=== PATIENT | male | born 1955 | race Caucasian/White ===

== ENCOUNTER 2019-05-15 23:08 | Inpatient (IN) | payer BC ==
[2019-05-15] MEDS ORDERED: SODIUM CHLORIDE 0.9% 1,000 ML IV STA (23:26)
--- NOTE | 2019-05-15 23:34 | ED ---
General Adult HPI - General Chief complaint: Weakness Stated complaint: Fall Time Seen by Provider: 05/15/19 23:13 Source: patient, EMS Mode of arrival: EMS - History of Present Illness Initial comments: Dictation was produced using [employer] dictation software. please excuse any grammatical, word or spelling errors. Chief Complaint: 63-year-old male brought in by EMS for weakness. History of Present Illness: 63-year-old male. He states that he has tingling to his feet and fingers. EMS was called by patient's . Patient does not know why he is here in emergency department today granted he feels fine granted the patient. EMS reports that was concerned about patient's well-being. Upon EMS arrival patient was found to the ground lying face down. Patient states she's been having tailing to his feet and fingers since yesterday. Patient feels as though his distal extremities are numb. Patient states he woke up and his usual state of health. Denies any nausea vomiting. He does complain of some mild abdominal pain. EMS reports that patient was 70% hypoxic. They put him on O2 supplementation. Patient was also found to be mildly hypotensive with a systolic in the 90s. Patient reports that he has no medical problems. Does not take any medications. States he does have some mid back pain is worse with deep inspiration however he attributes this to his chronic back pain. Denies any shortness of breath. The ROS documented in this emergency department record has been reviewed and confirmed by me. Those systems with pertinent positive or negative responses have been documented in the HPI. All other systems are other negative and/or noncontributory. PHYSICAL EXAM: General Impression: Alert and oriented x3, not in acute distress, ashen, cold to the touch HEENT: Normocephalic atraumatic, extra-ocular movements intact, pupils equal and reactive to light bilaterally, mucous membranes moist, pale conjunctival Cardiovascular: Heart regular rate and rhythm, S1&S2 audible, no murmurs, rubs or gallops Chest: Lungs clear to auscultation bilaterally, no rhonchi, no wheeze, no rales Abdomen: Diffuse abdominal tenderness, peritoneal Musculoskeletal: Weak pulses present and equal in all extremities, no peripheral edema, distal extremities are cool to the touch Motor: no focal deficits noted Neurological: CN II-XII grossly intact, no focal motor or sensory deficits noted Skin: Intact with no visualized rashes Psych: Normal affect and mood ED course: 63-year-old male brought into the emergency department by EMS from home for generalized weakness. Patient complains that he does have some mid thoracic back pain worse with inspiration. Vital signs upon arrival shows tachycardia. EKG shows ventricular rate of 104, sinus tachycardia, MS interval 130, QRS 110, QTc 494, there is incomplete right bundle branch block. EKG was compared to EKG from June showing new right bundle branch block features. C krueger review shows that patient has history of GI bleed and tested positive for H. pylori. Family arrived at bedside reports that patient fell recently. He's been very weak. He's been taking Valerian root for sleep aid. He also takes cannibis supplement.Portable chest x-ray was obtained. There was findings of intraperitoneal air. Patient likely septic from peritonitis. Patient moved to resuscitation bay. Troponin catheter was placed given the patient is critically ill. Laboratory slowly resulting. No white count. Hemoglobin 8.4. Thrombocytosis of 506. Venous pH is 7.2 with a pCO2 of 30 and bicarb of 12. Sodium of 129. Potassium 5.5, carbon dioxide of 11, anion gap of 19, creatinine of 6, BUN of 56, lactic acidosis 8.1 stool occult blood positive. Patient sent to CT given that there was concern for traumatic injuries. Computed tomography scan was reviewed showing no intracranial processes. Pending radiology read. Post triple lumen catheter placement x-ray was obtained showing adequate placement. Patient given 30 mL per KG ideal body weight bolus per sepsis protocol. Started on Zosyn. Discussed patient case in detail with Dr. cdaet was on-call for general surgery. Patient will be disposition to the operating room. Discussed patient case with Dr. Park of [facility] was willing to accept patients care. Discussed patient case with Dr. Roldan in is agreeable with plan. Patient will be resuscitated in emergency department and will be taken straight to the operating room prior to be disposition to the intensive care unit. His blood pressure improving with intravenous fluids. Given degree of acidosis patient given sodium bicarbonate and started on any bicarbonate infusion. Plan is for patient to go to the operating room for approximately 2:[address] cadet - Related Data Previous Rx's Medication Instructions Recorded Pantoprazole Sodium [Protonix] 40 mg PO Q12HR #60 tablet. 07/05/14 RX: LORazepam [Ativan] 1 mg PO TID PRN #20 tab 07/05/14 RX: Sucralfate [Carafate] 1 gm PO ACHS #120 tab 07/05/14 Allergies Allergy/AdvReac Type Severity Reaction Status Date / Time No Known Allergies Allergy Verified 07/02/14 11:10 Review of Systems ROS Statement: Those systems with pertinent positive or pertinent negative responses have been documented in the HPI. ROS Other: All systems not noted in ROS Statement are negative. Past Medical History Additional Past Medical History / Comment(s): POLPYS History of Any Multi-Drug Resistant Organisms: None Reported Past Surgical History: No Surgical Hx Reported Past Anesthesia/Blood Transfusion Reactions: No Reported Reaction Past Psychological History: No Psychological Hx Reported Smoking Status: Former smoker Past Alcohol Use History: Daily Past Drug Use History: Marijuana - Past Family History Mother Family Medical History: Cancer Additional Family Medical History / Comment(s): lung cancer. Course Vital Signs 05/15/19 05/15/19 05/15/19 23:15 23:38 23:50 Temperature 97.7 F Pulse Rate 105 H 103 H 108 H Respiratory 16 18 16 Rate Blood Pressure 99/58 89/58 108/51 O2 Sat by Pulse 99 100 96 Oximetry 05/15/19 05/16/19 05/16/19 23:57 00:12 00:45 Temperature Pulse Rate 103 H 106 H 106 H Respiratory 16 16 18 Rate Blood Pressure 116/49 96/74 117/72 O2 Sat by Pulse 95 97 96 Oximetry Procedures - Central Line Placement Left IJ Consent Obtained: verbal consent, written consent Patient Placed on Monitor/Pulse Ox: Yes MD Prep: mask, gown, gloves Central Line Prep: Povidone-Iodine 1% Local Anesthesia Used: Lidocaine 1%, with Epi Ultrasound Used for Placement: Yes Central Line Lumen Inserted: triple Bloods Obtained for Lab: Yes Central Line Position: good blood return, all ports aspirated, flushed, capped, sutured in place with 3-0 nylon Dressing Applied: Tegaderm Post Procedure X-Ray: tip of catheter in good position Patient Tolerated Procedure: well Medical Decision Making - Lab Data Result diagrams: 05/16/19 00:04 05/16/19 00:04 Lab Results 05/15/19 05/15/19 05/16/19 Range/Units 23:23 23:39 00:04 WBC (3.8-10.6) k/uL RBC (4.30-5.90) m/uL Hgb (13.0-17.5) gm/dL Hct (39.0-53.0) % MCV (80.0-100.0) fL MCH (25.0-35.0) pg MCHC (31.0-37.0) g/dL RDW (11.5-15.5) % Plt Count (150-450) k/uL Neutrophils % (Manual) % Band Neutrophils % % Lymphocytes % (Manual) % Monocytes % (Manual) % Neutrophils # (Manual) (1.3-7.7) k/uL Lymphocytes # (Manual) (1.0-4.8) k/uL Monocytes # (Manual) (0-1.0) k/uL Nucleated RBCs (0-0) /100 WBC Manual Slide Review Hypochromasia Poikilocytosis Crenated Cell PT (9.0-12.0) sec INR (<1.2) APTT (22.0-30.0) sec VBG pH (7.31-7.41) VBG pCO2 (37-51) mmHg VBG HCO3 (24-28) mmol/L Sodium 129 L (137-145) mmol/L Potassium 5.5 H (3.5-5.1) mmol/L Chloride 99 (98-107) mmol/L Carbon Dioxide 11 L (22-30) mmol/L Anion Gap 19 mmol/L BUN 56 H (9-20) mg/dL Creatinine 6.03 H (0.66-1.25) mg/dL Est GFR (CKD-EPI)AfAm 11 (>60 ml/min/1.73 sqM) Est GFR (CKD-EPI)NonAf 9 (>60 ml/min/1.73 sqM) Glucose 122 H (74-99) mg/dL POC Glucose (mg/dL) 109 H (75-99) mg/dL POC Glu Subassembly Assembler ID Deanna Pineda Plasma Lactic Acid Vernon (0.7-2.0) mmol/L Calcium 7.6 L (8.4-10.2) mg/dL Magnesium 2.0 (1.6-2.3) mg/dL Creatine Kinase 137 (55-170) U/L Troponin I (0.000-0.034) ng/mL Stool Occult Blood Positive (Negative) Serum Alcohol <10 mg/dL 05/16/19 05/16/19 05/16/19 Range/Units 00:04 00:04 00:04 WBC 5.3 (3.8-10.6) k/uL RBC 2.83 L (4.30-5.90) m/uL Hgb 8.4 L (13.0-17.5) gm/dL Hct 26.9 L (39.0-53.0) % MCV 95.1 (80.0-100.0) fL MCH 29.5 (25.0-35.0) pg MCHC 31.0 (31.0-37.0) g/dL RDW 14.4 (11.5-15.5) % Plt Count 506 H (150-450) k/uL Neutrophils % (Manual) 79 % Band Neutrophils % 11 % Lymphocytes % (Manual) 7 % Monocytes % (Manual) 3 % Neutrophils # (Manual) 4.70 (1.3-7.7) k/uL Lymphocytes # (Manual) 0.37 L (1.0-4.8) k/uL Monocytes # (Manual) 0.16 (0-1.0) k/uL Nucleated RBCs 0 (0-0) /100 WBC Manual Slide Review Performed Hypochromasia Marked Poikilocytosis Slight Crenated Cell Present PT 11.0 (9.0-12.0) sec INR 1.0 (<1.2) APTT 27.8 (22.0-30.0) sec VBG pH (7.31-7.41) VBG pCO2 (37-51) mmHg VBG HCO3 (24-28) mmol/L Sodium (137-145) mmol/L Potassium (3.5-5.1) mmol/L Chloride (98-107) mmol/L Carbon Dioxide (22-30) mmol/L Anion Gap mmol/L BUN (9-20) mg/dL Creatinine (0.66-1.25) mg/dL Est GFR (CKD-EPI)AfAm (>60 ml/min/1.73 sqM) Est GFR (CKD-EPI)NonAf (>60 ml/min/1.73 sqM) Glucose (74-99) mg/dL POC Glucose (mg/dL) (75-99) mg/dL POC Glu Subassembly Assembler ID Plasma Lactic Acid Vernon (0.7-2.0) mmol/L Calcium (8.4-10.2) mg/dL Magnesium (1.6-2.3) mg/dL Creatine Kinase (55-170) U/L Troponin I 0.030 (0.000-0.034) ng/mL Stool Occult Blood (Negative) Serum Alcohol mg/dL 05/16/19 05/16/19 Range/Units 00:04 00:04 WBC (3.8-10.6) k/uL RBC (4.30-5.90) m/uL Hgb (13.0-17.5) gm/dL Hct (39.0-53.0) % MCV (80.0-100.0) fL MCH (25.0-35.0) pg MCHC (31.0-37.0) g/dL RDW (11.5-15.5) % Plt Count (150-450) k/uL Neutrophils % (Manual) % Band Neutrophils % % Lymphocytes % (Manual) % Monocytes % (Manual) % Neutrophils # (Manual) (1.3-7.7) k/uL Lymphocytes # (Manual) (1.0-4.8) k/uL Monocytes # (Manual) (0-1.0) k/uL Nucleated RBCs (0-0) /100 WBC Manual Slide Review Hypochromasia Poikilocytosis Crenated Cell PT (9.0-12.0) sec INR (<1.2) APTT (22.0-30.0) sec VBG pH 7.23 L (7.31-7.41) VBG pCO2 30 L (37-51) mmHg VBG HCO3 12 L (24-28) mmol/L Sodium (137-145) mmol/L Potassium (3.5-5.1) mmol/L Chloride (98-107) mmol/L Carbon Dioxide (22-30) mmol/L Anion Gap mmol/L BUN (9-20) mg/dL Creatinine (0.66-1.25) mg/dL Est GFR (CKD-EPI)AfAm (>60 ml/min/1.73 sqM) Est GFR (CKD-EPI)NonAf (>60 ml/min/1.73 sqM) Glucose (74-99) mg/dL POC Glucose (mg/dL) (75-99) mg/dL POC Glu Subassembly Assembler ID Plasma Lactic Acid Vernon 8.1 H* (0.7-2.0) mmol/L Calcium (8.4-10.2) mg/dL Magnesium (1.6-2.3) mg/dL Creatine Kinase (55-170) U/L Troponin I (0.000-0.034) ng/mL Stool Occult Blood (Negative) Serum Alcohol mg/dL Critical Care Time Critical Care Time: Yes (75) Disposition Clinical Impression: Septic shock, Perforated bowel, Acute kidney failure, Hyponatremia, Lactic acidosis Disposition: [facility] Condition: Critical Referrals: None,Stated [Primary Care Provider] - 1-2 days Decision Time: 01:06
[2019-05-15 23:42] LABS: Glucose,Whole Blood 109 mg/dL (75-99)
[2019-05-16] MEDS ORDERED: PIPERACILLIN-TAZOBACTAM 3.375 GM in SODIUM CHLORIDE 0.9% 100 ML IVPB STA (00:09)
[2019-05-16] MEDS ORDERED: fentaNYL (PF) 50 MCG/ML 2 ML AMP IVP STA (00:12)
--- NOTE | 2019-05-16 00:13 | XR ---
EXAM: XR Chest, 1 View CLINICAL HISTORY: ITS.REASON XR Reason: hypoxia TECHNIQUE: Frontal view of the chest. COMPARISON: . FINDINGS: Lungs: Unremarkable. The lungs are clear. Pleural space: Unremarkable. No pneumothorax. Heart: Unremarkable. No cardiomegaly. Mediastinum: Unremarkable. Bones/joints: Unremarkable. Upper abdomen: Findings highly suspicious for pneumoperitoneum. IMPRESSION: Findings highly suspicious for pneumoperitoneum. Correlation with exam findings recommended and possible follow-up with CT abdomen and pelvis. <MYCVCSECTION> Critical Value Communications 05/16/19 00:18 Call Doctor Regarding Bowel Perforation with Free Air, called Dr. CARO on 05/16 00:18 (-05:00)
[2019-05-16 00:17] LABS: HCT 26.9 % (39.0-53.0); HGB 8.4 gm/dL (13.0-17.5); Hypochromasia Marked; MCH 29.5 pg (25.0-35.0); MCV 95.1 fL (80.0-100.0); Mean Platelet Volume 7.5; Platelet Count 506 k/uL (150-450); Poikilocytosis Slight; RBC 2.83 m/uL (4.30-5.90); RDW 14.4 % (11.5-15.5); WBC 5.3 k/uL (3.8-10.6)
[2019-05-16 00:28] LABS: African American GFR (CKD) 11 (>60 ml/min/1.73 sqM); Alcohol <10 mg/dL; Anion Gap 19 mmol/L; Blood Urea Nitrogen 56 mg/dL (9-20); Calcium 7.6 mg/dL (8.4-10.2); Carbon Dioxide 11 mmol/L (22-30); Chloride 99 mmol/L (98-107); Creatine Kinase 137 U/L (55-170); Glucose 122 mg/dL (74-99); Non-African American GFR(CKD) 9 (>60 ml/min/1.73 sqM); Potassium 5.5 mmol/L (3.5-5.1); Sodium 129 mmol/L (137-145)
[2019-05-16 00:29] LABS: VBG PH 7.23 (7.31-7.41)
[2019-05-16 00:36] LABS: Band Neutrophils % 11 %; Lymphocytes # (M) 0.37 k/uL (1.0-4.8); Monocytes # (M) 0.16 k/uL (0-1.0); Neutrophils % (M) 79 %; Nucleated Red Blood Cells 0 /100 WBC (0-0); Total Cells Counted 200
[2019-05-16 00:37] LABS: Crenated RBC Present
[2019-05-16] MEDS ORDERED: SODIUM CHLORIDE 0.9% 1,000 ML IV ONE ×2 (00:41→19:14)
[2019-05-16] MEDS ORDERED: SODIUM CHLORIDE 0.9% 500 ML 250 ML IV STA (00:47)
[2019-05-16 00:54] LABS: Partial Thromboplastin Time 27.8 sec (22.0-30.0)
[2019-05-16] MEDS ORDERED: SODIUM BICARB 8.4% 50 ML SYR (1 MEQ/ML) IV STA (00:56)
--- NOTE | 2019-05-16 00:56 | XR ---
EXAM: XR Abdomen, 2 Views CLINICAL HISTORY: ITS.REASON XR Reason: abdominal free air TECHNIQUE: Frontal view of the abdomen/pelvis with upright view of the abdomen. COMPARISON: 07/03/2014. FINDINGS: Intraperitoneal space: Reidentified extensive presumed free intraperitoneal air. Gastrointestinal tract: Unremarkable. No dilation. Bones/joints: Unremarkable. IMPRESSION: Reidentified extensive presumed free intraperitoneal air.
--- NOTE | 2019-05-16 00:56 | XR ---
EXAM: XR Chest, 1 View CLINICAL HISTORY: ITS.REASON XR Reason: cvc line placement TECHNIQUE: Frontal view of the chest. COMPARISON: Chest x-ray from earlier today. FINDINGS: Lungs: Mild patchy opacity in the right lung base may represent atelectasis and/or pneumonia. Pleural space: Unremarkable. No pneumothorax. Heart: Unremarkable. No cardiomegaly. Mediastinum: Unremarkable. Bones/joints: Unremarkable. Tubes, lines and devices: Interval placement of a left-sided central venous catheter with tip projecting over the right atrium. No evidence of pneumothorax. Upper abdomen: Reidentified extensive presumed pneumoperitoneum. IMPRESSION: 1. Interval placement of a left-sided central venous catheter with tip projecting over the right atrium. No evidence of pneumothorax. 2. Reidentified extensive presumed pneumoperitoneum. 3. Mild patchy opacity in the right lung base may represent atelectasis and/or pneumonia.
[2019-05-16] MEDS ORDERED: DEXTROSE 5% IN WATER 1,000 ML with SODIUM BICARB (1 MEQ/ML) 100 ML IV SCH (01:00)
[2019-05-16] MEDS ORDERED: NALOXONE 0.4 MG/ML 1 ML VIAL IV PRN ×2 (01:06→06:17)
[2019-05-16] MEDS ORDERED: PANTOPRAZOLE 40 MG/10 ML VIAL IVP ONE (01:08)
--- NOTE | 2019-05-16 01:15 | CT ---
EXAM: CT Angiography Chest With Intravenous Contrast CLINICAL HISTORY: ITS.REASON CT Reason: PE TECHNIQUE: Axial computed tomographic angiography images of the chest with intravenous contrast using pulmonary embolism protocol. CTDI is 45.2 mGy and DLP is 992.4 mGy-cm. This CT exam was performed using one or more of the following dose reduction techniques: automated exposure control, adjustment of the mA and/or kV according to patient size, and/or use of iterative reconstruction technique. MIP reconstructed images were created and reviewed. COMPARISON: No relevant prior studies available. FINDINGS: Pulmonary arteries: Unremarkable. No evidence of pulmonary embolism. Aorta: No acute findings. No thoracic aortic aneurysm. Lungs: Bibasilar mild consolidations presumably represent atelectasis. Pleural space: Small bilateral pleural effusions. No pneumothorax. Heart: Unremarkable. No cardiomegaly. No significant pericardial effusion. No evidence of RV dysfunction. Thyroid: Findings suspicious for 1 cm right thyroid lobe nodule. Bones/joints: No acute fracture. No dislocation. Soft tissues: Unremarkable. Lymph nodes: Unremarkable. No enlarged lymph nodes. IMPRESSION: 1. No evidence of pulmonary embolism to the proximal segmental level. More distal evaluation is limited. 2. Findings suspicious for 1 cm right thyroid lobe nodule. Further characterization with dedicated thyroid ultrasound suggested. 3. Small bilateral pleural effusions. 4. Bibasilar mild consolidations presumably represent atelectasis. Underlying pneumonia is possible.
--- NOTE | 2019-05-16 01:21 | CT ---
EXAM: CT Abdomen and Pelvis With Intravenous Contrast CLINICAL HISTORY: ITS.REASON CT Reason: abdominal pain TECHNIQUE: Axial computed tomography images of the abdomen and pelvis with intravenous contrast. CTDI is 11 mGy and DLP is 299.1 mGy-cm. This CT exam was performed using one or more of the following dose reduction techniques: automated exposure control, adjustment of the mA and/or kV according to patient size, and/or use of iterative reconstruction technique. COMPARISON: Prior abdominal radiographs. FINDINGS: Lung bases: Unremarkable. No mass. No consolidation. ABDOMEN: Liver: Unremarkable. No mass. Gallbladder and bile ducts: Unremarkable. No calcified stones. No ductal dilation. Pancreas: Unremarkable. No evidence of mass. No ductal dilation. Spleen: Unremarkable. No splenomegaly. Adrenals: Unremarkable. No mass. Kidneys and ureters: Findings highly suspicious for a 13 mm mass lesion in the superior pole of the left kidney. Questionable exophytic mass lesion arising from the superior pole the right kidney measuring up to 8 mm. lobulation of the left kidney. Atrophic right kidney. 14 mm right renal cyst. No hydronephrosis. Stomach and bowel: Moderate amount of stool within the proximal colon. PELVIS: Appendix: Appendix appears grossly unremarkable. Evaluation is limited by ascites. Bladder: Unremarkable. No evidence of mass. Reproductive: Unremarkable as visualized. ABDOMEN and PELVIS: Intraperitoneal space: Reidentified large amount of free intraperitoneal air. Large amount of ascites. Scattered areas of small bowel wall thickening may be secondary to ascites or represent a nonspecific enteritis. Bones/joints: No acute fracture. Soft tissues: Unremarkable. Vasculature: Unremarkable. No abdominal aortic aneurysm. Lymph nodes: Unremarkable. No enlarged lymph nodes. IMPRESSION: 1. Reidentified large amount of free intraperitoneal air. The origin is uncertain. 2. Large amount of ascites. 3. Scattered areas of small bowel wall thickening may be secondary to ascites or represent a nonspecific enteritis. 4. Findings highly suspicious for a 13 mm mass lesion in the superior pole of the left kidney. Further characterization with dedicated renal mass protocol imaging suggested. 5. Questionable exophytic mass lesion arising from the superior pole the right kidney measuring up to 8 mm.
--- NOTE | 2019-05-16 02:24 | CT ---
EXAM: CT Head Without Intravenous Contrast CLINICAL HISTORY: Fall. Headache. TECHNIQUE: Axial computed tomography images of the head/brain without intravenous contrast. CTDI is 45.2 mGy and DLP is 992.4 mGy-cm. This CT exam was performed using one or more of the following dose reduction techniques: automated exposure control, adjustment of the mA and/or kV according to patient size, and/or use of iterative reconstruction technique. COMPARISON: None. FINDINGS: Brain: No abnormal extra-axial collection. No hemorrhage. Midline shift: No midline shift or mass-effect. Midline anatomy is unremarkable. Ventricles: There is prominence of the ventricular system, cortical sulci, basilar cisterns, compatible with age related atrophy. Bones/joints: Calvarium is unremarkable. No acute fracture. Soft tissues: Unremarkable. Sinuses: Unremarkable as visualized. No acute sinusitis. Mastoid air cells: Mastoid air cells and sinuses are unremarkable. IMPRESSION: No acute intracranial pathology is detected. If there is concern for etiology since his early acute lacunar infarcts, magnetic resonance imaging of the brain with diffusion-weighted sequences should be performed for follow-up. EXAM: CT Cervical Spine Without Intravenous Contrast CLINICAL HISTORY: Fall. Headache. TECHNIQUE: Axial computed tomography images of the cervical spine without intravenous contrast. CTDI is 11 mGy and DLP is 299.1 mGy-cm. This CT exam was performed using one or more of the following dose reduction techniques: automated exposure control, adjustment of the mA and/or kV according to patient size, and/or use of iterative reconstruction technique. COMPARISON: None. FINDINGS: Vertebrae: Alignment of the cervical spine is within normal limits. Cervical vertebral bodies are maintained in height. Gentle levoscoliosis. Transaxial images of the cervical spine reveal mild posterior facet arthropathy diffusely. No acute fracture. Discs/spinal canal/neural foramina: Mild to moderate degenerative disc disease of the cervical spine is noted. Moderate degenerative disc disease of the cervical spine is noted. Minimal disc osteophyte complexes are noted most notably at the C5-6 and C6-7 levels. No spinal canal stenosis. Soft tissues: Paraspinal and regional soft tissues are unremarkable. Other findings: Spinous processes are unremarkable. IMPRESSION: Degenerative disc disease. No evidence of acute injury to the cervical spine.
[2019-05-16] MEDS ORDERED: PHENYLEPHRINE-0.9% NACL SYG 1 MG/10 ML SYRINGE ONE (02:51)
[2019-05-16] MEDS ORDERED: SUCCINYLCHOLINE CHLORIDE 100 MG/5 ML SYR IV ONE (02:51)
[2019-05-16] MEDS ORDERED: PROPOFOL 10 MG/ML 20 ML VIAL IV ONE (02:51)
[2019-05-16] MEDS ORDERED: MIDAZOLAM 2 MG/2 ML VIAL ONE (02:51)
[2019-05-16] MEDS ORDERED: fentaNYL (PF) 50 MCG/ML 2 ML AMP ONE (02:51)
[2019-05-16] MEDS ORDERED: ROCURONIUM BROMIDE 10 MG/ML 10 ML VIAL IV ONE (02:51)
[2019-05-16] MEDS ORDERED: SODIUM BICARB 8.4% 50 ML SYR (1 MEQ/ML) ONE (02:51)
[2019-05-16] MEDS ORDERED: IV FLUID CONTINUATION 900 ML IV ONE ×2 (02:58)
[2019-05-16] MEDS ORDERED: FLUCONAZOLE IN NACL,ISO-OSM 400 MG in SALINE 1 200ML.BAG IVPB STA (03:08)
--- NOTE | 2019-05-16 03:11 | P.GSCN ---
History of Present Illness Consult date: 05/16/19 History of present illness: This is a 63-year-old male with a past history of bleeding duodenal ulcer in 2013 he states that over the last 3 days been having worsening back pain and abdominal pain. He has had very little to eat as a result. He does not take his omeprazole that was prescribed to him. He states his abdominal pain began getting worse until he is felt dizzy and lightheaded at home. He is brought to the emergency department. He is found be hypotensive and tachycardic. He is found to have a large amount of free air and intraperitoneal fluid. Also consult regarding concern for perforated viscus. Past Medical History Additional Past Medical History / Comment(s): POLPYS History of Any Multi-Drug Resistant Organisms: None Reported Past Surgical History: No Surgical Hx Reported Past Anesthesia/Blood Transfusion Reactions: No Reported Reaction Past Psychological History: No Psychological Hx Reported Smoking Status: Former smoker Past Alcohol Use History: Daily Past Drug Use History: Marijuana - Past Family History Mother Family Medical History: Cancer Additional Family Medical History / Comment(s): lung cancer. Medications and Allergies Home Medications Medication Instructions Recorded Confirmed Type LORazepam [Ativan] 1 mg PO TID PRN #20 tab 07/05/14 Rx Pantoprazole Sodium [Protonix] 40 mg PO Q12HR #60 tablet. 07/05/14 Rx Sucralfate [Carafate] 1 gm PO ACHS #120 tab 07/05/14 Rx Allergies Allergy/AdvReac Type Severity Reaction Status Date / Time No Known Allergies Allergy Verified 07/02/14 11:10 Surgical - Exam Osteopathic Statement: *. No significant issues noted on an osteopathic structural exam other than those noted in the History and Physical/Consult. Vital Signs Pulse Resp BP Pulse Ox 105 H 16 99/58 99 05/15/19 23:15 05/15/19 23:15 05/15/19 23:15 05/15/19 23:15 - General moderate distress - Eyes PERRL - Neck trachea midline - Respiratory normal expansion, normal respiratory effort - Cardiovascular Heart Rate: 120 - Abdomen Distended, diffuse TTP with guarding - Neurologic normal coordination, normal sensation - Psychiatric oriented to time, oriented to person, oriented to place Results - Labs 05/16/19 00:04 05/16/19 00:04 Abnormal Lab Results - Last 24 Hours (Table) 05/15/19 05/16/19 05/16/19 Range/Units 23:39 00:04 00:04 RBC 2.83 L (4.30-5.90) m/uL Hgb 8.4 L (13.0-17.5) gm/dL Hct 26.9 L (39.0-53.0) % Plt Count 506 H (150-450) k/uL Lymphocytes # (Manual) 0.37 L (1.0-4.8) k/uL VBG pH (7.31-7.41) VBG pCO2 (37-51) mmHg VBG HCO3 (24-28) mmol/L Sodium 129 L (137-145) mmol/L Potassium 5.5 H (3.5-5.1) mmol/L Carbon Dioxide 11 L (22-30) mmol/L BUN 56 H (9-20) mg/dL Creatinine 6.03 H (0.66-1.25) mg/dL Glucose 122 H (74-99) mg/dL POC Glucose (mg/dL) 109 H (75-99) mg/dL Plasma Lactic Acid Vernon (0.7-2.0) mmol/L Calcium 7.6 L (8.4-10.2) mg/dL 05/16/19 05/16/19 Range/Units 00:04 00:04 RBC (4.30-5.90) m/uL Hgb (13.0-17.5) gm/dL Hct (39.0-53.0) % Plt Count (150-450) k/uL Lymphocytes # (Manual) (1.0-4.8) k/uL VBG pH 7.23 L (7.31-7.41) VBG pCO2 30 L (37-51) mmHg VBG HCO3 12 L (24-28) mmol/L Sodium (137-145) mmol/L Potassium (3.5-5.1) mmol/L Carbon Dioxide (22-30) mmol/L BUN (9-20) mg/dL Creatinine (0.66-1.25) mg/dL Glucose (74-99) mg/dL POC Glucose (mg/dL) (75-99) mg/dL Plasma Lactic Acid Vernon 8.1 H* (0.7-2.0) mmol/L Calcium (8.4-10.2) mg/dL Diabetes panel 05/16/19 Range/Units 00:04 Sodium 129 L (137-145) mmol/L Potassium 5.5 H (3.5-5.1) mmol/L Chloride 99 (98-107) mmol/L Carbon Dioxide 11 L (22-30) mmol/L BUN 56 H (9-20) mg/dL Creatinine 6.03 H (0.66-1.25) mg/dL Glucose 122 H (74-99) mg/dL Calcium 7.6 L (8.4-10.2) mg/dL Calcium panel 05/16/19 Range/Units 00:04 Calcium 7.6 L (8.4-10.2) mg/dL Pituitary panel 05/16/19 Range/Units 00:04 Sodium 129 L (137-145) mmol/L Potassium 5.5 H (3.5-5.1) mmol/L Chloride 99 (98-107) mmol/L Carbon Dioxide 11 L (22-30) mmol/L BUN 56 H (9-20) mg/dL Creatinine 6.03 H (0.66-1.25) mg/dL Glucose 122 H (74-99) mg/dL Calcium 7.6 L (8.4-10.2) mg/dL Adrenal panel 05/16/19 Range/Units 00:04 Sodium 129 L (137-145) mmol/L Potassium 5.5 H (3.5-5.1) mmol/L Chloride 99 (98-107) mmol/L Carbon Dioxide 11 L (22-30) mmol/L BUN 56 H (9-20) mg/dL Creatinine 6.03 H (0.66-1.25) mg/dL Glucose 122 H (74-99) mg/dL Calcium 7.6 L (8.4-10.2) mg/dL Assessment and Plan Assessment: Acute abdomen, free intraperitoneal air with concern for perforated viscus, sepsis Plan: I discussed the plan with anesthesia and the emergency room physician. Patient was to be resuscitated in the emergency room prior to exploratory laparotomy. Patient received 3 L of fluid in the emergency department and responded his blood pressure has been stable. Exploratory laparotomy possible bowel resection possible ostomy and all other indicated procedures were discussed the patient and the patient's . He stated he understood agreed and consented. Patient will be admitted to the ICU after surgery. He received Zosyn in the emergency department.
--- NOTE | 2019-05-16 03:46 | P.ANPRN ---
Procedure Note - Anesthesia - Invasive Line Left Arterial Line Time Out Performed: Yes Date of Procedure: 05/16/19 Time of Procedure: 03:00 Location of Patient Procedure: OR Preparation: Sterile Prep, Sterile Dressing Arterial Line Location: Radial Ultrasound Used: Yes Purpose - Visualization and Identification of Vasculature: Yes Needle Guage: 20 Image Stored and Saved: Yes Narrative: Left radial arterial line placement under u/s guidance.
[2019-05-16] MEDS ORDERED: HYDROmorphone 0.5 MG/0.5 ML SYRINGE IVP PRN (03:53)
[2019-05-16] MEDS ORDERED: ONDANSETRON 4 MG/2 ML VIAL IVP PRN (03:53)
[2019-05-16] MEDS ORDERED: LACTATED RINGERS 1,000 ML IV SCH ×2 (04:00→06:45)
[2019-05-16 04:31] LABS: Allen Test Performed? Yes
[2019-05-16 04:33] LABS: ABG Base Excess -8.2 mmol/L; ABG HCO3 16 mmol/L (21-25); ABG PCO2 30 mmHg (35-45); ABG PH 7.35 (7.35-7.45); ABG PO2 184 mmHg (83-108)
[2019-05-16 04:46] LABS: Hypochromasia Marked; MCH 28.7 pg (25.0-35.0); MCHC 31.5 g/dL (31.0-37.0); MCV 91.1 fL (80.0-100.0); Mean Platelet Volume 7.7; Platelet Count 386 k/uL (150-450); Poikilocytosis Slight; RBC 2.16 m/uL (4.30-5.90); RDW 15.1 % (11.5-15.5); WBC 3.8 k/uL (3.8-10.6)
[2019-05-16 04:54] LABS: HCT 19.7 % (39.0-53.0); HGB 6.2 gm/dL (13.0-17.5)
[2019-05-16] MEDS ORDERED: LACTATED RINGERS 1,000 ML IV ONE ×5 (05:03→06:17)
[2019-05-16 05:36] LABS: Band Neutrophils % 14 %; Lymphocytes # (M) 0.11 k/uL (1.0-4.8); Monocytes # (M) 0.23 k/uL (0-1.0); Myelocytes # (M) 0.04 k/uL (0); Myelocytes % 1 %; Neutrophils % (M) 77 %; Nucleated Red Blood Cells 0 /100 WBC (0-0); Total Cells Counted 200
--- NOTE | 2019-05-16 06:15 | P.OP ---
Date of Procedure: 05/16/19 Preoperative Diagnosis: Acute abdomen and perforated viscus Postoperative Diagnosis: Perforated duodenal ulcer Procedure(s) Performed: Exploratory laparotomy with antrectomy and Billroth II gastrojejunostomy Anesthesia: KAYLYNN Surgeon: Boogie Martines Estimated Blood Loss (ml): 100 IV fluids (ml): 3,500 Urine output (ml): 30 Pathology: other (Antrum and 1st portion of duodenum) Condition: critical Disposition: ICU Description of Procedure: Patient is brought operative suite remained in the supine position underwent general endotracheal anesthesia per Department of anesthesia prepped and draped in the usual sterile fashion timeout performed correct patient correct procedure correct site was verified. An upper midline incision was made carried down the fascia which was incised and opened in the usual fashion. There was a large amount of free air noted upon entry there was also approximately 3 L of purulent ascites. This was sent for Gram stain and culture. It was then suctioned. Abdomen was inspected there was a large 3 cm perforated ulcer in the first portion of the duodenum. This ulcer was large and friable it was not amenable to primary closure or Cali patch. Decision was made to perform antrectomy with the resection of the first first of the duodenum along with the Billroth II gastrojejunostomy. The lesser sac was entered and the omentum was taken down past the pylorus with a LigaSure device. The gastrohepatic ligament was taken down and the Antrum was stapled across with a 75 mm blue load CHERI stapler. The antrum and first portion of duodenum were freed up posteriorly until the first portion of duodenum with the ulcer was dissected free being sure not to injure the mg hepatis or the ampulla the first portion of the duodenum distal to the ulcer was stapled across with a 60 mm purple load Endo CHERI stapler. This was then oversewn with 3-0 Vicryl in a patch of omentum was placed over the staple line and sutured in place with 3-0 Vicryl. A loop of jejunum was brought up just 20 cm distal to the ligament of Treitz under no tension and a side to side gastrojejunostomy anastomosis was created with a 75 mm blue load CHERI stapler the common gastrotomy enterotomy was closed with 3-0 Vicryl interrupted sutures followed by 3-0 Vicryl imbricating Lembert style sutures. BOGDAN drain was placed in the right upper quadrant near the duodenal stump. His sutured in place the skin with a 3-0 nylon. All 4 quadrants were copiously irrigated with greater than 2 L of warm saline. This was done until clear. The small bowel and colon were run no other abnormalities were noted. The midline incision was then closed with looped 1 PDS sutures meeting in the middle. Skin keren were used to close the skin and sterile dressing was applied patient tolerated the procedure well he is in critical condition and sent to the ICU.
[2019-05-16 06:27] LABS: Glucose,Whole Blood 90 mg/dL (75-99)
[2019-05-16 06:30] LABS: ABG Base Excess -6.6 mmol/L; ABG HCO3 19 mmol/L (21-25); ABG PCO2 32 mmHg (35-45); ABG PH 7.37 (7.35-7.45); ABG PO2 >400 mmHg (83-108); ABG TCO2 20 mmol/L (19-24); Allen Test Performed? Yes
[2019-05-16] MEDS ORDERED: ACETAMINOPHEN IV (For NPO) 1,000 MG in EMPTY BAG 1 BAG IVPB ONE (06:30)
[2019-05-16] MEDS ORDERED: EMPTY BAG 1 BAG with PROPOFOL 1,000 MG IV SCH (06:32)
[2019-05-16] MEDS: NOREPINEPHRINE 4 MG in SODIUM CHLORIDE 0.9% 250 ML IV SCH ×2 (06:34→23:00)
--- NOTE | 2019-05-16 06:56 | P.HPIM ---
History of Present Illness H&P Date: 05/16/19 Chief Complaint: back and abd pain of 3 days 63-year-old male with history of bleeding duodenal ulcer in 2013 age and noncompliance with outpatient follow-up or medications Patient was seen immediately in the postoperative period in the ICU and unable to provide any meaningful history due to heavily sedated and vent support and endotracheal intubation. History was obtained by reviewing medical records from the ER and discussing case with his primary surgeon. Seems like patient is a heavy daily drinker came in today as he was found laying face down complaining of tingling in his fingers and feet so his called EMS he was found to be hypoxic with his oxygen sats down into 70% and low systolic blood pressure in the low 90s for which he was brought into the hospital for evaluation. He was found to be tachycardic and hypotensive he was resuscitated aggressively x-rays revealed free air under the diaphragm interperitoneal fluids patient has strong history of duodenal ulcer which bleeding back in 2013. He was resuscitated aggressively in the ER imaging obtained general surgery notified and he was rushed to the OR. Patient arrived from the OR at 0610 to the ICU. In the ER he was found to have lactic acidosis, hypovolemic shock, acute kidney injury, acute hypoxic respiratory failure.He was resuscitated aggressively. In the ER he was found to have perforated duodenal ulcer, patient had exploratory laparotomy , tolerated procedure well, bleeding was minimal during the OR time. Patient received 2 units of blood. Currently on IV pressors weaning as tolerated. Currently on vent support postoperatively. Minimal urine output despite aggressive resuscitation. Patient was found to have pus in his abdomen. He is currently kept on IV antibiotics and antifungal. Review of Systems ROS unobtainable: due to endotracheal tube Past Medical History Additional Past Medical History / Comment(s): POLPYS History of Any Multi-Drug Resistant Organisms: None Reported Past Surgical History: No Surgical Hx Reported Past Anesthesia/Blood Transfusion Reactions: No Reported Reaction Past Psychological History: No Psychological Hx Reported Smoking Status: Former smoker Past Alcohol Use History: Daily Past Drug Use History: Marijuana - Past Family History Mother Family Medical History: Cancer Additional Family Medical History / Comment(s): lung cancer. Medications and Allergies Home Medications Medication Instructions Recorded Confirmed Type LORazepam [Ativan] 1 mg PO TID PRN #20 tab 07/05/14 Rx Pantoprazole Sodium [Protonix] 40 mg PO Q12HR #60 tablet. 07/05/14 Rx Sucralfate [Carafate] 1 gm PO ACHS #120 tab 07/05/14 Rx Allergies Allergy/AdvReac Type Severity Reaction Status Date / Time No Known Allergies Allergy Verified 07/02/14 11:10 Physical Exam Vitals: Vital Signs Temp Pulse Resp BP Pulse Ox 05/16/19 02:30 118 H 16 109/77 97 05/16/19 02:10 110 H 19 108/71 98 05/16/19 01:40 117 H 20 138/51 96 05/16/19 01:13 106 H 18 111/97 96 05/16/19 00:45 106 H 18 117/72 96 05/16/19 00:12 106 H 16 96/74 97 05/15/19 23:57 103 H 16 116/49 95 05/15/19 23:50 108 H 16 108/51 96 05/15/19 23:38 97.7 F 103 H 18 89/58 100 05/15/19 23:15 105 H 16 99/58 99 Intake and Output 05/15/19 05/15/19 05/16/19 14:59 22:59 06:59 Intake Total 4320 Output Total 125 Balance 4195 Intake: IV 3700 Blood Product 620 As-1 Unit 310 [id number] Rc As-1 Unit 310 [id number] Output: Urine 25 Estimated Blood Loss 100 Other: Weight 70.307 kg patient was seen in the ICU immediately after he arrived from the OR Constitutional: patient is sedated, Intubated on vent support Eyes: Anicteric sclerae, moist conjunctiva, Pupils equal round reactive to light ENMT: NC/AT patient is intubated Neck: Supple, no masses, or JVD No carotid bruits No thyromegaly Lungs: Clear to auscultation Clear to percussion on vent support Cardiovascular: Heart regular in rate and rhythm, No murmurs, gallops, or rubs No peripheral edema Abdominal: Soft, abd binder in place, BOGDAN drain in place BS negative No palpable mass limited exam, due to abd binder Skin: Normal temperature, tone, texture, turgor No induration No subcutaneous nodules No rash, lesions No ulcers Extremities: No digital cyanosis No clubbing Pedal pulses intact and symmetrical Radial pulses intact and symmetrical No calf tenderness Psychiatric: intubated on vent support, and sedated Neuro deeply sedated, s/p paralytics. patient was seen post operatively Lymphatics: no palpable cervical or supraclavicular , or inguinal lymph nodes triple lumen central venous cath lea cath in place BOGDAN drain abd ET tube Results CBC & Chem 7: 05/16/19 04:18 05/16/19 00:04 Labs: Abnormal Lab Results - Last 24 Hours (Table) 05/15/19 05/16/19 05/16/19 Range/Units 23:39 00:04 00:04 RBC 2.83 L (4.30-5.90) m/uL Hgb 8.4 L (13.0-17.5) gm/dL Hct 26.9 L (39.0-53.0) % Plt Count 506 H (150-450) k/uL Lymphocytes # (Manual) 0.37 L (1.0-4.8) k/uL Myelocytes # (Manual) (0) k/uL ABG pCO2 (35-45) mmHg ABG pO2 (83-108) mmHg ABG HCO3 (21-25) mmol/L ABG O2 Saturation (94-97) % ABG Lactic Acid (0.5-1.6) mmol/L VBG pH (7.31-7.41) VBG pCO2 (37-51) mmHg VBG HCO3 (24-28) mmol/L Sodium 129 L (137-145) mmol/L Potassium 5.5 H (3.5-5.1) mmol/L Carbon Dioxide 11 L (22-30) mmol/L BUN 56 H (9-20) mg/dL Creatinine 6.03 H (0.66-1.25) mg/dL Glucose 122 H (74-99) mg/dL POC Glucose (mg/dL) 109 H (75-99) mg/dL Plasma Lactic Acid Vernon (0.7-2.0) mmol/L Calcium 7.6 L (8.4-10.2) mg/dL Crossmatch 05/16/19 05/16/19 05/16/19 Range/Units 00:04 00:04 00:04 RBC (4.30-5.90) m/uL Hgb (13.0-17.5) gm/dL Hct (39.0-53.0) % Plt Count (150-450) k/uL Lymphocytes # (Manual) (1.0-4.8) k/uL Myelocytes # (Manual) (0) k/uL ABG pCO2 (35-45) mmHg ABG pO2 (83-108) mmHg ABG HCO3 (21-25) mmol/L ABG O2 Saturation (94-97) % ABG Lactic Acid (0.5-1.6) mmol/L VBG pH 7.23 L (7.31-7.41) VBG pCO2 30 L (37-51) mmHg VBG HCO3 12 L (24-28) mmol/L Sodium (137-145) mmol/L Potassium (3.5-5.1) mmol/L Carbon Dioxide (22-30) mmol/L BUN (9-20) mg/dL Creatinine (0.66-1.25) mg/dL Glucose (74-99) mg/dL POC Glucose (mg/dL) (75-99) mg/dL Plasma Lactic Acid Vernon 8.1 H* (0.7-2.0) mmol/L Calcium (8.4-10.2) mg/dL Crossmatch See Detail 05/16/19 05/16/19 05/16/19 Range/Units 04:18 04:18 04:18 RBC 2.16 L (4.30-5.90) m/uL Hgb 6.2 L* D (13.0-17.5) gm/dL Hct 19.7 L* (39.0-53.0) % Plt Count (150-450) k/uL Lymphocytes # (Manual) 0.11 L (1.0-4.8) k/uL Myelocytes # (Manual) 0.04 H (0) k/uL ABG pCO2 30 L (35-45) mmHg ABG pO2 184 H (83-108) mmHg ABG HCO3 16 L (21-25) mmol/L ABG O2 Saturation 100.0 H (94-97) % ABG Lactic Acid 4.3 H* (0.5-1.6) mmol/L VBG pH (7.31-7.41) VBG pCO2 (37-51) mmHg VBG HCO3 (24-28) mmol/L Sodium (137-145) mmol/L Potassium (3.5-5.1) mmol/L Carbon Dioxide (22-30) mmol/L BUN (9-20) mg/dL Creatinine (0.66-1.25) mg/dL Glucose (74-99) mg/dL POC Glucose (mg/dL) (75-99) mg/dL Plasma Lactic Acid Vernno (0.7-2.0) mmol/L Calcium (8.4-10.2) mg/dL Crossmatch Assessment and Plan Assessment: 63 year old male with history of peptic ulcer disease, non compliant with PPI. presented due to hypoxia and not feeling well, was found to have perforated duodenal ulcer and shock. resuscitated and rushed to the OR for surgical repair. admitted as inpatient with anticipated length of stay > 2 midnights Plan: hypovolemic shock perforated Duodenal ulcer, s/p emergent surgical repair and exp. lap. POD # zero MUSHTAQ , 2/2 prerenal ATN, from circulatory shock lactic acidosis acute blood loss anemia 2/2 GIB 2/2 perf bowl, minimal blood loss intraoperatively , some component of dilutional anemia with aggressive resuscitation Hyponatremia post op vent support as part of post op care Alcohol abuse, daily drinker plan patient was resuscitated aggressively in the ED, then once stabilized rushed to the OR surgical care PPI IVF hydration blood transfusion 2 units goal Hgb >7 H and H q 8 hours IV ABx with zosyn , antifungal ,, ID consult follow up cultures follow renal function and urine output ventilator care monitor vital signs wean off IV pressors as tolerated Alcohol withdrawal precautions Thiamine critical care consult ID consult incidental findings of thyroid nodule and bilateral kidney mass, refer to CT report. consider OP follow up DVT PPX mechanical due to GI bleeding discharge planning, pending clinical course prognosis Guarded Anticipated length of stay > than 2 midnights A total of 60 minutes was spent on the care of this complex patient more than 50% of the time was spent in counseling and care coordination.
[2019-05-16] MEDS ORDERED: THIAMINE 100 MG/ML 2 ML VIAL IM STA (06:57)
[2019-05-16] MEDS: MORPHINE SULFATE 2 MG/ML SYRINGE IV PRN ×2 (07:39→11:49)
[2019-05-16] MEDS ORDERED: IPRATROPIUM-ALBUTEROL 3 ML NEB INHALATION PRN (07:41)
--- NOTE | 2019-05-16 08:07 | XR ---
EXAMINATION TYPE: XR chest 1V portable DATE OF EXAM: 05/16/2019 HISTORY: Tube placement. REFERENCE: Previous study dated 05/16/2019 the patient has been intubated. The tip of the ET tube is 1.7 cm above the ivana. An NG tube is been passed and its tip is within the stomach. There is a left internal jugular catheter in place. Its tip is within the right atrium. There continues to be minimal airspace disease in the lung bases bilaterally. Heart size upper limits of normal. There is minimal blunting of both CP angles. I could not exclude small effusions. Large a mount of pneumoperitoneum seen previously is not identified on this exam.. FINDINGS: 1. Satisfactory tube placement. 2. Borderline cardiomegaly. 3. Minimal, bilateral basilar infiltrates. 4. I could not exclude small effusions. IMPRESSION:
[2019-05-16 08:31] LABS: Hypochromasia Slight; MCH 28.4 pg (25.0-35.0); MCHC 32.5 g/dL (31.0-37.0); MCV 87.4 fL (80.0-100.0); Mean Platelet Volume 8.1; Platelet Count 301 k/uL (150-450); Poikilocytosis Slight; RBC 3.09 m/uL (4.30-5.90); WBC 2.8 k/uL (3.8-10.6)
[2019-05-16 08:42] LABS: Albumin 1.8 g/dL (3.5-5.0); Calcium 6.9 mg/dL (8.4-10.2); Potassium 5.5 mmol/L (3.5-5.1); Total Bilirubin 0.9 mg/dL (0.2-1.3); Total Protein 3.6 g/dL (6.3-8.2)
[2019-05-16 08:46] LABS: INR 1.1 (<1.2); Prothrombin Time 11.5 sec (9.0-12.0)
[2019-05-16] MEDS ORDERED: PANTOPRAZOLE 40 MG/10 ML VIAL IV SCH (09:00)
[2019-05-16 09:01] LABS: HGB 8.8 gm/dL (13.0-17.5)
[2019-05-16] MEDS: IPRATROPIUM-ALBUTEROL 3 ML NEB INHALATION SCH ×5 (09:20→23:17)
[2019-05-16 09:28] LABS: Amorphous Sediment,Urine Rare /hpf; Appearance,Urine Cloudy (Clear); Bacteria,Urine Rare /hpf; Bilirubin,Urine Negative (Negative); Blood,Urine Moderate (Negative); Color,Urine Yellow; Glucose,Urine (UA) Negative (Negative); Hyaline Casts,Urine 5 /lpf (0-2); Ketones,Urine Negative (Negative); Leukocyte Esterase,Urine Trace (Negative); Mucus,Urine Rare /hpf; Nitrite,Urine Negative (Negative); PH, Urine 5.5 (5.0-8.0); Protein,Urine 1+ (Negative); RBC,Urine 1 /hpf (0-5); Sperm,Urine Rare /hpf; Squamous Epithelial Cell,Urine <1 /hpf (0-4); Urobilinogen,Urine <2.0 mg/dL (<2.0); WBC,Urine 15 /hpf (0-5)
--- NOTE | 2019-05-16 09:54 | P.CNPUL ---
History of Present Illness Consult date: 05/16/19 Chief complaint: acute abdomen History of present illness: Is a 63-year-old male patient who came into the emergency department after he collapsed at home. The patient was having abdominal pain radiating to his back for several days. He was unable to eat and he was progressively getting more sick and weak and ultimately collapsed at home and he was brought into the emergency department where further investigation was done including a CAT scan of the abdomen and pelvis that showed a large amount of intraperitoneal air the origin was not certain. There was large amount of ascites and scattered area of small bowel wall thickening secondary to ascites/nonspecific enteritis. There was also incidental finding of a suspicious 13 mm mass lesion in the superior pole of the left kidney and another 8mm lesion exophytic in the superior pole of the right kidney. Based on this, the patient was taken immediately to the operating room. Intraoperatively the patient received a total of 3.5 L of IV fluids. He also received a total of 2 units of packed RBCs. He underwent expiratory laparotomy and he was found to have a perforated duodenal ulcer. The patient underwent antrectomy and Billroth II gastrojejunostomy. Postop, he was brought into the intensive care unit for further evaluation and management. Currently he is sedated with propofol is running at 30 g per KG per minute. He has received an additional 1-1/2 L of IV fluids here in the ICU which brings up his total boluses up to 5 L. Currently is on a maintenance of lactated Ringer at the rate of 1 50 mL and a carb infusion at the rate of 100 and hour. He is on assist control mode of ventilation at the rate of 20 with an FiO2 of 50% and a PEEP of 5 and a tidal volume of 500. The morning blood gases showed a pH of 7.37 with a pCO2 of 32 and pO2 of 400 and he was weaned off and FiO2 of 50%. He is producing urine output. His lactic acid level has dropped from a baseline of 8.1 down to 2.2. His creatinine is up from 6 down to 4.7. His serum bicarb is up to 19 and anion gap is at 10. He was given Zosyn and he was also given 400 mg of IV Diflucan and operating room. He has a triple-lumen catheter, left IJ and an outlying catheter, left radial. His abdominal wound is dry clean and intact. The patient has a BOGDAN drains in place. Cardiac rhythm is sinus for now. He briefly required pressors and currently is off levo fed. ET tube is in place. Output is minimal in the order of 150 mL the patient drinks more than 6 bottles of beer on a daily basis probably sometimes even more. He is an ex- smoker Review of Systems ROS unobtainable: due to endotracheal tube Past Medical History Past Medical History: GERD/Reflux, GI Bleed Additional Past Medical History / Comment(s): History of GI bleed back in 2013 and he was found to have polyps and hiatal hernia. History of Any Multi-Drug Resistant Organisms: None Reported Past Surgical History: No Surgical Hx Reported Past Anesthesia/Blood Transfusion Reactions: No Reported Reaction Past Psychological History: No Psychological Hx Reported Smoking Status: Former smoker Past Alcohol Use History: Daily Past Drug Use History: Marijuana - Past Family History Mother Family Medical History: Cancer Additional Family Medical History / Comment(s): lung cancer. Medications and Allergies Home Medications Medication Instructions Recorded Confirmed Type LORazepam [Ativan] 1 mg PO TID PRN #20 tab 07/05/14 Rx Pantoprazole Sodium [Protonix] 40 mg PO Q12HR #60 tablet. 07/05/14 Rx Sucralfate [Carafate] 1 gm PO ACHS #120 tab 07/05/14 Rx Allergies Allergy/AdvReac Type Severity Reaction Status Date / Time No Known Allergies Allergy Verified 07/02/14 11:10 Physical Exam Vitals: Vital Signs Temp Pulse Resp BP Pulse Ox 05/16/19 08:00 98.3 F 97 20 132/72 100 05/16/19 07:00 98 20 153/98 05/16/19 06:16 98.2 F 110 H 30 H 132/72 05/16/19 02:30 118 H 16 109/77 97 05/16/19 02:10 110 H 19 108/71 98 05/16/19 01:40 117 H 20 138/51 96 05/16/19 01:13 106 H 18 111/97 96 05/16/19 00:45 106 H 18 117/72 96 05/16/19 00:12 106 H 16 96/74 97 05/15/19 23:57 103 H 16 116/49 95 05/15/19 23:50 108 H 16 108/51 96 05/15/19 23:38 97.7 F 103 H 18 89/58 100 05/15/19 23:15 105 H 16 99/58 99 Intake and Output 05/15/19 05/16/19 05/16/19 22:59 06:59 14:59 Intake Total 4320 1350 Output Total 125 85 Balance 4195 1265 Intake: IV 3700 1250 Dextrose 5% in Water 1, 100 000 ml @ 100 mls/hr IV . Q11H DOLORES with Sodium Bicarb (1 Meq/ml) 100 ml Rx#:[id number] LR 1150 Intake, IV Titration 100 Amount ACETAMINOPHEN IV (For NPO 100 ) 1,000 mg In Empty Bag 1 bag @ 400 mls/hr IVPB ONCE ONE Rx#:[id number] Blood Product 620 Rc As-1 Unit 310 [id number] Rc As-1 Unit 310 [id number] Output: Urine 25 85 Estimated Blood Loss 100 Other: Weight 70.307 kg ABP, PAP, CO, CI - Last 8 Hours Arterial Blood Pressure 141/54 Arterial Blood Pressure 149/53 Gen. appearance, comfortable likely distress. The patient is currently intubated on a mechanical ventilator and is well sedated. Head exam was generally normal. There was no scleral icterus or corneal arcus. Mucous membranes were moist. Neck was supple and without jugular venous distension, thyromegaly, or carotid bruits. Carotids were easily palpable bilaterally. There was no adenopathy. Orogastric and orotracheal tube are both in place. NG tube was also in place. Lungs were clear to auscultation and percussion, and with normal diaphragmatic excursion. No wheezes or rales were noted. Cardiac exam revealed the PMI to be normally situated and sized. The rhythm was regular and no extrasystoles were noted during several minutes of auscultation. The first and second heart sounds were normal and physiologic splitting of the second heart sound was noted. There were no murmurs, rubs, clicks, or gallops. Abdomen is nondistended at this point in time. Surgical wound site is dry clean and intact. The patient is a BOGDAN drain output has been minimal since he arrived from the operating room probably Inderal that of 75 mL of serosanguineous mater ial. No bowel sounds. Surgical wound site is clean. Examination of the extremities revealed easily palpable radial, femoral and pedal pulses. There was no cyanosis, clubbing or edema. Examination of the skin revealed no evidence of significant rashes, suspicious appearing nevi or other concerning lesions. Neurologically dated, comfortable. Results - Laboratory Findings CBC and BMP: 05/16/19 08:15 05/16/19 08:15 ABG ABG pH 7.37 (7.35-7.45) 05/16/19 06:28 ABG pCO2 32 mmHg (35-45) L 05/16/19 06:28 ABG pO2 >400 mmHg (83-108) H 05/16/19 06:28 ABG O2 Saturation 100.0 % (94-97) H 05/16/19 06:28 PT/INR, D-dimer PT 11.5 sec (9.0-12.0) 05/16/19 08:15 INR 1.1 (<1.2) 05/16/19 08:15 Abnormal lab findings: Abnormal Labs 05/15/19 05/16/19 05/16/19 23:39 00:04 00:04 WBC RBC 2.83 L Hgb 8.4 L Hct 26.9 L RDW Plt Count 506 H Lymphocytes # (Manual) 0.37 L Myelocytes # (Manual) ABG pCO2 ABG pO2 ABG HCO3 ABG O2 Saturation ABG Lactic Acid VBG pH VBG pCO2 VBG HCO3 Sodium 129 L Potassium 5.5 H Carbon Dioxide 11 L BUN 56 H Creatinine 6.03 H Glucose 122 H POC Glucose (mg/dL) 109 H Plasma Lactic Acid Vrenon Calcium 7.6 L Alkaline Phosphatase Total Protein Albumin Urine Protein Urine Blood Ur Leukocyte Esterase Urine WBC Amorphous Sediment Urine Bacteria Hyaline Casts Urine Mucus Crossmatch 05/16/19 05/16/19 05/16/19 00:04 00:04 00:04 WBC RBC Hgb Hct RDW Plt Count Lymphocytes # (Manual) Myelocytes # (Manual) ABG pCO2 ABG pO2 ABG HCO3 ABG O2 Saturation ABG Lactic Acid VBG pH 7.23 L VBG pCO2 30 L VBG HCO3 12 L Sodium Potassium Carbon Dioxide BUN Creatinine Glucose POC Glucose (mg/dL) Plasma Lactic Acid Vernon 8.1 H* Calcium Alkaline Phosphatase Total Protein Albumin Urine Protein Urine Blood Ur Leukocyte Esterase Urine WBC Amorphous Sediment Urine Bacteria Hyaline Casts Urine Mucus Crossmatch See Detail 05/16/19 05/16/19 05/16/19 04:18 04:18 04:18 WBC RBC 2.16 L Hgb 6.2 L* D Hct 19.7 L* RDW Plt Count Lymphocytes # (Manual) 0.11 L Myelocytes # (Manual) 0.04 H ABG pCO2 30 L ABG pO2 184 H ABG HCO3 16 L ABG O2 Saturation 100.0 H ABG Lactic Acid 4.3 H* VBG pH VBG pCO2 VBG HCO3 Sodium Potassium Carbon Dioxide BUN Creatinine Glucose POC Glucose (mg/dL) Plasma Lactic Acid Vernon Calcium Alkaline Phosphatase Total Protein Albumin Urine Protein Urine Blood Ur Leukocyte Esterase Urine WBC Amorphous Sediment Urine Bacteria Hyaline Casts Urine Mucus Crossmatch 05/16/19 05/16/19 05/16/19 06:28 08:15 08:15 WBC 2.8 L RBC 3.09 L Hgb 8.8 L D Hct 27.0 L RDW 16.0 H Plt Count Lymphocytes # (Manual) Myelocytes # (Manual) ABG pCO2 32 L ABG pO2 >400 H ABG HCO3 19 L ABG O2 Saturation 100.0 H ABG Lactic Acid VBG pH VBG pCO2 VBG HCO3 Sodium 131 L Potassium 5.5 H Carbon Dioxide 19 L BUN 54 H Creatinine 4.71 H Glucose 115 H POC Glucose (mg/dL) Plasma Lactic Acid Vernon Calcium 6.9 L Alkaline Phosphatase 33 L Total Protein 3.6 L Albumin 1.8 L Urine Protein Urine Blood Ur Leukocyte Esterase Urine WBC Amorphous Sediment Urine Bacteria Hyaline Casts Urine Mucus Crossmatch 05/16/19 05/16/19 08:15 08:20 WBC RBC Hgb Hct RDW Plt Count Lymphocytes # (Manual) Myelocytes # (Manual) ABG pCO2 ABG pO2 ABG HCO3 ABG O2 Saturation ABG Lactic Acid 2.2 H* VBG pH VBG pCO2 VBG HCO3 Sodium Potassium Carbon Dioxide BUN Creatinine Glucose POC Glucose (mg/dL) Plasma Lactic Acid Vernon Calcium Alkaline Phosphatase Total Protein Albumin Urine Protein 1+ H Urine Blood Moderate H Ur Leukocyte Esterase Trace H Urine WBC 15 H Amorphous Sediment Rare H Urine Bacteria Rare H Hyaline Casts 5 H Urine Mucus Rare H Crossmatch - Diagnostic Findings Chest x-ray: image reviewed Assessment and Plan Plan: 1 acute abdomen secondary to Duodenal ulcer perforation. The patient underwent emergent extra to laparotomy, a total of 3 L of purulent material was aspirated from the abdomen. He underwent abdominal lavage. Subsequently underwent antrectomy and Billroth gastrojejunostomy and currently is postop day #0. The patient was aggressively resuscitated in the operating room and subsequently in the ICU. 2 acute respiratory failure, secondary to surgery and duodenal ulcer perforation. The patient is not hypoxic at this point and the chest x-ray showing no significant acute abnormalities 3 acute lactic acidosis, improving 4 acute anemia, blood loss anemia, received a total of 2 units of packed RBC 5 acute kidney injury, oliguric in the urine output is gradually improving and the creatinine is down to 4.71 6 hypotension secondary to acute abdomen, improved and the patient has been aggressively resuscitated IV fluids. This is probably a combination of septic/hypovolemic shock 7 chronic alcoholism 8 previous history of GI bleed 9 exophytic kidney lesions, 1.3 cm the left upper pole of the left kidney and 8mm on the right that needs to be worked up with a later stage. No evidence of any hydronephrosis. We will obtain an ultrasound the kidneys within next [address] hours. Lopez cath is in place. No hematuria. 10 Remote history of ?? juvenile rheumatoid arthritis Plan Continue resuscitated with IV fluids. Change IV fluids to normal saline at the rate of 200 mL an hour for the next 24 hours. Continue vent support. Drop the FiO2 down to 40%. Keep the rest of the vent settings unchanged. Chest x-ray was reviewed. Monitor the output from the NG tube. Monitor the output from the BOGDAN drain. Continue the IV Zosyn and add Diflucan 200 mg every 24 hours. Cultures were sent intraoperatively and this will be monitored. Monitor hemoglobin. Monitor white count. Monitor renal function. The patient has exophytic lesions in his kidneys 1.3 cm in the left upper pole and 8mm on the right and this needs to be worked up with a later stage I through fully recovered from this acute abdominal vacation. The patient's condition is critical. We'll continue to follow make further recommendations based on his progress. Discussed the case with general surgery. DVT and GI prophylaxis. Time with Patient: Greater than 30
[2019-05-16] MEDS: PROPOFOL 1,000 MG in EMPTY BAG 1 BAG IV SCH ×2 (10:10→20:45)
[2019-05-16] MEDS: SODIUM CHLORIDE 0.9% 1,000 ML IV SCH ×3 (10:36→20:15)
[2019-05-16] MEDS: PANTOPRAZOLE 40 MG/10 ML VIAL IV SCH ×2 (10:42→20:46)
[2019-05-16] MEDS: METOCLOPRAMIDE 5 MG/ML 2 ML VIAL IVP SCH ×3 (10:42→19:13)
[2019-05-16] MEDS: HEPARIN SODIUM,PORCINE 5,000 UNIT/ML 1 ML VIAL SQ SCH ×3 (10:42→23:23)
[2019-05-16] MEDS: CHLORHEXIDINE GLUCONATE 15 ML CUP MUCOUS MEM SCH ×2 (10:42→20:45)
[2019-05-16] MEDS: PIPERACILLIN-TAZOBACTAM 3.375 GM in SODIUM CHLORIDE 0.9% 100 ML IVPB SCH ×2 (10:43→20:46)
[2019-05-16] MEDS ORDERED: SODIUM CHLORIDE 0.9% 2,000 ML IV ONE (11:46)
[2019-05-16 12:24] LABS: Band Neutrophils % 8 %; Lymphocytes # (M) 0.08 k/uL (1.0-4.8); Neutrophils % (M) 83 %; Nucleated Red Blood Cells 0 /100 WBC (0-0); Total Cells Counted 208
[2019-05-16 12:25] LABS: Target Cells Present
[2019-05-16 12:37] LABS: Glucose,Whole Blood 84 mg/dL (75-99)
[2019-05-16] MEDS: HYDROmorphone 1 MG/ML 1 ML SYRINGE IVP PRN ×2 (15:22→19:46)
[2019-05-16 17:51] LABS: Glucose,Whole Blood 91 mg/dL (75-99)
[2019-05-16] MEDS: NOREPINEPHRINE 8 MG in SODIUM CHLORIDE 0.9% 250 ML IV SCH ×2 (18:11→23:16)
--- NOTE | 2019-05-16 22:34 | P.CONS ---
History of Present Illness - Reason for Consult Consult date: 05/16/19 Gastric perforation and antibiotic recommendation Requesting physician: Pj Lund - Chief Complaint low back pain and tingling is in his feet x few days - History of Present Illness Patient is a 63-year-old male brought to the ER by EMS last night for evaluation of generalized feeling well patient has been complaining of numbness and tingling in his feet and toes this patient also complaining of some low back pain on arrival of the medicine the patient was noticed to be lying on the ground with a facedown he was also noticed to be slightly hypertensive with systolic down to 90s patient has been brought into the ER and the patient did have extensive workup on presentation the patient has been afebrile and his white count was normal CT was negative for PE CT of abdominal pelvis did shows large intraperitoneal air surgery was consulted who took the patient to the OR patient is status post approximately noticed to have perforated duodenal ulcer status post repair of the same and Billroth II gastrojejunostomy patient subsequently has been admitted to the ICU currently intubated on the vent patient also noticed to be acute renal failure with a creatinine of 6 repeat today slightly down is currently on IV Zosyn and Diflucan for infection he was consented for further recommendation regarding antibiotic therapy most information has been obtained from review the chart and talking the who did mention patient with no abdominal pain or any history of nausea and vomiting if he has been mostly low back area as mentioned above quantification could not be obtained as the patient is currently sedated on the vent Review of Systems Positive points has been mentioned in HPI complete review could not be obtained because patient is intubated on vent Past Medical History Past Medical History: GERD/Reflux, GI Bleed Additional Past Medical History / Comment(s): History of GI bleed back in 2013 and he was found to have polyps and hiatal hernia. History of Any Multi-Drug Resistant Organisms: None Reported Past Surgical History: No Surgical Hx Reported Past Anesthesia/Blood Transfusion Reactions: No Reported Reaction Past Psychological History: No Psychological Hx Reported Smoking Status: Former smoker Past Alcohol Use History: Daily Past Drug Use History: Marijuana - Past Family History Mother Family Medical History: Cancer Additional Family Medical History / Comment(s): lung cancer. Medications and Allergies Home Medications Medication Instructions Recorded Confirmed Type No Known Home Medications 05/16/19 05/16/19 History Allergies Allergy/AdvReac Type Severity Reaction Status Date / Time No Known Allergies Allergy Verified 05/16/19 11:05 Physical Exam Vitals: Vital Signs Temp Pulse Resp BP Pulse Ox 05/16/19 12:10 102 H 05/16/19 12:00 101 H 20 105/68 98 05/16/19 11:00 99 20 112/69 99 05/16/19 10:00 99 20 113/67 99 05/16/19 09:00 98 20 117/76 99 05/16/19 08:00 98.3 F 97 20 132/72 99 05/16/19 07:00 98 20 153/98 05/16/19 06:16 98.2 F 110 H 30 H 132/72 05/16/19 02:30 118 H 16 109/77 97 05/16/19 02:10 110 H 19 108/71 98 05/16/19 01:40 117 H 20 138/51 96 05/16/19 01:13 106 H 18 111/97 96 05/16/19 00:45 106 H 18 117/72 96 05/16/19 00:12 106 H 16 96/74 97 05/15/19 23:57 103 H 16 116/49 95 05/15/19 23:50 108 H 16 108/51 96 05/15/19 23:38 97.7 F 103 H 18 89/58 100 05/15/19 23:15 105 H 16 99/58 99 Intake and Output 05/15/19 05/16/19 05/16/19 22:59 06:59 14:59 Intake Total 4320 3123.272 Output Total 125 485 Balance 4195 2638.272 Intake: IV 3700 3000 0.9 NACL 1150 Dextrose 5% in Water 1, 300 000 ml @ 100 mls/hr IV . Q11H DOLORES with Sodium Bicarb (1 Meq/ml) 100 ml Rx#:[id number] LR 1450 Zosyn 100 Intake, IV Titration 123.272 Amount ACETAMINOPHEN IV (For NPO 100 ) 1,000 mg In Empty Bag 1 bag @ 400 mls/hr IVPB ONCE ONE Rx#:[id number] Propofol 1,000 mg In 23.272 Empty Bag 1 bag @ Titrate IV .Q0M DOLORES Rx#: [id number] Blood Product 620 Rc As-1 Unit 310 [id number] Rc As-1 Unit 310 [id number] Output: Gastric Drainage 250 Drainage 70 Anterior Abdomen 70 Urine 25 165 Estimated Blood Loss 100 Other: Weight 70.307 kg ABP, PAP, CO, CI - Last 8 Hours Arterial Blood Pressure 98/50 Arterial Blood Pressure 131/56 Arterial Blood Pressure 131/58 Arterial Blood Pressure 134/53 Arterial Blood Pressure 141/54 Arterial Blood Pressure 149/53 GENERAL DESCRIPTION: Middle-aged male lying in bed intubated on the vent, No tachypnea or accessory muscle of respiration use. HEENT: Shows Pallor , no scleral icterus. Oral mucous membrane is dry. NECK: Trachea central, no thyromegaly. LUNGS: Unlabored breathing. Decreased breath sound at the base. No wheeze or crackle. HEART: S1, S2, regular rate and rhythm. No loud murmur ABDOMEN: Soft, mildly distended ,no tenderness , guarding or rigidity, no organomegaly EXTREMITIES: No edema of feet. SKIN: No rash, no masses palpable. NEUROLOGICAL: The patient is sedated on the vent. Results CBC & Chem 7: 05/16/19 08:15 05/16/19 08:15 Labs: Abnormal Lab Results - Last 24 Hours (Table) 05/15/19 05/16/19 05/16/19 Range/Units 23:39 00:04 00:04 WBC (3.8-10.6) k/uL RBC 2.83 L (4.30-5.90) m/uL Hgb 8.4 L (13.0-17.5) gm/dL Hct 26.9 L (39.0-53.0) % RDW (11.5-15.5) % Plt Count 506 H (150-450) k/uL Lymphocytes # (Manual) 0.37 L (1.0-4.8) k/uL Myelocytes # (Manual) (0) k/uL ABG pCO2 (35-45) mmHg ABG pO2 (83-108) mmHg ABG HCO3 (21-25) mmol/L ABG O2 Saturation (94-97) % ABG Lactic Acid (0.5-1.6) mmol/L VBG pH (7.31-7.41) VBG pCO2 (37-51) mmHg VBG HCO3 (24-28) mmol/L Sodium 129 L (137-145) mmol/L Potassium 5.5 H (3.5-5.1) mmol/L Carbon Dioxide 11 L (22-30) mmol/L BUN 56 H (9-20) mg/dL Creatinine 6.03 H (0.66-1.25) mg/dL Glucose 122 H (74-99) mg/dL POC Glucose (mg/dL) 109 H (75-99) mg/dL Plasma Lactic Acid Vernon (0.7-2.0) mmol/L Calcium 7.6 L (8.4-10.2) mg/dL Alkaline Phosphatase (38-126) U/L Total Protein (6.3-8.2) g/dL Albumin (3.5-5.0) g/dL Urine Protein (Negative) Urine Blood (Negative) Ur Leukocyte Esterase (Negative) Urine WBC (0-5) /hpf Amorphous Sediment (None) /hpf Urine Bacteria (None) /hpf Hyaline Casts (0-2) /lpf Urine Mucus (None) /hpf Crossmatch 05/16/19 05/16/19 05/16/19 Range/Units 00:04 00:04 00:04 WBC (3.8-10.6) k/uL RBC (4.30-5.90) m/uL Hgb (13.0-17.5) gm/dL Hct (39.0-53.0) % RDW (11.5-15.5) % Plt Count (150-450) k/uL Lymphocytes # (Manual) (1.0-4.8) k/uL Myelocytes # (Manual) (0) k/uL ABG pCO2 (35-45) mmHg ABG pO2 (83-108) mmHg ABG HCO3 (21-25) mmol/L ABG O2 Saturation (94-97) % ABG Lactic Acid (0.5-1.6) mmol/L VBG pH 7.23 L (7.31-7.41) VBG pCO2 30 L (37-51) mmHg VBG HCO3 12 L (24-28) mmol/L Sodium (137-145) mmol/L Potassium (3.5-5.1) mmol/L Carbon Dioxide (22-30) mmol/L BUN (9-20) mg/dL Creatinine (0.66-1.25) mg/dL Glucose (74-99) mg/dL POC Glucose (mg/dL) (75-99) mg/dL Plasma Lactic Acid Vernon 8.1 H* (0.7-2.0) mmol/L Calcium (8.4-10.2) mg/dL Alkaline Phosphatase (38-126) U/L Total Protein (6.3-8.2) g/dL Albumin (3.5-5.0) g/dL Urine Protein (Negative) Urine Blood (Negative) Ur Leukocyte Esterase (Negative) Urine WBC (0-5) /hpf Amorphous Sediment (None) /hpf Urine Bacteria (None) /hpf Hyaline Casts (0-2) /lpf Urine Mucus (None) /hpf Crossmatch See Detail 05/16/19 05/16/19 05/16/19 Range/Units 04:18 04:18 04:18 WBC (3.8-10.6) k/uL RBC 2.16 L (4.30-5.90) m/uL Hgb 6.2 L* D (13.0-17.5) gm/dL Hct 19.7 L* (39.0-53.0) % RDW (11.5-15.5) % Plt Count (150-450) k/uL Lymphocytes # (Manual) 0.11 L (1.0-4.8) k/uL Myelocytes # (Manual) 0.04 H (0) k/uL ABG pCO2 30 L (35-45) mmHg ABG pO2 184 H (83-108) mmHg ABG HCO3 16 L (21-25) mmol/L ABG O2 Saturation 100.0 H (94-97) % ABG Lactic Acid 4.3 H* (0.5-1.6) mmol/L VBG pH (7.31-7.41) VBG pCO2 (37-51) mmHg VBG HCO3 (24-28) mmol/L Sodium (137-145) mmol/L Potassium (3.5-5.1) mmol/L Carbon Dioxide (22-30) mmol/L BUN (9-20) mg/dL Creatinine (0.66-1.25) mg/dL Glucose (74-99) mg/dL POC Glucose (mg/dL) (75-99) mg/dL Plasma Lactic Acid Vernon (0.7-2.0) mmol/L Calcium (8.4-10.2) mg/dL Alkaline Phosphatase (38-126) U/L Total Protein (6.3-8.2) g/dL Albumin (3.5-5.0) g/dL Urine Protein (Negative) Urine Blood (Negative) Ur Leukocyte Esterase (Negative) Urine WBC (0-5) /hpf Amorphous Sediment (None) /hpf Urine Bacteria (None) /hpf Hyaline Casts (0-2) /lpf Urine Mucus (None) /hpf Crossmatch 05/16/19 05/16/19 05/16/19 Range/Units 06:28 08:15 08:15 WBC 2.8 L (3.8-10.6) k/uL RBC 3.09 L (4.30-5.90) m/uL Hgb 8.8 L D (13.0-17.5) gm/dL Hct 27.0 L (39.0-53.0) % RDW 16.0 H (11.5-15.5) % Plt Count (150-450) k/uL Lymphocytes # (Manual) 0.08 L (1.0-4.8) k/uL Myelocytes # (Manual) (0) k/uL ABG pCO2 32 L (35-45) mmHg ABG pO2 >400 H (83-108) mmHg ABG HCO3 19 L (21-25) mmol/L ABG O2 Saturation 100.0 H (94-97) % ABG Lactic Acid (0.5-1.6) mmol/L VBG pH (7.31-7.41) VBG pCO2 (37-51) mmHg VBG HCO3 (24-28) mmol/L Sodium 131 L (137-145) mmol/L Potassium 5.5 H (3.5-5.1) mmol/L Carbon Dioxide 19 L (22-30) mmol/L BUN 54 H (9-20) mg/dL Creatinine 4.71 H (0.66-1.25) mg/dL Glucose 115 H (74-99) mg/dL POC Glucose (mg/dL) (75-99) mg/dL Plasma Lactic Acid Vernon (0.7-2.0) mmol/L Calcium 6.9 L (8.4-10.2) mg/dL Alkaline Phosphatase 33 L (38-126) U/L Total Protein 3.6 L (6.3-8.2) g/dL Albumin 1.8 L (3.5-5.0) g/dL Urine Protein (Negative) Urine Blood (Negative) Ur Leukocyte Esterase (Negative) Urine WBC (0-5) /hpf Amorphous Sediment (None) /hpf Urine Bacteria (None) /hpf Hyaline Casts (0-2) /lpf Urine Mucus (None) /hpf Crossmatch 05/16/19 05/16/19 Range/Units 08:15 08:20 WBC (3.8-10.6) k/uL RBC (4.30-5.90) m/uL Hgb (13.0-17.5) gm/dL Hct (39.0-53.0) % RDW (11.5-15.5) % Plt Count (150-450) k/uL Lymphocytes # (Manual) (1.0-4.8) k/uL Myelocytes # (Manual) (0) k/uL ABG pCO2 (35-45) mmHg ABG pO2 (83-108) mmHg ABG HCO3 (21-25) mmol/L ABG O2 Saturation (94-97) % ABG Lactic Acid 2.2 H* (0.5-1.6) mmol/L VBG pH (7.31-7.41) VBG pCO2 (37-51) mmHg VBG HCO3 (24-28) mmol/L Sodium (137-145) mmol/L Potassium (3.5-5.1) mmol/L Carbon Dioxide (22-30) mmol/L BUN (9-20) mg/dL Creatinine (0.66-1.25) mg/dL Glucose (74-99) mg/dL POC Glucose (mg/dL) (75-99) mg/dL Plasma Lactic Acid Vernon (0.7-2.0) mmol/L Calcium (8.4-10.2) mg/dL Alkaline Phosphatase (38-126) U/L Total Protein (6.3-8.2) g/dL Albumin (3.5-5.0) g/dL Urine Protein 1+ H (Negative) Urine Blood Moderate H (Negative) Ur Leukocyte Esterase Trace H (Negative) Urine WBC 15 H (0-5) /hpf Amorphous Sediment Rare H (None) /hpf Urine Bacteria Rare H (None) /hpf Hyaline Casts 5 H (0-2) /lpf Urine Mucus Rare H (None) /hpf Crossmatch Microbiology - Last 24 Hours (Table) 05/16/19 03:35 Body Fluid Culture - Preliminary Peritoneal Fluid 05/16/19 03:35 Anaerobic Culture - Preliminary Peritoneal Fluid Assessment and Plan Assessment: 1-patient presented to hospital with nonspecific symptoms in this patient was noticed to have perforated ulcer status post operative repair the likely organism we need to cover only be the enteric gram-negative more likely a less likely anaerobes in addition to the yeast 2-patient with renal insufficiency and high risk of nephrotoxicity (1) Perforated bowel Current Visit: Yes Status: Acute Code(s): K63.1 - PERFORATION OF INTESTINE (NONTRAUMATIC) SNOMED Code(s): 38455074 Plan: 1-Zosyn 3.375 g every 12 hours dose adjusted to his kidney function along with Diflucan should provide adequate antibiotic and antifungal coverage for his perforated duodenal ulcer 2-gentle IV fluid We will follow on clinical condition and cultures to further adjust medication if needed Thank you for this consultation will follow this patient with you Time with Patient: Greater than 30
[2019-05-17] MEDS: HYDROmorphone 1 MG/ML 1 ML SYRINGE IVP PRN ×3 (00:11→22:04)
[2019-05-17 00:27] LABS: Glucose,Whole Blood 91 mg/dL (75-99)
[2019-05-17] MEDS: SODIUM CHLORIDE 0.9% 1,000 ML IV SCH ×5 (00:31→20:12)
[2019-05-17] MEDS: PROPOFOL 1,000 MG in EMPTY BAG 1 BAG IV SCH ×6 (01:20→23:08)
[2019-05-17] MEDS: METOCLOPRAMIDE 5 MG/ML 2 ML VIAL IVP SCH ×4 (02:45→18:40)
[2019-05-17] MEDS: NOREPINEPHRINE 8 MG in SODIUM CHLORIDE 0.9% 250 ML IV SCH ×3 (02:52→21:36)
[2019-05-17] MEDS: IPRATROPIUM-ALBUTEROL 3 ML NEB INHALATION SCH ×6 (03:10→23:17)
[2019-05-17 04:52] LABS: ABG Base Excess -10.9 mmol/L; ABG HCO3 16 mmol/L (21-25); ABG Oxygen Saturation 99.7 % (94-97); ABG PCO2 33 mmHg (35-45); ABG PH 7.29 (7.35-7.45); ABG PO2 159 mmHg (83-108); ABG TCO2 17 mmol/L (19-24)
[2019-05-17 05:16] LABS: Anisocytosis Slight; Basophils % (A) 0 %; Eosinophils % (A) 0 %; HCT 25.2 % (39.0-53.0); Hypochromasia Marked; Lymphocytes # (A) 0.3 k/uL (1.0-4.8); Lymphocytes % (A) 5 %; MCH 28.6 pg (25.0-35.0); MCHC 31.8 g/dL (31.0-37.0); MCV 90.2 fL (80.0-100.0); Mean Platelet Volume 6.9; Monocytes # (A) 0.3 k/uL (0-1.0); Monocytes % (A) 5 %; Neutrophils # (A) 5.9 k/uL (1.3-7.7); Neutrophils % (A) 88 %; Platelet Count 350 k/uL (150-450); Poikilocytosis Moderate; RDW 16.4 % (11.5-15.5); WBC 6.7 k/uL (3.8-10.6)
[2019-05-17 05:24] LABS: Albumin 1.9 g/dL (3.5-5.0); Potassium 5.2 mmol/L (3.5-5.1); Total Bilirubin 0.3 mg/dL (0.2-1.3); Total Protein 3.9 g/dL (6.3-8.2)
[2019-05-17 05:57] LABS: Calcium 6.2 mg/dL (8.4-10.2)
[2019-05-17] MEDS ORDERED: CALCIUM GLUCONATE 1 GM in SODIUM CHLORIDE 0.9% 100 ML IVPB ONE (06:25)
--- NOTE | 2019-05-17 07:19 | XR ---
EXAMINATION TYPE: XR chest 1V DATE OF EXAM: 05/17/2019 COMPARISON: 05/16/2019 HISTORY: Ventilatory dependent respiratory failure TECHNIQUE: Single frontal view of the chest is obtained. FINDINGS: Bibasilar airspace disease is similar. Endotracheal and enteric tubes are unchanged overal l. Left-sided internal jugular central venous catheter is stable. Trace pleural effusions blunt the c ostophrenic angles. Cardiomediastinal silhouette is mildly enlarged and stable. No sizable pneumothor ax. Mild diffuse osseous demineralization. IMPRESSION: Stable bibasilar airspace disease, atelectasis versus less likely pneumonia.
[2019-05-17] MEDS: PIPERACILLIN-TAZOBACTAM 3.375 GM in SODIUM CHLORIDE 0.9% 100 ML IVPB SCH ×2 (08:34→20:04)
[2019-05-17] MEDS: HEPARIN SODIUM,PORCINE 5,000 UNIT/ML 1 ML VIAL SQ SCH ×2 (08:42→15:57)
[2019-05-17] MEDS: PANTOPRAZOLE 40 MG/10 ML VIAL IV SCH ×2 (08:43→20:05)
[2019-05-17] MEDS: CHLORHEXIDINE GLUCONATE 15 ML CUP MUCOUS MEM SCH ×2 (08:43→20:12)
[2019-05-17] MEDS: FLUCONAZOLE IN NACL,ISO-OSM 200 MG in SALINE 1 100ML.BAG IVPB SCH (08:43)
[2019-05-17] MEDS ORDERED: DEXTROSE 10 % IN WATER 250 ML IV ONE (11:52)
[2019-05-17 12:01] LABS: Glucose,Whole Blood 55 mg/dL (75-99)
--- NOTE | 2019-05-17 12:09 | P.PN ---
Subjective Progress Note Date: 05/17/19 Principal diagnosis: Acute surgical abdomen secondary to marginal ulcer perforation. Is a 63-year-old male patient who came into the emergency department after he collapsed at home. The patient was having abdominal pain radiating to his back for several days. He was unable to eat and he was progressively getting more sick and weak and ultimately collapsed at home and he was brought into the emergency department where further investigation was done including a CAT scan of the abdomen and pelvis that showed a large amount of intraperitoneal air the origin was not certain. There was large amount of ascites and scattered area of small bowel wall thickening secondary to ascites/nonspecific enteritis. There was also incidental finding of a suspicious 13 mm mass lesion in the superior pole of the left kidney and another 8mm lesion exophytic in the superior pole of the right kidney. Based on this, the patient was taken immediately to the operating room. Intraoperatively the patient received a total of 3.5 L of IV fluids. He also received a total of 2 units of packed RBCs. He underwent expiratory laparotomy and he was found to have a perforated duodenal ulcer. The patient underwent antrectomy and Billroth II gastrojejunostomy. Postop, he was brought into the intensive care unit for further evaluation and management. Currently he is sedated with propofol is running at 30 g per KG per minute. He has received an additional 1-1/2 L of IV fluids here in the ICU which brings up his total boluses up to 5 L. Currently is on a maintenance of lactated Ringer at the rate of 1 50 mL and a carb infusion at the rate of 100 and hour. He is on assist control mode of ventilation at the rate of 20 with an FiO2 of 50% and a PEEP of 5 and a tidal volume of 500. The morning blood gases showed a pH of 7.37 with a pCO2 of 32 and pO2 of 400 and he was weaned off and FiO2 of 50%. He is producing urine output. His lactic acid level has dropped from a baseline of 8.1 down to 2.2. His creatinine is up from 6 down to 4.7. His serum bicarb is up to 19 and anion gap is at 10. He was given Zosyn and he was also given 400 mg of IV Diflucan and operating room. He has a triple-lumen catheter, left IJ and an outlying catheter, left radial. His abdominal wound is dry clean and intact. The patient has a BOGDAN drains in place. Cardiac rhythm is sinus for now. He briefly required pressors and currently is off levo fed. ET tube is in place. Output is minimal in the order of 150 mL the patient drinks more than 6 bottles of beer on a daily basis probably sometimes even more. He is an ex- smoker Patient was evaluated today on 05/17/2019, remains in the ICU, mechanically ventilated and intubated. His present ventilator settings are tidal volume of 500 assist control rate of 20 FiO2 40%. And PEEP is 5. Patient is still requiring pressors in the form of norepinephrine at 0.22 mcg/kg/m, he is on propofol at 75 mcg/kg/m, remains on IV fluids at 200 mL per hour. CVP is about 9. Patient has decent urine output. But blood pressure remains marginal req uiring pressors. He is presently on antibiotics including Zosyn and Diflucan as per infectious disease on the case. ABG this morning showed a pO2 of 159 pCO2 of 33 pH of 7.29. His CBC showed WBC count of 6.7 hemoglobin of 8.0 electrolytes showed slightly elevated potassium of 5.2. BUN however is 53 creatinine is 4.59, improving compared to his creatinine on presentation of 6.03. Patient is sedated, however he is arousable, and follows simple instructions. His propofol dose was increased, patient is known to have history of alcoholism. Objective - Vital Signs Vital signs: Vital Signs Temp 98.8 F 05/17/19 08:01 Pulse 60 05/17/19 11:23 Resp 20 05/17/19 11:00 BP 105/62 05/17/19 11:00 Pulse Ox 99 05/17/19 11:00 Intake & Output 05/16/19 05/17/19 05/17/19 18:59 06:59 18:59 Intake Total 5454.000 5001.579 1590.972 Output Total 1065 913 255 Balance 4389.000 4088.579 1335.972 Weight 88.7 kg Intake: IV 5000 4166 1330 0.9 NACL 3150 4000 1000 Calcium Gluconate 1 gm In 100 Sodium Chloride 0.9% 100 ml @ 100 mls/hr IVPB ONCE ONE Rx#:[id number] Dextrose 5% in Water 1, 300 000 ml @ 100 mls/hr IV . Q11H [facility] with Sodium Bicarb (1 Meq/ml) 100 ml Rx#:[id number] Fluconazole in NaCl,Iso- 100 Osm 200 mg In Saline 1 100ml.bag @ 100 mls/hr IVPB DAILY [facility] Rx#: [id number] LR 1450 Pressure Bags 66 30 Zosyn 100 100 100 Intake, IV Titration 454.000 835.579 260.972 Amount ACETAMINOPHEN IV (For NPO 100 ) 1,000 mg In Empty Bag 1 bag @ 400 mls/hr IVPB ONCE ONE Rx#:[id number] Norepinephrine 4 mg In 254.000 Sodium Chloride 0.9% 250 ml @ 0.05 MCG/KG/MIN 13. 394 mls/hr IV .[id number] [facility] Rx#:[id number] Norepinephrine 8 mg In 647.508 169.573 Sodium Chloride 0.9% 250 ml @ 0.05 MCG/KG/MIN 6. 802 mls/hr IV .Q24H [facility] Rx#:[id number] Propofol 1,000 mg In 100.000 188.071 91.399 Empty Bag 1 bag @ Titrate IV .Q0M [facility] Rx#: [id number] Output: Gastric Drainage 600 350 Drainage 120 30 Anterior Abdomen 120 30 Urine 345 533 255 Other: Voiding Method Indwelling Catheter Indwelling Catheter Indwelling Catheter ABP, PAP, CO, CI - Last Documented Arterial Blood Pressure 115/44 - Exam Physical Exam: Revealed a 63-year-old white male, on mechanical ventilation. In no distress. Head: Atraumatic, normocephalic. HEENT:[Neck is supple.] [No neck masses.] [No thyromegaly.] [No JVD.] PERRLA, EOMI, no icterus, moist mucous membranes, endotracheal tube and orogastric tube are intact. Chest: [Diminished breath sounds and crackles at the bases no rhonchi and no wheezes.] Cardiac Exam: [Normal S1 and S2, no S3 gallop, no murmur.] Abdomen: [Postsurgical, soft, slightly distended, no tenderness, no rebound, diminished bowel sounds. No rigidity..] Extremities: [No clubbing, no edema, no cyanosis.] Good pulses bilaterally. Neurological Exam: Sedated, however arousable, follows simple instructions. Psychiatric: Could not be assessed. Lymphatics: No lymphadenopathy. Skin: No rashes. - Labs CBC & Chem 7: 05/17/19 04:16 05/17/19 04:16 Labs: Abnormal Lab Results - Last 24 Hours (Table) 05/16/19 05/17/19 05/17/19 Range/Units 08:15 04:16 04:16 RBC 2.80 L (4.30-5.90) m/uL Hgb 8.0 L (13.0-17.5) gm/dL Hct 25.2 L (39.0-53.0) % RDW 16.4 H (11.5-15.5) % Lymphocytes # 0.3 L (1.0-4.8) k/uL Lymphocytes # (Manual) 0.08 L (1.0-4.8) k/uL ABG pH (7.35-7.45) ABG pCO2 (35-45) mmHg ABG pO2 (83-108) mmHg ABG HCO3 (21-25) mmol/L ABG Total CO2 (19-24) mmol/L ABG O2 Saturation (94-97) % Sodium 135 L (137-145) mmol/L Potassium 5.2 H (3.5-5.1) mmol/L Chloride 109 H (98-107) mmol/L Carbon Dioxide 16 L (22-30) mmol/L BUN 53 H (9-20) mg/dL Creatinine 4.59 H (0.66-1.25) mg/dL Calcium 6.2 L* (8.4-10.2) mg/dL AST 13 L (17-59) U/L Total Protein 3.9 L (6.3-8.2) g/dL Albumin 1.9 L (3.5-5.0) g/dL 05/17/19 Range/Units 04:48 RBC (4.30-5.90) m/uL Hgb (13.0-17.5) gm/dL Hct (39.0-53.0) % RDW (11.5-15.5) % Lymphocytes # (1.0-4.8) k/uL Lymphocytes # (Manual) (1.0-4.8) k/uL ABG pH 7.29 L (7.35-7.45) ABG pCO2 33 L (35-45) mmHg ABG pO2 159 H (83-108) mmHg ABG HCO3 16 L (21-25) mmol/L ABG Total CO2 17 L (19-24) mmol/L ABG O2 Saturation 99.7 H (94-97) % Sodium (137-145) mmol/L Potassium (3.5-5.1) mmol/L Chloride (98-107) mmol/L Carbon Dioxide (22-30) mmol/L BUN (9-20) mg/dL Creatinine (0.66-1.25) mg/dL Calcium (8.4-10.2) mg/dL AST (17-59) U/L Total Protein (6.3-8.2) g/dL Albumin (3.5-5.0) g/dL Microbiology - Last 24 Hours (Table) 05/16/19 03:35 Gram Stain - Preliminary Peritoneal Fluid Body Fluid Culture - Preliminary Gram Neg Bacilli Non Hemolytic Strep 05/16/19 00:04 Blood Culture - Preliminary Blood No Growth after 24 hours 05/16/19 08:15 Gram Stain - Preliminary Sputum Sputum Culture - Preliminary 05/16/19 08:20 Urine Culture - Preliminary Urine,Voided 05/16/19 03:35 Anaerobic Culture - Preliminary Peritoneal Fluid Assessment and Plan Assessment: Impression: 1 acute abdominal sepsis and septic shock secondary to duodenal ulcer perforation. 2 acute lactic acidosis secondary to above, improving. 3 acute hypoxic respiratory failure secondary to septic shock and abdominal sepsis. 4 acute kidney injury secondary to acute tubular necrosis and hypotension as well as sepsis and septic shock. 5 chronic alcoholism 6 history of GI bleeding 7 exophytic kidney lesion, needs to have workup on outpatient basis, this was incidentally seen on CT of the abdomen and pelvis, will eventually need outpatie nt follow-up with urology. 8 acute anemia secondary to blood loss, received a total of 2 units of packed RBCs since admission, hemoglobin now is 8. Recommendation: Continue ventilatory support Continue hemodynamic support Consider TPN since May be quite some time before we could start enteral feeding and this will be discussed with surgery Continue antibiotics in the form of Zosyn and Diflucan. Continue GI and DVT prophylaxis Continue alcohol withdrawal protocol Continue to monitor daily labs and renal profile Continue fluids and titrate down pressors if that could be done today. Discussed his condition with surgery on the case. We'll continue to follow. Critical care time is 35 minutes. Time with Patient: Greater than 30
[2019-05-17 12:29] LABS: Glucose,Whole Blood 219 mg/dL (75-99)
--- NOTE | 2019-05-17 13:39 | CDI ---
Documentation Clarification Form Date: 05/17/2019 1:22:00 PM From: Erika Wells RN CCDS Admit Date: 05/16/2019 1:08:00 AM Patient Name: Surinder Flores Visit Number: [id number] Discharge Date: ATTENTION: The Clinical Documentation Specialists (CDI) and [facility] Coding Staff appreciate your assistance in clarifying documentation. Please respond to the clarification below the line at the bottom and electronically sign. The CDI & [facility] Coding staff will review the response and follow-up if needed. Please note: Queries are made part of the Legal Health Record. If you have any questions, please contact the author of this message via ITS. Dr. Becerra, Acute abdominal sepsis and septic shock secondary to duodenal ulcer perforation Documented in Critical Care Progress Note 05/17/2019 History/Risk Factors: 63-year-old male presents to the ED via EMS after being found face down at home with tingling fingers and feet. Per EMS he was found to be mildly hypotensive with a systolic in the 90s. Medical History GERD, GI Bleed 2013; Alcohol Abuse daily Drinker Clinical Indicators: VSS 05/16 89/58 103 97.7 Rectal 18 100% ra Labs;05/16 Hgb 8.6; plt 506; Na 129; K 5.5; BUN 56 Cr 6.03; plasma lactic acid 8.1; FOB positive; CT Abd Pelvis 05/16 Reidentified large amount of free intraperitoneal air. Origin uncertain Treatment: 05/16 6L 0.9ns ivfl bolus; Sodium Bicarb 8.4% 5ml iv x1; Zosyn ivpb q 12 hrs; Norepinephrine IV; Definition of Present on Admission (POA): A diagnosis present at the time the order for admission to inpatient status was written. For each diagnosis, documentation must be clear to determine if the condition was present at the time of the patients inpatient admission or developed during the hospital stay. Please clarify if Sepis was POA: ____W = Clinically undetermined if the condition was present at the time of the order for inpatient admission. (Last Revision: Jun 2018) MTDD
--- NOTE | 2019-05-17 14:54 | P.PN ---
Subjective Progress Note Date: 05/17/19 Principal diagnosis: Duodenal perforation Patient was seen and examined. No acute events overnight. Fully sedated and ventilated. Ventilator settings set at tidal volume 500, rate 20, FiO2 40% with PEEP of 5. He is on norepinephrine drip at 4 mics per minute. He has been se dated with propofol. CBC shows hemoglobin of 8, which has dropped from 8.8. ABG shows pH 7.29, pCO2 33, bicarbonate 16. CMP shows sodium 135, potassium 5.2, chloride 109, bicarbonate 16, BUN 53, creatinine 4.59. Calcium is 6.2. Family is at bedside. Objective - Vital Signs Vital signs: Vital Signs Temp 98.8 F 05/17/19 08:01 Pulse 64 05/17/19 14:00 Resp 20 05/17/19 14:00 BP 106/67 05/17/19 14:00 Pulse Ox 96 05/17/19 14:00 Intake & Output 05/16/19 05/17/19 05/17/19 18:59 06:59 18:59 Intake Total 5454.000 5001.579 2559.261 Output Total 1065 913 595 Balance 4389.000 4088.579 1964.261 Weight 88.7 kg Intake: IV 5000 4166 2198 0.9 NACL 3150 4000 1600 Calcium Gluconate 1 gm In 100 Sodium Chloride 0.9% 100 ml @ 100 mls/hr IVPB ONCE ONE Rx#:[id number] Dextrose 10 % in Water 250 250 ml @ 999 mls/hr IV ONCE ONE Rx#:[id number] Dextrose 5% in Water 1, 300 000 ml @ 100 mls/hr IV . Q11H [facility] with Sodium Bicarb (1 Meq/ml) 100 ml Rx#:[id number] Fluconazole in NaCl,Iso- 100 Osm 200 mg In Saline 1 100ml.bag @ 100 mls/hr IVPB DAILY [facility] Rx#: [id number] LR 1450 Pressure Bags 66 48 Zosyn 100 100 100 Intake, IV Titration 454.000 835.579 361.261 Amount ACETAMINOPHEN IV (For NPO 100 ) 1,000 mg In Empty Bag 1 bag @ 400 mls/hr IVPB ONCE ONE Rx#:[id number] Norepinephrine 4 mg In 254.000 Sodium Chloride 0.9% 250 ml @ 0.05 MCG/KG/MIN 13. 394 mls/hr IV .[id number] [facility] Rx#:[id number] Norepinephrine 8 mg In 647.508 269.862 Sodium Chloride 0.9% 250 ml @ 0.05 MCG/KG/MIN 6. 802 mls/hr IV .Q24H [facility] Rx#:[id number] Propofol 1,000 mg In 100.000 188.071 91.399 Empty Bag 1 bag @ Titrate IV .Q0M [facility] Rx#: [id number] Output: Gastric Drainage 600 350 Drainage 120 30 160 Anterior Abdomen 120 30 160 Urine 345 533 435 Other: Voiding Method Indwelling Catheter Indwelling Catheter Indwelling Catheter ABP, PAP, CO, CI - Last Documented Arterial Blood Pressure 132/46 - Exam General: [non toxic], [fully sedated on mechanical ventilation], [appears at stated age] Derm: [warm], [dry] Head: [atraumatic], [normocephalic], [symmetric] Eyes: [EOMI], [no lid lag], [anicteric sclera] Mouth: [no lip lesion], [endotracheal tube intact] Cardiovascular: [S1S2 reg], [no murmur], [positive posterior tibial pulse bilateral], Lungs: [Coarse breath sounds bilateral], [no rhonchi, no rales] , [no accessory muscle use] Abdominal: [soft], [dressings clean dry and intact with BOGDAN drain output], [no guarding], [no appreciable organomegaly] Ext: [no gross muscle atrophy], [no edema], [no contractures] Neuro: [Unable to determine] Psych: [Unable to determine] - Labs CBC & Chem 7: 05/17/19 04:16 05/17/19 04:16 Labs: Abnormal Lab Results - Last 24 Hours (Table) 05/17/19 05/17/19 05/17/19 Range/Units 04:16 04:16 04:48 RBC 2.80 L (4.30-5.90) m/uL Hgb 8.0 L (13.0-17.5) gm/dL Hct 25.2 L (39.0-53.0) % RDW 16.4 H (11.5-15.5) % Lymphocytes # 0.3 L (1.0-4.8) k/uL ABG pH 7.29 L (7.35-7.45) ABG pCO2 33 L (35-45) mmHg ABG pO2 159 H (83-108) mmHg ABG HCO3 16 L (21-25) mmol/L ABG Total CO2 17 L (19-24) mmol/L ABG O2 Saturation 99.7 H (94-97) % Sodium 135 L (137-145) mmol/L Potassium 5.2 H (3.5-5.1) mmol/L Chloride 109 H (98-107) mmol/L Carbon Dioxide 16 L (22-30) mmol/L BUN 53 H (9-20) mg/dL Creatinine 4.59 H (0.66-1.25) mg/dL POC Glucose (mg/dL) (75-99) mg/dL Calcium 6.2 L* (8.4-10.2) mg/dL AST 13 L (17-59) U/L Total Protein 3.9 L (6.3-8.2) g/dL Albumin 1.9 L (3.5-5.0) g/dL 05/17/19 05/17/19 Range/Units 11:49 12:16 RBC (4.30-5.90) m/uL Hgb (13.0-17.5) gm/dL Hct (39.0-53.0) % RDW (11.5-15.5) % Lymphocytes # (1.0-4.8) k/uL ABG pH (7.35-7.45) ABG pCO2 (35-45) mmHg ABG pO2 (83-108) mmHg ABG HCO3 (21-25) mmol/L ABG Total CO2 (19-24) mmol/L ABG O2 Saturation (94-97) % Sodium (137-145) mmol/L Potassium (3.5-5.1) mmol/L Chloride (98-107) mmol/L Carbon Dioxide (22-30) mmol/L BUN (9-20) mg/dL Creatinine (0.66-1.25) mg/dL POC Glucose (mg/dL) 55 L 219 H (75-99) mg/dL Calcium (8.4-10.2) mg/dL AST (17-59) U/L Total Protein (6.3-8.2) g/dL Albumin (3.5-5.0) g/dL Microbiology - Last 24 Hours (Table) 05/16/19 08:20 Urine Culture - Final Urine,Voided 05/16/19 03:35 Gram Stain - Preliminary Peritoneal Fluid Body Fluid Culture - Preliminary Gram Neg Bacilli Non Hemolytic Strep 05/16/19 00:04 Blood Culture - Preliminary Blood No Growth after 24 hours 05/16/19 08:15 Gram Stain - Preliminary Sputum Sputum Culture - Preliminary 05/16/19 03:35 Anaerobic Culture - Preliminary Peritoneal Fluid Assessment and Plan Assessment: Assessment and plan Hypovolemic shock due to perforated duodenal ulcer status post exploratory laparotomy POD 1 Acute kidney injury secondary to ATN from hypovolemic shock Lactic acidosis Acute blood loss anemia secondary to GI bleed from perforated duodenal ulcer Hyperkalemia Hypocalcemia Alcohol abuse Kidney lesion POD 1 exploratory laparotomy with antrectomy and gastrojejunostomy. KUB and CT abdomen and pelvis confirmed perforation. Plans: Continue norepinephrine drip to maintain MAP greater than 65. Patient is currently on fluconazole and Zosyn for antibiotic coverage as per ID recommendation. Pulmonology consulted for ventilator management. Continue Protonix 40 mg IV twice a day and Reglan 10 mg IV every 6 hours. Continue normal saline at 200 mL per hour. Telemetry monitoring. Follow wound cultures. Creatinine improving from 6.03-4.59. Likely due to hypovolemic shock. Plans: Continue IVF as above. Avoid nephrotoxins. Repeat BMP in the morning. Lactic acid 8.1. Likely due to hypovolemic shock. Plans: IVF as above. Repeat lactic acid tomorrow morning. Hemoglobin 8.0. Given 2 units PRBC during surgery. Likely acute blood loss from duodenal ulcer perforation, minimally from surgery and dilution. Plans: Repeat CBC in the morning. Transfuse if hemoglobin less than 7. Potassium 5.2. Unknown etiology. Plans: Repeat BMP in the morning. Telemetry monitoring. 1 g calcium gluconate IV now. Calcium 6.2. Possibly from blood transfusion. Plans: 1 g calcium gluconate IV now. Repeat CMP in the morning. Family states drinks 4 beers daily. Plans: Patient is fully sedated currently. We will continue to monitor. Patient with exophytic kidney lesion, needs workup in the outpatient setting, incidental finding on CT. [POD 1 exploratory laparotomy for perforated duodenal ulcer. Patient currently intubated and fully sedated. Plans to wean sedation tomorrow. He is pending clinical improvement. Prognosis is extremely guarded. Discussed with family at bedside.]
--- NOTE | 2019-05-17 15:34 | P.PN ---
Subjective Progress Note Date: 05/17/19 Patient intubated sedated and on pressors. Objective - Vital Signs Vital signs: Vital Signs Temp 98.8 F 05/17/19 08:01 Pulse 79 05/17/19 15:15 Resp 20 05/17/19 14:00 BP 106/67 05/17/19 14:00 Pulse Ox 96 05/17/19 14:00 Intake & Output 05/16/19 05/17/19 05/17/19 18:59 06:59 18:59 Intake Total 5454.000 5001.579 2559.261 Output Total 1065 913 595 Balance 4389.000 4088.579 1964.261 Weight 88.7 kg Intake: IV 5000 4166 2198 0.9 NACL 3150 4000 1600 Calcium Gluconate 1 gm In 100 Sodium Chloride 0.9% 100 ml @ 100 mls/hr IVPB ONCE ONE Rx#:[id number] Dextrose 10 % in Water 250 250 ml @ 999 mls/hr IV ONCE ONE Rx#:[id number] Dextrose 5% in Water 1, 300 000 ml @ 100 mls/hr IV . Q11H [facility] with Sodium Bicarb (1 Meq/ml) 100 ml Rx#:[id number] Fluconazole in NaCl,Iso- 100 Osm 200 mg In Saline 1 100ml.bag @ 100 mls/hr IVPB DAILY [facility] Rx#: [id number] LR 1450 Pressure Bags 66 48 Zosyn 100 100 100 Intake, IV Titration 454.000 835.579 361.261 Amount ACETAMINOPHEN IV (For NPO 100 ) 1,000 mg In Empty Bag 1 bag @ 400 mls/hr IVPB ONCE ONE Rx#:[id number] Norepinephrine 4 mg In 254.000 Sodium Chloride 0.9% 250 ml @ 0.05 MCG/KG/MIN 13. 394 mls/hr IV .[id number] [facility] Rx#:[id number] Norepinephrine 8 mg In 647.508 269.862 Sodium Chloride 0.9% 250 ml @ 0.05 MCG/KG/MIN 6. 802 mls/hr IV .Q24H [facility] Rx#:[id number] Propofol 1,000 mg In 100.000 188.071 91.399 Empty Bag 1 bag @ Titrate IV .Q0M [facility] Rx#: [id number] Output: Gastric Drainage 600 350 Drainage 120 30 160 Anterior Abdomen 120 30 160 Urine 345 533 435 Other: Voiding Method Indwelling Catheter Indwelling Catheter Indwelling Catheter ABP, PAP, CO, CI - Last Documented Arterial Blood Pressure 132/46 - Respiratory Details: intubated - Cardiovascular Rhythm: regular - Gastrointestinal Gastrointestinal Comment(s): s/nd/nt incision CDI BOGDAN serosang - Psychiatric Psychiatric Comment(s): intubated and sedated - Labs CBC & Chem 7: 05/17/19 04:16 05/17/19 04:16 Labs: Abnormal Lab Results - Last 24 Hours (Table) 05/17/19 05/17/19 05/17/19 Range/Units 04:16 04:16 04:48 RBC 2.80 L (4.30-5.90) m/uL Hgb 8.0 L (13.0-17.5) gm/dL Hct 25.2 L (39.0-53.0) % RDW 16.4 H (11.5-15.5) % Lymphocytes # 0.3 L (1.0-4.8) k/uL ABG pH 7.29 L (7.35-7.45) ABG pCO2 33 L (35-45) mmHg ABG pO2 159 H (83-108) mmHg ABG HCO3 16 L (21-25) mmol/L ABG Total CO2 17 L (19-24) mmol/L ABG O2 Saturation 99.7 H (94-97) % Sodium 135 L (137-145) mmol/L Potassium 5.2 H (3.5-5.1) mmol/L Chloride 109 H (98-107) mmol/L Carbon Dioxide 16 L (22-30) mmol/L BUN 53 H (9-20) mg/dL Creatinine 4.59 H (0.66-1.25) mg/dL POC Glucose (mg/dL) (75-99) mg/dL Calcium 6.2 L* (8.4-10.2) mg/dL AST 13 L (17-59) U/L Total Protein 3.9 L (6.3-8.2) g/dL Albumin 1.9 L (3.5-5.0) g/dL 05/17/19 05/17/19 Range/Units 11:49 12:16 RBC (4.30-5.90) m/uL Hgb (13.0-17.5) gm/dL Hct (39.0-53.0) % RDW (11.5-15.5) % Lymphocytes # (1.0-4.8) k/uL ABG pH (7.35-7.45) ABG pCO2 (35-45) mmHg ABG pO2 (83-108) mmHg ABG HCO3 (21-25) mmol/L ABG Total CO2 (19-24) mmol/L ABG O2 Saturation (94-97) % Sodium (137-145) mmol/L Potassium (3.5-5.1) mmol/L Chloride (98-107) mmol/L Carbon Dioxide (22-30) mmol/L BUN (9-20) mg/dL Creatinine (0.66-1.25) mg/dL POC Glucose (mg/dL) 55 L 219 H (75-99) mg/dL Calcium (8.4-10.2) mg/dL AST (17-59) U/L Total Protein (6.3-8.2) g/dL Albumin (3.5-5.0) g/dL Microbiology - Last 24 Hours (Table) 05/16/19 08:20 Urine Culture - Final Urine,Voided 05/16/19 03:35 Gram Stain - Preliminary Peritoneal Fluid Body Fluid Culture - Preliminary Gram Neg Bacilli Non Hemolytic Strep 05/16/19 00:04 Blood Culture - Preliminary Blood No Growth after 24 hours 05/16/19 08:15 Gram Stain - Preliminary Sputum Sputum Culture - Preliminary 05/16/19 03:35 Anaerobic Culture - Preliminary Peritoneal Fluid Assessment and Plan Assessment: POD#1 ex lap antrectomy with billroth II gastrojejunostomy secondary to perforated duodenal ulcer Plan: Continue NPO, NGT. Continue with ICU care per critical care and medicine. IV ABX per ID. Wean pressors as tolerated. Prognosis is guarded secondary to multiple organ system failure and septic shock.
[2019-05-17 18:45] LABS: Glucose,Whole Blood 105 mg/dL (75-99)
[2019-05-18 00:05] LABS: Glucose,Whole Blood 101 mg/dL (75-99)
[2019-05-18] MEDS: SODIUM CHLORIDE 0.9% 1,000 ML IV SCH ×4 (00:30→20:58)
[2019-05-18] MEDS: HYDROmorphone 1 MG/ML 1 ML SYRINGE IVP PRN ×6 (00:39→19:59)
[2019-05-18] MEDS: HEPARIN SODIUM,PORCINE 5,000 UNIT/ML 1 ML VIAL SQ SCH ×4 (00:40→23:45)
[2019-05-18] MEDS: PROPOFOL 1,000 MG in EMPTY BAG 1 BAG IV SCH ×5 (02:55→23:44)
[2019-05-18] MEDS: IPRATROPIUM-ALBUTEROL 3 ML NEB INHALATION SCH ×6 (03:07→23:57)
[2019-05-18] MEDS: METOCLOPRAMIDE 5 MG/ML 2 ML VIAL IVP SCH ×4 (03:37→19:08)
[2019-05-18 04:55] LABS: Anisocytosis Slight; Basophils % (A) 0 %; Eosinophils # (A) 0.1 k/uL (0-0.7); Eosinophils % (A) 1 %; HCT 22.5 % (39.0-53.0); HGB 7.1 gm/dL (13.0-17.5); Hypochromasia Marked; Lymphocytes # (A) 0.3 k/uL (1.0-4.8); Lymphocytes % (A) 4 %; MCH 28.7 pg (25.0-35.0); MCHC 31.4 g/dL (31.0-37.0); MCV 91.2 fL (80.0-100.0); Mean Platelet Volume 7.2; Monocytes # (A) 0.6 k/uL (0-1.0); Monocytes % (A) 7 %; Neutrophils # (A) 6.5 k/uL (1.3-7.7); Neutrophils % (A) 84 %; Platelet Count 265 k/uL (150-450); Poikilocytosis Moderate; RBC 2.46 m/uL (4.30-5.90); RDW 16.4 % (11.5-15.5); WBC 7.8 k/uL (3.8-10.6)
[2019-05-18 05:10] LABS: Albumin 1.9 g/dL (3.5-5.0); Calcium 6.7 mg/dL (8.4-10.2); Potassium 4.3 mmol/L (3.5-5.1); Total Bilirubin 0.1 mg/dL (0.2-1.3); Total Protein 3.9 g/dL (6.3-8.2)
--- NOTE | 2019-05-18 07:47 | XR ---
EXAMINATION TYPE: XR chest 1V portable DATE OF EXAM: 05/18/2019 COMPARISON: 05/17/2019 HISTORY: Shortness of breath TECHNIQUE: Single frontal view of the chest is obtained. FINDINGS: Bilateral airspace disease and pleural effusion noted. ET and NG tubes stable. Central freeman e stable. No sizable pneumothorax. IMPRESSION: Stable x-ray demonstrating bilateral airspace disease and pleural effusion correlate for CHF versus pneumonia
[2019-05-18 08:20] LABS: ABG HCO3 15 mmol/L (21-25); ABG Oxygen Saturation 99.8 % (94-97); ABG PCO2 30 mmHg (35-45); ABG PH 7.29 (7.35-7.45); ABG PO2 148 mmHg (83-108); ABG TCO2 16 mmol/L (19-24); Allen Test Performed? Yes
[2019-05-18] MEDS: PIPERACILLIN-TAZOBACTAM 3.375 GM in SODIUM CHLORIDE 0.9% 100 ML IVPB SCH ×3 (09:08→23:50)
[2019-05-18] MEDS: PANTOPRAZOLE 40 MG/10 ML VIAL IV SCH ×2 (09:08→21:22)
[2019-05-18] MEDS: CHLORHEXIDINE GLUCONATE 15 ML CUP MUCOUS MEM SCH ×2 (09:08→21:22)
[2019-05-18] MEDS: FLUCONAZOLE IN NACL,ISO-OSM 200 MG in SALINE 1 100ML.BAG IVPB SCH (09:12)
--- NOTE | 2019-05-18 09:27 | P.PN ---
Subjective Progress Note Date: 05/18/19 Patient intubated sedated, weaning off pressors. Objective - Vital Signs Vital signs: Vital Signs Temp 97.6 F 05/18/19 04:00 Pulse 71 05/18/19 08:50 Resp 20 05/18/19 07:00 BP 113/56 05/18/19 06:00 Pulse Ox 98 05/18/19 07:00 Intake & Output 05/17/19 05/18/19 05/18/19 18:59 06:59 18:59 Intake Total 3495.477 3116.358 206 Output Total 1710 1375 205 Balance 2510.957 4056.358 1 Weight 89.3 kg Intake: IV 2998 2566 206 0.9 NACL 2400 2400 200 Calcium Gluconate 1 gm In 100 Sodium Chloride 0.9% 100 ml @ 100 mls/hr IVPB ONCE ONE Rx#:[id number] Dextrose 10 % in Water 250 250 ml @ 999 mls/hr IV ONCE ONE Rx#:[id number] Fluconazole in NaCl,Iso- 100 Osm 200 mg In Saline 1 100ml.bag @ 100 mls/hr IVPB DAILY [facility] Rx#: [id number] Pressure Bags 48 66 6 Zosyn 100 100 Intake, IV Titration 497.477 550.358 Amount Norepinephrine 8 mg In 328.225 250.358 Sodium Chloride 0.9% 250 ml @ 0.05 MCG/KG/MIN 6. 802 mls/hr IV .Q24H [facility] Rx#:[id number] Propofol 1,000 mg In 169.252 300 Empty Bag 1 bag @ Titrate IV .Q0M [facility] Rx#: [id number] Output: Gastric Drainage 500 350 50 Drainage 300 75 80 Anterior Abdomen 300 75 80 Urine 910 950 75 Other: Voiding Method Indwelling Catheter Indwelling Catheter ABP, PAP, CO, CI - Last Documented Arterial Blood Pressure 118/47 - Constitutional Constitutional Comment(s): sedated and intubated - Respiratory Details: on vent - Cardiovascular Rhythm: regular - Gastrointestinal Gastrointestinal Comment(s): S/ND BOGDAN serosang Dressing is CDI - Musculoskeletal Musculoskeletal Comment(s): responds to stimuli - Labs CBC & Chem 7: 05/18/19 04:17 05/18/19 04:17 Labs: Abnormal Lab Results - Last 24 Hours (Table) 05/17/19 05/17/19 05/17/19 Range/Units 11:49 12:16 18:34 RBC (4.30-5.90) m/uL Hgb (13.0-17.5) gm/dL Hct (39.0-53.0) % RDW (11.5-15.5) % Lymphocytes # (1.0-4.8) k/uL ABG pH (7.35-7.45) ABG pCO2 (35-45) mmHg ABG pO2 (83-108) mmHg ABG HCO3 (21-25) mmol/L ABG Total CO2 (19-24) mmol/L ABG O2 Saturation (94-97) % Chloride (98-107) mmol/L Carbon Dioxide (22-30) mmol/L BUN (9-20) mg/dL Creatinine (0.66-1.25) mg/dL POC Glucose (mg/dL) 55 L 219 H 105 H (75-99) mg/dL Plasma Lactic Acid Vernon (0.7-2.0) mmol/L Calcium (8.4-10.2) mg/dL Total Bilirubin (0.2-1.3) mg/dL AST (17-59) U/L Total Protein (6.3-8.2) g/dL Albumin (3.5-5.0) g/dL 05/17/19 05/18/19 05/18/19 Range/Units 23:53 04:17 04:17 RBC 2.46 L (4.30-5.90) m/uL Hgb 7.1 L (13.0-17.5) gm/dL Hct 22.5 L (39.0-53.0) % RDW 16.4 H (11.5-15.5) % Lymphocytes # 0.3 L (1.0-4.8) k/uL ABG pH (7.35-7.45) ABG pCO2 (35-45) mmHg ABG pO2 (83-108) mmHg ABG HCO3 (21-25) mmol/L ABG Total CO2 (19-24) mmol/L ABG O2 Saturation (94-97) % Chloride 115 H (98-107) mmol/L Carbon Dioxide 14 L (22-30) mmol/L BUN 45 H (9-20) mg/dL Creatinine 3.43 H (0.66-1.25) mg/dL POC Glucose (mg/dL) 101 H (75-99) mg/dL Plasma Lactic Acid Vernon (0.7-2.0) mmol/L Calcium 6.7 L (8.4-10.2) mg/dL Total Bilirubin 0.1 L (0.2-1.3) mg/dL AST 11 L (17-59) U/L Total Protein 3.9 L (6.3-8.2) g/dL Albumin 1.9 L (3.5-5.0) g/dL 05/18/19 05/18/19 Range/Units 04:17 08:16 RBC (4.30-5.90) m/uL Hgb (13.0-17.5) gm/dL Hct (39.0-53.0) % RDW (11.5-15.5) % Lymphocytes # (1.0-4.8) k/uL ABG pH 7.29 L (7.35-7.45) ABG pCO2 30 L (35-45) mmHg ABG pO2 148 H (83-108) mmHg ABG HCO3 15 L (21-25) mmol/L ABG Total CO2 16 L (19-24) mmol/L ABG O2 Saturation 99.8 H (94-97) % Chloride (98-107) mmol/L Carbon Dioxide (22-30) mmol/L BUN (9-20) mg/dL Creatinine (0.66-1.25) mg/dL POC Glucose (mg/dL) (75-99) mg/dL Plasma Lactic Acid Vernon <0.5 L (0.7-2.0) mmol/L Calcium (8.4-10.2) mg/dL Total Bilirubin (0.2-1.3) mg/dL AST (17-59) U/L Total Protein (6.3-8.2) g/dL Albumin (3.5-5.0) g/dL Microbiology - Last 24 Hours (Table) 05/16/19 08:15 Gram Stain - Final Sputum Sputum Culture - Final 05/16/19 00:04 Blood Culture - Preliminary Blood No Growth after 48 hours 05/16/19 08:20 Urine Culture - Final Urine,Voided 05/16/19 03:35 Gram Stain - Preliminary Peritoneal Fluid Body Fluid Culture - Preliminary Gram Neg Bacilli Non Hemolytic Strep Assessment and Plan Assessment: POD#2 ex lap antrectomy with billroth II gastrojejunostomy secondary to perforated duodenal ulcer Plan: Continue NPO, NGT. Continue with ICU care per critical care and medicine. IV ABX per ID. Wean pressors as tolerated. Consider TPN today secondary to protein malnutrition and NPO status. Prognosis is guarded secondary to multiple organ system failure and septic shock.
[2019-05-18] MEDS: NOREPINEPHRINE 8 MG in SODIUM CHLORIDE 0.9% 250 ML IV SCH (09:44)
--- NOTE | 2019-05-18 11:58 | P.PN ---
Subjective Progress Note Date: 05/18/19 Principal diagnosis: Duodenal perforation Patient was seen and examined. No acute events overnight. Fully sedated and ventilated. Ventilator settings set at tidal volume 500, rate 20, FiO2 35 % with PEEP of 5. He is on norepinephrine drip at 4 mics per minute. He has been sedated with propofol. CBC shows hemoglobin of 7.1, which has dropped from 8. ABG shows pH 7.29, pCO2 30, bicarbonate 16. Family is at bedside. Objective - Vital Signs Vital signs: Vital Signs Temp 98.4 F 05/18/19 08:00 Pulse 70 05/18/19 11:37 Resp 19 05/18/19 11:00 BP 111/56 05/18/19 10:15 Pulse Ox 97 05/18/19 11:00 Intake & Output 05/17/19 05/18/19 05/18/19 18:59 06:59 18:59 Intake Total 3495.477 3216.358 1304.806 Output Total 1710 1375 550 Balance 5355.117 6245.358 754.806 Weight 89.3 kg 89.3 kg Intake: IV 2998 2566 1230 0.9 NACL 2400 2400 1000 Calcium Gluconate 1 gm In 100 Sodium Chloride 0.9% 100 ml @ 100 mls/hr IVPB ONCE ONE Rx#:[id number] Dextrose 10 % in Water 250 250 ml @ 999 mls/hr IV ONCE ONE Rx#:[id number] Fluconazole in NaCl,Iso- 100 100 Osm 200 mg In Saline 1 100ml.bag @ 100 mls/hr IVPB DAILY [facility] Rx#: [id number] Pressure Bags 48 66 30 Zosyn 100 100 100 Intake, IV Titration 497.477 650.358 74.806 Amount Norepinephrine 8 mg In 328.225 250.358 64.090 Sodium Chloride 0.9% 250 ml @ 0.05 MCG/KG/MIN 6. 802 mls/hr IV .Q24H [facility] Rx#:[id number] Propofol 1,000 mg In 169.252 400 10.716 Empty Bag 1 bag @ Titrate IV .Q0M [facility] Rx#: [id number] Output: Gastric Drainage 500 350 50 Drainage 300 75 80 Anterior Abdomen 300 75 80 Urine 910 950 420 Other: Voiding Method Indwelling Catheter Indwelling Catheter Indwelling Catheter ABP, PAP, CO, CI - Last Documented Arterial Blood Pressure 119/50 - Exam General: [non toxic], [fully sedated on mechanical ventilation], [appears at stated age] Derm: [warm], [dry] Head: [atraumatic], [normocephalic], [symmetric] Eyes: [EOMI], [no lid lag], [anicteric sclera] Mouth: [no lip lesion], [endotracheal tube intact] Cardiovascular: [S1S2 reg], [no murmur], [positive DP pulse bilateral], Lungs: [Coarse breath sounds bilateral], [no rhonchi, no rales] , [no accessory muscle use] Abdominal: [soft], [dressings clean dry and intact with BOGDAN drain output], [no guarding], [no appreciable organomegaly], [no bowel sounds] Ext: [no gross muscle atrophy], [no edema], [no contractures] Neuro: [Unable to determine] Psych: [Unable to determine] - Labs CBC & Chem 7: 05/18/19 04:17 05/18/19 04:17 Labs: Abnormal Lab Results - Last 24 Hours (Table) 05/17/19 05/17/19 05/17/19 Range/Units 11:49 12:16 18:34 RBC (4.30-5.90) m/uL Hgb (13.0-17.5) gm/dL Hct (39.0-53.0) % RDW (11.5-15.5) % Lymphocytes # (1.0-4.8) k/uL ABG pH (7.35-7.45) ABG pCO2 (35-45) mmHg ABG pO2 (83-108) mmHg ABG HCO3 (21-25) mmol/L ABG Total CO2 (19-24) mmol/L ABG O2 Saturation (94-97) % Chloride (98-107) mmol/L Carbon Dioxide (22-30) mmol/L BUN (9-20) mg/dL Creatinine (0.66-1.25) mg/dL POC Glucose (mg/dL) 55 L 219 H 105 H (75-99) mg/dL Plasma Lactic Acid Vernon (0.7-2.0) mmol/L Calcium (8.4-10.2) mg/dL Total Bilirubin (0.2-1.3) mg/dL AST (17-59) U/L Total Protein (6.3-8.2) g/dL Albumin (3.5-5.0) g/dL 05/17/19 05/18/19 05/18/19 Range/Units 23:53 04:17 04:17 RBC 2.46 L (4.30-5.90) m/uL Hgb 7.1 L (13.0-17.5) gm/dL Hct 22.5 L (39.0-53.0) % RDW 16.4 H (11.5-15.5) % Lymphocytes # 0.3 L (1.0-4.8) k/uL ABG pH (7.35-7.45) ABG pCO2 (35-45) mmHg ABG pO2 (83-108) mmHg ABG HCO3 (21-25) mmol/L ABG Total CO2 (19-24) mmol/L ABG O2 Saturation (94-97) % Chloride 115 H (98-107) mmol/L Carbon Dioxide 14 L (22-30) mmol/L BUN 45 H (9-20) mg/dL Creatinine 3.43 H (0.66-1.25) mg/dL POC Glucose (mg/dL) 101 H (75-99) mg/dL Plasma Lactic Acid Vernon (0.7-2.0) mmol/L Calcium 6.7 L (8.4-10.2) mg/dL Total Bilirubin 0.1 L (0.2-1.3) mg/dL AST 11 L (17-59) U/L Total Protein 3.9 L (6.3-8.2) g/dL Albumin 1.9 L (3.5-5.0) g/dL 05/18/19 05/18/19 Range/Units 04:17 08:16 RBC (4.30-5.90) m/uL Hgb (13.0-17.5) gm/dL Hct (39.0-53.0) % RDW (11.5-15.5) % Lymphocytes # (1.0-4.8) k/uL ABG pH 7.29 L (7.35-7.45) ABG pCO2 30 L (35-45) mmHg ABG pO2 148 H (83-108) mmHg ABG HCO3 15 L (21-25) mmol/L ABG Total CO2 16 L (19-24) mmol/L ABG O2 Saturation 99.8 H (94-97) % Chloride (98-107) mmol/L Carbon Dioxide (22-30) mmol/L BUN (9-20) mg/dL Creatinine (0.66-1.25) mg/dL POC Glucose (mg/dL) (75-99) mg/dL Plasma Lactic Acid Vernon <0.5 L (0.7-2.0) mmol/L Calcium (8.4-10.2) mg/dL Total Bilirubin (0.2-1.3) mg/dL AST (17-59) U/L Total Protein (6.3-8.2) g/dL Albumin (3.5-5.0) g/dL Microbiology - Last 24 Hours (Table) 05/16/19 03:35 Gram Stain - Preliminary Peritoneal Fluid Body Fluid Culture - Preliminary Klebsiella oxytoca Non Hemolytic Strep 05/16/19 08:15 Gram Stain - Final Sputum Sputum Culture - Final 05/16/19 00:04 Blood Culture - Preliminary Blood No Growth after 48 hours 05/16/19 08:20 Urine Culture - Final Urine,Voided Assessment and Plan Assessment: Assessment and plan Hypovolemic and septic shock due to perforated duodenal ulcer status post exploratory laparotomy POD 2 Acute hypoxic respiratory failure on mechanical ventilation secondary to hypovolemic and septic shock, postoperative management Acute kidney injury secondary to ATN from hypovolemic and septic shock Acute blood loss anemia secondary to GI bleed from perforated duodenal ulcer Hypocalcemia Alcohol abuse Kidney lesion Resolved: Lactic acidosis, hyperkalemia POD 2 exploratory laparotomy with antrectomy and gastrojejunostomy. KUB and CT abdomen and pelvis confirmed perforation. Wound cultures show Klebsiella oxytocin and non-hemolytic strep. Blood cultures negative at 48 hours. Urine culture negative. Plans: Continue norepinephrine drip to maintain MAP greater than 65. Patient is currently on fluconazole and Zosyn for antibiotic coverage as per ID recommendation. Pulmonology consulted for ventilator management. Continue Protonix 40 mg IV twice a day and Reglan 10 mg IV every 6 hours. Continue normal saline at 75 mL per hour. Telemetry monitoring. Follow wound cultures. Follow ID recommendations. Plans: Ventilator management as per pulmonology. Management as above. Creatinine improving from 6.03-4.59-3.43. Likely due to hypovolemic and septic shock. Plans: Continue IVF as above. Avoid nephrotoxins. Repeat BMP in the morning. Hemoglobin 8.0-7.1. Given 2 units PRBC during surgery. Likely acute blood loss from duodenal ulcer perforation, minimally from surgery and dilution. Plans: Repeat CBC this afternoon. Transfuse if hemoglobin less than 7. Calcium 6.2-6.7. Possibly from blood transfusion. Plans: Repeat CMP in the morning. Family states drinks 4 beers daily. Plans: Patient is fully sedated currently. We will continue to monitor. Patient with exophytic kidney lesion, needs workup in the outpatient setting, incidental finding on CT. [POD 2 exploratory laparotomy for perforated duodenal ulcer. Patient currently intubated and fully sedated. Plans to wean sedation. He is pending clinical improvement. Prognosis is extremely guarded. Discussed with family at bedside.]
[2019-05-18 12:47] LABS: Glucose,Whole Blood 83 mg/dL (75-99)
--- NOTE | 2019-05-18 12:50 | P.PN ---
Subjective Progress Note Date: 05/18/19 Principal diagnosis: Acute surgical abdomen secondary to duodenal ulcer perforation Is a 63-year-old male patient who came into the emergency department after he collapsed at home. The patient was having abdominal pain radiating to his back for several days. He was unable to eat and he was progressively getting more sick and weak and ultimately collapsed at home and he was brought into the emergency department where further investigation was done including a CAT scan of the abdomen and pelvis that showed a large amount of intraperitoneal air the origin was not certain. There was large amount of ascites and scattered area of small bowel wall thickening secondary to ascites/nonspecific enteritis. There was also incidental finding of a suspicious 13 mm mass lesion in the superior pole of the left kidney and another 8mm lesion exophytic in the superior pole of the right kidney. Based on this, the patient was taken immediately to the operating room. Intraoperatively the patient received a total of 3.5 L of IV fluids. He also received a total of 2 units of packed RBCs. He underwent expiratory laparotomy and he was found to have a perforated duodenal ulcer. The patient underwent antrectomy and Billroth II gastrojejunostomy. Postop, he was brought into the intensive care unit for further evaluation and management. Currently he is sedated with propofol is running at 30 g per KG per minute. He has received an additional 1-1/2 L of IV fluids here in the ICU which brings up his total boluses up to 5 L. Currently is on a maintenance of lactated Ringer at the rate of 1 50 mL and a carb infusion at the rate of 100 and hour. He is on assist control mode of ventilation at the rate of 20 with an FiO2 of 50% and a PEEP of 5 and a tidal volume of 500. The morning blood gases showed a pH of 7.37 with a pCO2 of 32 and pO2 of 400 and he was weaned off and FiO2 of 50%. He is producing urine output. His lactic acid level has dropped from a baseline of 8.1 down to 2.2. His creatinine is up from 6 down to 4.7. His serum bicarb is up to 19 and anion gap is at 10. He was given Zosyn and he was also given 400 mg of IV Diflucan and operating room. He has a triple-lumen catheter, left IJ and an outlying catheter, left radial. His abdominal wound is dry clean and intact. The patient has a BOGDAN drains in place. Cardiac rhythm is sinus for now. He briefly required pressors and currently is off levo fed. ET tube is in place. Output is minimal in the order of 150 mL the patient drinks more than 6 bottles of beer on a daily basis probably sometimes even more. He is an ex- smoker Patient was evaluated today on 05/17/2019, remains in the ICU, mechanically ventilated and intubated. His present ventilator settings are tidal volume of 500 assist control rate of 20 FiO2 40%. And PEEP is 5. Patient is still requiring pressors in the form of norepinephrine at 0.22 mcg/kg/m, he is on propofol at 75 mcg/kg/m, remains on IV fluids at 200 mL per hour. CVP is about 9. Patient has decent urine output. But blood pressure remains marginal requi ring pressors. He is presently on antibiotics including Zosyn and Diflucan as per infectious disease on the case. ABG this morning showed a pO2 of 159 pCO2 of 33 pH of 7.29. His CBC showed WBC count of 6.7 hemoglobin of 8.0 electrolytes showed slightly elevated potassium of 5.2. BUN however is 53 creatinine is 4.59, improving compared to his creatinine on presentation of 6.03. Patient is sedated, however he is arousable, and follows simple instructions. His propofol dose was increased, patient is known to have history of alcoholism. Reevaluated today on 05/18/2019, remains in ICU, intubated, mechanically ventilated. Sedated, on propofol, patient is on assist control rate of 20 tidal volume of 500 FiO2 40% and I cut it down to 35% he is also on PEEP of 5. ABG showed a pO2 of 148 pCO2 of 30 pH of 7.29 hence I recommended starting the patient on the sodium bicarb drip. His pH remained low since yesterday, hence he will likely improve with 24 hours of sodium bicarb drip. His hemoglobin is 7.1 today, and considering that the patient is still requiring pressors in the form of levo fed him I recommended one unit of packed RBCs to be given. This will likely improve his blood pressure. And hopefully could discontinue norepinephrine which is presently at 0.06 mcg/kg/m. WBC count is 7.8. Electrolytes are basically normal bicarb is low at 14 his BUN is 45 creatinine 3.43 steadily improving since admission. Patient is arousable in spite of being on propofol at 50 mcg/kg/m, and he is able to follow instructions. Chest x-ray showed stable bilateral airspace disease and small pleural effusions. Right greater than left. Objective - Vital Signs Vital signs: Vital Signs Temp 98.4 F 05/18/19 08:00 Pulse 70 05/18/19 11:37 Resp 19 05/18/19 11:00 BP 111/56 05/18/19 10:15 Pulse Ox 97 05/18/19 11:00 Intake & Output 05/17/19 05/18/19 05/18/19 18:59 06:59 18:59 Intake Total 3495.477 3216.358 1304.806 Output Total 1710 1375 550 Balance 4046.648 4702.358 754.806 Weight 89.3 kg 89.3 kg Intake: IV 2998 2566 1230 0.9 NACL 2400 2400 1000 Calcium Gluconate 1 gm In 100 Sodium Chloride 0.9% 100 ml @ 100 mls/hr IVPB ONCE ONE Rx#:[id number] Dextrose 10 % in Water 250 250 ml @ 999 mls/hr IV ONCE ONE Rx#:[id number] Fluconazole in NaCl,Iso- 100 100 Osm 200 mg In Saline 1 100ml.bag @ 100 mls/hr IVPB DAILY [facility] Rx#: [id number] Pressure Bags 48 66 30 Zosyn 100 100 100 Intake, IV Titration 497.477 650.358 74.806 Amount Norepinephrine 8 mg In 328.225 250.358 64.090 Sodium Chloride 0.9% 250 ml @ 0.05 MCG/KG/MIN 6. 802 mls/hr IV .Q24H [facility] Rx#:[id number] Propofol 1,000 mg In 169.252 400 10.716 Empty Bag 1 bag @ Titrate IV .Q0M [facility] Rx#: [id number] Output: Gastric Drainage 500 350 50 Drainage 300 75 80 Anterior Abdomen 300 75 80 Urine 910 950 420 Other: Voiding Method Indwelling Catheter Indwelling Catheter Indwelling Catheter ABP, PAP, CO, CI - Last Documented Arterial Blood Pressure 119/50 - Exam Physical Exam: Revealed a 63-year-old white male, on mechanical ventilation. In no distress. Head: Atraumatic, normocephalic. HEENT:[Neck is supple.] [No neck masses.] [No thyromegaly.] [No JVD.] PERRLA, EOMI, no icterus, moist mucous membranes, endotracheal tube and orogastric tube are intact. Chest: [Diminished breath sounds and crackles at the bases no rhonchi and no wheezes.] Cardiac Exam: [Normal S1 and S2, no S3 gallop, no murmur.] Abdomen: [Postsurgical, soft, slightly distended, no tenderness, no rebound, diminished bowel sounds. No rigidity..] Extremities: [No clubbing, no edema, no cyanosis.] Good pulses bilaterally. Neurological Exam: arousable, follows simple instructions. No gross focal neurologic deficits. Psychiatric: Could not be assessed. Lymphatics: No lymphadenopathy. Skin: No rashes. - Labs CBC & Chem 7: 05/18/19 04:17 05/18/19 04:17 Labs: Abnormal Lab Results - Last 24 Hours (Table) 05/16/19 05/17/19 05/17/19 Range/Units 00:04 18:34 23:53 RBC (4.30-5.90) m/uL Hgb (13.0-17.5) gm/dL Hct (39.0-53.0) % RDW (11.5-15.5) % Lymphocytes # (1.0-4.8) k/uL ABG pH (7.35-7.45) ABG pCO2 (35-45) mmHg ABG pO2 (83-108) mmHg ABG HCO3 (21-25) mmol/L ABG Total CO2 (19-24) mmol/L ABG O2 Saturation (94-97) % Chloride (98-107) mmol/L Carbon Dioxide (22-30) mmol/L BUN (9-20) mg/dL Creatinine (0.66-1.25) mg/dL POC Glucose (mg/dL) 105 H 101 H (75-99) mg/dL Plasma Lactic Acid Vernon (0.7-2.0) mmol/L Calcium (8.4-10.2) mg/dL Total Bilirubin (0.2-1.3) mg/dL AST (17-59) U/L Total Protein (6.3-8.2) g/dL Albumin (3.5-5.0) g/dL Crossmatch See Detail 05/18/19 05/18/19 05/18/19 Range/Units 04:17 04:17 04:17 RBC 2.46 L (4.30-5.90) m/uL Hgb 7.1 L (13.0-17.5) gm/dL Hct 22.5 L (39.0-53.0) % RDW 16.4 H (11.5-15.5) % Lymphocytes # 0.3 L (1.0-4.8) k/uL ABG pH (7.35-7.45) ABG pCO2 (35-45) mmHg ABG pO2 (83-108) mmHg ABG HCO3 (21-25) mmol/L ABG Total CO2 (19-24) mmol/L ABG O2 Saturation (94-97) % Chloride 115 H (98-107) mmol/L Carbon Dioxide 14 L (22-30) mmol/L BUN 45 H (9-20) mg/dL Creatinine 3.43 H (0.66-1.25) mg/dL POC Glucose (mg/dL) (75-99) mg/dL Plasma Lactic Acid Vernon <0.5 L (0.7-2.0) mmol/L Calcium 6.7 L (8.4-10.2) mg/dL Total Bilirubin 0.1 L (0.2-1.3) mg/dL AST 11 L (17-59) U/L Total Protein 3.9 L (6.3-8.2) g/dL Albumin 1.9 L (3.5-5.0) g/dL Crossmatch 05/18/19 Range/Units 08:16 RBC (4.30-5.90) m/uL Hgb (13.0-17.5) gm/dL Hct (39.0-53.0) % RDW (11.5-15.5) % Lymphocytes # (1.0-4.8) k/uL ABG pH 7.29 L (7.35-7.45) ABG pCO2 30 L (35-45) mmHg ABG pO2 148 H (83-108) mmHg ABG HCO3 15 L (21-25) mmol/L ABG Total CO2 16 L (19-24) mmol/L ABG O2 Saturation 99.8 H (94-97) % Chloride (98-107) mmol/L Carbon Dioxide (22-30) mmol/L BUN (9-20) mg/dL Creatinine (0.66-1.25) mg/dL POC Glucose (mg/dL) (75-99) mg/dL Plasma Lactic Acid Vernon (0.7-2.0) mmol/L Calcium (8.4-10.2) mg/dL Total Bilirubin (0.2-1.3) mg/dL AST (17-59) U/L Total Protein (6.3-8.2) g/dL Albumin (3.5-5.0) g/dL Crossmatch Microbiology - Last 24 Hours (Table) 05/16/19 03:35 Gram Stain - Preliminary Peritoneal Fluid Body Fluid Culture - Preliminary Klebsiella oxytoca Non Hemolytic Strep 05/16/19 08:15 Gram Stain - Final Sputum Sputum Culture - Final 05/16/19 00:04 Blood Culture - Preliminary Blood No Growth after 48 hours 05/16/19 08:20 Urine Culture - Final Urine,Voided Assessment and Plan Assessment: Impression: 1 acute abdominal sepsis and septic shock secondary to duodenal ulcer perforati on. 2 acute lactic acidosis secondary to above, resolved 3 acute hypoxic respiratory failure secondary to septic shock and abdominal sepsis. 4 acute kidney injury secondary to acute tubular necrosis and hypotension as well as sepsis and septic shock. Improving steadily but not resolved 5 chronic alcoholism 6 history of GI bleeding 7 exophytic kidney lesion, needs to have workup on outpatient basis, this was incidentally seen on CT of the abdomen and pelvis, will eventually need outpatient follow-up with urology. 8 acute anemia secondary to blood loss, received a total of 2 units of packed RBCs since admission, hemoglobin now is 7.1, however considering his hypotension, I will recommend another unit of packed RBCs to be given today. Recommendation: Continue ventilatory support Continue hemodynamic support, titrate and possibly discontinue norepinephrine after 1 unit of blood transfusion. Start TPN today. Continue antibiotics in the form of Zosyn and Diflucan. Continue GI and DVT prophylaxis Continue alcohol withdrawal protocol Continue to monitor daily labs and renal profile Start patient on sodium bicarb drip, and cut down IV fluids, start TPN today. Discussed his condition with family at bedside, updated on his condition, Critical care time is 35 minutes. We will continue to follow. Time with Patient: Greater than 30
[2019-05-18 12:59] LABS: Ionized Calcium 4.7 mg/dL (4.5-5.3)
[2019-05-18 13:15] LABS: Magnesium 1.8 mg/dL (1.6-2.3); Phosphorus 5.4 mg/dL (2.5-4.5)
[2019-05-18 13:17] LABS: Anisocytosis Slight; HCT 21.3 % (39.0-53.0); Hypochromasia Marked; MCH 27.9 pg (25.0-35.0); MCHC 30.9 g/dL (31.0-37.0); MCV 90.4 fL (80.0-100.0); Mean Platelet Volume 7.7; Platelet Count 228 k/uL (150-450); Poikilocytosis Moderate; RBC 2.36 m/uL (4.30-5.90); RDW 16.9 % (11.5-15.5); WBC 6.9 k/uL (3.8-10.6)
[2019-05-18] MEDS: DEXTROSE 5% IN WATER 1,000 ML with SODIUM BICARB (1 MEQ/ML) 150 ML IV SCH (13:20)
[2019-05-18 13:22] LABS: HGB 6.6 gm/dL (13.0-17.5)
[2019-05-18] MEDS: MVI, ADULT NO.4 WITH VIT K 10 ML, TRACE (CONC-1ML/DOSE) 1 ML, PARENTERAL ELECTROLYTES 2... IV SCH ×4 (18:15)
[2019-05-18 18:26] LABS: Glucose,Whole Blood 103 mg/dL (75-99)
[2019-05-18 20:19] LABS: Anisocytosis Slight; HCT 24.5 % (39.0-53.0); HGB 7.7 gm/dL (13.0-17.5); Hypochromasia Marked; MCH 28.2 pg (25.0-35.0); MCHC 31.5 g/dL (31.0-37.0); MCV 89.5 fL (80.0-100.0); Mean Platelet Volume 7.6; Platelet Count 212 k/uL (150-450); Poikilocytosis Moderate; RBC 2.74 m/uL (4.30-5.90); RDW 16.6 % (11.5-15.5); WBC 8.3 k/uL (3.8-10.6)
--- NOTE | 2019-05-18 23:17 | PN ---
PROGRESS NOTE DATE OF SERVICE: 05/18/2019 REASON FOR FOLLOWUP: Perforated peptic ulcer disease and secondary peritonitis. INTERVAL HISTORY: The patient is currently afebrile. The patient is hemodynamically stable, not requiring any pressor support. The patient remains intubated on the vent; no other change reported by the nursing staff. PHYSICAL EXAMINATION: Blood pressure is 121/61 with a pulse of 87, temperature of 98. He is 96% on 35% FiO2. General description is a middle-aged male intubated on the vent. RESPIRATORY SYSTEM: Unlabored breathing with decreased breath sounds at the base. No wheeze. HEART: S1, S2. Regular rate and rhythm. ABDOMEN: Soft. Mildly distended. No guarding or rigidity. EXTREMITIES: No edema of the feet. LABS: Hemoglobin is 7.7, white count 8.3. Abdominal culture has been finalized with klebsiella and strep sensitive pathogen. DIAGNOSTIC IMPRESSION AND PLAN: Patient with secondary peritonitis from perforated peptic ulcer disease, status post operative repair of the same. Patient's abdominal culture positive for klebsiella and strep which are sensitive pathogens. The patient is currently covered with Zosyn; to continue along with Diflucan. Family at the bedside. Their questions and concerns were answered. MMODL / IJN: [id number] /
[2019-05-19] MEDS: HYDROmorphone 1 MG/ML 1 ML SYRINGE IVP PRN ×7 (00:09→21:29)
[2019-05-19 00:17] LABS: Glucose,Whole Blood 144 mg/dL (75-99)
[2019-05-19] MEDS: METOCLOPRAMIDE 5 MG/ML 2 ML VIAL IVP SCH ×4 (01:07→18:30)
[2019-05-19] MEDS: IPRATROPIUM-ALBUTEROL 3 ML NEB INHALATION SCH ×6 (03:35→23:14)
[2019-05-19] MEDS: PROPOFOL 1,000 MG in EMPTY BAG 1 BAG IV SCH ×6 (03:39→23:54)
[2019-05-19] MEDS: DEXTROSE 5% IN WATER 1,000 ML with SODIUM BICARB (1 MEQ/ML) 150 ML IV SCH ×2 (03:40→18:54)
[2019-05-19 04:44] LABS: Anisocytosis Slight; Basophils % (A) 0 %; Eosinophils # (A) 0.3 k/uL (0-0.7); Eosinophils % (A) 3 %; HCT 24.1 % (39.0-53.0); HGB 7.6 gm/dL (13.0-17.5); Hypochromasia Marked; Lymphocytes # (A) 0.4 k/uL (1.0-4.8); Lymphocytes % (A) 4 %; MCH 28.3 pg (25.0-35.0); MCHC 31.7 g/dL (31.0-37.0); MCV 89.3 fL (80.0-100.0); Mean Platelet Volume 7.6; Monocytes # (A) 0.4 k/uL (0-1.0); Monocytes % (A) 5 %; Neutrophils % (A) 85 %; Platelet Count 194 k/uL (150-450); Poikilocytosis Moderate; RDW 16.1 % (11.5-15.5); WBC 8.2 k/uL (3.8-10.6)
[2019-05-19 04:45] LABS: Albumin 1.9 g/dL (3.5-5.0); Calcium 7.3 mg/dL (8.4-10.2); Magnesium 1.8 mg/dL (1.6-2.3); Phosphorus 4.3 mg/dL (2.5-4.5); Total Bilirubin 0.2 mg/dL (0.2-1.3)
[2019-05-19 06:02] LABS: Glucose,Whole Blood 138 mg/dL (75-99)
[2019-05-19] MEDS: SODIUM CHLORIDE 0.9% 1,000 ML IV SCH ×2 (06:02→18:55)
--- NOTE | 2019-05-19 07:20 | XR ---
EXAMINATION TYPE: XR chest 1V portable DATE OF EXAM: 05/19/2019 COMPARISON: 05/18/2019 HISTORY: Endotracheal tube placement TECHNIQUE: Single frontal view of the chest is obtained. FINDINGS: Enteric tube, endotracheal tube, and left central venous catheter remain in overall stable position. There are similar layering pleural effusions with associated bibasilar airspace disease, r ight greater than left. Mild cephalization remains. Cardia mediastinal silhouette is mildly enlarged but stable. Moderate degenerative changes of the spine. No sizable new pneumothorax. IMPRESSION: Similar layering pleural effusions, right greater than left (moderate on the right and s mall on the left) with associated bibasilar airspace disease. Stable lines and tubes.
[2019-05-19 07:53] LABS: ABG Base Excess -7.2 mmol/L; ABG HCO3 18 mmol/L (21-25); ABG Oxygen Saturation 99.6 % (94-97); ABG PCO2 32 mmHg (35-45); ABG PH 7.36 (7.35-7.45); ABG PO2 131 mmHg (83-108); ABG TCO2 19 mmol/L (19-24)
[2019-05-19 07:54] LABS: Allen Test Performed? no
[2019-05-19] MEDS: HEPARIN SODIUM,PORCINE 5,000 UNIT/ML 1 ML VIAL SQ SCH ×3 (08:38→23:52)
[2019-05-19] MEDS: PANTOPRAZOLE 40 MG/10 ML VIAL IV SCH ×2 (08:38→21:33)
[2019-05-19] MEDS: CHLORHEXIDINE GLUCONATE 15 ML CUP MUCOUS MEM SCH ×2 (08:38→21:33)
[2019-05-19] MEDS: FLUCONAZOLE IN NACL,ISO-OSM 200 MG in SALINE 1 100ML.BAG IVPB SCH (08:38)
[2019-05-19] MEDS: PIPERACILLIN-TAZOBACTAM 3.375 GM in SODIUM CHLORIDE 0.9% 100 ML IVPB SCH ×3 (09:11→23:50)
--- NOTE | 2019-05-19 09:12 | P.PN ---
Subjective Progress Note Date: 05/19/19 Patient intubated sedated, off pressors Objective - Vital Signs Vital signs: Vital Signs Temp 98.6 F 05/19/19 08:00 Pulse 78 05/19/19 08:26 Resp 20 05/19/19 08:00 BP 112/59 05/19/19 08:00 Pulse Ox 94 L 05/19/19 08:00 Intake & Output 05/18/19 05/19/19 05/19/19 18:59 06:59 18:59 Intake Total 3440.260 2792.854 668 Output Total 1795 1745 210 Balance 2035.919 4399.854 458 Weight 89.3 kg 92 kg Intake: IV 2802 2483.52 668 0.9 NACL 2025 950 235 Dextrose 5% in Water 1, 375 900 225 000 ml @ 75 mls/hr IV . [id number] [facility] with Sodium Bicarb (1 Meq/ml) 150 ml Rx#:[id number] Fluconazole in NaCl,Iso- 100 100 Osm 200 mg In Saline 1 100ml.bag @ 100 mls/hr IVPB DAILY [facility] Rx#: [id number] Mvi, Adult No.4 with Vit 30 361.52 90 K 10 ml Trace (Conc-1Ml/ Dose) 1 ml Parenteral Electrolytes 20 ml In Amino Acid 5%-D15w 1,000 ml @ 30 mls/hr IV .Q24H [facility] Rx#:[id number] Pressure Bags 72 72 18 Zosyn 200 200 Intake, IV Titration 328.260 309.334 Amount Norepinephrine 8 mg In 128.260 22.266 Sodium Chloride 0.9% 250 ml @ 0.05 MCG/KG/MIN 6. 802 mls/hr IV .Q24H [facility] Rx#:[id number] Propofol 1,000 mg In 200.000 287.068 Empty Bag 1 bag @ Titrate IV .Q0M [facility] Rx#: [id number] Blood Product 310 Rc As-1 Unit 310 [id number] Output: Gastric Drainage 400 510 Drainage 450 180 Anterior Abdomen 450 180 Urine 945 1055 210 Other: Voiding Method Indwelling Catheter Indwelling Catheter ABP, PAP, CO, CI - Last Documented Arterial Blood Pressure 133/55 - Constitutional Constitutional Comment(s): intubated and sedated - Respiratory Details: nonlabored - Cardiovascular Rhythm: regular - Gastrointestinal Gastrointestinal Comment(s): S/ND BOGDAN serous Dressing CDI - Genitourinary Male genitourinary: scrotal edema - Psychiatric Psychiatric Comment(s): opens eyes - Labs CBC & Chem 7: 05/19/19 04:25 05/19/19 04:25 Labs: Abnormal Lab Results - Last 24 Hours (Table) 05/16/19 05/18/19 05/18/19 Range/Units 00:04 12:30 12:30 RBC 2.36 L (4.30-5.90) m/uL Hgb 6.6 L* (13.0-17.5) gm/dL Hct 21.3 L (39.0-53.0) % MCHC 30.9 L (31.0-37.0) g/dL RDW 16.9 H (11.5-15.5) % Lymphocytes # (1.0-4.8) k/uL ABG pCO2 (35-45) mmHg ABG pO2 (83-108) mmHg ABG HCO3 (21-25) mmol/L ABG O2 Saturation (94-97) % Chloride (98-107) mmol/L Carbon Dioxide (22-30) mmol/L BUN (9-20) mg/dL Creatinine (0.66-1.25) mg/dL Glucose (74-99) mg/dL POC Glucose (mg/dL) (75-99) mg/dL Calcium (8.4-10.2) mg/dL Phosphorus 5.4 H (2.5-4.5) mg/dL Total Protein (6.3-8.2) g/dL Albumin (3.5-5.0) g/dL Triglycerides 183 H (<150) mg/dL Crossmatch See Detail 05/18/19 05/18/19 05/19/19 Range/Units 18:15 19:43 00:05 RBC 2.74 L (4.30-5.90) m/uL Hgb 7.7 L (13.0-17.5) gm/dL Hct 24.5 L (39.0-53.0) % MCHC (31.0-37.0) g/dL RDW 16.6 H (11.5-15.5) % Lymphocytes # (1.0-4.8) k/uL ABG pCO2 (35-45) mmHg ABG pO2 (83-108) mmHg ABG HCO3 (21-25) mmol/L ABG O2 Saturation (94-97) % Chloride (98-107) mmol/L Carbon Dioxide (22-30) mmol/L BUN (9-20) mg/dL Creatinine (0.66-1.25) mg/dL Glucose (74-99) mg/dL POC Glucose (mg/dL) 103 H 144 H (75-99) mg/dL Calcium (8.4-10.2) mg/dL Phosphorus (2.5-4.5) mg/dL Total Protein (6.3-8.2) g/dL Albumin (3.5-5.0) g/dL Triglycerides (<150) mg/dL Crossmatch 05/19/19 05/19/19 05/19/19 Range/Units 04:25 04:25 05:50 RBC 2.70 L (4.30-5.90) m/uL Hgb 7.6 L (13.0-17.5) gm/dL Hct 24.1 L (39.0-53.0) % MCHC (31.0-37.0) g/dL RDW 16.1 H (11.5-15.5) % Lymphocytes # 0.4 L (1.0-4.8) k/uL ABG pCO2 (35-45) mmHg ABG pO2 (83-108) mmHg ABG HCO3 (21-25) mmol/L ABG O2 Saturation (94-97) % Chloride 116 H (98-107) mmol/L Carbon Dioxide 18 L (22-30) mmol/L BUN 38 H (9-20) mg/dL Creatinine 2.38 H (0.66-1.25) mg/dL Glucose 150 H (74-99) mg/dL POC Glucose (mg/dL) 138 H (75-99) mg/dL Calcium 7.3 L (8.4-10.2) mg/dL Phosphorus (2.5-4.5) mg/dL Total Protein 4.0 L (6.3-8.2) g/dL Albumin 1.9 L (3.5-5.0) g/dL Triglycerides (<150) mg/dL Crossmatch 05/19/19 Range/Units 07:51 RBC (4.30-5.90) m/uL Hgb (13.0-17.5) gm/dL Hct (39.0-53.0) % MCHC (31.0-37.0) g/dL RDW (11.5-15.5) % Lymphocytes # (1.0-4.8) k/uL ABG pCO2 32 L (35-45) mmHg ABG pO2 131 H (83-108) mmHg ABG HCO3 18 L (21-25) mmol/L ABG O2 Saturation 99.6 H (94-97) % Chloride (98-107) mmol/L Carbon Dioxide (22-30) mmol/L BUN (9-20) mg/dL Creatinine (0.66-1.25) mg/dL Glucose (74-99) mg/dL POC Glucose (mg/dL) (75-99) mg/dL Calcium (8.4-10.2) mg/dL Phosphorus (2.5-4.5) mg/dL Total Protein (6.3-8.2) g/dL Albumin (3.5-5.0) g/dL Triglycerides (<150) mg/dL Crossmatch Microbiology - Last 24 Hours (Table) 05/16/19 00:04 Blood Culture - Preliminary Blood No Growth after 72 hours 05/16/19 03:35 Gram Stain - Preliminary Peritoneal Fluid Body Fluid Culture - Preliminary Klebsiella oxytoca Non Hemolytic Strep 05/16/19 08:15 Gram Stain - Final Sputum Sputum Culture - Final Assessment and Plan Assessment: POD#3 ex lap antrectomy with billroth II gastrojejunostomy secondary to perforated duodenal ulcer Plan: Continue NPO, NGT. Continue with ICU care per critical care and medicine. IV ABX per ID. Cont. TPN. Prognosis is guarded secondary to multiple organ system failure and septic shock.
--- NOTE | 2019-05-19 11:52 | P.PN ---
Subjective Progress Note Date: 05/19/19 Principal diagnosis: Duodenal perforation Patient was seen and examined. No acute events overnight. Continues to be on ventilator but sedation weaned down, following commands like squeezing fingers. Ventilator settings set at tidal volume 500, rate 20, FiO2 35 % with PEEP of 5. Norepinephrine drip has been discontinued. CBC shows hemoglobin of 7.1 yesterday, which has dropped from 8, 1 unit PRBC ordered, repeat hemoglobin 7.7- 7.6 this morning. ABG shows pH 7. 36, pCO2 32, bicarbonate 18. Family is at bedside. Objective - Vital Signs Vital signs: Vital Signs Temp 98.6 F 05/19/19 08:00 Pulse 91 05/19/19 11:22 Resp 18 05/19/19 11:00 BP 103/58 05/19/19 11:00 Pulse Ox 93 L 05/19/19 11:00 Intake & Output 05/18/19 05/19/19 05/19/19 18:59 06:59 18:59 Intake Total 3440.260 2792.854 1260 Output Total 1795 1745 375 Balance 1988.087 9414.854 885 Weight 89.3 kg 92 kg Intake: IV 2802 2483.52 1160 0.9 NACL 2025 950 405 Dextrose 5% in Water 1, 375 900 375 000 ml @ 75 mls/hr IV . [id number] [facility] with Sodium Bicarb (1 Meq/ml) 150 ml Rx#:[id number] Fluconazole in NaCl,Iso- 100 100 Osm 200 mg In Saline 1 100ml.bag @ 100 mls/hr IVPB DAILY [facility] Rx#: [id number] Mvi, Adult No.4 with Vit 30 361.52 150 K 10 ml Trace (Conc-1Ml/ Dose) 1 ml Parenteral Electrolytes 20 ml In Amino Acid 5%-D15w 1,000 ml @ 30 mls/hr IV .Q24H [facility] Rx#:[id number] Pressure Bags 72 72 30 Zosyn 200 200 100 Intake, IV Titration 328.260 309.334 100 Amount Norepinephrine 8 mg In 128.260 22.266 0 Sodium Chloride 0.9% 250 ml @ 0.05 MCG/KG/MIN 6. 802 mls/hr IV .Q24H [facility] Rx#:[id number] Propofol 1,000 mg In 200.000 287.068 100 Empty Bag 1 bag @ Titrate IV .Q0M [facility] Rx#: [id number] Blood Product 310 Rc As-1 Unit 310 [id number] Output: Gastric Drainage 400 510 Drainage 450 180 Anterior Abdomen 450 180 Urine 945 1055 375 Other: Voiding Method Indwelling Catheter Indwelling Catheter Indwelling Catheter ABP, PAP, CO, CI - Last Documented Arterial Blood Pressure 145/57 - Exam General: [non toxic], [mechanical ventilation], [appears at stated age] Derm: [warm], [dry] Head: [atraumatic], [normocephalic], [symmetric] Eyes: [no lid lag], [anicteric sclera] Mouth: [no lip lesion], [endotracheal tube intact] Cardiovascular: [S1S2 reg], [no murmur], [positive DP pulse bilateral], Lungs: [Coarse breath sounds bilateral], [no rhonchi, no rales] , [no accessory muscle use] Abdominal: [soft], [dressings clean dry and intact with minimal BOGDAN drain output], [no guarding], [no appreciable organomegaly], [no bowel sounds] Ext: [no gross muscle atrophy], [no edema], [no contractures] Neuro: [Able to follow simple commands such as squeezing fingers] Psych: [Unable to determine] - Labs CBC & Chem 7: 05/19/19 04:25 05/19/19 04:25 Labs: Abnormal Lab Results - Last 24 Hours (Table) 05/16/19 05/18/19 05/18/19 Range/Units 00:04 12:30 12:30 RBC 2.36 L (4.30-5.90) m/uL Hgb 6.6 L* (13.0-17.5) gm/dL Hct 21.3 L (39.0-53.0) % MCHC 30.9 L (31.0-37.0) g/dL RDW 16.9 H (11.5-15.5) % Lymphocytes # (1.0-4.8) k/uL ABG pCO2 (35-45) mmHg ABG pO2 (83-108) mmHg ABG HCO3 (21-25) mmol/L ABG O2 Saturation (94-97) % Chloride (98-107) mmol/L Carbon Dioxide (22-30) mmol/L BUN (9-20) mg/dL Creatinine (0.66-1.25) mg/dL Glucose (74-99) mg/dL POC Glucose (mg/dL) (75-99) mg/dL Calcium (8.4-10.2) mg/dL Phosphorus 5.4 H (2.5-4.5) mg/dL Total Protein (6.3-8.2) g/dL Albumin (3.5-5.0) g/dL Triglycerides 183 H (<150) mg/dL Crossmatch See Detail 05/18/19 05/18/19 05/19/19 Range/Units 18:15 19:43 00:05 RBC 2.74 L (4.30-5.90) m/uL Hgb 7.7 L (13.0-17.5) gm/dL Hct 24.5 L (39.0-53.0) % MCHC (31.0-37.0) g/dL RDW 16.6 H (11.5-15.5) % Lymphocytes # (1.0-4.8) k/uL ABG pCO2 (35-45) mmHg ABG pO2 (83-108) mmHg ABG HCO3 (21-25) mmol/L ABG O2 Saturation (94-97) % Chloride (98-107) mmol/L Carbon Dioxide (22-30) mmol/L BUN (9-20) mg/dL Creatinine (0.66-1.25) mg/dL Glucose (74-99) mg/dL POC Glucose (mg/dL) 103 H 144 H (75-99) mg/dL Calcium (8.4-10.2) mg/dL Phosphorus (2.5-4.5) mg/dL Total Protein (6.3-8.2) g/dL Albumin (3.5-5.0) g/dL Triglycerides (<150) mg/dL Crossmatch 05/19/19 05/19/19 05/19/19 Range/Units 04:25 04:25 05:50 RBC 2.70 L (4.30-5.90) m/uL Hgb 7.6 L (13.0-17.5) gm/dL Hct 24.1 L (39.0-53.0) % MCHC (31.0-37.0) g/dL RDW 16.1 H (11.5-15.5) % Lymphocytes # 0.4 L (1.0-4.8) k/uL ABG pCO2 (35-45) mmHg ABG pO2 (83-108) mmHg ABG HCO3 (21-25) mmol/L ABG O2 Saturation (94-97) % Chloride 116 H (98-107) mmol/L Carbon Dioxide 18 L (22-30) mmol/L BUN 38 H (9-20) mg/dL Creatinine 2.38 H (0.66-1.25) mg/dL Glucose 150 H (74-99) mg/dL POC Glucose (mg/dL) 138 H (75-99) mg/dL Calcium 7.3 L (8.4-10.2) mg/dL Phosphorus (2.5-4.5) mg/dL Total Protein 4.0 L (6.3-8.2) g/dL Albumin 1.9 L (3.5-5.0) g/dL Triglycerides (<150) mg/dL Crossmatch 05/19/19 Range/Units 07:51 RBC (4.30-5.90) m/uL Hgb (13.0-17.5) gm/dL Hct (39.0-53.0) % MCHC (31.0-37.0) g/dL RDW (11.5-15.5) % Lymphocytes # (1.0-4.8) k/uL ABG pCO2 32 L (35-45) mmHg ABG pO2 131 H (83-108) mmHg ABG HCO3 18 L (21-25) mmol/L ABG O2 Saturation 99.6 H (94-97) % Chloride (98-107) mmol/L Carbon Dioxide (22-30) mmol/L BUN (9-20) mg/dL Creatinine (0.66-1.25) mg/dL Glucose (74-99) mg/dL POC Glucose (mg/dL) (75-99) mg/dL Calcium (8.4-10.2) mg/dL Phosphorus (2.5-4.5) mg/dL Total Protein (6.3-8.2) g/dL Albumin (3.5-5.0) g/dL Triglycerides (<150) mg/dL Crossmatch Microbiology - Last 24 Hours (Table) 05/16/19 03:35 Anaerobic Culture - Preliminary Peritoneal Fluid 05/16/19 00:04 Blood Culture - Preliminary Blood No Growth after 72 hours 05/16/19 03:35 Gram Stain - Preliminary Peritoneal Fluid Body Fluid Culture - Preliminary Klebsiella oxytoca Non Hemolytic Strep 05/16/19 08:15 Gram Stain - Final Sputum Sputum Culture - Final Assessment and Plan Assessment: Assessment and plan Hypovolemic and septic shock due to perforated duodenal ulcer status post exploratory laparotomy POD 2 Acute hypoxic respiratory failure on mechanical ventilation secondary to hypovolemic and septic shock, postoperative management Acute kidney injury secondary to ATN from hypovolemic and septic shock Acute blood loss anemia secondary to GI bleed from perforated duodenal ulcer Hypocalcemia Alcohol abuse Kidney lesion Resolved: Lactic acidosis, hyperkalemia POD 3 exploratory laparotomy with antrectomy and gastrojejunostomy. KUB and CT abdomen and pelvis confirmed perforation. Wound cultures show Klebsiella oxytocin and non-hemolytic strep. Blood cultures negative at 72 hours. Urine culture negative. Plans: Norepinephrine drip discontinued. Patient is cu rrently on fluconazole and Zosyn for antibiotic coverage as per ID recommendation. Pulmonology consulted for ventilator management. Continue Protonix 40 mg IV twice a day and Reglan 10 mg IV every 6 hours. Continue normal saline at 75 mL per hour. Telemetry monitoring. Follow wound cultures. Follow ID recommendations. Plans: Ventilator management as per pulmonology. Management as above. Creatinine improving from 6.03-4.59-3.43-2.38. Likely due to hypovolemic and septic shock. Plans: Continue IVF as above. Avoid nephrotoxins. Repeat BMP in the morning. Hemoglobin 7.1 to 7.7 post 1 unit PRBC yesterday, this morning Hg 7.6. Given 2 units PRBC during surgery. Likely acute blood loss from duodenal ulcer perforation, minimally from surgery and dilution. Plans: Repeat CBC tomorrow morning. Transfuse if hemoglobin less than 7. Calcium 6.2-6.7-7.3. Possibly from blood transfusion. Plans: Repeat CMP in the morning. Family states drinks 4 beers daily. Plans: We will continue to monitor. Patient with exophytic kidney lesion, needs workup in the outpatient setting, incidental finding on CT. [POD 3 exploratory laparotomy for perforated duodenal ulcer. Patient currently intubated with sedation weaning off. Plans to extubate tomorrow. He is pending clinical improvement. Prognosis is extremely guarded. Discussed with family at bedside.]
[2019-05-19 12:06] LABS: Glucose,Whole Blood 146 mg/dL (75-99)
--- NOTE | 2019-05-19 12:28 | P.PN ---
Subjective Progress Note Date: 05/19/19 Principal diagnosis: Acute surgical abdomen secondary to duodenal ulcer perforation Is a 63-year-old male patient who came into the emergency department after he collapsed at home. The patient was having abdominal pain radiating to his back for several days. He was unable to eat and he was progressively getting more sick and weak and ultimately collapsed at home and he was brought into the emergency department where further investigation was done including a CAT scan of the abdomen and pelvis that showed a large amount of intraperitoneal air the origin was not certain. There was large amount of ascites and scattered area of small bowel wall thickening secondary to ascites/nonspecific enteritis. There was also incidental finding of a suspicious 13 mm mass lesion in the superior pole of the left kidney and another 8mm lesion exophytic in the superior pole of the right kidney. Based on this, the patient was taken immediately to the operating room. Intraoperatively the patient received a total of 3.5 L of IV fluids. He also received a total of 2 units of packed RBCs. He underwent expiratory laparotomy and he was found to have a perforated duodenal ulcer. The patient underwent antrectomy and Billroth II gastrojejunostomy. Postop, he was brought into the intensive care unit for further evaluation and management. Currently he is sedated with propofol is running at 30 g per KG per minute. He has received an additional 1-1/2 L of IV fluids here in the ICU which brings up his total boluses up to 5 L. Currently is on a maintenance of lactated Ringer at the rate of 1 50 mL and a carb infusion at the rate of 100 and hour. He is on assist control mode of ventilation at the rate of 20 with an FiO2 of 50% and a PEEP of 5 and a tidal volume of 500. The morning blood gases showed a pH of 7.37 with a pCO2 of 32 and pO2 of 400 and he was weaned off and FiO2 of 50%. He is producing urine output. His lactic acid level has dropped from a baseline of 8.1 down to 2.2. His creatinine is up from 6 down to 4.7. His serum bicarb is up to 19 and anion gap is at 10. He was given Zosyn and he was also given 400 mg of IV Diflucan and operating room. He has a triple-lumen catheter, left IJ and an outlying catheter, left radial. His abdominal wound is dry clean and intact. The patient has a BOGDAN drains in place. Cardiac rhythm is sinus for now. He briefly required pressors and currently is off levo fed. ET tube is in place. Output is minimal in the order of 150 mL the patient drinks more than 6 bottles of beer on a daily basis probably sometimes even more. He is an ex- smoker Patient was evaluated today on 05/17/2019, remains in the ICU, mechanically ventilated and intubated. His present ventilator settings are tidal volume of 500 assist control rate of 20 FiO2 40%. And PEEP is 5. Patient is still requiring pressors in the form of norepinephrine at 0.22 mcg/kg/m, he is on propofol at 75 mcg/kg/m, remains on IV fluids at 200 mL per hour. CVP is about 9. Patient has decent urine output. But blood pressure remains marginal requi ring pressors. He is presently on antibiotics including Zosyn and Diflucan as per infectious disease on the case. ABG this morning showed a pO2 of 159 pCO2 of 33 pH of 7.29. His CBC showed WBC count of 6.7 hemoglobin of 8.0 electrolytes showed slightly elevated potassium of 5.2. BUN however is 53 creatinine is 4.59, improving compared to his creatinine on presentation of 6.03. Patient is sedated, however he is arousable, and follows simple instructions. His propofol dose was increased, patient is known to have history of alcoholism. Reevaluated today on 05/18/2019, remains in ICU, intubated, mechanically ventilated. Sedated, on propofol, patient is on assist control rate of 20 tidal volume of 500 FiO2 40% and I cut it down to 35% he is also on PEEP of 5. ABG showed a pO2 of 148 pCO2 of 30 pH of 7.29 hence I recommended starting the patient on the sodium bicarb drip. His pH remained low since yesterday, hence he will likely improve with 24 hours of sodium bicarb drip. His hemoglobin is 7.1 today, and considering that the patient is still requiring pressors in the form of levo fed him I recommended one unit of packed RBCs to be given. This will likely improve his blood pressure. And hopefully could discontinue norepinephrine which is presently at 0.06 mcg/kg/m. WBC count is 7.8. Electrolytes are basically normal bicarb is low at 14 his BUN is 45 creatinine 3.43 steadily improving since admission. Patient is arousable in spite of being on propofol at 50 mcg/kg/m, and he is able to follow instructions. Chest x-ray showed stable bilateral airspace disease and small pleural effusions. Right greater than left. Reevaluated today on 05/19/2019, remains intubated, mechanically ventilated, in the ICU, on propofol at 50 mcg/kg/m, his ventilator settings are assist control rate of 20 tidal volume is 500 FiO2 is 30%, and PEEP is 5. Patient is off pressors, he is mostly on propofol and IV fluid at 75 mL per hour, sodium bicarb drip at 75 mL per hour, and he is also on TPN. ABG showed a pO2 of 131 pCO2 of 32 pH of 7.36, bicarb remains a bit low at 18, hence I will continue the sodium bicarb drip for another day. Electrolytes are normal BUN is 38 creatinine is 2.38, and that is significantly improved compared to a creatinine of 6.03 on admission and 3.43 yesterday. Clearly his renal functioning is gradually improving. And his acute kidney injury is responding to treatment. Chest x-ray continues to show bilateral pleural effusions, right greater than left. And bibasilar atelectasis and possibly pneumonia is not entirely ruled out. But felt to be less likely at this point. In spite of being on propofol, patient is arousable and he is able to follow simple instructions. Objective - Vital Signs Vital signs: Vital Signs Temp 99.4 F 05/19/19 12:00 Pulse 89 05/19/19 12:00 Resp 21 05/19/19 12:00 BP 103/58 05/19/19 11:00 Pulse Ox 91 L 05/19/19 12:00 Intake & Output 05/18/19 05/19/19 05/19/19 18:59 06:59 18:59 Intake Total 3440.260 2792.854 1456 Output Total 1795 1745 805 Balance 6651.656 3683.854 651 Weight 89.3 kg 92 kg Intake: IV 2802 2483.52 1356 0.9 NACL 2025 950 490 Dextrose 5% in Water 1, 375 900 450 000 ml @ 75 mls/hr IV . [id number] [facility] with Sodium Bicarb (1 Meq/ml) 150 ml Rx#:[id number] Fluconazole in NaCl,Iso- 100 100 Osm 200 mg In Saline 1 100ml.bag @ 100 mls/hr IVPB DAILY [facility] Rx#: [id number] Mvi, Adult No.4 with Vit 30 361.52 180 K 10 ml Trace (Conc-1Ml/ Dose) 1 ml Parenteral Electrolytes 20 ml In Amino Acid 5%-D15w 1,000 ml @ 30 mls/hr IV .Q24H [facility] Rx#:[id number] Pressure Bags 72 72 36 Zosyn 200 200 100 Intake, IV Titration 328.260 309.334 100 Amount Norepinephrine 8 mg In 128.260 22.266 0 Sodium Chloride 0.9% 250 ml @ 0.05 MCG/KG/MIN 6. 802 mls/hr IV .Q24H [facility] Rx#:[id number] Propofol 1,000 mg In 200.000 287.068 100 Empty Bag 1 bag @ Titrate IV .Q0M [facility] Rx#: [id number] Blood Product 310 Rc As-1 Unit 310 [id number] Output: Gastric Drainage 400 510 350 Drainage 450 180 5 Anterior Abdomen 450 180 5 Urine 945 1055 450 Other: Voiding Method Indwelling Catheter Indwelling Catheter Indwelling Catheter ABP, PAP, CO, CI - Last Documented Arterial Blood Pressure 148/57 - Exam Physical Exam: Revealed a 63-year-old white male, on mechanical ventilation. Sedated, arousable. Follows simple instructions. Head: Atraumatic, normocephalic. HEENT:[Neck is supple.] [No neck masses.] [No thyromegaly.] [No JVD.] PERRLA, EOMI, no icterus, moist mucous membranes, endotracheal tube and orogastric tube are intact. Chest: [Diminished breath sounds and crackles at the bases no rhonchi and no wheezes.] Cardiac Exam: [Normal S1 and S2, no S3 gallop, no murmur.] Abdomen: [Postsurgical, soft, slightly distended, no tenderness, no rebound, diminished bowel sounds. No rigidity..] Extremities: [No clubbing, no edema, no cyanosis.] Good pulses bilaterally. Neurological Exam: arousable, follows simple instructions. No gross focal neurologic deficits. Psychiatric: Could not be assessed. Lymphatics: No lymphadenopathy. Skin: No rashes. - Labs CBC & Chem 7: 05/19/19 04:25 11/13/19 04:25 Labs: Abnormal Lab Results - Last 24 Hours (Table) 05/16/19 05/18/19 05/18/19 Range/Units 00:04 12:30 12:30 RBC 2.36 L (4.30-5.90) m/uL Hgb 6.6 L* (13.0-17.5) gm/dL Hct 21.3 L (39.0-53.0) % MCHC 30.9 L (31.0-37.0) g/dL RDW 16.9 H (11.5-15.5) % Lymphocytes # (1.0-4.8) k/uL ABG pCO2 (35-45) mmHg ABG pO2 (83-108) mmHg ABG HCO3 (21-25) mmol/L ABG O2 Saturation (94-97) % Chloride (98-107) mmol/L Carbon Dioxide (22-30) mmol/L BUN (9-20) mg/dL Creatinine (0.66-1.25) mg/dL Glucose (74-99) mg/dL POC Glucose (mg/dL) (75-99) mg/dL Calcium (8.4-10.2) mg/dL Phosphorus 5.4 H (2.5-4.5) mg/dL Total Protein (6.3-8.2) g/dL Albumin (3.5-5.0) g/dL Triglycerides 183 H (<150) mg/dL Crossmatch See Detail 05/18/19 05/18/19 05/19/19 Range/Units 18:15 19:43 00:05 RBC 2.74 L (4.30-5.90) m/uL Hgb 7.7 L (13.0-17.5) gm/dL Hct 24.5 L (39.0-53.0) % MCHC (31.0-37.0) g/dL RDW 16.6 H (11.5-15.5) % Lymphocytes # (1.0-4.8) k/uL ABG pCO2 (35-45) mmHg ABG pO2 (83-108) mmHg ABG HCO3 (21-25) mmol/L ABG O2 Saturation (94-97) % Chloride (98-107) mmol/L Carbon Dioxide (22-30) mmol/L BUN (9-20) mg/dL Creatinine (0.66-1.25) mg/dL Glucose (74-99) mg/dL POC Glucose (mg/dL) 103 H 144 H (75-99) mg/dL Calcium (8.4-10.2) mg/dL Phosphorus (2.5-4.5) mg/dL Total Protein (6.3-8.2) g/dL Albumin (3.5-5.0) g/dL Triglycerides (<150) mg/dL Crossmatch 05/19/19 05/19/19 05/19/19 Range/Units 04:25 04:25 05:50 RBC 2.70 L (4.30-5.90) m/uL Hgb 7.6 L (13.0-17.5) gm/dL Hct 24.1 L (39.0-53.0) % MCHC (31.0-37.0) g/dL RDW 16.1 H (11.5-15.5) % Lymphocytes # 0.4 L (1.0-4.8) k/uL ABG pCO2 (35-45) mmHg ABG pO2 (83-108) mmHg ABG HCO3 (21-25) mmol/L ABG O2 Saturation (94-97) % Chloride 116 H (98-107) mmol/L Carbon Dioxide 18 L (22-30) mmol/L BUN 38 H (9-20) mg/dL Creatinine 2.38 H (0.66-1.25) mg/dL Glucose 150 H (74-99) mg/dL POC Glucose (mg/dL) 138 H (75-99) mg/dL Calcium 7.3 L (8.4-10.2) mg/dL Phosphorus (2.5-4.5) mg/dL Total Protein 4.0 L (6.3-8.2) g/dL Albumin 1.9 L (3.5-5.0) g/dL Triglycerides (<150) mg/dL Crossmatch 05/19/19 05/19/19 Range/Units 07:51 11:55 RBC (4.30-5.90) m/uL Hgb (13.0-17.5) gm/dL Hct (39.0-53.0) % MCHC (31.0-37.0) g/dL RDW (11.5-15.5) % Lymphocytes # (1.0-4.8) k/uL ABG pCO2 32 L (35-45) mmHg ABG pO2 131 H (83-108) mmHg ABG HCO3 18 L (21-25) mmol/L ABG O2 Saturation 99.6 H (94-97) % Chloride (98-107) mmol/L Carbon Dioxide (22-30) mmol/L BUN (9-20) mg/dL Creatinine (0.66-1.25) mg/dL Glucose (74-99) mg/dL POC Glucose (mg/dL) 146 H (75-99) mg/dL Calcium (8.4-10.2) mg/dL Phosphorus (2.5-4.5) mg/dL Total Protein (6.3-8.2) g/dL Albumin (3.5-5.0) g/dL Triglycerides (<150) mg/dL Crossmatch Microbiology - Last 24 Hours (Table) 05/16/19 03:35 Anaerobic Culture - Preliminary Peritoneal Fluid 05/16/19 00:04 Blood Culture - Preliminary Blood No Growth after 72 hours 05/16/19 03:35 Gram Stain - Preliminary Peritoneal Fluid Body Fluid Culture - Preliminary Klebsiella oxytoca Non Hemolytic Strep 05/16/19 08:15 Gram Stain - Final Sputum Sputum Culture - Final Assessment and Plan Assessment: Impression: 1 acute abdominal sepsis and septic shock secondary to duodenal ulcer perforation. 2 acute lactic acidosis secondary to above, resolved 3 acute hypoxic respiratory failure secondary to septic shock and abdominal sepsis. 4 acute kidney injury secondary to acute tubular necrosis and hypotension steadily improving. 5 chronic alcoholism 6 history of GI bleeding 7 exophytic kidney lesion, needs to have workup on outpatient basis, this was incidentally seen on CT of the abdomen and pelvis, will eventually need outpati ent follow-up with urology. 8 acute anemia secondary to blood loss, received a total of 3 units of packed RBCs since admission. Hemoglobin today is 7.6. Recommendation: Continue ventilatory support Continue hemodynamic monitoring, presently off norepinephrine. Improved blood pressure post blood transfusion. Continue TPN Continue antibiotics in the form of Zosyn and Diflucan. Continue GI and DVT prophylaxis Continue alcohol withdrawal protocol Continue to monitor daily labs and renal profile Continue sodium bicarb drip for one more day. Plan to start weaning trials and possibly extubation in the next 24 hours. Critical care time is 33 minutes. We will update family on his condition later this afternoon, no one at bedside this morning. Time with Patient: Greater than 30
--- NOTE | 2019-05-19 13:20 | PN ---
PROGRESS NOTE DATE OF SERVICE: 05/19/2019 REASON FOR FOLLOWUP: Secondary peritonitis from perforated peptic ulcer disease. INTERVAL HISTORY: The patient is currently afebrile. The patient is hemodynamically stable not requiring any pressor support. The patient remains to be intubated on the vent with FiO2 currently stable at 35. No diarrhea reported by the nursing staff. Patient is sedated, unable to provide any history. No family at the bedside. PHYSICAL EXAMINATION: Blood pressure is 148/57 with a pulse of 89, temperature 99.4. He is 91% on 35% FiO2. General description is a middle-aged male lying in bed in no distress. RESPIRATORY SYSTEM: Unlabored breathing, clear to auscultation anteriorly. HEART: S1, S2. Regular rate and rhythm. ABDOMEN: Soft, no tenderness. EXTREMITIES: No edema of the feet. LABS: Hemoglobin is 7.6, white count of 8.2, BUN of 38, creatinine is 2.38. DIAGNOSTIC IMPRESSION AND PLAN: Patient with secondary peritonitis from perforated peptic ulcer, status post repair. Abdominal culture positive for klebsiella and nonhemolytic strep being a sensitive pathogen. The patient is currently covered with Zosyn and Diflucan that will be continued. Monitor clinical course closely. Continue with supportive care. MMODL / IJN: [id number] /
[2019-05-19] MEDS ORDERED: MVI, ADULT NO.4 WITH VIT K 10 ML, TRACE (CONC-1ML/DOSE) 1 ML, PARENTERAL ELECTROLYTES 2... IV SCH ×4 (18:00)
[2019-05-19 18:06] LABS: Glucose,Whole Blood 130 mg/dL (75-99)
[2019-05-19] MEDS: MVI, ADULT NO.4 WITH VIT K 10 ML, TRACE (CONC-1ML/DOSE) 1 ML, PARENTERAL ELECTROLYTES 2... IV SCH ×4 (18:23)
[2019-05-20] MEDS: METOCLOPRAMIDE 5 MG/ML 2 ML VIAL IVP SCH ×4 (00:04→17:43)
[2019-05-20 00:08] LABS: Glucose,Whole Blood 158 mg/dL (75-99)
[2019-05-20] MEDS: HYDROmorphone 1 MG/ML 1 ML SYRINGE IVP PRN ×3 (03:35→08:58)
[2019-05-20] MEDS: IPRATROPIUM-ALBUTEROL 3 ML NEB INHALATION SCH ×6 (03:38→23:52)
[2019-05-20] MEDS: PROPOFOL 1,000 MG in EMPTY BAG 1 BAG IV SCH ×2 (03:39→09:03)
[2019-05-20] MEDS: SODIUM CHLORIDE 0.9% 1,000 ML IV SCH (03:55)
[2019-05-20 04:43] LABS: Anisocytosis Slight; Basophils % (A) 0 %; Eosinophils # (A) 0.5 k/uL (0-0.7); Eosinophils % (A) 5 %; HCT 24.1 % (39.0-53.0); HGB 7.3 gm/dL (13.0-17.5); Hypochromasia Moderate; Lymphocytes # (A) 0.3 k/uL (1.0-4.8); Lymphocytes % (A) 4 %; MCHC 30.4 g/dL (31.0-37.0); MCV 88.8 fL (80.0-100.0); Monocytes # (A) 0.5 k/uL (0-1.0); Monocytes % (A) 5 %; Neutrophils # (A) 7.2 k/uL (1.3-7.7); Neutrophils % (A) 84 %; Platelet Count 189 k/uL (150-450); Poikilocytosis Moderate; RBC 2.71 m/uL (4.30-5.90); RDW 16.6 % (11.5-15.5); WBC 8.6 k/uL (3.8-10.6)
[2019-05-20 04:54] LABS: Albumin 1.8 g/dL (3.5-5.0); Calcium 7.2 mg/dL (8.4-10.2); Magnesium 1.8 mg/dL (1.6-2.3); Phosphorus 3.4 mg/dL (2.5-4.5); Potassium 3.5 mmol/L (3.5-5.1); Total Bilirubin 0.2 mg/dL (0.2-1.3); Total Protein 3.8 g/dL (6.3-8.2)
[2019-05-20 06:37] LABS: Glucose,Whole Blood 159 mg/dL (75-99)
[2019-05-20] MEDS ORDERED: Potassium Replacement Protocol 1 EACH MISC MISCELLANE PRN (07:35)
--- NOTE | 2019-05-20 07:35 | XR ---
EXAMINATION TYPE: XR chest 1V portable DATE OF EXAM: 05/20/2019 COMPARISON: 05/19/2019 HISTORY: SOB, Follow Up FINDINGS: Indwelling tubes and catheters are unchanged. No change in bibasilar opacities. Stable appearance of the cardio-mediastinal structures at this time. Pleural effusion unchanged. IMPRESSION: 1. Stable portable chest. Clinical correlation and follow up until resolution is recommended.
[2019-05-20] MEDS: PANTOPRAZOLE 40 MG/10 ML VIAL IV SCH ×2 (07:40→21:18)
[2019-05-20] MEDS: FLUCONAZOLE IN NACL,ISO-OSM 200 MG in SALINE 1 100ML.BAG IVPB SCH (07:40)
[2019-05-20] MEDS: CHLORHEXIDINE GLUCONATE 15 ML CUP MUCOUS MEM SCH (08:01)
[2019-05-20 08:02] LABS: ABG Base Excess -3.1 mmol/L; ABG HCO3 21 mmol/L (21-25); ABG Oxygen Saturation 99.6 % (94-97); ABG PCO2 32 mmHg (35-45); ABG PH 7.43 (7.35-7.45); ABG PO2 120 mmHg (83-108); ABG TCO2 22 mmol/L (19-24); Allen Test Performed? Yes
[2019-05-20] MEDS: HEPARIN SODIUM,PORCINE 5,000 UNIT/ML 1 ML VIAL SQ SCH ×2 (08:05→15:34)
[2019-05-20] MEDS: PIPERACILLIN-TAZOBACTAM 3.375 GM in SODIUM CHLORIDE 0.9% 100 ML IVPB SCH ×2 (08:46→15:34)
[2019-05-20] MEDS: POTASSIUM CHLORIDE 20 MEQ in WATER FOR INJECTION 1 100ML.BAG IVPB SCH ×3 (08:53→14:56)
[2019-05-20] MEDS ORDERED: FUROSEMIDE 10 MG/ML 4 ML VIAL IV STA (09:07)
[2019-05-20] MEDS: CLEVIDIPINE BUTYRATE 25 MG in EMPTY BAG 1 BAG IV SCH ×8 (09:24→22:32)
[2019-05-20] MEDS: DEXTROSE 5% IN WATER 1,000 ML with SODIUM BICARB (1 MEQ/ML) 150 ML IV SCH (10:31)
--- NOTE | 2019-05-20 10:46 | US ---
EXAMINATION TYPE: US chest DATE OF EXAM: 05/20/2019 COMPARISON: NONE CLINICAL HISTORY: Markings for thoracentesis by pulmonary staff. pleural effusion TECHNIQUE: Targeted ultrasound of the posterior lower right EXAM MEASUREMENTS: Right Pleural Effusion pocket size: 8.5 cm Right skin surface to fluid distance: 3.0 cm Right side marked for possible thoracentesis outside the dept. Pulmonologists are able to review the images in the patient?s EMR. *Dr Katz in room during ultrasound IMPRESSIONS: Right-sided pleural effusion as discussed.
[2019-05-20] MEDS: MAGNESIUM SULFATE-D5W PMX 1 GM in DEXTROSE/WATER 1 100ML.BAG IVPB SCH ×2 (10:51→11:38)
[2019-05-20] MEDS: MVI, ADULT NO.4 WITH VIT K 10 ML, TRACE (CONC-1ML/DOSE) 1 ML, PARENTERAL ELECTROLYTES 2... IV SCH ×6 (11:18)
[2019-05-20] MEDS: FUROSEMIDE 10 MG/ML 4 ML VIAL IV SCH ×2 (11:51→21:18)
--- NOTE | 2019-05-20 12:13 | P.PN ---
Subjective Progress Note Date: 05/20/19 Principal diagnosis: The patient is a 63-year-old male that was admitted for septic shock secondary to perforated duodenal ulcer with subsequent peritonitis in the settin g of acute kidney injury secondary to ATN prerenal secondary to septic shock after presenting with abdominal pain and hypotension. Initial CT showed large amount of intraperitoneal air with a large amount of ascites and scattered small bowel wall thickening secondary to cystitis and nonspecific enteritis. The patient was aggressively fluid resuscitated and received 2 units of packed RBCs secondary to being found anemic. The patient had Urgent expiratory laparotomy requiring antrectomy and Billroth II gastrojejunostomy. Despite aggressive fluid hydration the patient continued to be hypertensive and was started on pressors with levophed and was maintained on mechanical ventilator with prop ofol for sedation and pulmonary managing his vent settings. The patient was continued on empiric IV antibiotics with Zosyn and Diflucan as suggested by ID. There with treatment the patient's creatinine gradually trended down from 6 is continued on IV fluids. Patient continues to be mechanically ventilated and sedated on propofol but it arousable. Patient has been off IV pressors for over 24 hours. Blood pressure is actually elevated Creatinine continues to trend down from 6-1.88 today. He is continued on bicarb drip and IV antibiotics with Zosyn and Diflucan, patient is afebrile without leukocytosis. Chest x-ray from this morning indicating unchanged pleural effusion right greater than left and bibasilar atelectasis. Hemoglobin stable at 7.3g post initial 3 units packed RBC transfusion. Abdominal culture positive for nonhemolytic strep and Klebsiella. Mg 1.8 today. Objective - Vital Signs Vital signs: Vital Signs Temp 99 F 05/20/19 04:00 Pulse 72 05/20/19 07:33 Resp 20 05/20/19 07:00 BP 161/80 05/20/19 07:00 Pulse Ox 100 05/20/19 07:00 Intake & Output 05/19/19 05/20/19 05/20/19 18:59 06:59 18:59 Intake Total 3118.639 2676.000 215 Output Total 1806 1825 135 Balance 1312.639 851.000 80 Weight 94 kg Intake: IV 2828 2476 215 0.9 NACL 1085 825 75 Dextrose 5% in Water 1, 975 825 74 000 ml @ 75 mls/hr IV . [id number] [facility] with Sodium Bicarb (1 Meq/ml) 150 ml Rx#:[id number] Fluconazole in NaCl,Iso- 100 Osm 200 mg In Saline 1 100ml.bag @ 100 mls/hr IVPB DAILY [facility] Rx#: [id number] Mvi, Adult No.4 with Vit 390 K 10 ml Trace (Conc-1Ml/ Dose) 1 ml Parenteral Electrolytes 20 ml In Amino Acid 5%-D15w 1,000 ml @ 30 mls/hr IV .Q24H [facility] Rx#:[id number] Mvi, Adult No.4 with Vit 660 60 K 10 ml Trace (Conc-1Ml/ Dose) 1 ml Parenteral Electrolytes 20 ml In Amino Acid 5%-D15w 1,000 ml @ 60 mls/hr IV . [id number] [facility] Rx#:[id number] Pressure Bags 78 66 6 Zosyn 200 100 Intake, IV Titration 290.639 200.000 Amount Norepinephrine 8 mg In 0 Sodium Chloride 0.9% 250 ml @ 0.05 MCG/KG/MIN 6. 802 mls/hr IV .Q24H [facility] Rx#:[id number] Propofol 1,000 mg In 290.639 200.000 Empty Bag 1 bag @ Titrate IV .Q0M [facility] Rx#: [id number] Output: Gastric Drainage 650 550 Drainage 145 400 45 Anterior Abdomen 145 400 45 Urine 1011 875 90 Other: Voiding Method Indwelling Catheter Indwelling Catheter ABP, PAP, CO, CI - Last Documented Arterial Blood Pressure 150/61 - Exam Constitutional: Sedated but arousable and ventilated Eyes: Anicteric sclerae, moist conjunctiva, no lid-lag, PERRLA ENMT: NC/AT,Oropharynx clear, no erythema, exudates Neck:Supple, FROM, no masses, or JVD, No carotid bruits; No thyromegaly Lungs: Clear to auscultation, Clear to percussion, Normal respiratory effort, no accessory muscle use Cardiovascular: Heart regular in rate and rhythm, No murmurs, gallops, or rubs Abdominal: Soft set distended nontender Skin: Normal temperature, tone, texture, turgor, No induration No subcutaneous nodules, No rash, lesions, No ulcers Extremities:No digital cyanosis No clubbing, Pedal pulses intact and symmetrical Radial pulses intact and symmetrical Normal gait and station, No calf tenderness, +2 pitting edema, noted scrotal edema Psychiatric: Alert and oriented to person, place and time, Appropriate affect Intact judgement Neuro: Follow simple commands no gross focal deficits - Labs CBC & Chem 7: 05/20/19 04:20 05/20/19 04:20 Labs: Abnormal Lab Results - Last 24 Hours (Table) 05/19/19 05/19/19 05/19/19 Range/Units 07:51 11:55 17:54 RBC (4.30-5.90) m/uL Hgb (13.0-17.5) gm/dL Hct (39.0-53.0) % MCHC (31.0-37.0) g/dL RDW (11.5-15.5) % Lymphocytes # (1.0-4.8) k/uL ABG pCO2 32 L (35-45) mmHg ABG pO2 131 H (83-108) mmHg ABG HCO3 18 L (21-25) mmol/L ABG O2 Saturation 99.6 H (94-97) % Chloride (98-107) mmol/L Carbon Dioxide (22-30) mmol/L BUN (9-20) mg/dL Creatinine (0.66-1.25) mg/dL Glucose (74-99) mg/dL POC Glucose (mg/dL) 146 H 130 H (75-99) mg/dL Calcium (8.4-10.2) mg/dL Total Protein (6.3-8.2) g/dL Albumin (3.5-5.0) g/dL 05/19/19 05/20/19 05/20/19 Range/Units 23:56 04:20 04:20 RBC 2.71 L (4.30-5.90) m/uL Hgb 7.3 L (13.0-17.5) gm/dL Hct 24.1 L (39.0-53.0) % MCHC 30.4 L (31.0-37.0) g/dL RDW 16.6 H (11.5-15.5) % Lymphocytes # 0.3 L (1.0-4.8) k/uL ABG pCO2 (35-45) mmHg ABG pO2 (83-108) mmHg ABG HCO3 (21-25) mmol/L ABG O2 Saturation (94-97) % Chloride 114 H (98-107) mmol/L Carbon Dioxide 21 L (22-30) mmol/L BUN 29 H (9-20) mg/dL Creatinine 1.88 H (0.66-1.25) mg/dL Glucose 152 H (74-99) mg/dL POC Glucose (mg/dL) 158 H (75-99) mg/dL Calcium 7.2 L (8.4-10.2) mg/dL Total Protein 3.8 L (6.3-8.2) g/dL Albumin 1.8 L (3.5-5.0) g/dL 05/20/19 Range/Units 06:26 RBC (4.30-5.90) m/uL Hgb (13.0-17.5) gm/dL Hct (39.0-53.0) % MCHC (31.0-37.0) g/dL RDW (11.5-15.5) % Lymphocytes # (1.0-4.8) k/uL ABG pCO2 (35-45) mmHg ABG pO2 (83-108) mmHg ABG HCO3 (21-25) mmol/L ABG O2 Saturation (94-97) % Chloride (98-107) mmol/L Carbon Dioxide (22-30) mmol/L BUN (9-20) mg/dL Creatinine (0.66-1.25) mg/dL Glucose (74-99) mg/dL POC Glucose (mg/dL) 159 H (75-99) mg/dL Calcium (8.4-10.2) mg/dL Total Protein (6.3-8.2) g/dL Albumin (3.5-5.0) g/dL Microbiology - Last 24 Hours (Table) 05/16/19 00:04 Blood Culture - Preliminary Blood No Growth after 96 hours 05/16/19 03:35 Gram Stain - Final Peritoneal Fluid Body Fluid Culture - Final Klebsiella oxytoca Non Hemolytic Strep 05/16/19 03:35 Anaerobic Culture - Preliminary Peritoneal Fluid Assessment and Plan Assessment: Septic shock * Secondary to perforated viscus with subsequent peritonitis * Resolved patient no longer requiring pressors blood pressure is actually elevated today, has good urine output * Afebrile without leukocytosis * Continue with antibiotic regimen Zosyn and Diflucan Acute respiratory failure with hypoxia * Secondary to septic shock due to perforated discus with subsequent abdominal peritonitis * Continued on mechanical ventilation ABG7.43/32/120 * Chest x-ray showing right greater than left pleural effusion subsequent chest ultrasound showing a pocket size of 8.3 cm on the right patient may need thoracocentesis will defer to pulmonary * Patient to be given a dose of Lasix today Perforated viscus * POD #4 status post exploratory laparoscopy antrectomy and Billroth II gastrojejunostomy * NPO on TPN at 60 cc/hr * continue w/ prokinetic Reglan Acute kidney injury secondary to ATN * ATN. Prerenal due to severe septic shock * Creatinine trending down nicely to 1.8 from 6 * Continue current IV fluids * Metabolic acidosis improving continue bicarb currently at 40 Hypertensive urgency * Patient to be started on Cleviprex Normocytic anemia * Secondary to upper GI bleed status post perforated duodenal ulcer * Status post 3 unit packed RBC transfusion hemoglobin stable at 7.3 * Hypomagnesemia * We'll give 2 mg of magnesium and recheck tomorrow peripheral edema * order 2 D Echo to rule out CHF, add on nt rp BNP to this am labs
[2019-05-20 12:15] LABS: Glucose,Whole Blood 135 mg/dL (75-99)
--- NOTE | 2019-05-20 12:45 | P.PN ---
Subjective Progress Note Date: 05/20/19 Principal diagnosis: Acute surgical abdomen secondary to duodenal ulcer perforation Is a 63-year-old male patient who came into the emergency department after he collapsed at home. The patient was having abdominal pain radiating to his back for several days. He was unable to eat and he was progressively getting more sick and weak and ultimately collapsed at home and he was brought into the emergency department where further investigation was done including a CAT scan of the abdomen and pelvis that showed a large amount of intraperitoneal air the origin was not certain. There was large amount of ascites and scattered area of small bowel wall thickening secondary to ascites/nonspecific enteritis. There was also incidental finding of a suspicious 13 mm mass lesion in the superior pole of the left kidney and another 8mm lesion exophytic in the superior pole of the right kidney. Based on this, the patient was taken immediately to the operating room. Intraoperatively the patient received a total of 3.5 L of IV fluids. He also received a total of 2 units of packed RBCs. He underwent expiratory laparotomy and he was found to have a perforated duodenal ulcer. The patient underwent antrectomy and Billroth II gastrojejunostomy. Postop, he was brought into the intensive care unit for further evaluation and management. Currently he is sedated with propofol is running at 30 g per KG per minute. He has received an additional 1-1/2 L of IV fluids here in the ICU which brings up his total boluses up to 5 L. Currently is on a maintenance of lactated Ringer at the rate of 1 50 mL and a carb infusion at the rate of 100 and hour. He is on assist control mode of ventilation at the rate of 20 with an FiO2 of 50% and a PEEP of 5 and a tidal volume of 500. The morning blood gases showed a pH of 7.37 with a pCO2 of 32 and pO2 of 400 and he was weaned off and FiO2 of 50%. He is producing urine output. His lactic acid level has dropped from a baseline of 8.1 down to 2.2. His creatinine is up from 6 down to 4.7. His serum bicarb is up to 19 and anion gap is at 10. He was given Zosyn and he was also given 400 mg of IV Diflucan and operating room. He has a triple-lumen catheter, left IJ and an outlying catheter, left radial. His abdominal wound is dry clean and intact. The patient has a BOGDAN drains in place. Cardiac rhythm is sinus for now. He briefly required pressors and currently is off levo fed. ET tube is in place. Output is minimal in the order of 150 mL the patient drinks more than 6 bottles of beer on a daily basis probably sometimes even more. He is an ex- smoker Patient was evaluated today on 05/17/2019, remains in the ICU, mechanically ventilated and intubated. His present ventilator settings are tidal volume of 500 assist control rate of 20 FiO2 40%. And PEEP is 5. Patient is still requiring pressors in the form of norepinephrine at 0.22 mcg/kg/m, he is on propofol at 75 mcg/kg/m, remains on IV fluids at 200 mL per hour. CVP is about 9. Patient has decent urine output. But blood pressure remains marginal requi ring pressors. He is presently on antibiotics including Zosyn and Diflucan as per infectious disease on the case. ABG this morning showed a pO2 of 159 pCO2 of 33 pH of 7.29. His CBC showed WBC count of 6.7 hemoglobin of 8.0 electrolytes showed slightly elevated potassium of 5.2. BUN however is 53 creatinine is 4.59, improving compared to his creatinine on presentation of 6.03. Patient is sedated, however he is arousable, and follows simple instructions. His propofol dose was increased, patient is known to have history of alcoholism. Reevaluated today on 05/18/2019, remains in ICU, intubated, mechanically ventilated. Sedated, on propofol, patient is on assist control rate of 20 tidal volume of 500 FiO2 40% and I cut it down to 35% he is also on PEEP of 5. ABG showed a pO2 of 148 pCO2 of 30 pH of 7.29 hence I recommended starting the patient on the sodium bicarb drip. His pH remained low since yesterday, hence he will likely improve with 24 hours of sodium bicarb drip. His hemoglobin is 7.1 today, and considering that the patient is still requiring pressors in the form of levo fed him I recommended one unit of packed RBCs to be given. This will likely improve his blood pressure. And hopefully could discontinue norepinephrine which is presently at 0.06 mcg/kg/m. WBC count is 7.8. Electrolytes are basically normal bicarb is low at 14 his BUN is 45 creatinine 3.43 steadily improving since admission. Patient is arousable in spite of being on propofol at 50 mcg/kg/m, and he is able to follow instructions. Chest x-ray showed stable bilateral airspace disease and small pleural effusions. Right greater than left. Reevaluated today on 05/19/2019, remains intubated, mechanically ventilated, in the ICU, on propofol at 50 mcg/kg/m, his ventilator settings are assist control rate of 20 tidal volume is 500 FiO2 is 30%, and PEEP is 5. Patient is off pressors, he is mostly on propofol and IV fluid at 75 mL per hour, sodium bicarb drip at 75 mL per hour, and he is also on TPN. ABG showed a pO2 of 131 pCO2 of 32 pH of 7.36, bicarb remains a bit low at 18, hence I will continue the sodium bicarb drip for another day. Electrolytes are normal BUN is 38 creatinine is 2.38, and that is significantly improved compared to a creatinine of 6.03 on admission and 3.43 yesterday. Clearly his renal functioning is gradually improving. And his acute kidney injury is responding to treatment. Chest x-ray continues to show bilateral pleural effusions, right greater than left. And bibasilar atelectasis and possibly pneumonia is not entirely ruled out. But felt to be less likely at this point. In spite of being on propofol, patient is arousable and he is able to follow simple instructions. Reevaluated today on 05/20/2019, patient remains intubated, mechanically ventilated, on propofol at 50 mcg/kg/m, however the patient seems to be wide awake even on propofol. He was given a trial of pressure support and CPAP, and he tolerated that trial extremely well. Blood pressure was noted to be a bit elevated earlier today, and I recommended clevidipine drip. Patient is doing great, his chest x-ray continues to show bilateral pleural effusions, ultrasound showed good sized right-sided pleural effusion, and the patient responded well to Lasix. Hence I would hold on thoracentesis for now, hopefully the patient will improve with diuretics only. I believe the fluid that he developed in his pleural space is most likely fluid overload related because the patient received significant amount of fluids from the time of his surgery until now. I will cut down his IV fluids, was given Lasix 40 mg IV push every 12 hours, we will likely recommend thoracentesis if the fluid does not improve much in the right pleural space. In the meantime patient was given a trial while I was at bedside, and proceeded to extubating the patient. His O2 saturation was marginal on high flow nasal cannula, hence I recommended BiPAP at 12,/5, and FiO2 of 50%. His O2 saturation now is in the mid 90s. Patient seems to be very comfortable, in no form of distress. And again he received a dose of Lasix 40 mg IV push earlier. ABG earlier today showed a pO2 of 120 pCO2 of 32 pH of 7.43. His BUN is 29 creatinine is 1.88 steadily improving since admission. Peritoneal fluid cultures were noted, there is evidence of Klebsiella oxytoca and nonhemolytic strep. Sensitive to most antibiotics except ampicillin Objective - Vital Signs Vital signs: Vital Signs Temp 99.0 F 05/20/19 08:00 Pulse 102 H 05/20/19 11:14 Resp 16 05/20/19 10:00 BP 169/95 05/20/19 10:00 Pulse Ox 88 L 05/20/19 10:00 Intake & Output 05/19/19 05/20/19 05/20/19 18:59 06:59 18:59 Intake Total 3118.639 2676.000 1041.134 Output Total 1806 1825 295 Balance 1312.639 851.000 746.134 Weight 94 kg Intake: IV 2828 2476 782 0.9 NACL 1085 825 160 Dextrose 5% in Water 1, 975 825 224 000 ml @ 40 mls/hr IV . Q24H [facility] with Sodium Bicarb (1 Meq/ml) 150 ml Rx#:[id number] Fluconazole in NaCl,Iso- 100 100 Osm 200 mg In Saline 1 100ml.bag @ 100 mls/hr IVPB DAILY [facility] Rx#: [id number] Mvi, Adult No.4 with Vit 390 K 10 ml Trace (Conc-1Ml/ Dose) 1 ml Parenteral Electrolytes 20 ml In Amino Acid 5%-D15w 1,000 ml @ 30 mls/hr IV .Q24H [facility] Rx#:[id number] Mvi, Adult No.4 with Vit 660 180 K 10 ml Trace (Conc-1Ml/ Dose) 1 ml Parenteral Electrolytes 20 ml In Amino Acid 5%-D15w 1,000 ml @ 60 mls/hr IV . [id number] [facility] Rx#:[id number] Pressure Bags 78 66 18 Zosyn 200 100 100 Intake, IV Titration 290.639 200.000 259.134 Amount Clevidipine Butyrate 25 59.134 mg In Empty Bag 1 bag @ 4 MG/HR 8 mls/hr IV . Q6H15M [facility] Rx#:[id number] Norepinephrine 8 mg In 0 Sodium Chloride 0.9% 250 ml @ 0.05 MCG/KG/MIN 6. 802 mls/hr IV .Q24H [facility] Rx#:[id number] Potassium Chloride 20 meq 100 In Water For Injection 1 100ml.bag @ 50 mls/hr IVPB Q2H [facility] Rx#: [id number] Propofol 1,000 mg In 290.639 200.000 100 Empty Bag 1 bag @ Titrate IV .Q0M [facility] Rx#: [id number] Output: Gastric Drainage 650 550 Drainage 145 400 75 Anterior Abdomen 145 400 75 Urine 1011 875 220 Other: Voiding Method Indwelling Catheter Indwelling Catheter ABP, PAP, CO, CI - Last Documented Arterial Blood Pressure 166/65 - Exam Physical Exam: Revealed a 63-year-old white male, on mechanical ventilation. Awake, follows all instructions, in no distress. Head: Atraumatic, normocephalic. HEENT:[Neck is supple.] [No neck masses.] [No thyromegaly.] [No JVD.] PERRLA, EOMI, no icterus, moist mucous membranes, endotracheal tube and orogastric tube are intact. Chest: [Diminished breath sounds and crackles at the bases no rhonchi and no wheezes.] Cardiac Exam: [Normal S1 and S2, no S3 gallop, no murmur.] Abdomen: [Postsurgical, soft, slightly distended, no tenderness, no rebound, diminished bowel sounds. No rigidity..] Extremities: [No clubbing, no edema, no cyanosis.] Good pulses bilaterally. Neurological Exam: Awake, oriented 3, no gross focal neurologic deficits. Psychiatric: Normal mood, blunt affect, normal mental status examination Lymphatics: No lymphadenopathy. Skin: No rashes. - Labs CBC & Chem 7: 05/20/19 04:20 05/20/19 04:20 Labs: Abnormal Lab Results - Last 24 Hours (Table) 05/19/19 05/19/19 05/20/19 Range/Units 17:54 23:56 04:20 RBC (4.30-5.90) m/uL Hgb (13.0-17.5) gm/dL Hct (39.0-53.0) % MCHC (31.0-37.0) g/dL RDW (11.5-15.5) % Lymphocytes # (1.0-4.8) k/uL ABG pCO2 (35-45) mmHg ABG pO2 (83-108) mmHg ABG O2 Saturation (94-97) % Chloride 114 H (98-107) mmol/L Carbon Dioxide 21 L (22-30) mmol/L BUN 29 H (9-20) mg/dL Creatinine 1.88 H (0.66-1.25) mg/dL Glucose 152 H (74-99) mg/dL POC Glucose (mg/dL) 130 H 158 H (75-99) mg/dL Calcium 7.2 L (8.4-10.2) mg/dL Total Protein 3.8 L (6.3-8.2) g/dL Albumin 1.8 L (3.5-5.0) g/dL 05/20/19 05/20/19 05/20/19 Range/Units 04:20 06:26 08:00 RBC 2.71 L (4.30-5.90) m/uL Hgb 7.3 L (13.0-17.5) gm/dL Hct 24.1 L (39.0-53.0) % MCHC 30.4 L (31.0-37.0) g/dL RDW 16.6 H (11.5-15.5) % Lymphocytes # 0.3 L (1.0-4.8) k/uL ABG pCO2 32 L (35-45) mmHg ABG pO2 120 H (83-108) mmHg ABG O2 Saturation 99.6 H (94-97) % Chloride (98-107) mmol/L Carbon Dioxide (22-30) mmol/L BUN (9-20) mg/dL Creatinine (0.66-1.25) mg/dL Glucose (74-99) mg/dL POC Glucose (mg/dL) 159 H (75-99) mg/dL Calcium (8.4-10.2) mg/dL Total Protein (6.3-8.2) g/dL Albumin (3.5-5.0) g/dL 05/20/19 Range/Units 12:03 RBC (4.30-5.90) m/uL Hgb (13.0-17.5) gm/dL Hct (39.0-53.0) % MCHC (31.0-37.0) g/dL RDW (11.5-15.5) % Lymphocytes # (1.0-4.8) k/uL ABG pCO2 (35-45) mmHg ABG pO2 (83-108) mmHg ABG O2 Saturation (94-97) % Chloride (98-107) mmol/L Carbon Dioxide (22-30) mmol/L BUN (9-20) mg/dL Creatinine (0.66-1.25) mg/dL Glucose (74-99) mg/dL POC Glucose (mg/dL) 135 H (75-99) mg/dL Calcium (8.4-10.2) mg/dL Total Protein (6.3-8.2) g/dL Albumin (3.5-5.0) g/dL Microbiology - Last 24 Hours (Table) 05/16/19 00:04 Blood Culture - Preliminary Blood No Growth after 96 hours 05/16/19 03:35 Gram Stain - Final Peritoneal Fluid Body Fluid Culture - Final Klebsiella oxytoca Non Hemolytic Strep 05/16/19 03:35 Anaerobic Culture - Preliminary Peritoneal Fluid Assessment and Plan Assessment: Impression: 1 acute abdominal sepsis and septic shock secondary to duodenal ulcer perforation. 2 acute lactic acidosis secondary to above, resolved 3 acute hypoxic respiratory failure secondary to septic shock and abdominal sepsis. 4 acute kidney injury secondary to acute tubular necrosis and hypotension st eadily improving. 5 chronic alcoholism 6 history of GI bleeding 7 exophytic kidney lesion, needs to have workup on outpatient basis, this was incidentally seen on CT of the abdomen and pelvis, will eventually need outpatient follow-up with urology. 8 acute anemia secondary to blood loss, received a total of 3 units of packed RBCs since admission. Hemoglobin today is 7.6. Recommendation: Patient was given a trial of weaning with pressure support and CPAP, his weaning parameters were noted to be excellent. Hence he was extubated. Monitor blood pressure, and controlled now with clevidipine drip.. Continue TPN Continue antibiotics in the form of Zosyn and Diflucan. Continue GI and DVT prophylaxis Continue alcohol withdrawal protocol Continue sodium bicarb drip, however cut down to 25 mL per hour. Weaning trial given, weaning parameters noted, patient was extubated while I was at bedside, and he was placed on BiPAP. Reviewed the ultrasound of the chest which was done earlier today, however I will try to diurese the patient before proceeding to thoracentesis. Updated his family on his condition, patient was extubated and I will keep him in the ICU. Critical care time is 40 minutes. Time with Patient: Greater than 30
--- NOTE | 2019-05-20 13:46 | P.PN ---
Subjective Progress Note Date: 05/20/19 Extubated, on BPAP Objective - Vital Signs Vital signs: Vital Signs Temp 98.6 F 05/20/19 12:00 Pulse 103 H 05/20/19 13:00 Resp 20 05/20/19 13:00 BP 168/77 05/20/19 13:00 Pulse Ox 94 L 05/20/19 13:00 Intake & Output 05/19/19 05/20/19 05/20/19 18:59 06:59 18:59 Intake Total 3118.639 2676.000 1864.134 Output Total 1806 1825 1394 Balance 1312.639 851.000 470.134 Weight 94 kg Intake: IV 2828 2476 1205 0.9 NACL 1085 825 310 Dextrose 5% in Water 1, 975 825 299 000 ml @ 40 mls/hr IV . Q24H [facility] with Sodium Bicarb (1 Meq/ml) 150 ml Rx#:[id number] Fluconazole in NaCl,Iso- 100 100 Osm 200 mg In Saline 1 100ml.bag @ 100 mls/hr IVPB DAILY [facility] Rx#: [id number] Mvi, Adult No.4 with Vit 390 K 10 ml Trace (Conc-1Ml/ Dose) 1 ml Parenteral Electrolytes 20 ml In Amino Acid 5%-D15w 1,000 ml @ 30 mls/hr IV .Q24H [facility] Rx#:[id number] Mvi, Adult No.4 with Vit 660 360 K 10 ml Trace (Conc-1Ml/ Dose) 1 ml Parenteral Electrolytes 20 ml In Amino Acid 5%-D15w 1,000 ml @ 60 mls/hr IV . [id number] [facility]OLOR[facility] Rx#:[id number] Pressure Bags 78 66 36 Zosyn 200 100 100 Intake, IV Titration 290.639 200.000 659.134 Amount Clevidipine Butyrate 25 59.134 mg In Empty Bag 1 bag @ 4 MG/HR 8 mls/hr IV . Q6H15M [facility] Rx#:[id number] Magnesium Sulfate-D5w Pmx 200 1 gm In Dextrose/Water 1 100ml.bag @ 100 mls/hr IVPB Q1H [facility] Rx#: [id number] Norepinephrine 8 mg In 0 Sodium Chloride 0.9% 250 ml @ 0.05 MCG/KG/MIN 6. 802 mls/hr IV .Q24H [facility] Rx#:[id number] Potassium Chloride 20 meq 300 In Water For Injection 1 100ml.bag @ 50 mls/hr IVPB Q2H [facility] Rx#: [id number] Propofol 1,000 mg In 290.639 200.000 100 Empty Bag 1 bag @ Titrate IV .Q0M [facility]OLOR[facility] Rx#: [id number] Output: Gastric Drainage 650 550 Drainage 145 400 75 Anterior Abdomen 145 400 75 Urine 9375 096 2314 Other: Voiding Method Indwelling Catheter Indwelling Catheter ABP, PAP, CO, CI - Last Documented Arterial Blood Pressure 140/58 - Constitutional General appearance: Present: cooperative - Respiratory Details: nonlabored on BiPap - Cardiovascular Rhythm: regular - Gastrointestinal Gastrointestinal Comment(s): S/ND incision CDI BOGDAN serosang - Psychiatric Psychiatric: Present: A&O x's 3 - Labs CBC & Chem 7: 05/20/19 04:20 05/20/19 04:20 Labs: Abnormal Lab Results - Last 24 Hours (Table) 05/19/19 05/19/19 05/20/19 Range/Units 17:54 23:56 04:20 RBC (4.30-5.90) m/uL Hgb (13.0-17.5) gm/dL Hct (39.0-53.0) % MCHC (31.0-37.0) g/dL RDW (11.5-15.5) % Lymphocytes # (1.0-4.8) k/uL ABG pCO2 (35-45) mmHg ABG pO2 (83-108) mmHg ABG O2 Saturation (94-97) % Chloride 114 H (98-107) mmol/L Carbon Dioxide 21 L (22-30) mmol/L BUN 29 H (9-20) mg/dL Creatinine 1.88 H (0.66-1.25) mg/dL Glucose 152 H (74-99) mg/dL POC Glucose (mg/dL) 130 H 158 H (75-99) mg/dL Calcium 7.2 L (8.4-10.2) mg/dL Total Protein 3.8 L (6.3-8.2) g/dL Albumin 1.8 L (3.5-5.0) g/dL 05/20/19 05/20/19 05/20/19 Range/Units 04:20 06:26 08:00 RBC 2.71 L (4.30-5.90) m/uL Hgb 7.3 L (13.0-17.5) gm/dL Hct 24.1 L (39.0-53.0) % MCHC 30.4 L (31.0-37.0) g/dL RDW 16.6 H (11.5-15.5) % Lymphocytes # 0.3 L (1.0-4.8) k/uL ABG pCO2 32 L (35-45) mmHg ABG pO2 120 H (83-108) mmHg ABG O2 Saturation 99.6 H (94-97) % Chloride (98-107) mmol/L Carbon Dioxide (22-30) mmol/L BUN (9-20) mg/dL Creatinine (0.66-1.25) mg/dL Glucose (74-99) mg/dL POC Glucose (mg/dL) 159 H (75-99) mg/dL Calcium (8.4-10.2) mg/dL Total Protein (6.3-8.2) g/dL Albumin (3.5-5.0) g/dL 05/20/19 Range/Units 12:03 RBC (4.30-5.90) m/uL Hgb (13.0-17.5) gm/dL Hct (39.0-53.0) % MCHC (31.0-37.0) g/dL RDW (11.5-15.5) % Lymphocytes # (1.0-4.8) k/uL ABG pCO2 (35-45) mmHg ABG pO2 (83-108) mmHg ABG O2 Saturation (94-97) % Chloride (98-107) mmol/L Carbon Dioxide (22-30) mmol/L BUN (9-20) mg/dL Creatinine (0.66-1.25) mg/dL Glucose (74-99) mg/dL POC Glucose (mg/dL) 135 H (75-99) mg/dL Calcium (8.4-10.2) mg/dL Total Protein (6.3-8.2) g/dL Albumin (3.5-5.0) g/dL Microbiology - Last 24 Hours (Table) 05/16/19 00:04 Blood Culture - Preliminary Blood No Growth after 96 hours 11/10/19 03:35 Gram Stain - Final Peritoneal Fluid Body Fluid Culture - Final Klebsiella oxytoca Non Hemolytic Strep 05/16/19 03:35 Anaerobic Culture - Preliminary Peritoneal Fluid Assessment and Plan Assessment: POD#4 ex lap antrectomy with billroth II gastrojejunostomy secondary to perforated duodenal ulcer Plan: Continue NPO, NGT. Continue with ICU care per critical care and medicine. IV ABX per ID. Cont. TPN. Prognosis is guarded secondary to multiple organ system failure and septic shock.
[2019-05-20 17:53] LABS: Glucose,Whole Blood 132 mg/dL (75-99)
[2019-05-20] MEDS ORDERED: POTASSIUM CHLORIDE 20 MEQ in WATER FOR INJECTION 1 100ML.BAG IVPB STA (18:53)
--- NOTE | 2019-05-20 18:56 | ECHOF ---
Referral Reason:Peripheral edema MEASUREMENTS -------- HEIGHT: 180.3 cm WEIGHT: 93.9 kg BP: IVSd: 1.8 cm (0.6 - 1.1) LVIDd: 3.7 cm (3.9 - 5.3) LVPWd: 1.2 cm (0.6 - 1.1) IVSs: 2.1 cm LVIDs: 1.6 cm LVPWs: 1.9 cm RVIDd: 2.2 cm (< 3.3) Ao Diam: 3.3 cm (2.0 - 3.7) LA Diam: 2.6 cm (2.7 - 3.8) AV Cusp: 2.7 cm (1.5 - 2.6) EPSS: 0.2 cm MV E Zeke: 0.79 m/s MV DecT: 182 ms MV A Zeke: 0.78 m/s MV E/A Ratio: 1.01 AV maxP.39 mmHg AV meanP.24 mmHg RAP: 5.00 mmHg RVSP: 39.38 mmHg MV EF SLOPE: 69.66 mm/s (70 - 150) MV EXCURSION: 18.74 mm (> 18.000) FINDINGS -------- Resting tachycardia (HR>100bpm). TDS due to Bandages. Limited views. The left ventricular size is normal. There is moderate concentric left ventricular hypertrophy. O verall left ventricular systolic function is normal with, an EF between 60 - 65 %. The right ventricle is normal in size. The left atrial size is normal. The right atrial size is normal. The aortic valve is trileaflet and appears structurally normal. The mitral valve is normal. Mild mitral regurgitation is present. The tricuspid valve appears structurally normal. Mild tricuspid regurgitation present. There is m ild pulmonary hypertension. The right ventricular systolic pressure, as measured by Doppler, is 39. 38mmHg. There is no pulmonic regurgitation present. The aortic root size is normal. IVC Not well visulized. There is no pericardial effusion. CONCLUSIONS -------- 1. Resting tachycardia (HR>100bpm). 2. TDS due Bandages. Limited views. 3. The left ventricular size is normal. 4. There is moderate concentric left ventricular hypertrophy. 5. Overall left ventricular systolic function is normal with, an EF between 60 - 65 %. 6. The right ventricle is normal in size. 7. The left atrial size is normal. 8. The right atrial size is normal. 9. The aortic valve is trileaflet and appears structurally normal. 10. The mitral valve is normal. 11. Mild mitral regurgitation is present. 12. The tricuspid valve appears structurally normal. 13. Mild tricuspid regurgitation present. 14. There is mild pulmonary hypertension. 15. The right ventricular systolic pressure, as measured by Doppler, is 39.38mmHg. 16. There is no pulmonic regurgitation present. 17. The aortic root size is normal. 18. IVC Not well visulized. 19. There is no pericardial effusion. ROUGHER MACHINE OPERATOR: Jacqui Torres RDCS
--- NOTE | 2019-05-20 23:25 | PN ---
PROGRESS NOTE DATE OF SERVICE: 05/20/2019 REASON FOR FOLLOWUP: Secondary peritonitis from perforated peptic ulcer disease. INTERVAL HISTORY: The patient is afebrile. The patient has been extubated, currently on a BiPAP when he was seen on rounds this morning. No chest pain. Occasional cough. No nausea, vomiting or any diarrhea reported. PHYSICAL EXAMINATION: Blood pressure 110/77 with a pulse of 107, temperature of 98. He was 96% on BiPAP. General description is a middle-aged male lying in bed in no distress. RESPIRATORY SYSTEM: Unlabored breathing with decreased breath sounds at the base. No wheeze. HEART: S1, S2. Regular rate and rhythm. ABDOMEN: Soft. No tenderness. LABS: Hemoglobin 7.3, white count 8.6, BUN of 29, creatinine 1.88. DIAGNOSTIC IMPRESSION AND PLAN: Patient with secondary peritonitis from perforated peptic ulcer disease, status post repair. Abdominal culture with Klebsiella oxytoca. Patient is covered with Zosyn and Diflucan; to continue while monitoring clinical course closely. Continue with supportive care. MMODL / IJN: [id number] /
[2019-05-21 00:17] LABS: Glucose,Whole Blood 157 mg/dL (75-99)
[2019-05-21] MEDS: HEPARIN SODIUM,PORCINE 5,000 UNIT/ML 1 ML VIAL SQ SCH ×3 (01:10→17:17)
[2019-05-21] MEDS: PIPERACILLIN-TAZOBACTAM 3.375 GM in SODIUM CHLORIDE 0.9% 100 ML IVPB SCH ×3 (01:10→17:17)
[2019-05-21] MEDS: METOCLOPRAMIDE 5 MG/ML 2 ML VIAL IVP SCH ×4 (01:11→21:19)
[2019-05-21] MEDS: SODIUM CHLORIDE 0.9% 1,000 ML IV SCH (01:11)
[2019-05-21] MEDS: CLEVIDIPINE BUTYRATE 25 MG in EMPTY BAG 1 BAG IV SCH ×9 (01:16→22:16)
[2019-05-21] MEDS: IPRATROPIUM-ALBUTEROL 3 ML NEB INHALATION SCH ×6 (03:16→23:14)
[2019-05-21] MEDS: MVI, ADULT NO.4 WITH VIT K 10 ML, TRACE (CONC-1ML/DOSE) 1 ML, PARENTERAL ELECTROLYTES 2... IV SCH ×18 (05:20→23:59)
[2019-05-21 05:27] LABS: Glucose,Whole Blood 157 mg/dL (75-99)
[2019-05-21 05:39] LABS: Albumin 2.2 g/dL (3.5-5.0); Calcium 7.7 mg/dL (8.4-10.2); Magnesium 2.2 mg/dL (1.6-2.3); Phosphorus 3.8 mg/dL (2.5-4.5); Potassium 3.8 mmol/L (3.5-5.1); Total Bilirubin 0.4 mg/dL (0.2-1.3); Total Protein 4.6 g/dL (6.3-8.2)
[2019-05-21 06:07] LABS: Anisocytosis Slight; HCT 27.7 % (39.0-53.0); Hypochromasia Moderate; MCH 28.3 pg (25.0-35.0); MCHC 32.4 g/dL (31.0-37.0); MCV 87.3 fL (80.0-100.0); Platelet Count 282 k/uL (150-450); Poikilocytosis Moderate; RBC 3.18 m/uL (4.30-5.90); RDW 16.3 % (11.5-15.5); WBC 14.5 k/uL (3.8-10.6)
--- NOTE | 2019-05-21 07:09 | XR ---
EXAMINATION TYPE: XR chest 1V portable DATE OF EXAM: 05/21/2019 COMPARISON: 05/20/2019 HISTORY: Follow-up for lines and tubes. Extubation. TECHNIQUE: Single frontal view of the chest is obtained. FINDINGS: Enteric tube remains in a similar position. Endotracheal tube has been removed. Left-sided internal jugular central venous catheter is also similar in position. There is slight improved aerat ion of the lung apices. Improved degree of fluid overload with decreased amount of right minor fissur al fluid. Cardia mediastinal silhouette is stable. No acute osseous pathology. Small layering pleural effusions and associated bibasilar airspace disease remain. IMPRESSION: 1. Interval extubation. 2. Slight improved aeration of the lungs overall with small layering pleural effusions and bibasilar airspace disease remaining.
[2019-05-21] MEDS: PANTOPRAZOLE 40 MG/10 ML VIAL IV SCH ×2 (08:32→21:19)
[2019-05-21] MEDS: FUROSEMIDE 10 MG/ML 4 ML VIAL IV SCH (08:34)
[2019-05-21] MEDS: FLUCONAZOLE IN NACL,ISO-OSM 200 MG in SALINE 1 100ML.BAG IVPB SCH (08:34)
--- NOTE | 2019-05-21 11:26 | P.PN ---
Subjective Progress Note Date: 05/21/19 Patient was up to bedside today. States he is feeling well with no complaints. Objective - Vital Signs Vital signs: Vital Signs Temp 98.9 F 05/21/19 08:00 Pulse 109 H 05/21/19 11:00 Resp 21 05/21/19 11:00 BP 159/74 05/21/19 11:00 Pulse Ox 95 05/21/19 11:00 Intake & Output 05/20/19 05/21/19 05/21/19 18:59 06:59 18:59 Intake Total 3152.734 2961.633 867.667 Output Total 4004 3840 2120 Balance -851.266 -878.367 -1252.333 Weight 94 kg 94 kg Intake: IV 2192 1651 820 0.9 NACL 660 550 250 Dextrose 5% in Water 1, 474 275 100 000 ml @ 25 mls/hr IV . Q24H [facility] with Sodium Bicarb (1 Meq/ml) 150 ml Rx#:[id number] Fluconazole in NaCl,Iso- 100 100 Osm 200 mg In Saline 1 100ml.bag @ 100 mls/hr IVPB DAILY [facility] Rx#: [id number] [facility], Adult No.4 with Vit 780 660 240 K 10 ml Trace (Conc-1Ml/ Dose) 1 ml Parenteral Electrolytes 20 ml In Amino Acid 5%-D15w 1,000 ml @ 60 mls/hr IV . [id number] [facility] Rx#:[id number] Pressure Bags 78 66 30 Zosyn 100 100 100 Intake, IV Titration 159.839 6214.633 47.667 Amount Clevidipine Butyrate 25 160.734 265.633 47.667 mg In Empty Bag 1 bag @ 4 MG/HR 8 mls/hr IV . Q6H15M [facility] Rx#:[id number] Magnesium Sulfate-D5w Pmx 200 1 gm In Dextrose/Water 1 100ml.bag @ 100 mls/hr IVPB Q1H [facility] Rx#: [id number] [facility], Adult No.4 with Vit 1045 K 10 ml Trace (Conc-1Ml/ Dose) 1 ml Parenteral Electrolytes 20 ml Potassium Chloride 20 meq Magnesium Sulfate gm 2 gm In Amino Acid 5%-D15w 1,000 ml @ 60 mls/hr IV . [id number] [facility] Rx#:[id number] Potassium Chloride 20 meq 500 In Water For Injection 1 100ml.bag @ 50 mls/hr IVPB Q2H [facility] Rx#: [id number] Propofol 1,000 mg In 100 Empty Bag 1 bag @ Titrate IV .Q0M [facility] Rx#: [id number] Output: Gastric Drainage 500 300 Drainage 95 0 120 Anterior Abdomen 95 0 120 Urine 3909 [id number] 1700 Other: Voiding Method Indwelling Catheter Indwelling Catheter Indwelling Catheter ABP, PAP, CO, CI - Last Documented Arterial Blood Pressure 167/162 - Constitutional General appearance: Present: cooperative - Respiratory Details: nonlabored - Cardiovascular Heart rate: 105 Rhythm: regular - Gastrointestinal Gastrointestinal Comment(s): S/NT/ND Incisions CDI BOGDAN serous - Psychiatric Psychiatric: Present: A&O x's 3 - Labs CBC & Chem 7: 05/21/19 05:15 05/21/19 05:15 Labs: Abnormal Lab Results - Last 24 Hours (Table) 05/20/19 05/20/19 05/21/19 Range/Units 12:03 17:42 00:05 WBC (3.8-10.6) k/uL RBC (4.30-5.90) m/uL Hgb (13.0-17.5) gm/dL Hct (39.0-53.0) % RDW (11.5-15.5) % Chloride (98-107) mmol/L BUN (9-20) mg/dL Creatinine (0.66-1.25) mg/dL Glucose (74-99) mg/dL POC Glucose (mg/dL) 135 H 132 H 157 H (75-99) mg/dL Calcium (8.4-10.2) mg/dL AST (17-59) U/L Total Protein (6.3-8.2) g/dL Albumin (3.5-5.0) g/dL 05/21/19 05/21/19 05/21/19 Range/Units 05:15 05:15 05:16 WBC 14.5 H (3.8-10.6) k/uL RBC 3.18 L (4.30-5.90) m/uL Hgb 9.0 L D (13.0-17.5) gm/dL Hct 27.7 L (39.0-53.0) % RDW 16.3 H (11.5-15.5) % Chloride 111 H (98-107) mmol/L BUN 31 H (9-20) mg/dL Creatinine 2.06 H (0.66-1.25) mg/dL Glucose 146 H (74-99) mg/dL POC Glucose (mg/dL) 157 H (75-99) mg/dL Calcium 7.7 L (8.4-10.2) mg/dL AST 85 H (17-59) U/L Total Protein 4.6 L (6.3-8.2) g/dL Albumin 2.2 L (3.5-5.0) g/dL Microbiology - Last 24 Hours (Table) 05/16/19 03:35 Anaerobic Culture - Final Peritoneal Fluid Anaerobic Gram Positive Cocci 05/16/19 00:04 Blood Culture - Preliminary Blood No Growth after 120 hours Assessment and Plan Assessment: POD#5 ex lap antrectomy with billroth II gastrojejunostomy secondary to per forated duodenal ulcer Plan: Continue NPO, NGT. Continue with ICU care per critical care and medicine. IV ABX per ID. Cont. TPN. OOBTC, encouraged ambulation and IS.
[2019-05-21 11:56] LABS: Glucose,Whole Blood 152 mg/dL (75-99)
--- NOTE | 2019-05-21 12:09 | P.PN ---
Subjective Progress Note Date: 05/21/19 Principal diagnosis: The patient is a 63-year-old male that was admitted for septic shock secondary to perforated duodenal ulcer with subsequent peritonitis in the settin g of acute kidney injury secondary to ATN prerenal secondary to septic shock after presenting with abdominal pain and hypotension. Initial CT showed large amount of intraperitoneal air with a large amount of ascites and scattered small bowel wall thickening secondary to cystitis and nonspecific enteritis. The patient was aggressively fluid resuscitated and received 2 units of packed RBCs secondary to being found anemic. The patient had Urgent expiratory laparotomy requiring antrectomy and Billroth II gastrojejunostomy. Despite aggressive fluid hydration the patient continued to be hypertensive and was started on pressors with levophed and was maintained on mechanical ventilator with prop ofol for sedation and pulmonary managing his vent settings. The patient was continued on empiric IV antibiotics with Zosyn and Diflucan as suggested by ID. There with treatment the patient's creatinine gradually trended down from 6 is continued on IV fluids. Patient extubated yesterday and was transitioned to BiPAP now currently on high flow at 5 L, patient with intermittent episodes of fever overnight tmax approx 101, continues to be tachycardic. Blood pressure controlled with Cleviprex c urrently at 10. White count up to 14.5, hemoglobin up to 9.0, creatinine 2.06, serum potassium 3.8. Diuresing well with Lasix Chest x-ray showing slightly improved aeration of the lungs with overall the area of the pleural effusions with bibasilar airspace disease remaining. Echocardiogram results show preserved LVEF, without any significant valvular abnormalities. Patient continues on TPN, Patient denying any pain, going to get up and sit bedside with assistance Objective - Vital Signs Vital signs: Vital Signs Temp 98.9 F 05/21/19 08:00 Pulse 114 H 05/21/19 10:00 Resp 22 05/21/19 10:00 BP 159/74 05/21/19 10:00 Pulse Ox 94 L 05/21/19 10:00 Intake & Output 05/20/19 05/21/19 05/21/19 18:59 06:59 18:59 Intake Total 3152.734 2961.633 811.667 Output Total 4004 3840 1620 Balance -851.266 -878.367 -808.333 Weight 94 kg 94 kg Intake: IV 2192 1651 764 0.9 NACL 660 550 200 Dextrose 5% in Water 1, 474 275 100 000 ml @ 25 mls/hr IV . Q24H [facility] with Sodium Bicarb (1 Meq/ml) 150 ml Rx#:[id number] Fluconazole in NaCl,Iso- 100 100 Osm 200 mg In Saline 1 100ml.bag @ 100 mls/hr IVPB DAILY [facility] Rx#: [id number] [facility], Adult No.4 with Vit 780 660 240 K 10 ml Trace (Conc-1Ml/ Dose) 1 ml Parenteral Electrolytes 20 ml In Amino Acid 5%-D15w 1,000 ml @ 60 mls/hr IV . [id number] [facility] Rx#:[id number] Pressure Bags 78 66 24 Zosyn 100 100 100 Intake, IV Titration 322.290 8355.633 47.667 Amount Clevidipine Butyrate 25 160.734 265.633 47.667 mg In Empty Bag 1 bag @ 4 MG/HR 8 mls/hr IV . Q6H15M [facility] Rx#:[id number] Magnesium Sulfate-D5w Pmx 200 1 gm In Dextrose/Water 1 100ml.bag @ 100 mls/hr IVPB Q1H [facility] Rx#: [id number] Mvi, Adult No.4 with Vit 1045 K 10 ml Trace (Conc-1Ml/ Dose) 1 ml Parenteral Electrolytes 20 ml Potassium Chloride 20 meq Magnesium Sulfate gm 2 gm In Amino Acid 5%-D15w 1,000 ml @ 60 mls/hr IV . [id number] [facility] Rx#:[id number] Potassium Chloride 20 meq 500 In Water For Injection 1 100ml.bag @ 50 mls/hr IVPB Q2H [facility] Rx#: [id number] Propofol 1,000 mg In 100 Empty Bag 1 bag @ Titrate IV .Q0M [facility] Rx#: [id number] Output: Gastric Drainage 500 300 Drainage 95 0 120 Anterior Abdomen 95 0 120 Urine 3909 3340 1200 Other: Voiding Method Indwelling Catheter Indwelling Catheter Indwelling Catheter ABP, PAP, CO, CI - Last Documented Arterial Blood Pressure 120/57 - Exam Constitutional: Awake alert Eyes: Anicteric sclerae, moist conjunctiva, no lid-lag, PERRLA ENMT: NC/AT,Oropharynx clear, no erythema, exudates Neck:Supple, FROM, no masses, or JVD, No carotid bruits; No thyromegaly Lungs: Diminished in the bases, appears unlabored currently on high flow at 5 L via nasal cannula Cardiovascular: Heart regular in rate and rhythm, No murmurs, gallops, or rubs Abdominal: Soft distended nontender Skin: Normal temperature, tone, texture, turgor, No induration No subcutaneous nodules, No rash, lesions, No ulcers Extremities:No digital cyanosis No clubbing, Pedal pulses intact and symmetrical Radial pulses intact and symmetrical Normal gait and station, No calf tenderness, +2 pitting edema, noted scrotal edema Psychiatric: Alert and oriented to person, place and time, Appropriate affect Intact judgement Neuro: Follow simple commands no gross focal deficits - Labs CBC & Chem 7: 05/21/19 05:15 05/21/19 05:15 Labs: Abnormal Lab Results - Last 24 Hours (Table) 05/20/19 05/20/19 05/21/19 Range/Units 12:03 17:42 00:05 WBC (3.8-10.6) k/uL RBC (4.30-5.90) m/uL Hgb (13.0-17.5) gm/dL Hct (39.0-53.0) % RDW (11.5-15.5) % Chloride (98-107) mmol/L BUN (9-20) mg/dL Creatinine (0.66-1.25) mg/dL Glucose (74-99) mg/dL POC Glucose (mg/dL) 135 H 132 H 157 H (75-99) mg/dL Calcium (8.4-10.2) mg/dL AST (17-59) U/L Total Protein (6.3-8.2) g/dL Albumin (3.5-5.0) g/dL 05/21/19 05/21/19 05/21/19 Range/Units 05:15 05:15 05:16 WBC 14.5 H (3.8-10.6) k/uL RBC 3.18 L (4.30-5.90) m/uL Hgb 9.0 L D (13.0-17.5) gm/dL Hct 27.7 L (39.0-53.0) % RDW 16.3 H (11.5-15.5) % Chloride 111 H (98-107) mmol/L BUN 31 H (9-20) mg/dL Creatinine 2.06 H (0.66-1.25) mg/dL Glucose 146 H (74-99) mg/dL POC Glucose (mg/dL) 157 H (75-99) mg/dL Calcium 7.7 L (8.4-10.2) mg/dL AST 85 H (17-59) U/L Total Protein 4.6 L (6.3-8.2) g/dL Albumin 2.2 L (3.5-5.0) g/dL Microbiology - Last 24 Hours (Table) 05/16/19 03:35 Anaerobic Culture - Final Peritoneal Fluid Anaerobic Gram Positive Cocci 05/16/19 00:04 Blood Culture - Preliminary Blood No Growth after 120 hours Assessment and Plan Assessment: Septic shock * Secondary to perforated viscus with subsequent peritonitis and possible pneumonia * Resolved patient no longer requiring pressors blood pressure is actually elevated today, has good urine output * Noted fevers with leukocytosis * Currently on antibiotic regimen Zosyn and Diflucan per ID, considering expand ing antibiotic coverage to cefepime or invanz in light of new onset fevers and worsening leukocytosis Acute respiratory failure with hypoxia * Secondary to septic shock due to perforated discus with subsequent abdominal peritonitis and possible pneumonia * Extubated yesterday currently on high flow nasal cannula 5 L * Chest x-ray showing right greater than left pleural effusion subsequent with bilateral basilar airspace disease chest ultrasound showing a pocket size of 8.3 cm on the right patient may need thoracocentesis will defer to pulmonary * Continue with daily Lasix Perforated viscus * POD #5 status post exploratory laparoscopy antrectomy and Billroth II gastrojejunostomy * NPO on TPN at 60 cc/hr * continue w/ prokinetic Reglan Acute kidney injury secondary to ATN * ATN. Prerenal due to severe septic shock him * Creatinine trending down nicely to 2 from 6 * Continue current IV fluids * Metabolic acidosis now resolved Hypertensive urgency * Resolved * Blood pressure controlled on Cleviprex Normocytic anemia * Secondary to upper GI bleed status post perforated duodenal ulcer * Status post 3 unit packed RBC transfusion hemoglobin stable at 9 g Hypomagnesemia * resolved * continue to monitor peripheral edema * Secondary to volume overload, echocardiogram showing normal preserved ejection fraction * Significant positive fluid balance continue with diuresis Disposition * Patient still critical continue to monitor closely
--- NOTE | 2019-05-21 14:22 | P.PN ---
Subjective Progress Note Date: 05/21/19 Principal diagnosis: Acute surgical abdomen secondary to duodenal ulcer perforation Is a 63-year-old male patient who came into the emergency department after he collapsed at home. The patient was having abdominal pain radiating to his back for several days. He was unable to eat and he was progressively getting more sick and weak and ultimately collapsed at home and he was brought into the emergency department where further investigation was done including a CAT scan of the abdomen and pelvis that showed a large amount of intraperitoneal air the origin was not certain. There was large amount of ascites and scattered area of small bowel wall thickening secondary to ascites/nonspecific enteritis. There was also incidental finding of a suspicious 13 mm mass lesion in the superior pole of the left kidney and another 8mm lesion exophytic in the superior pole of the right kidney. Based on this, the patient was taken immediately to the operating room. Intraoperatively the patient received a total of 3.5 L of IV fluids. He also received a total of 2 units of packed RBCs. He underwent expiratory laparotomy and he was found to have a perforated duodenal ulcer. The patient underwent antrectomy and Billroth II gastrojejunostomy. Postop, he was brought into the intensive care unit for further evaluation and management. Currently he is sedated with propofol is running at 30 g per KG per minute. He has received an additional 1-1/2 L of IV fluids here in the ICU which brings up his total boluses up to 5 L. Currently is on a maintenance of lactated Ringer at the rate of 1 50 mL and a carb infusion at the rate of 100 and hour. He is on assist control mode of ventilation at the rate of 20 with an FiO2 of 50% and a PEEP of 5 and a tidal volume of 500. The morning blood gases showed a pH of 7.37 with a pCO2 of 32 and pO2 of 400 and he was weaned off and FiO2 of 50%. He is producing urine output. His lactic acid level has dropped from a baseline of 8.1 down to 2.2. His creatinine is up from 6 down to 4.7. His serum bicarb is up to 19 and anion gap is at 10. He was given Zosyn and he was also given 400 mg of IV Diflucan and operating room. He has a triple-lumen catheter, left IJ and an outlying catheter, left radial. His abdominal wound is dry clean and intact. The patient has a BOGDAN drains in place. Cardiac rhythm is sinus for now. He briefly required pressors and currently is off levo fed. ET tube is in place. Output is minimal in the order of 150 mL the patient drinks more than 6 bottles of beer on a daily basis probably sometimes even more. He is an ex- smoker Patient was evaluated today on 05/17/2019, remains in the ICU, mechanically ventilated and intubated. His present ventilator settings are tidal volume of 500 assist control rate of 20 FiO2 40%. And PEEP is 5. Patient is still requiring pressors in the form of norepinephrine at 0.22 mcg/kg/m, he is on propofol at 75 mcg/kg/m, remains on IV fluids at 200 mL per hour. CVP is about 9. Patient has decent urine output. But blood pressure remains marginal requi ring pressors. He is presently on antibiotics including Zosyn and Diflucan as per infectious disease on the case. ABG this morning showed a pO2 of 159 pCO2 of 33 pH of 7.29. His CBC showed WBC count of 6.7 hemoglobin of 8.0 electrolytes showed slightly elevated potassium of 5.2. BUN however is 53 creatinine is 4.59, improving compared to his creatinine on presentation of 6.03. Patient is sedated, however he is arousable, and follows simple instructions. His propofol dose was increased, patient is known to have history of alcoholism. Reevaluated today on 05/18/2019, remains in ICU, intubated, mechanically ventilated. Sedated, on propofol, patient is on assist control rate of 20 tidal volume of 500 FiO2 40% and I cut it down to 35% he is also on PEEP of 5. ABG showed a pO2 of 148 pCO2 of 30 pH of 7.29 hence I recommended starting the patient on the sodium bicarb drip. His pH remained low since yesterday, hence he will likely improve with 24 hours of sodium bicarb drip. His hemoglobin is 7.1 today, and considering that the patient is still requiring pressors in the form of levo fed him I recommended one unit of packed RBCs to be given. This will likely improve his blood pressure. And hopefully could discontinue norepinephrine which is presently at 0.06 mcg/kg/m. WBC count is 7.8. Electrolytes are basically normal bicarb is low at 14 his BUN is 45 creatinine 3.43 steadily improving since admission. Patient is arousable in spite of being on propofol at 50 mcg/kg/m, and he is able to follow instructions. Chest x-ray showed stable bilateral airspace disease and small pleural effusions. Right greater than left. Reevaluated today on 05/19/2019, remains intubated, mechanically ventilated, in the ICU, on propofol at 50 mcg/kg/m, his ventilator settings are assist control rate of 20 tidal volume is 500 FiO2 is 30%, and PEEP is 5. Patient is off pressors, he is mostly on propofol and IV fluid at 75 mL per hour, sodium bicarb drip at 75 mL per hour, and he is also on TPN. ABG showed a pO2 of 131 pCO2 of 32 pH of 7.36, bicarb remains a bit low at 18, hence I will continue the sodium bicarb drip for another day. Electrolytes are normal BUN is 38 creatinine is 2.38, and that is significantly improved compared to a creatinine of 6.03 on admission and 3.43 yesterday. Clearly his renal functioning is gradually improving. And his acute kidney injury is responding to treatment. Chest x-ray continues to show bilateral pleural effusions, right greater than left. And bibasilar atelectasis and possibly pneumonia is not entirely ruled out. But felt to be less likely at this point. In spite of being on propofol, patient is arousable and he is able to follow simple instructions. Reevaluated today on 05/20/2019, patient remains intubated, mechanically ventilated, on propofol at 50 mcg/kg/m, however the patient seems to be wide awake even on propofol. He was given a trial of pressure support and CPAP, and he tolerated that trial extremely well. Blood pressure was noted to be a bit elevated earlier today, and I recommended clevidipine drip. Patient is doing great, his chest x-ray continues to show bilateral pleural effusions, ultrasound showed good sized right-sided pleural effusion, and the patient responded well to Lasix. Hence I would hold on thoracentesis for now, hopefully the patient will improve with diuretics only. I believe the fluid that he developed in his pleural space is most likely fluid overload related because the patient received significant amount of fluids from the time of his surgery until now. I will cut down his IV fluids, was given Lasix 40 mg IV push every 12 hours, we will likely recommend thoracentesis if the fluid does not improve much in the right pleural space. In the meantime patient was given a trial while I was at bedside, and proceeded to extubating the patient. His O2 saturation was marginal on high flow nasal cannula, hence I recommended BiPAP at 12,/5, and FiO2 of 50%. His O2 saturation now is in the mid 90s. Patient seems to be very comfortable, in no form of distress. And again he received a dose of Lasix 40 mg IV push earlier. ABG earlier today showed a pO2 of 120 pCO2 of 32 pH of 7.43. His BUN is 29 creatinine is 1.88 steadily improving since admission. Peritoneal fluid cultures were noted, there is evidence of Klebsiella oxytoca and nonhemolytic strep. Sensitive to most antibiotics except ampicillin Reevaluated today on 05/21/2019, patient was extubated yesterday, initially placed on BiPAP, however today he was transitioned to a 5 L nasal cannula. Patient had a significant response to diuretics, and the right-sided pleural effusion which I was concerned about seems to have basically resolved. Patient will not need thoracentesis. He is still on clevidipine drip, and that is being titrated down. Patient continues to have a nasogastric tube in place, and he has no gas so far and no flatus. Again his cultures from the peritoneal fluid have been reviewed, and these are being addressed and the had told by infectious disease on the case. Labs were reviewed today WBC count is 14.5 hemoglobin is 9 lites are normal and the sodium bicarb has been discontinued. BUN is 31 creatinine 2.06. Slightly worse compared to yesterday, and I believe it will improve with holding the second dose of diuretics today. Patient has been in a negative balance over the last 24 hours. Continues to have significant nasogastric tube drainage Objective - Vital Signs Vital signs: Vital Signs Temp 98.5 F 05/21/19 12:00 Pulse 121 H 05/21/19 13:00 Resp 18 05/21/19 13:00 BP 153/76 05/21/19 13:00 Pulse Ox 94 L 05/21/19 13:00 Intake & Output 05/20/19 05/21/19 05/21/19 18:59 06:59 18:59 Intake Total 3152.734 2961.633 1112.334 Output Total 4004 3840 3170 Balance -851.266 -878.367 -2057.666 Weight 94 kg 94 kg Intake: IV 2192 1651 988 0.9 NACL 660 550 400 Dextrose 5% in Water 1, 474 275 100 000 ml @ 25 mls/hr IV . Q24H [facility] with Sodium Bicarb (1 Meq/ml) 150 ml Rx#:[id number] Fluconazole in NaCl,Iso- 100 100 Osm 200 mg In Saline 1 100ml.bag @ 100 mls/hr IVPB DAILY [facility] Rx#: [id number] Mvi, Adult No.4 with Vit 780 660 240 K 10 ml Trace (Conc-1Ml/ Dose) 1 ml Parenteral Electrolytes 20 ml In Amino Acid 5%-D15w 1,000 ml @ 60 mls/hr IV . [id number] [facility] Rx#:[id number] Pressure Bags 78 66 48 Zosyn 100 100 100 Intake, IV Titration 562.333 8911.633 124.334 Amount Clevidipine Butyrate 25 160.734 265.633 124.334 mg In Empty Bag 1 bag @ 4 MG/HR 8 mls/hr IV . Q6H15M [facility] Rx#:[id number] Magnesium Sulfate-D5w Pmx 200 1 gm In Dextrose/Water 1 100ml.bag @ 100 mls/hr IVPB Q1H [facility] Rx#: [id number] Mvi, Adult No.4 with Vit 1045 K 10 ml Trace (Conc-1Ml/ Dose) 1 ml Parenteral Electrolytes 20 ml Potassium Chloride 20 meq Magnesium Sulfate gm 2 gm In Amino Acid 5%-D15w 1,000 ml @ 60 mls/hr IV . [id number] [facility] Rx#:[id number] Potassium Chloride 20 meq 500 In Water For Injection 1 100ml.bag @ 50 mls/hr IVPB Q2H [facility] Rx#: [id number] Propofol 1,000 mg In 100 Empty Bag 1 bag @ Titrate IV .Q0M [facility] Rx#: [id number] Output: Gastric Drainage 500 300 Drainage 95 0 220 Anterior Abdomen 95 0 220 Urine 3909 3340 2650 Other: Voiding Method Indwelling Catheter Indwelling Catheter Indwelling Catheter ABP, PAP, CO, CI - Last Documented Arterial Blood Pressure 128/94 - Exam Physical Exam: Revealed a 63-year-old white male, on nasal cannula, in no distress. Head: Atraumatic, normocephalic. HEENT:[Neck is supple.] [No neck masses.] [No thyromegaly.] [No JVD.] PERRLA, EOMI, no icterus, moist mucous membranes, Chest: [Symmetrical chest expansion, good breath sound bilaterally no crackles or rhonchi or wheezes. Cardiac Exam: [Normal S1 and S2, no S3 gallop, no murmur.] Abdomen: [Postsurgical, soft, slightly distended, no tenderness, no rebound, diminished bowel sounds. No rigidity..] Extremities: [No clubbing, no edema, no cyanosis.] Good pulses bilaterally. Neurological Exam: Awake, oriented 3, no gross focal neurologic deficits. Psychiatric: Normal mood, blunt affect, normal mental status examination Lymphatics: No lymphadenopathy. Skin: No rashes. - Labs CBC & Chem 7: 05/21/19 05:15 05/21/19 05:15 Labs: Abnormal Lab Results - Last 24 Hours (Table) 05/20/19 05/21/19 05/21/19 Range/Units 17:42 00:05 05:15 WBC (3.8-10.6) k/uL RBC (4.30-5.90) m/uL Hgb (13.0-17.5) gm/dL Hct (39.0-53.0) % RDW (11.5-15.5) % Chloride 111 H (98-107) mmol/L BUN 31 H (9-20) mg/dL Creatinine 2.06 H (0.66-1.25) mg/dL Glucose 146 H (74-99) mg/dL POC Glucose (mg/dL) 132 H 157 H (75-99) mg/dL Calcium 7.7 L (8.4-10.2) mg/dL AST 85 H (17-59) U/L Total Protein 4.6 L (6.3-8.2) g/dL Albumin 2.2 L (3.5-5.0) g/dL 05/21/19 05/21/19 05/21/19 Range/Units 05:15 05:16 11:43 WBC 14.5 H (3.8-10.6) k/uL RBC 3.18 L (4.30-5.90) m/uL Hgb 9.0 L D (13.0-17.5) gm/dL Hct 27.7 L (39.0-53.0) % RDW 16.3 H (11.5-15.5) % Chloride (98-107) mmol/L BUN (9-20) mg/dL Creatinine (0.66-1.25) mg/dL Glucose (74-99) mg/dL POC Glucose (mg/dL) 157 H 152 H (75-99) mg/dL Calcium (8.4-10.2) mg/dL AST (17-59) U/L Total Protein (6.3-8.2) g/dL Albumin (3.5-5.0) g/dL Microbiology - Last 24 Hours (Table) 05/16/19 03:35 Anaerobic Culture - Final Peritoneal Fluid Anaerobic Gram Positive Cocci 05/16/19 00:04 Blood Culture - Preliminary Blood No Growth after 120 hours Assessment and Plan Assessment: Impression: 1 acute abdominal sepsis and septic shock secondary to duodenal ulcer perforation. Patient is status post expiratory laparotomy with Billroth II gastrojejunostomy postoperative day #5. 2 acute lactic acidosis secondary to above, resolved 3 acute hypoxic respiratory failure secondary to septic shock and abdominal sep sis. 4 acute kidney injury secondary to acute tubular necrosis and hypotension steadily improving. 5 chronic alcoholism 6 history of GI bleeding 7 exophytic kidney lesion, needs to have workup on outpatient basis, this was incidentally seen on CT of the abdomen and pelvis, will eventually need outpatient follow-up with urology. 8 acute anemia secondary to blood loss, received a total of 3 units of packed RBCs since admission. Hemoglobin today is 9.0. 9 status post successful extubation on 05/20/2019. Recommendation: Continue to monitor the patient in the ICU. Monitor blood pressure, and controlled now with clevidipine drip.. Continue TPN Continue antibiotics in the form of Zosyn and Diflucan. Continue GI and DVT prophylaxis Continue alcohol withdrawal protocol This continue sodium bicarb drip Decrease Lasix to 40 mg IV push daily instead of twice a day. Reviewed chest x-ray today, no plans for any thoracentesis at this point. Continue incentive spirometry and early ambulation. Continue physical therapy. Likely transfer out of the ICU in the next 24 hours. We'll continue to follow. Time with Patient: Less than 30
--- NOTE | 2019-05-21 15:20 | PN ---
PROGRESS NOTE DATE OF SERVICE: 05/21/2019 REASON FOR FOLLOWUP: Secondary peritonitis from perforated peptic ulcer disease. INTERVAL HISTORY: The patient is currently afebrile. Patient is breathing more comfortably. Patient denies having any chest pain. Occasional cough which is dry in nature. The patient did have the NG with good output. Patient did not have any bowel movement or not passing any gas. Currently on TPN for nutrition. PHYSICAL EXAMINATION: Blood pressure is 153/76 with a pulse of 121, temperature 98.5. He is 94% on 5 L high- flow oxygen. General description is a middle-aged male, lying in bed in no distress. RESPIRATORY SYSTEM: Unlabored breathing with decreased breath sounds at the bases, no wheeze. HEART: S1, S2. Regular rate and rhythm. ABDOMEN: Soft, no tenderness. LABS: Hemoglobin 9, BUN of 30 with a creatinine 2.06. DIAGNOSTIC IMPRESSION AND PLAN: Patient with perforated peptic ulcer disease status post repair. Culture has been predominantly strep and Klebsiella. Patient is covered with Zosyn and Diflucan and did have slight jump in white count. Will monitor very closely. Continue current antibiotics. Continue supportive care. MMODL / IJN: [id number] / MAYRA
[2019-05-21] MEDS: NOREPINEPHRINE 8 MG in SODIUM CHLORIDE 0.9% 250 ML IV SCH (17:18)
[2019-05-21] MEDS: POTASSIUM CHLORIDE 20 MEQ in WATER FOR INJECTION 1 100ML.BAG IVPB SCH ×2 (17:18→19:21)
[2019-05-21] MEDS: MORPHINE SULFATE 2 MG/ML SYRINGE IV PRN (21:19)
[2019-05-22] MEDS: CLEVIDIPINE BUTYRATE 25 MG in EMPTY BAG 1 BAG IV SCH ×12 (00:01→20:54)
[2019-05-22] MEDS: METOCLOPRAMIDE 5 MG/ML 2 ML VIAL IVP SCH ×4 (01:19→18:21)
[2019-05-22] MEDS: HEPARIN SODIUM,PORCINE 5,000 UNIT/ML 1 ML VIAL SQ SCH ×3 (01:19→16:05)
[2019-05-22] MEDS: PIPERACILLIN-TAZOBACTAM 3.375 GM in SODIUM CHLORIDE 0.9% 100 ML IVPB SCH ×2 (01:20→08:52)
[2019-05-22] MEDS: IPRATROPIUM-ALBUTEROL 3 ML NEB INHALATION SCH ×6 (03:35→23:39)
[2019-05-22 04:57] LABS: Anisocytosis Slight; Basophils # (A) 0.1 k/uL (0-0.2); Basophils % (A) 0 %; Eosinophils # (A) 0.4 k/uL (0-0.7); Eosinophils % (A) 2 %; HCT 29.9 % (39.0-53.0); HGB 9.4 gm/dL (13.0-17.5); Hypochromasia Marked; Lymphocytes # (A) 0.7 k/uL (1.0-4.8); Lymphocytes % (A) 4 %; MCH 27.7 pg (25.0-35.0); MCHC 31.4 g/dL (31.0-37.0); MCV 88.3 fL (80.0-100.0); Mean Platelet Volume 7.3; Monocytes # (A) 0.7 k/uL (0-1.0); Monocytes % (A) 4 %; Neutrophils # (A) 14.8 k/uL (1.3-7.7); Neutrophils % (A) 87 %; Platelet Count 352 k/uL (150-450); Poikilocytosis Slight; RBC 3.39 m/uL (4.30-5.90); RDW 16.4 % (11.5-15.5); WBC 16.9 k/uL (3.8-10.6)
[2019-05-22 05:24] LABS: Ionized Calcium 4.8 mg/dL (4.5-5.3)
[2019-05-22 05:34] LABS: Albumin 2.3 g/dL (3.5-5.0); Calcium 7.9 mg/dL (8.4-10.2); Magnesium 2.4 mg/dL (1.6-2.3); Phosphorus 3.8 mg/dL (2.5-4.5); Potassium 4.3 mmol/L (3.5-5.1); Total Bilirubin 0.4 mg/dL (0.2-1.3); Total Protein 4.9 g/dL (6.3-8.2)
--- NOTE | 2019-05-22 06:35 | XR ---
EXAMINATION TYPE: XR chest 1V portable DATE OF EXAM: 05/22/2019 HISTORY: Tube placement. REFERENCE: Previous study dated 05/21/2019. FINDINGS: An NG tube remains in place. Its tip is in the stomach. There are small, bilateral effusions. Bibasilar airspace disease. The heart is mildly enlarged. IMPRESSION: NO SIGNIFICANT INTERVAL CHANGE IN THE APPEARANCE OF THE CHEST.
[2019-05-22 06:36] LABS: Glucose,Whole Blood 148 mg/dL (75-99)
[2019-05-22] MEDS: SODIUM CHLORIDE 0.9% 1,000 ML IV SCH ×2 (08:00→17:31)
[2019-05-22] MEDS: FLUCONAZOLE IN NACL,ISO-OSM 200 MG in SALINE 1 100ML.BAG IVPB SCH (08:47)
[2019-05-22] MEDS: FUROSEMIDE 10 MG/ML 4 ML VIAL IV SCH (08:52)
[2019-05-22] MEDS: PANTOPRAZOLE 40 MG/10 ML VIAL IV SCH ×2 (08:53→21:07)
--- NOTE | 2019-05-22 11:30 | P.PN ---
Subjective Progress Note Date: 05/22/19 Principal diagnosis: Acute surgical abdomen secondary to duodenal ulcer perforation Is a 63-year-old male patient who came into the emergency department after he collapsed at home. The patient was having abdominal pain radiating to his back for several days. He was unable to eat and he was progressively getting more sick and weak and ultimately collapsed at home and he was brought into the emergency department where further investigation was done including a CAT scan of the abdomen and pelvis that showed a large amount of intraperitoneal air the origin was not certain. There was large amount of ascites and scattered area of small bowel wall thickening secondary to ascites/nonspecific enteritis. There was also incidental finding of a suspicious 13 mm mass lesion in the superior pole of the left kidney and another 8mm lesion exophytic in the superior pole of the right kidney. Based on this, the patient was taken immediately to the operating room. Intraoperatively the patient received a total of 3.5 L of IV fluids. He also received a total of 2 units of packed RBCs. He underwent expiratory laparotomy and he was found to have a perforated duodenal ulcer. The patient underwent antrectomy and Billroth II gastrojejunostomy. Postop, he was brought into the intensive care unit for further evaluation and management. Currently he is sedated with propofol is running at 30 g per KG per minute. He has received an additional 1-1/2 L of IV fluids here in the ICU which brings up his total boluses up to 5 L. Currently is on a maintenance of lactated Ringer at the rate of 1 50 mL and a carb infusion at the rate of 100 and hour. He is on assist control mode of ventilation at the rate of 20 with an FiO2 of 50% and a PEEP of 5 and a tidal volume of 500. The morning blood gases showed a pH of 7.37 with a pCO2 of 32 and pO2 of 400 and he was weaned off and FiO2 of 50%. He is producing urine output. His lactic acid level has dropped from a baseline of 8.1 down to 2.2. His creatinine is up from 6 down to 4.7. His serum bicarb is up to 19 and anion gap is at 10. He was given Zosyn and he was also given 400 mg of IV Diflucan and operating room. He has a triple-lumen catheter, left IJ and an outlying catheter, left radial. His abdominal wound is dry clean and intact. The patient has a BOGDAN drains in place. Cardiac rhythm is sinus for now. He briefly required pressors and currently is off levo fed. ET tube is in place. Output is minimal in the order of 150 mL the patient drinks more than 6 bottles of beer on a daily basis probably sometimes even more. He is an ex- smoker Patient was evaluated today on 05/17/2019, remains in the ICU, mechanically ventilated and intubated. His present ventilator settings are tidal volume of 500 assist control rate of 20 FiO2 40%. And PEEP is 5. Patient is still requiring pressors in the form of norepinephrine at 0.22 mcg/kg/m, he is on propofol at 75 mcg/kg/m, remains on IV fluids at 200 mL per hour. CVP is about 9. Patient has decent urine output. But blood pressure remains marginal requi ring pressors. He is presently on antibiotics including Zosyn and Diflucan as per infectious disease on the case. ABG this morning showed a pO2 of 159 pCO2 of 33 pH of 7.29. His CBC showed WBC count of 6.7 hemoglobin of 8.0 electrolytes showed slightly elevated potassium of 5.2. BUN however is 53 creatinine is 4.59, improving compared to his creatinine on presentation of 6.03. Patient is sedated, however he is arousable, and follows simple instructions. His propofol dose was increased, patient is known to have history of alcoholism. Reevaluated today on 05/18/2019, remains in ICU, intubated, mechanically ventilated. Sedated, on propofol, patient is on assist control rate of 20 tidal volume of 500 FiO2 40% and I cut it down to 35% he is also on PEEP of 5. ABG showed a pO2 of 148 pCO2 of 30 pH of 7.29 hence I recommended starting the patient on the sodium bicarb drip. His pH remained low since yesterday, hence he will likely improve with 24 hours of sodium bicarb drip. His hemoglobin is 7.1 today, and considering that the patient is still requiring pressors in the form of levo fed him I recommended one unit of packed RBCs to be given. This will likely improve his blood pressure. And hopefully could discontinue norepinephrine which is presently at 0.06 mcg/kg/m. WBC count is 7.8. Electrolytes are basically normal bicarb is low at 14 his BUN is 45 creatinine 3.43 steadily improving since admission. Patient is arousable in spite of being on propofol at 50 mcg/kg/m, and he is able to follow instructions. Chest x-ray showed stable bilateral airspace disease and small pleural effusions. Right greater than left. Reevaluated today on 05/19/2019, remains intubated, mechanically ventilated, in the ICU, on propofol at 50 mcg/kg/m, his ventilator settings are assist control rate of 20 tidal volume is 500 FiO2 is 30%, and PEEP is 5. Patient is off pressors, he is mostly on propofol and IV fluid at 75 mL per hour, sodium bicarb drip at 75 mL per hour, and he is also on TPN. ABG showed a pO2 of 131 pCO2 of 32 pH of 7.36, bicarb remains a bit low at 18, hence I will continue the sodium bicarb drip for another day. Electrolytes are normal BUN is 38 creatinine is 2.38, and that is significantly improved compared to a creatinine of 6.03 on admission and 3.43 yesterday. Clearly his renal functioning is gradually improving. And his acute kidney injury is responding to treatment. Chest x-ray continues to show bilateral pleural effusions, right greater than left. And bibasilar atelectasis and possibly pneumonia is not entirely ruled out. But felt to be less likely at this point. In spite of being on propofol, patient is arousable and he is able to follow simple instructions. Reevaluated today on 05/20/2019, patient remains intubated, mechanically ventilated, on propofol at 50 mcg/kg/m, however the patient seems to be wide awake even on propofol. He was given a trial of pressure support and CPAP, and he tolerated that trial extremely well. Blood pressure was noted to be a bit elevated earlier today, and I recommended clevidipine drip. Patient is doing great, his chest x-ray continues to show bilateral pleural effusions, ultrasound showed good sized right-sided pleural effusion, and the patient responded well to Lasix. Hence I would hold on thoracentesis for now, hopefully the patient will improve with diuretics only. I believe the fluid that he developed in his pleural space is most likely fluid overload related because the patient received significant amount of fluids from the time of his surgery until now. I will cut down his IV fluids, was given Lasix 40 mg IV push every 12 hours, we will likely recommend thoracentesis if the fluid does not improve much in the right pleural space. In the meantime patient was given a trial while I was at bedside, and proceeded to extubating the patient. His O2 saturation was marginal on high flow nasal cannula, hence I recommended BiPAP at 12,/5, and FiO2 of 50%. His O2 saturation now is in the mid 90s. Patient seems to be very comfortable, in no form of distress. And again he received a dose of Lasix 40 mg IV push earlier. ABG earlier today showed a pO2 of 120 pCO2 of 32 pH of 7.43. His BUN is 29 creatinine is 1.88 steadily improving since admission. Peritoneal fluid cultures were noted, there is evidence of Klebsiella oxytoca and nonhemolytic strep. Sensitive to most antibiotics except ampicillin Reevaluated today on 05/21/2019, patient was extubated yesterday, initially placed on BiPAP, however today he was transitioned to a 5 L nasal cannula. Patient had a significant response to diuretics, and the right-sided pleural effusion which I was concerned about seems to have basically resolved. Patient will not need thoracentesis. He is still on clevidipine drip, and that is being titrated down. Patient continues to have a nasogastric tube in place, and he has no gas so far and no flatus. Again his cultures from the peritoneal fluid have been reviewed, and these are being addressed and the had told by infectious disease on the case. Labs were reviewed today WBC count is 14.5 hemoglobin is 9 lites are normal and the sodium bicarb has been discontinued. BUN is 31 creatinine 2.06. Slightly worse compared to yesterday, and I believe it will improve with holding the second dose of diuretics today. Patient has been in a negative balance over the last 24 hours. Continues to have significant nasogastric tube drainage Reevaluated today on 05/22/2019, remains in the intensive care unit, remains on few liters nasal cannula/5 L. O2 saturation is 94-96%. Remains on clevidipine drip, continues to have nasogastric tube in place, remains on daily Lasix 40 mg IV push daily, continues to have small bilateral pleural effusions, however patient is in a negative balance, and may not require thoracentesis. Patient is passing some gas, however he continues to have nasogastric tube in place. Denies any specific complaints, he feels fairly well. Renal functioning remains the same with a BUN of 36 creatinine of 2.05. Elective right are normal WBC count is 16.9 hemoglobin is 9.4. Albumin is low at 2.3. Patient remains on TPN. Remains on antibiotics as per ID on the case Objective - Vital Signs Vital signs: Vital Signs Temp 98.3 F 05/22/19 08:00 Pulse 114 H 05/22/19 11:00 Resp 23 05/22/19 11:00 BP 157/73 05/22/19 11:00 Pulse Ox 94 L 05/22/19 11:00 Intake & Output 05/21/19 05/22/19 05/22/19 18:59 06:59 18:59 Intake Total 0997.484 7228.466 851.3 Output Total 4570 2835 1712 Balance -3183.666 -1793.534 -860.7 Weight 94 kg 91.4 kg Intake: IV 1212 788 471 0.9 NACL 600 450 250 Dextrose 5% in Water 1, 100 000 ml @ 25 mls/hr IV . Q24H [facility]OLOR[facility] with Sodium Bicarb (1 Meq/ml) 150 ml Rx#:[id number] Fluconazole in NaCl,Iso- 100 100 Osm 200 mg In Saline 1 100ml.bag @ 100 mls/hr IVPB DAILY [facility] Rx#: [id number] Mvi, Adult No.4 with Vit 240 K 10 ml Trace (Conc-1Ml/ Dose) 1 ml Parenteral Electrolytes 20 ml In Amino Acid 5%-D15w 1,000 ml @ 60 mls/hr IV . [id number] [facility] Rx#:[id number] Potassium Chloride 20 meq 100 In Water For Injection 1 100ml.bag @ 50 mls/hr IVPB Q2HR [facility] Rx#: [id number] Pressure Bags 72 63 21 Zosyn 100 175 100 Intake, IV Titration 174.334 253.466 380.3 Amount Clevidipine Butyrate 25 174.334 253.466 140.3 mg In Empty Bag 1 bag @ 4 MG/HR 8 mls/hr IV . Q6H15M [facility] Rx#:[id number] Mvi, Adult No.4 with Vit 240 K 10 ml Trace (Conc-1Ml/ Dose) 1 ml Parenteral Electrolytes 20 ml Potassium Chloride 30 meq Magnesium Sulfate gm 1 gm In Amino Acid 5%-D15w 1,000 ml @ 60 mls/hr IV . [id number] [facility] Rx#:[id number] Output: Gastric Drainage 500 650 500 Drainage 320 85 160 Anterior Abdomen 320 85 160 Urine 3750 2100 1052 Other: Voiding Method Indwelling Catheter Indwelling Catheter Indwelling Catheter ABP, PAP, CO, CI - Last Documented Arterial Blood Pressure 139/61 - Exam Physical Exam: Revealed a 63-year-old white male, on nasal cannula, in no distress. Head: Atraumatic, normocephalic. HEENT:[Neck is supple.] [No neck masses.] [No thyromegaly.] [No JVD.] PERRLA, EOMI, no icterus, dry mucous membranes Chest: [Symmetrical chest expansion, good breath sound bilaterally no crackles or rhonchi or wheezes. Cardiac Exam: [Normal S1 and S2, no S3 gallop, no murmur.] Abdomen: [Postsurgical, soft, slightly distended, no tenderness, no rebound, diminished bowel sounds. No rigidity..] Extremities: [No clubbing, no edema, no cyanosis.] Good pulses bilaterally. Neurological Exam: Awake, oriented 3, no gross focal neurologic deficits. Psychiatric: Normal mood, blunt affect, normal mental status examination Lymphatics: No lymphadenopathy. Skin: No rashes. - Labs CBC & Chem 7: 05/22/19 04:30 05/22/19 04:30 Labs: Abnormal Lab Results - Last 24 Hours (Table) 05/21/19 05/22/19 05/22/19 Range/Units 11:43 04:30 04:30 WBC 16.9 H (3.8-10.6) k/uL RBC 3.39 L (4.30-5.90) m/uL Hgb 9.4 L (13.0-17.5) gm/dL Hct 29.9 L (39.0-53.0) % RDW 16.4 H (11.5-15.5) % Neutrophils # 14.8 H (1.3-7.7) k/uL Lymphocytes # 0.7 L (1.0-4.8) k/uL Chloride 112 H (98-107) mmol/L BUN 36 H (9-20) mg/dL Creatinine 2.05 H (0.66-1.25) mg/dL Glucose 137 H (74-99) mg/dL POC Glucose (mg/dL) 152 H (75-99) mg/dL Calcium 7.9 L (8.4-10.2) mg/dL Magnesium 2.4 H (1.6-2.3) mg/dL AST 105 H (17-59) U/L ALT 87 H (21-72) U/L Total Protein 4.9 L (6.3-8.2) g/dL Albumin 2.3 L (3.5-5.0) g/dL 05/22/19 Range/Units 06:26 WBC (3.8-10.6) k/uL RBC (4.30-5.90) m/uL Hgb (13.0-17.5) gm/dL Hct (39.0-53.0) % RDW (11.5-15.5) % Neutrophils # (1.3-7.7) k/uL Lymphocytes # (1.0-4.8) k/uL Chloride (98-107) mmol/L BUN (9-20) mg/dL Creatinine (0.66-1.25) mg/dL Glucose (74-99) mg/dL POC Glucose (mg/dL) 148 H (75-99) mg/dL Calcium (8.4-10.2) mg/dL Magnesium (1.6-2.3) mg/dL AST (17-59) U/L ALT (21-72) U/L Total Protein (6.3-8.2) g/dL Albumin (3.5-5.0) g/dL Microbiology - Last 24 Hours (Table) 05/16/19 00:04 Blood Culture - Final Blood No Growth after 144 hours 05/16/19 03:35 Anaerobic Culture - Final Peritoneal Fluid Anaerobic Gram Positive Cocci Assessment and Plan Assessment: Impression: 1 acute abdominal sepsis and septic shock secondary to duodenal ulcer perforation. Patient is status post expiratory laparotomy with Billroth II gastrojejunostomy postoperative day #6 2 acute lactic acidosis secondary to above, resolved 3 acute hypoxic respiratory failure secondary to septic shock and abdominal sepsis. Resolved 4 acute kidney injury secondary to acute tubular necrosis and hypotension steadily improving. But not resolved yet. 5 chronic alcoholism, remains on the alcohol withdrawal protocol. 6 history of GI bleeding 7 exophytic kidney lesion, needs to have workup on outpatient basis, this was incidentally seen on CT of the abdomen and pelvis, will eventually need outpatient follow-up with urology. 8 acute anemia secondary to blood loss, received a total of 3 units of packed RBCs since admission. Hemoglobin today 9.4 9 status post successful extubation on 05/20/2019. Recommendation: Continue to monitor the patient in the ICU. Monitor blood pressure, and controlled now with clevidipine drip.. Continue TPN Continue antibiotics in the form of Zosyn and Diflucan. Continue GI and DVT prophylaxis Continue alcohol withdrawal protocol Continue Lasix 40 mg IV push daily, may stop it in the next 24 hours. Depending on his chest x-ray over the next 24 hours. Continue to monitor his bilateral pleural effusions. Continue incentive spirometry and early ambulation. Continue physical therapy. We'll continue to follow. Updated him and his on his condition. And will continue to monitor in the ICU for the next 24 hours. Time with Patient: Less than 30
--- NOTE | 2019-05-22 12:03 | P.PN ---
Subjective Progress Note Date: 05/22/19 Principal diagnosis: The patient is a 63-year-old male that was admitted for septic shock secondary to perforated duodenal ulcer with subsequent peritonitis in the settin g of acute kidney injury secondary to ATN prerenal secondary to septic shock after presenting with abdominal pain and hypotension. Initial CT showed large amount of intraperitoneal air with a large amount of ascites and scattered small bowel wall thickening secondary to cystitis and nonspecific enteritis. The patient was aggressively fluid resuscitated and received 2 units of packed RBCs secondary to being found anemic. The patient had Urgent expiratory laparotomy requiring antrectomy and Billroth II gastrojejunostomy. Despite aggressive fluid hydration the patient continued to be hypertensive and was started on pressors with levophed and was maintained on mechanical ventilator with prop ofol for sedation and pulmonary managing his vent settings. The patient was continued on empiric IV antibiotics with Zosyn and Diflucan as suggested by ID. There with treatment the patient's creatinine gradually trended down from 6 is continued on IV fluids. Patient extubated yesterday and was transitioned to BiPAP now currently on high flow at 7 L, patient with T-max 99.1 , continues to be tachycardic. Blood pressure controlled with Cleviprex currently weaning White count up to 16.5, hemoglobin up to 9.4, creatinine 2.05, serum potassium 4.3. Diuresing well with Lasix Chest x-ray showing small bilateral pleural effusions. Echocardiogram results show preserved LVEF, without any significant valvular abnormalities. Patient continues on TPN, Patient denying any pain, patient reports that he's been passing gas Objective - Vital Signs Vital signs: Vital Signs Temp 98.3 F 05/22/19 08:00 Pulse 114 H 05/22/19 11:00 Resp 23 05/22/19 11:00 BP 157/73 05/22/19 11:00 Pulse Ox 94 L 05/22/19 11:00 Intake & Output 05/21/19 05/22/19 05/22/19 18:59 06:59 18:59 Intake Total 5966.510 1854.466 851.3 Output Total 4570 2835 1712 Balance -3183.666 -1793.534 -860.7 Weight 94 kg 91.4 kg Intake: IV 1212 788 471 0.9 NACL 600 450 250 Dextrose 5% in Water 1, 100 000 ml @ 25 mls/hr IV . Q24H [facility] with Sodium Bicarb (1 Meq/ml) 150 ml Rx#:[id number] Fluconazole in NaCl,Iso- 100 100 Osm 200 mg In Saline 1 100ml.bag @ 100 mls/hr IVPB DAILY [facility] Rx#: [id number] Mvi, Adult No.4 with Vit 240 K 10 ml Trace (Conc-1Ml/ Dose) 1 ml Parenteral Electrolytes 20 ml In Amino Acid 5%-D15w 1,000 ml @ 60 mls/hr IV . [id number] [facility]CLUDES [facility] Rx#:[id number] Potassium Chloride 20 meq 100 In Water For Injection 1 100ml.bag @ 50 mls/hr IVPB Q2HR [facility]CLUDES [facility] Rx#: [id number] Pressure Bags 72 63 21 Zosyn 100 175 100 Intake, IV Titration 174.334 253.466 380.3 Amount Clevidipine Butyrate 25 174.334 253.466 140.3 mg In Empty Bag 1 bag @ 4 MG/HR 8 mls/hr IV . Q6H15M COUNT [facility]CLUDES [facility] Rx#:[id number] Mvi, Adult No.4 with Vit 240 K 10 ml Trace (Conc-1Ml/ Dose) 1 ml Parenteral Electrolytes 20 ml Potassium Chloride 30 meq Magnesium Sulfate gm 1 gm In Amino Acid 5%-D15w 1,000 ml @ 60 mls/hr IV . [id number] COUNT [facility]CLUDES [facility] Rx#:[id number] Output: Gastric Drainage 500 650 500 Drainage 320 85 160 Anterior Abdomen 320 85 160 Urine 3750 2100 1052 Other: Voiding Method Indwelling Catheter Indwelling Catheter Indwelling Catheter ABP, PAP, CO, CI - Last Documented Arterial Blood Pressure 139/61 - Exam Constitutional: Awake alert Eyes: Anicteric sclerae, moist conjunctiva, no lid-lag, PERRLA ENMT: NC/AT,Oropharynx clear, no erythema, exudates Neck:Supple, FROM, no masses, or JVD, No carotid bruits; No thyromegaly Lungs: Diminished in the bases, appears unlabored currently on high flow at 5 L via nasal cannula Cardiovascular: Heart regular in rate and rhythm, No murmurs, gallops, or rubs Abdominal: Soft distended nontender Skin: Normal temperature, tone, texture, turgor, No induration No subcutaneous nodules, No rash, lesions, No ulcers Extremities:No digital cyanosis No clubbing, Pedal pulses intact and symmetrical Radial pulses intact and symmetrical Normal gait and station, No calf tenderness, +2 pitting edema, noted scrotal edema Psychiatric: Alert and oriented to person, place and time, Appropriate affect Intact judgement Neuro: Follow simple commands no gross focal deficits - Labs CBC & Chem 7: 05/22/19 04:30 05/22/19 04:30 Labs: Abnormal Lab Results - Last 24 Hours (Table) 05/22/19 05/22/19 05/22/19 Range/Units 04:30 04:30 06:26 WBC 16.9 H (3.8-10.6) k/uL RBC 3.39 L (4.30-5.90) m/uL Hgb 9.4 L (13.0-17.5) gm/dL Hct 29.9 L (39.0-53.0) % RDW 16.4 H (11.5-15.5) % Neutrophils # 14.8 H (1.3-7.7) k/uL Lymphocytes # 0.7 L (1.0-4.8) k/uL Chloride 112 H (98-107) mmol/L BUN 36 H (9-20) mg/dL Creatinine 2.05 H (0.66-1.25) mg/dL Glucose 137 H (74-99) mg/dL POC Glucose (mg/dL) 148 H (75-99) mg/dL Calcium 7.9 L (8.4-10.2) mg/dL Magnesium 2.4 H (1.6-2.3) mg/dL AST 105 H (17-59) U/L ALT 87 H (21-72) U/L Total Protein 4.9 L (6.3-8.2) g/dL Albumin 2.3 L (3.5-5.0) g/dL Microbiology - Last 24 Hours (Table) 05/16/19 00:04 Blood Culture - Final Blood No Growth after 144 hours 05/16/19 03:35 Anaerobic Culture - Final Peritoneal Fluid Anaerobic Gram Positive Cocci Assessment and Plan Assessment: Septic shock * Secondary to perforated viscus with subsequent peritonitis and possible pneumonia * Resolved patient no longer requiring pressors blood pressure is actually elevated today, has good urine output * Leukocytosis worsening continue * Currently on antibiotic regimen Zosyn and Diflucan per ID, considering expanding antibiotic coverage to cefepime or invanz in light of new onset fevers and worsening leukocytosis Acute respiratory failure with hypoxia * Secondary to septic shock due to perforated discus with subsequent abdominal peritonitis and possible pneumonia * Extubated yesterday currently on high flow nasal cannula 7 L * Chest x-ray showing bilateral pleural effusions no need for thoracocentesis * Continue with daily Lasix Perforated viscus * POD #6 status post exploratory laparoscopy antrectomy and Billroth II gastrojejunostomy * NPO on TPN at 60 cc/hr * continue w/ prokinetic Reglan Acute kidney injury secondary to ATN * ATN. Prerenal due to severe septic shock him * Creatinine trending down nicely to 2 from 6 * Continue current IV fluids * Metabolic acidosis now resolved Hypertensive urgency * Resolved * Blood pressure controlled on Cleviprex Normocytic anemia * Secondary to upper GI bleed status post perforated duodenal ulcer * Status post 3 unit packed RBC transfusion hemoglobin stable at 9.4 g Hypomagnesemia * resolved * continue to monitor peripheral edema * Secondary to volume overload, echocardiogram showing normal preserved ejection fraction * Significant overall positive fluid balance negative over the last 2 days continue with diuresis Disposition * Patient still critical continue to monitor closely
[2019-05-22 12:12] LABS: Glucose,Whole Blood 123 mg/dL (75-99)
--- NOTE | 2019-05-22 12:35 | P.PN ---
Subjective Progress Note Date: 05/22/19 Principal diagnosis: perforated duodenal ulcer The patient is postoperative day 6 laparotomy due to perforated duodenal ulcer. He is currently on TPN. He has begun passing flatus. Pain is controlled. Nursing did get him up out of bed today but he developed some tachycardia and hypoxemia. Objective - Vital Signs Vital signs: Vital Signs Temp 98.3 F 05/22/19 12:00 Pulse 115 H 05/22/19 12:00 Resp 21 05/22/19 12:00 BP 157/84 05/22/19 12:00 Pulse Ox 93 L 05/22/19 12:00 Intake & Output 05/21/19 05/22/19 05/22/19 18:59 06:59 18:59 Intake Total 8754.628 3079.466 1002.867 Output Total 4570 2835 2057 Balance -3183.666 -1793.534 -1054.133 Weight 94 kg 91.4 kg Intake: IV 1212 788 524 0.9 NACL 600 450 300 Dextrose 5% in Water 1, 100 000 ml @ 25 mls/hr IV . Q24H [facility] with Sodium Bicarb (1 Meq/ml) 150 ml Rx#:[id number] Fluconazole in NaCl,Iso- 100 100 Osm 200 mg In Saline 1 100ml.bag @ 100 mls/hr IVPB DAILY [facility] Rx#: [id number] Mvi, Adult No.4 with Vit 240 K 10 ml Trace (Conc-1Ml/ Dose) 1 ml Parenteral Electrolytes 20 ml In Amino Acid 5%-D15w 1,000 ml @ 60 mls/hr IV . [id number] [facility] Rx#:[id number] Potassium Chloride 20 meq 100 In Water For Injection 1 100ml.bag @ 50 mls/hr IVPB Q2HR [facility] Rx#: [id number] Pressure Bags 72 63 24 Zosyn 100 175 100 Intake, IV Titration 174.334 253.466 478.867 Amount Clevidipine Butyrate 25 174.334 253.466 178.867 mg In Empty Bag 1 bag @ 4 MG/HR 8 mls/hr IV . Q6H15M [facility] Rx#:[id number] Mvi, Adult No.4 with Vit 300 K 10 ml Trace (Conc-1Ml/ Dose) 1 ml Parenteral Electrolytes 20 ml Potassium Chloride 30 meq Magnesium Sulfate gm 1 gm In Amino Acid 5%-D15w 1,000 ml @ 60 mls/hr IV . [id number] [facility] Rx#:[id number] Output: Gastric Drainage 500 650 500 Drainage 320 85 255 Anterior Abdomen 320 85 255 Urine 3750 2100 1302 Other: Voiding Method Indwelling Catheter Indwelling Catheter Indwelling Catheter ABP, PAP, CO, CI - Last Documented Arterial Blood Pressure 128/60 - Constitutional Constitutional Comment(s): Some diffuse peripheral edema General appearance: Present: cooperative, no acute distress - Respiratory Respiratory: bilateral: CTA, diminished (At the bases) - Cardiovascular Details: Tachycardic, regular rhythm - Gastrointestinal Gastrointestinal Comment(s): Dressing is intact clean and dry. Small amount of serous drainage on the gauze. BOGDAN is serous. There is some serous drainage on the dressing sponge. General gastrointestinal: Present: normal bowel sounds (Active bowel sounds), soft - Labs CBC & Chem 7: 05/22/19 04:30 05/22/19 04:30 Labs: Abnormal Lab Results - Last 24 Hours (Table) 05/22/19 05/22/19 05/22/19 Range/Units 04:30 04:30 06:26 WBC 16.9 H (3.8-10.6) k/uL RBC 3.39 L (4.30-5.90) m/uL Hgb 9.4 L (13.0-17.5) gm/dL Hct 29.9 L (39.0-53.0) % RDW 16.4 H (11.5-15.5) % Neutrophils # 14.8 H (1.3-7.7) k/uL Lymphocytes # 0.7 L (1.0-4.8) k/uL Chloride 112 H (98-107) mmol/L BUN 36 H (9-20) mg/dL Creatinine 2.05 H (0.66-1.25) mg/dL Glucose 137 H (74-99) mg/dL POC Glucose (mg/dL) 148 H (75-99) mg/dL Calcium 7.9 L (8.4-10.2) mg/dL Magnesium 2.4 H (1.6-2.3) mg/dL AST 105 H (17-59) U/L ALT 87 H (21-72) U/L Total Protein 4.9 L (6.3-8.2) g/dL Albumin 2.3 L (3.5-5.0) g/dL 05/22/19 Range/Units 12:00 WBC (3.8-10.6) k/uL RBC (4.30-5.90) m/uL Hgb (13.0-17.5) gm/dL Hct (39.0-53.0) % RDW (11.5-15.5) % Neutrophils # (1.3-7.7) k/uL Lymphocytes # (1.0-4.8) k/uL Chloride (98-107) mmol/L BUN (9-20) mg/dL Creatinine (0.66-1.25) mg/dL Glucose (74-99) mg/dL POC Glucose (mg/dL) 123 H (75-99) mg/dL Calcium (8.4-10.2) mg/dL Magnesium (1.6-2.3) mg/dL AST (17-59) U/L ALT (21-72) U/L Total Protein (6.3-8.2) g/dL Albumin (3.5-5.0) g/dL Microbiology - Last 24 Hours (Table) 05/16/19 00:04 Blood Culture - Final Blood No Growth after 144 hours 05/16/19 03:35 Anaerobic Culture - Final Peritoneal Fluid Anaerobic Gram Positive Cocci Assessment and Plan (1) Perforated duodenal ulcer Current Visit: Yes Status: Acute Code(s): K26.5 - CHRONIC OR UNSPECIFIED DUODENAL ULCER WITH PERFORATION SNOMED Code(s): 28020147 (2) Acute kidney failure Current Visit: Yes Status: Acute Code(s): N17.9 - ACUTE KIDNEY FAILURE, UNSPECIFIED SNOMED Code(s): 80808521 (3) Lactic acidosis Current Visit: Yes Status: Acute Code(s): E87.2 - ACIDOSIS SNOMED Code(s): 99564342 (4) Septic shock Current Visit: Yes Status: Acute Code(s): A41.9 - SEPSIS, UNSPECIFIED ORGANISM; R65.21 - SEVERE SEPSIS WITH SEPTIC SHOCK SNOMED Code(s): 73662984 Plan: The patient has been passing flatus with good bowel sounds. NG output is minimal. Put the NG tube to dependent drainage. If he is able to tolerate that it will be clamped later today and possibly removed tomorrow. Continue IV antibiotics and TPN. Increase activity as he tolerates it. Encouraged incentive spirometry. Progressing slowly.
[2019-05-22] MEDS: NOREPINEPHRINE 8 MG in SODIUM CHLORIDE 0.9% 250 ML IV SCH (13:11)
[2019-05-22] MEDS: DEXTROSE 5% IN WATER 1,000 ML with SODIUM BICARB (1 MEQ/ML) 150 ML IV SCH (13:12)
[2019-05-22] MEDS: metroNIDAZOLE-NS PMX 500 MG in SALINE 1 100ML.BAG IVPB SCH (16:05)
[2019-05-22] MEDS: MVI, ADULT NO.4 WITH VIT K 10 ML, TRACE (CONC-1ML/DOSE) 1 ML, PARENTERAL ELECTROLYTES 2... IV SCH ×11 (17:29→17:31)
[2019-05-22 18:38] LABS: Glucose,Whole Blood 121 mg/dL (75-99)
[2019-05-22] MEDS: CEFEPIME 2 GM in SODIUM CHLORIDE 0.9% 100 ML IVPB SCH (21:07)
[2019-05-23 00:07] LABS: Glucose,Whole Blood 126 mg/dL (75-99)
[2019-05-23] MEDS: HEPARIN SODIUM,PORCINE 5,000 UNIT/ML 1 ML VIAL SQ SCH ×4 (00:27→23:45)
[2019-05-23] MEDS: metroNIDAZOLE-NS PMX 500 MG in SALINE 1 100ML.BAG IVPB SCH ×4 (00:27→23:44)
[2019-05-23] MEDS: METOCLOPRAMIDE 5 MG/ML 2 ML VIAL IVP SCH ×5 (01:27→23:45)
[2019-05-23] MEDS: CLEVIDIPINE BUTYRATE 25 MG in EMPTY BAG 1 BAG IV SCH ×7 (02:32→23:07)
[2019-05-23] MEDS: IPRATROPIUM-ALBUTEROL 3 ML NEB INHALATION SCH ×5 (03:27→20:10)
[2019-05-23] MEDS: HYDROmorphone 1 MG/ML 1 ML SYRINGE IVP PRN ×2 (05:30→22:13)
[2019-05-23 05:49] LABS: Anisocytosis Slight; Basophils # (A) 0.1 k/uL (0-0.2); Basophils % (A) 1 %; Eosinophils # (A) 0.3 k/uL (0-0.7); Eosinophils % (A) 2 %; HCT 30.9 % (39.0-53.0); HGB 9.7 gm/dL (13.0-17.5); Hypochromasia Marked; Lymphocytes # (A) 0.9 k/uL (1.0-4.8); Lymphocytes % (A) 5 %; MCH 27.7 pg (25.0-35.0); MCHC 31.5 g/dL (31.0-37.0); MCV 87.9 fL (80.0-100.0); Mean Platelet Volume 7.8; Monocytes # (A) 0.7 k/uL (0-1.0); Monocytes % (A) 4 %; Neutrophils # (A) 15.1 k/uL (1.3-7.7); Neutrophils % (A) 87 %; Platelet Count 407 k/uL (150-450); Poikilocytosis Slight; RBC 3.51 m/uL (4.30-5.90); RDW 16.4 % (11.5-15.5); WBC 17.5 k/uL (3.8-10.6)
[2019-05-23 05:56] LABS: Albumin 2.3 g/dL (3.5-5.0); Calcium 8.1 mg/dL (8.4-10.2); Magnesium 2.2 mg/dL (1.6-2.3); Phosphorus 4.3 mg/dL (2.5-4.5); Potassium 4.5 mmol/L (3.5-5.1); Total Bilirubin 0.7 mg/dL (0.2-1.3)
[2019-05-23 06:11] LABS: Glucose,Whole Blood 129 mg/dL (75-99)
[2019-05-23] MEDS: FUROSEMIDE 10 MG/ML 4 ML VIAL IV SCH (09:57)
[2019-05-23] MEDS: PANTOPRAZOLE 40 MG/10 ML VIAL IV SCH ×2 (09:58→22:14)
[2019-05-23] MEDS: CEFEPIME 2 GM in SODIUM CHLORIDE 0.9% 100 ML IVPB SCH ×2 (09:58→22:14)
[2019-05-23] MEDS: FLUCONAZOLE IN NACL,ISO-OSM 200 MG in SALINE 1 100ML.BAG IVPB SCH (09:59)
--- NOTE | 2019-05-23 10:05 | P.PN ---
Subjective Progress Note Date: 05/23/19 Principal diagnosis: The patient is a 63-year-old male that was admitted for septic shock secondary to perforated duodenal ulcer with subsequent peritonitis in the settin g of acute kidney injury secondary to ATN prerenal secondary to septic shock after presenting with abdominal pain and hypotension. Initial CT showed large amount of intraperitoneal air with a large amount of ascites and scattered small bowel wall thickening secondary to cystitis and nonspecific enteritis. The patient was aggressively fluid resuscitated and received 2 units of packed RBCs secondary to being found anemic. The patient had Urgent expiratory laparotomy requiring antrectomy and Billroth II gastrojejunostomy. Despite aggressive fluid hydration the patient continued to be hypertensive and was started on pressors with levophed and was maintained on mechanical ventilator with prop ofol for sedation and pulmonary managing his vent settings. The patient was continued on empiric IV antibiotics with Zosyn and Diflucan as suggested by ID. There with treatment the patient's creatinine gradually trended down from 6 is continued on IV fluids. Patient extubated yesterday and was transitioned to BiPAP now currently on high flow at 4 L, patient afebrile, continues to be tachycardic. Blood pressure controlled with Cleviprex currently weaning, patient reporting history of hypert ension but was noncompliant with medical therapy. White count up to 17.5, hemoglobin up to 9.7, creatinine 2.05, serum potassium 4.5. Diuresing well with Lasix. Chest x-ray showing small bilateral pleural effusions. Echocardiogram results show preserved LVEF, without any significant valvular abnormalities. Patient continues on TPN, Patient denying any pain, patient reports that he's been passing gas but has not yet had a bowel movement. Continues on ice chips Patient continues to have significant output of his NG tube Objective - Vital Signs Vital signs: Vital Signs Temp 98.8 F 05/23/19 08:00 Pulse 115 H 05/23/19 09:00 Resp 18 05/23/19 09:00 BP 154/93 05/23/19 09:00 Pulse Ox 95 05/23/19 09:00 Intake & Output 05/22/19 05/23/19 05/23/19 18:59 06:59 18:59 Intake Total 1845.641 0872.000 252 Output Total 3180 1511 375 Balance -1259.733 272.000 -123 Weight 87.5 kg Intake: IV 842 713 192 0.9 NACL 600 710 180 Fluconazole in NaCl,Iso- 100 Osm 200 mg In Saline 1 100ml.bag @ 100 mls/hr IVPB DAILY [facility] Rx#: [id number] Pressure Bags 42 3 12 Zosyn 100 Intake, IV Titration 6238.325 1126.000 60 Amount Cefepime 2 gm In Sodium 100 Chloride 0.9% 100 ml @ 200 mls/hr IVPB Q12HR [facility] Rx#:[id number] Clevidipine Butyrate 25 315.267 150.000 mg In Empty Bag 1 bag @ 4 MG/HR 8 mls/hr IV . Q6H15M [facility] Rx#:[id number] Mvi, Adult No.4 with Vit 243 240 K 10 ml Trace (Conc-1Ml/ Dose) 1 ml Parenteral Electrolytes 20 ml Potassium Chloride 30 meq In Amino Acid 5%-D15w 1, 000 ml @ 60 mls/hr IV . [id number] [facility] Rx#:[id number] Mvi, Adult No.4 with Vit 420 480 60 K 10 ml Trace (Conc-1Ml/ Dose) 1 ml Parenteral Electrolytes 20 ml Potassium Chloride 30 meq Magnesium Sulfate gm 1 gm In Amino Acid 5%-D15w 1,000 ml @ 60 mls/hr IV . [id number] [facility] Rx#:[id number] Norepinephrine 8 mg In 0 Sodium Chloride 0.9% 250 ml @ 0.05 MCG/KG/MIN 6. 802 mls/hr IV .Q24H [facility] Rx#:[id number] metroNIDAZOLE-NS PMX 500 100 100 mg In Saline 1 100ml.bag @ 100 mls/hr IVPB Q8HR [facility] Rx#:[id number] Output: Gastric Drainage 500 Drainage 370 10 150 Anterior Abdomen 370 10 150 Urine 2310 1501 225 Other: Voiding Method Indwelling Catheter Indwelling Catheter ABP, PAP, CO, CI - Last Documented Arterial Blood Pressure 107/67 - Exam Constitutional: Awake alert Eyes: Anicteric sclerae, moist conjunctiva, no lid-lag, PERRLA ENMT: NC/AT,Oropharynx clear, no erythema, exudates Neck:Supple, FROM, no masses, or JVD, No carotid bruits; No thyromegaly Lungs: Diminished in the bases, appears unlabored currently on high flow at 4 L via nasal cannula Cardiovascular: Heart regular in rate and rhythm, No murmurs, gallops, or rubs Abdominal: Soft distended nontender, hypoactive bowel sounds Skin: Normal temperature, tone, texture, turgor, No induration No subcutaneous nodules, No rash, lesions, No ulcers Extremities:No digital cyanosis No clubbing, Pedal pulses intact and symmetrical Radial pulses intact and symmetrical Normal gait and station, No calf tenderness, +2 pitting edema, noted scrotal edema Psychiatric: Alert and oriented to person, place and time, Appropriate affect Intact judgement Neuro: Follow simple commands no gross focal deficits - Labs CBC & Chem 7: 05/23/19 05:05 05/23/19 05:05 Labs: Abnormal Lab Results - Last 24 Hours (Table) 05/22/19 05/22/19 05/22/19 Range/Units 12:00 18:26 23:56 WBC (3.8-10.6) k/uL RBC (4.30-5.90) m/uL Hgb (13.0-17.5) gm/dL Hct (39.0-53.0) % RDW (11.5-15.5) % Neutrophils # (1.3-7.7) k/uL Lymphocytes # (1.0-4.8) k/uL Chloride (98-107) mmol/L BUN (9-20) mg/dL Creatinine (0.66-1.25) mg/dL Glucose (74-99) mg/dL POC Glucose (mg/dL) 123 H 121 H 126 H (75-99) mg/dL Calcium (8.4-10.2) mg/dL AST (17-59) U/L ALT (21-72) U/L Alkaline Phosphatase (38-126) U/L Total Protein (6.3-8.2) g/dL Albumin (3.5-5.0) g/dL 05/23/19 05/23/19 05/23/19 Range/Units 05:05 05:05 06:00 WBC 17.5 H (3.8-10.6) k/uL RBC 3.51 L (4.30-5.90) m/uL Hgb 9.7 L (13.0-17.5) gm/dL Hct 30.9 L (39.0-53.0) % RDW 16.4 H (11.5-15.5) % Neutrophils # 15.1 H (1.3-7.7) k/uL Lymphocytes # 0.9 L (1.0-4.8) k/uL Chloride 111 H (98-107) mmol/L BUN 45 H (9-20) mg/dL Creatinine 2.04 H (0.66-1.25) mg/dL Glucose 135 H (74-99) mg/dL POC Glucose (mg/dL) 129 H (75-99) mg/dL Calcium 8.1 L (8.4-10.2) mg/dL AST 99 H (17-59) U/L ALT 103 H (21-72) U/L Alkaline Phosphatase 127 H (38-126) U/L Total Protein 5.0 L (6.3-8.2) g/dL Albumin 2.3 L (3.5-5.0) g/dL Assessment and Plan Assessment: Septic shock * Secondary to perforated viscus with subsequent peritonitis * Resolved patient no longer requiring pressors blood pressure is actually elevated today, has good urine output * Leukocytosis worsening continue * Peritoneal culture growing Klebsiella oxytoca and nonhemolytic strep * Currently on antibiotic regimen currently on cefepime and Flagyl and Diflucan Zosyn discontinued per ID Acute respiratory failure with hypoxia * Secondary to septic shock due to perforated discus with subsequent abdominal peritonitis * Extubated yesterday currently on high flow nasal cannula 4 L * Chest x-ray showing bilateral pleural effusions no need for thoracocentesis * Continue with daily Lasix Perforated viscus * POD #7 status post exploratory laparoscopy antrectomy and Billroth II gastrojejunostomy * NPO on TPN at 60 cc/hr * continue w/ prokinetic Reglan Acute kidney injury secondary to ATN * ATN. Prerenal due to severe septic shock * Creatinine trending down nicely to 2 from 6 * Continue current IV fluids * Metabolic acidosis now resolved Hypertensive urgency * Resolved * Blood pressure controlled on Cleviprex * We'll start the patient on IV metoprolol in hopes to wean Cleviprex Normocytic anemia * Secondary to upper GI bleed status post perforated duodenal ulcer * Status post 3 unit packed RBC transfusion hemoglobin stable at 9.7 g Hypomagnesemia * resolved * continue to monitor peripheral edema * Secondary to volume overload, echocardiogram showing normal preserved ejection fraction * Significant overall positive fluid balance negative over the last 2 days continue with diuresis Disposition * Patient still critical continue to monitor closely * Patient improving steadily
--- NOTE | 2019-05-23 10:12 | P.PN ---
Subjective Progress Note Date: 05/23/19 Principal diagnosis: perforated duodenal ulcer The patients pain is controlled. Hasn't been out of bed yet. Plans are to try to get him to stand and possibly to the chair today. The NG tube had been clamped overnight, this morning at 6 the NG tube was placed to suction and 1000 mL came out. As you was returned to low intermittent suction and these had about 3-400 since that time. He is passing some flatus. Objective - Vital Signs Vital signs: Vital Signs Temp 98.8 F 05/23/19 08:00 Pulse 115 H 05/23/19 09:00 Resp 18 05/23/19 09:00 BP 154/93 05/23/19 09:00 Pulse Ox 95 05/23/19 09:00 Intake & Output 05/22/19 05/23/19 05/23/19 18:59 06:59 18:59 Intake Total 2112.811 6779.000 302 Output Total 3180 1511 375 Balance -1259.733 272.000 -73 Weight 87.5 kg Intake: IV 842 713 192 0.9 NACL 600 710 180 Fluconazole in NaCl,Iso- 100 Osm 200 mg In Saline 1 100ml.bag @ 100 mls/hr IVPB DAILY [facility] Rx#: [id number] Pressure Bags 42 3 12 Zosyn 100 Intake, IV Titration 8761.760 0637.000 110 Amount Cefepime 2 gm In Sodium 100 Chloride 0.9% 100 ml @ 200 mls/hr IVPB Q12HR [facility] Rx#:[id number] Clevidipine Butyrate 25 315.267 150.000 50 mg In Empty Bag 1 bag @ 4 MG/HR 8 mls/hr IV . Q6H15M [facility] Rx#:[id number] [facility], Adult No.4 with Vit 243 240 K 10 ml Trace (Conc-1Ml/ Dose) 1 ml Parenteral Electrolytes 20 ml Potassium Chloride 30 meq In Amino Acid 5%-D15w 1, 000 ml @ 60 mls/hr IV . [id number] [facility] Rx#:[id number] Mvi, Adult No.4 with Vit 420 480 60 K 10 ml Trace (Conc-1Ml/ Dose) 1 ml Parenteral Electrolytes 20 ml Potassium Chloride 30 meq Magnesium Sulfate gm 1 gm In Amino Acid 5%-D15w 1,000 ml @ 60 mls/hr IV . [id number] [facility] Rx#:[id number] Norepinephrine 8 mg In 0 Sodium Chloride 0.9% 250 ml @ 0.05 MCG/KG/MIN 6. 802 mls/hr IV .Q24H [facility] Rx#:[id number] metroNIDAZOLE-NS PMX 500 100 100 mg In Saline 1 100ml.bag @ 100 mls/hr IVPB Q8HR [facility] Rx#:[id number] Output: Gastric Drainage 500 Drainage 370 10 150 Anterior Abdomen 370 10 150 Urine 2310 1501 225 Other: Voiding Method Indwelling Catheter Indwelling Catheter ABP, PAP, CO, CI - Last Documented Arterial Blood Pressure 107/67 - Constitutional General appearance: Present: cooperative, no acute distress - Respiratory Respiratory: bilateral: CTA, diminished - Cardiovascular Details: Tachycardic, regular rhythm - Gastrointestinal General gastrointestinal: Present: distended (Mildly ), soft Localized gastrointestinal: surgical scar: diffuse (Incision is intact clean and dry. BOGDAN shows some significant serous output. No bile staining or purulent drainage) - Labs CBC & Chem 7: 05/23/19 05:05 05/23/19 05:05 Labs: Abnormal Lab Results - Last 24 Hours (Table) 05/22/19 05/22/19 05/22/19 Range/Units 12:00 18:26 23:56 WBC (3.8-10.6) k/uL RBC (4.30-5.90) m/uL Hgb (13.0-17.5) gm/dL Hct (39.0-53.0) % RDW (11.5-15.5) % Neutrophils # (1.3-7.7) k/uL Lymphocytes # (1.0-4.8) k/uL Chloride (98-107) mmol/L BUN (9-20) mg/dL Creatinine (0.66-1.25) mg/dL Glucose (74-99) mg/dL POC Glucose (mg/dL) 123 H 121 H 126 H (75-99) mg/dL Calcium (8.4-10.2) mg/dL AST (17-59) U/L ALT (21-72) U/L Alkaline Phosphatase (38-126) U/L Total Protein (6.3-8.2) g/dL Albumin (3.5-5.0) g/dL 05/23/19 05/23/19 05/23/19 Range/Units 05:05 05:05 06:00 WBC 17.5 H (3.8-10.6) k/uL RBC 3.51 L (4.30-5.90) m/uL Hgb 9.7 L (13.0-17.5) gm/dL Hct 30.9 L (39.0-53.0) % RDW 16.4 H (11.5-15.5) % Neutrophils # 15.1 H (1.3-7.7) k/uL Lymphocytes # 0.9 L (1.0-4.8) k/uL Chloride 111 H (98-107) mmol/L BUN 45 H (9-20) mg/dL Creatinine 2.04 H (0.66-1.25) mg/dL Glucose 135 H (74-99) mg/dL POC Glucose (mg/dL) 129 H (75-99) mg/dL Calcium 8.1 L (8.4-10.2) mg/dL AST 99 H (17-59) U/L ALT 103 H (21-72) U/L Alkaline Phosphatase 127 H (38-126) U/L Total Protein 5.0 L (6.3-8.2) g/dL Albumin 2.3 L (3.5-5.0) g/dL Assessment and Plan (1) Perforated duodenal ulcer Current Visit: Yes Status: Acute Code(s): K26.5 - CHRONIC OR UNSPECIFIED DUODENAL ULCER WITH PERFORATION SNOMED Code(s): 41885129 (2) Acute kidney failure Current Visit: Yes Status: Acute Code(s): N17.9 - ACUTE KIDNEY FAILURE, UNSPECIFIED SNOMED Code(s): 81997686 (3) Lactic acidosis Current Visit: Yes Status: Acute Code(s): E87.2 - ACIDOSIS SNOMED Code(s): 46468312 (4) Septic shock Current Visit: Yes Status: Acute Code(s): A41.9 - SEPSIS, UNSPECIFIED ORGANISM; R65.21 - SEVERE SEPSIS WITH SEPTIC SHOCK SNOMED Code(s): 46155030 Plan: The NG will remain at low intermittent suction today. Increase activity as tolerated. Continue IV antibiotics and TPN. Continue supportive care. Progres sing slowly.
--- NOTE | 2019-05-23 10:16 | P.PN ---
Subjective Progress Note Date: 05/23/19 Principal diagnosis: Acute surgical abdomen secondary to duodenal ulcer perforation Is a 63-year-old male patient who came into the emergency department after he collapsed at home. The patient was having abdominal pain radiating to his back for several days. He was unable to eat and he was progressively getting more sick and weak and ultimately collapsed at home and he was brought into the emergency department where further investigation was done including a CAT scan of the abdomen and pelvis that showed a large amount of intraperitoneal air the origin was not certain. There was large amount of ascites and scattered area of small bowel wall thickening secondary to ascites/nonspecific enteritis. There was also incidental finding of a suspicious 13 mm mass lesion in the superior pole of the left kidney and another 8mm lesion exophytic in the superior pole of the right kidney. Based on this, the patient was taken immediately to the operating room. Intraoperatively the patient received a total of 3.5 L of IV fluids. He also received a total of 2 units of packed RBCs. He underwent expiratory laparotomy and he was found to have a perforated duodenal ulcer. The patient underwent antrectomy and Billroth II gastrojejunostomy. Postop, he was brought into the intensive care unit for further evaluation and management. Currently he is sedated with propofol is running at 30 g per KG per minute. He has received an additional 1-1/2 L of IV fluids here in the ICU which brings up his total boluses up to 5 L. Currently is on a maintenance of lactated Ringer at the rate of 1 50 mL and a carb infusion at the rate of 100 and hour. He is on assist control mode of ventilation at the rate of 20 with an FiO2 of 50% and a PEEP of 5 and a tidal volume of 500. The morning blood gases showed a pH of 7.37 with a pCO2 of 32 and pO2 of 400 and he was weaned off and FiO2 of 50%. He is producing urine output. His lactic acid level has dropped from a baseline of 8.1 down to 2.2. His creatinine is up from 6 down to 4.7. His serum bicarb is up to 19 and anion gap is at 10. He was given Zosyn and he was also given 400 mg of IV Diflucan and operating room. He has a triple-lumen catheter, left IJ and an outlying catheter, left radial. His abdominal wound is dry clean and intact. The patient has a BOGDAN drains in place. Cardiac rhythm is sinus for now. He briefly required pressors and currently is off levo fed. ET tube is in place. Output is minimal in the order of 150 mL the patient drinks more than 6 bottles of beer on a daily basis probably sometimes even more. He is an ex- smoker Patient was evaluated today on 05/17/2019, remains in the ICU, mechanically ventilated and intubated. His present ventilator settings are tidal volume of 500 assist control rate of 20 FiO2 40%. And PEEP is 5. Patient is still requiring pressors in the form of norepinephrine at 0.22 mcg/kg/m, he is on propofol at 75 mcg/kg/m, remains on IV fluids at 200 mL per hour. CVP is about 9. Patient has decent urine output. But blood pressure remains marginal requi ring pressors. He is presently on antibiotics including Zosyn and Diflucan as per infectious disease on the case. ABG this morning showed a pO2 of 159 pCO2 of 33 pH of 7.29. His CBC showed WBC count of 6.7 hemoglobin of 8.0 electrolytes showed slightly elevated potassium of 5.2. BUN however is 53 creatinine is 4.59, improving compared to his creatinine on presentation of 6.03. Patient is sedated, however he is arousable, and follows simple instructions. His propofol dose was increased, patient is known to have history of alcoholism. Reevaluated today on 05/18/2019, remains in ICU, intubated, mechanically ventilated. Sedated, on propofol, patient is on assist control rate of 20 tidal volume of 500 FiO2 40% and I cut it down to 35% he is also on PEEP of 5. ABG showed a pO2 of 148 pCO2 of 30 pH of 7.29 hence I recommended starting the patient on the sodium bicarb drip. His pH remained low since yesterday, hence he will likely improve with 24 hours of sodium bicarb drip. His hemoglobin is 7.1 today, and considering that the patient is still requiring pressors in the form of levo fed him I recommended one unit of packed RBCs to be given. This will likely improve his blood pressure. And hopefully could discontinue norepinephrine which is presently at 0.06 mcg/kg/m. WBC count is 7.8. Electrolytes are basically normal bicarb is low at 14 his BUN is 45 creatinine 3.43 steadily improving since admission. Patient is arousable in spite of being on propofol at 50 mcg/kg/m, and he is able to follow instructions. Chest x-ray showed stable bilateral airspace disease and small pleural effusions. Right greater than left. Reevaluated today on 05/19/2019, remains intubated, mechanically ventilated, in the ICU, on propofol at 50 mcg/kg/m, his ventilator settings are assist control rate of 20 tidal volume is 500 FiO2 is 30%, and PEEP is 5. Patient is off pressors, he is mostly on propofol and IV fluid at 75 mL per hour, sodium bicarb drip at 75 mL per hour, and he is also on TPN. ABG showed a pO2 of 131 pCO2 of 32 pH of 7.36, bicarb remains a bit low at 18, hence I will continue the sodium bicarb drip for another day. Electrolytes are normal BUN is 38 creatinine is 2.38, and that is significantly improved compared to a creatinine of 6.03 on admission and 3.43 yesterday. Clearly his renal functioning is gradually improving. And his acute kidney injury is responding to treatment. Chest x-ray continues to show bilateral pleural effusions, right greater than left. And bibasilar atelectasis and possibly pneumonia is not entirely ruled out. But felt to be less likely at this point. In spite of being on propofol, patient is arousable and he is able to follow simple instructions. Reevaluated today on 05/20/2019, patient remains intubated, mechanically ventilated, on propofol at 50 mcg/kg/m, however the patient seems to be wide awake even on propofol. He was given a trial of pressure support and CPAP, and he tolerated that trial extremely well. Blood pressure was noted to be a bit elevated earlier today, and I recommended clevidipine drip. Patient is doing great, his chest x-ray continues to show bilateral pleural effusions, ultrasound showed good sized right-sided pleural effusion, and the patient responded well to Lasix. Hence I would hold on thoracentesis for now, hopefully the patient will improve with diuretics only. I believe the fluid that he developed in his pleural space is most likely fluid overload related because the patient received significant amount of fluids from the time of his surgery until now. I will cut down his IV fluids, was given Lasix 40 mg IV push every 12 hours, we will likely recommend thoracentesis if the fluid does not improve much in the right pleural space. In the meantime patient was given a trial while I was at bedside, and proceeded to extubating the patient. His O2 saturation was marginal on high flow nasal cannula, hence I recommended BiPAP at 12,/5, and FiO2 of 50%. His O2 saturation now is in the mid 90s. Patient seems to be very comfortable, in no form of distress. And again he received a dose of Lasix 40 mg IV push earlier. ABG earlier today showed a pO2 of 120 pCO2 of 32 pH of 7.43. His BUN is 29 creatinine is 1.88 steadily improving since admission. Peritoneal fluid cultures were noted, there is evidence of Klebsiella oxytoca and nonhemolytic strep. Sensitive to most antibiotics except ampicillin Reevaluated today on 05/21/2019, patient was extubated yesterday, initially placed on BiPAP, however today he was transitioned to a 5 L nasal cannula. Patient had a significant response to diuretics, and the right-sided pleural effusion which I was concerned about seems to have basically resolved. Patient will not need thoracentesis. He is still on clevidipine drip, and that is being titrated down. Patient continues to have a nasogastric tube in place, and he has no gas so far and no flatus. Again his cultures from the peritoneal fluid have been reviewed, and these are being addressed and the had told by infectious disease on the case. Labs were reviewed today WBC count is 14.5 hemoglobin is 9 lites are normal and the sodium bicarb has been discontinued. BUN is 31 creatinine 2.06. Slightly worse compared to yesterday, and I believe it will improve with holding the second dose of diuretics today. Patient has been in a negative balance over the last 24 hours. Continues to have significant nasogastric tube drainage Reevaluated today on 05/22/2019, remains in the intensive care unit, remains on few liters nasal cannula/5 L. O2 saturation is 94-96%. Remains on clevidipine drip, continues to have nasogastric tube in place, remains on daily Lasix 40 mg IV push daily, continues to have small bilateral pleural effusions, however patient is in a negative balance, and may not require thoracentesis. Patient is passing some gas, however he continues to have nasogastric tube in place. Denies any specific complaints, he feels fairly well. Renal functioning remains the same with a BUN of 36 creatinine of 2.05. Elective right are normal WBC count is 16.9 hemoglobin is 9.4. Albumin is low at 2.3. Patient remains on TPN. Remains on antibiotics as per ID on the case Reevaluated today on 05/23/2019,patient is now on few liters nasal cannula/4 L. Remains hypertensive, and slightly tachycardic, remains on clevidipine drip at 12 mg per hour. Continues to have nasogastric tube in place, hence I cannot switch the patient to oral blood pressure medications. Patient denies any specific complaints, he is passing some gas, but no bowel movement so far. Continues to have significant drainage from the nasogastric tube. Developing a bit of leukocytosis, but no fever, no chills, may have to consider CT of the abdomen in the next 24 hours if the patient does not make a dramatic clinical improvement. All his labs were reviewed, demonstrating leukocytosis with WBC count of 17.5 hemoglobin is 9.7 and electrolytes are normal BUN is 45 creatinine is 2.04. His last chest x-ray showed small bilateral pleural effusions, I'm planning to repeat his chest x-ray tomorrow. In the meantime he remains on Lasix at 40 mg IV push daily. Patient continues to have excellent urine output.liver enzymes are borderline elevated.patient remains on antibiotics in the form of cefepime, he is also on fluconazole, and on metronidazole. These oleary ve been changed recently by infectious disease as seems to be concerned about his leukocytosis. If he continues to have leukocytosis, I would be more inclined to consider repeat CT of the abdomen, and possibly discontinue central line and switched to a midline or to a PICC line. Recommended the blood cultures to be drawn today. Objective - Vital Signs Vital signs: Vital Signs Temp 98.8 F 05/23/19 08:00 Pulse 115 H 05/23/19 09:00 Resp 18 05/23/19 09:00 BP 154/93 05/23/19 09:00 Pulse Ox 95 05/23/19 09:00 Intake & Output 05/22/19 05/23/19 05/23/19 18:59 06:59 18:59 Intake Total 0207.327 1418.000 302 Output Total 3180 1511 375 Balance -1259.733 272.000 -73 Weight 87.5 kg Intake: IV 842 713 192 0.9 NACL 600 710 180 Fluconazole in NaCl,Iso- 100 Osm 200 mg In Saline 1 100ml.bag @ 100 mls/hr IVPB DAILY [facility] Rx#: [id number] Pressure Bags 42 3 12 Zosyn 100 Intake, IV Titration 6533.865 5769.000 110 Amount Cefepime 2 gm In Sodium 100 Chloride 0.9% 100 ml @ 200 mls/hr IVPB Q12HR [facility] Rx#:[id number] Clevidipine Butyrate 25 315.267 150.000 50 mg In Empty Bag 1 bag @ 4 MG/HR 8 mls/hr IV . Q6H15M [facility] Rx#:[id number] Mvi, Adult No.4 with Vit 243 240 K 10 ml Trace (Conc-1Ml/ Dose) 1 ml Parenteral Electrolytes 20 ml Potassium Chloride 30 meq In Amino Acid 5%-D15w 1, 000 ml @ 60 mls/hr IV . [id number] [facility] Rx#:[id number] Mvi, Adult No.4 with Vit 420 480 60 K 10 ml Trace (Conc-1Ml/ Dose) 1 ml Parenteral Electrolytes 20 ml Potassium Chloride 30 meq Magnesium Sulfate gm 1 gm In Amino Acid 5%-D15w 1,000 ml @ 60 mls/hr IV . [id number] [facility] Rx#:[id number] Norepinephrine 8 mg In 0 Sodium Chloride 0.9% 250 ml @ 0.05 MCG/KG/MIN 6. 802 mls/hr IV .Q24H [facility] Rx#:[id number] metroNIDAZOLE-NS PMX 500 100 100 mg In Saline 1 100ml.bag @ 100 mls/hr IVPB Q8HR [facility] Rx#:[id number] Output: Gastric Drainage 500 Drainage 370 10 150 Anterior Abdomen 370 10 150 Urine 2310 1501 225 Other: Voiding Method Indwelling Catheter Indwelling Catheter ABP, PAP, CO, CI - Last Documented Arterial Blood Pressure 107/67 - Exam Physical Exam: Revealed a 63-year-old white male, on nasal cannula, in no distress. Head: Atraumatic, normocephalic. HEENT:[Neck is supple.] [No neck masses.] [No thyromegaly.] [No JVD.] PERRLA, EOMI, no icterus, dry mucous membranes Chest: [Symmetrical chest expansion, good breath sound bilaterally slightly diminished at the bases. Cardiac Exam: [slightly tachycardic.Normal S1 and S2, no S3 gallop, no murmur.] Abdomen: [Postsurgical, soft, slightly distended, no tenderness, no rebound, diminished bowel sounds. No rigidity..] Extremities: [No clubbing, no edema, no cyanosis.] Good pulses bilaterally. Neurological Exam: Awake, oriented 3, no gross focal neurologic deficits. Psychiatric: Normal mood, blunt affect, normal mental status examination Lymphatics: No lymphadenopathy. Skin: No rashes. - Labs CBC & Chem 7: 05/23/19 05:05 05/23/19 05:05 Labs: Abnormal Lab Results - Last 24 Hours (Table) 05/22/19 05/22/19 05/22/19 Range/Units 12:00 18:26 23:56 WBC (3.8-10.6) k/uL RBC (4.30-5.90) m/uL Hgb (13.0-17.5) gm/dL Hct (39.0-53.0) % RDW (11.5-15.5) % Neutrophils # (1.3-7.7) k/uL Lymphocytes # (1.0-4.8) k/uL Chloride (98-107) mmol/L BUN (9-20) mg/dL Creatinine (0.66-1.25) mg/dL Glucose (74-99) mg/dL POC Glucose (mg/dL) 123 H 121 H 126 H (75-99) mg/dL Calcium (8.4-10.2) mg/dL AST (17-59) U/L ALT (21-72) U/L Alkaline Phosphatase (38-126) U/L Total Protein (6.3-8.2) g/dL Albumin (3.5-5.0) g/dL 05/23/19 05/23/19 05/23/19 Range/Units 05:05 05:05 06:00 WBC 17.5 H (3.8-10.6) k/uL RBC 3.51 L (4.30-5.90) m/uL Hgb 9.7 L (13.0-17.5) gm/dL Hct 30.9 L (39.0-53.0) % RDW 16.4 H (11.5-15.5) % Neutrophils # 15.1 H (1.3-7.7) k/uL Lymphocytes # 0.9 L (1.0-4.8) k/uL Chloride 111 H (98-107) mmol/L BUN 45 H (9-20) mg/dL Creatinine 2.04 H (0.66-1.25) mg/dL Glucose 135 H (74-99) mg/dL POC Glucose (mg/dL) 129 H (75-99) mg/dL Calcium 8.1 L (8.4-10.2) mg/dL AST 99 H (17-59) U/L ALT 103 H (21-72) U/L Alkaline Phosphatase 127 H (38-126) U/L Total Protein 5.0 L (6.3-8.2) g/dL Albumin 2.3 L (3.5-5.0) g/dL Assessment and Plan Assessment: Impression: 1 acute abdominal sepsis and septic shock secondary to duodenal ulcer perforation. Patient is status post expiratory laparotomy with Billroth II gastrojejunostomy postoperative day #7 2 acute lactic acidosis secondary to above, resolved 3 acute hypoxic respiratory failure secondary to septic shock and abdominal sepsis. Resolved 4 acute kidney injury secondary to acute tubular necrosis and hypotension steadily improving. But not resolved yet. 5 chronic alcoholism, remains on the alcohol withdrawal protocol. 6 history of GI bleeding 7 exophytic kidney lesion, needs to have workup on outpatient basis, this was incidentally seen on CT of the abdomen and pelvis, will eventually need outpatient follow-up with urology. 8 acute anemia secondary to blood loss, received a total of 3 units of packed RBCs since admission. Hemoglobin today 9.4 9 status post successful extubation on 05/20/2019. Recommendation: Continue to monitor the patient in the ICU. Monitor blood pressure, continue clevidipine drip Continue TPN Continue antibiotics.patient is on Flagyl and cefepime he is also on Diflucan. Continue GI and DVT prophylaxis Continue alcohol withdrawal protocol Continue Lasix 40 mg IV push daily, repeat chest x-ray in a.m., and address the issue of diuretics. Continue to monitor his bilateral pleural effusions.follow-up chest x-ray ordered to be done in a.m. Continue incentive spirometry and early ambulation. Continue physical therapy. consider CT of the abdomen and pelvis to the patient continues to have worsening leukocytosis. In the meantime blood cultures were ordered. May have to consider also discontinuation of arterial line and central line. I went ahead today and recommended removing arterial line today since seems to be poorly functional. Patient will be kept in the ICU, and we'll continue to follow. Recommended physical therapy to continue the patient to be transferred out of bed to a bedside chair. He seems to be generally weak Time with Patient: Less than 30
[2019-05-23] MEDS: MVI, ADULT NO.4 WITH VIT K 10 ML, TRACE (CONC-1ML/DOSE) 1 ML, PARENTERAL ELECTROLYTES 2... IV SCH ×5 (11:07)
[2019-05-23 11:39] LABS: Glucose,Whole Blood 113 mg/dL (75-99)
[2019-05-23] MEDS: METOPROLOL TARTRATE 5 MG/5 ML VIAL IVP PRN (13:53)
[2019-05-23] MEDS: SODIUM CHLORIDE 0.9% 1,000 ML IV SCH (14:56)
[2019-05-23] MEDS: NOREPINEPHRINE 8 MG in SODIUM CHLORIDE 0.9% 250 ML IV SCH (16:41)
[2019-05-23 18:34] LABS: Glucose,Whole Blood 125 mg/dL (75-99)
[2019-05-24 00:10] LABS: Glucose,Whole Blood 122 mg/dL (75-99)
[2019-05-24] MEDS: MVI, ADULT NO.4 WITH VIT K 10 ML, TRACE (CONC-1ML/DOSE) 1 ML, PARENTERAL ELECTROLYTES 2... IV SCH ×10 (04:08→21:33)
[2019-05-24] MEDS: CLEVIDIPINE BUTYRATE 25 MG in EMPTY BAG 1 BAG IV SCH ×5 (04:08→20:56)
[2019-05-24 04:28] LABS: Anisocytosis Slight; HCT 28.6 % (39.0-53.0); HGB 9.1 gm/dL (13.0-17.5); Hypochromasia Marked; MCHC 31.7 g/dL (31.0-37.0); MCV 88.4 fL (80.0-100.0); Mean Platelet Volume 8.1; Platelet Count 436 k/uL (150-450); Poikilocytosis Slight; RBC 3.24 m/uL (4.30-5.90); RDW 16.3 % (11.5-15.5); WBC 16.8 k/uL (3.8-10.6)
[2019-05-24 04:41] LABS: Albumin 2.3 g/dL (3.5-5.0); Calcium 8.1 mg/dL (8.4-10.2); Magnesium 2.1 mg/dL (1.6-2.3); Phosphorus 4.7 mg/dL (2.5-4.5); Potassium 4.2 mmol/L (3.5-5.1); Total Bilirubin 0.8 mg/dL (0.2-1.3); Total Protein 4.9 g/dL (6.3-8.2)
--- NOTE | 2019-05-24 05:27 | PN ---
PROGRESS NOTE DATE OF SERVICE: 05/23/2019 REASON FOR FOLLOWUP: 1. Secondary peritonitis from a perforated peptic ulcer disease. 2. Persistently elevated white count. INTERVAL HISTORY: The patient is currently afebrile. The patient has been breathing comfortably. The patient is hemodynamically stable not requiring any pressor support. Denies having any chest pain. No shortness of breath. Occasional cough which is dry in nature. No nausea or vomiting. No worsening abdominal pain. The patient is still n.p.o. with TPN on and did not have any bowel movement. PHYSICAL EXAMINATION: Blood pressure is 143/77, pulse is 116, temperature of 99.6. He is 94% on room air. General description is a middle-aged male lying in bed in no distress. RESPIRATORY SYSTEM: Unlabored breathing with decreased breath sounds in the bases. No wheeze. HEART: S1, S2. Regular rate and rhythm. ABDOMEN: Soft. No rigidity or rigidity. EXTREMITIES: No edema of the feet. LABS: Hemoglobin 9.7, white count 17.5 with a creatinine 2.04. Liver enzymes mildly elevated. DIAGNOSTIC IMPRESSION AND PLAN: Patient with secondary peritonitis from perforated peptic ulcer disease, status post operative repair. Abdominal culture with Klebsiella with strep and anaerobic gram- positive cocci. The patient is currently covered with cefepime, Flagyl and Diflucan. He did have elevated white count which could be related to the central line or art line. Blood culture has been obtained from those today. Recommend to discontinue the art line if did have persistently elevated white count_from getting a midline and removal of the central line should be discussed further with the roving inspector and continue supportive care. MMODL / IJN: [id number] / MTDD
[2019-05-24] MEDS: METOPROLOL TARTRATE 5 MG/5 ML VIAL IVP PRN ×3 (05:52→18:02)
[2019-05-24] MEDS: METOCLOPRAMIDE 5 MG/ML 2 ML VIAL IVP SCH ×3 (05:53→18:02)
[2019-05-24 06:06] LABS: Glucose,Whole Blood 127 mg/dL (75-99)
[2019-05-24] MEDS: IPRATROPIUM-ALBUTEROL 3 ML NEB INHALATION SCH ×4 (06:58→18:50)
--- NOTE | 2019-05-24 07:22 | PN ---
PROGRESS NOTE PULMONARY CRITICAL CARE PROGRESS NOTE: DATE OF SERVICE: May 24, 2019 DATE OF SERVICE: This is a patient who was admitted on May 16. He was initially admitted with a diagnosis of septic shock, peritonitis and perforated bowel. The patient was intubated on the and extubated on 20 of May. He went to the operating room on the admission day which was the [address] Hurt. He apparently had a duodenojejunal anastomosis, antrectomy, exploratory laparotomy and abdominal washout procedure. Currently, the patient is resting relatively comfortably. He is mildly tachycardic at 120. He is not requiring supplemental oxygen. He did not use BiPAP last night. He has an NG tube in place. TPN is running at 60 mL an hour and Cleviprex is running at 8 mg an hour. His 0.9 IV is at 50 mL an hour. He has no major complaints. He is doing reasonably well on his incentive spirometer. His chest x-ray from today shows bilateral effusions, central line, no endotracheal tube and borderline cardiomegaly. PHYSICAL EXAMINATION: VITAL SIGNS: Current vital signs include temperature 98.9, heart rate 120, respiratory rate 18, blood pressure 144/93, mean 110 and room air saturation 95% to 96%. GENERAL: Appears in no acute distress. HEENT: Examination is grossly unremarkable. Mucous membranes are moist. NG tube noted. NECK: Supple. Full range of motion. No adenopathy. Neck veins are flat. CARDIOVASCULAR: Examination reveals tachycardia. He has got a very hyperdynamic precordium. Heart rate about 120. S1, S2 normal. LUNGS: Reveal a few scattered rhonchi. No wheezes or crackles. Breath sounds equal. ABDOMEN: Is firm and mildly tender. EXTREMITIES: Are intact. No significant edema. SKIN: Without rash. NEUROLOGIC: Examination is brief but nonfocal. Microbiologic data shows peritoneal fluid positive for anaerobic gram-positive cocci, which have not been identified. In addition, the peritoneal fluid was positive for non hemolytic strep and Klebsiella oxytoca. LAB DATA: Lab data is reviewed. White count 16.8, hemoglobin 9.1, hematocrit 28.6, platelet count 436,000. Sodium 142, potassium 4.2, chloride 114, CO2 of 22. Anion gap is 6. BUN and creatinine were 49 and 2.05. AST was 66, ALT 98. Albumin 2.3. MEDICATIONS: Medications are reviewed. From the antibiotic standpoint, the patient is on Maxipime, fluconazole and Flagyl. ASSESSMENT: 1. Acute abdominal sepsis and septic shock secondary to duodenal ulcer perforation, status post exploratory laparotomy with Billroth II gastrojejunostomy, antrectomy and abdominal washout, postop day #8. 2. Status post operative mechanical ventilation with intubation on the 16 of May and extubation on the . 3. Acute lactic acidosis, resolved. 4. Hypoxemic respiratory failure secondary to abdominal sepsis, resolved. 5. Acute kidney injury, secondary to acute tubular necrosis, improved. 6. Chronic alcoholism. 7. History of gastrointestinal bleed. 8. Exophytic kidney lesion. 9. Acute anemia secondary to blood loss. PLAN: Currently, the patient is doing well. We will continue to monitor his vital signs very closely. He remains on Cleviprex for blood pressure control. He remains on antibiotics in the form of cefepime, Flagyl, and fluconazole. He continues on GI and DVT prophylaxis. He also continues on close observation for alcohol withdrawal. Overall, the patient seems to be doing reasonably well. We encourage deep breathing, coughing, clearing of secretions and hourly use of the incentive spirometer. Chest x- ray does show bilateral pleural effusions. We will continue to follow closely. Prognosis is guarded. MMODL / IJN: [id number] /
--- NOTE | 2019-05-24 07:26 | XR ---
EXAMINATION TYPE: XR chest 1V portable DATE OF EXAM: 05/24/2019 Comparison: 05/22/2019 Clinical History: 63-year-old male pleural effusions Findings: NG tube courses below the diaphragm. Heart upper limits of normal in size. Continued bibasilar opacit ies, relatively similar to prior. Left CVC tip at the cavoatrial junction. Impression: Continued moderate bilateral pleural effusions with adjacent atelectasis and/or consolidation.
--- NOTE | 2019-05-24 07:41 | CDI ---
Documentation Clarification Form Date: 05/17/2019 1:22:00 PM From: Erika Wells RN CCDS Admit Date: 05/16/2019 1:08:00 AM Patient Name: Surinder Flores Visit Number: [id number] Discharge Date: ATTENTION: The Clinical Documentation Specialists (CDI) and [facility] Coding Staff appreciate your assistance in clarifying documentation. Please respond to the clarification below the line at the bottom and electronically sign. The CDI & [facility] Coding staff will review the response and follow-up if needed. Please note: Queries are made part of the Legal Health Record. If you have any questions, please contact the author of this message via ITS. Dr. Becerra Acute abdominal sepsis and septic shock secondary to duodenal ulcer perforation Documented in Critical Care Progress Note 05/17/2019 History/Risk Factors: 63-year-old male presents to the ED via EMS after being found face down at home with tingling fingers and feet. Per EMS he was found to be mildly hypotensive with a systolic in the 90s. Medical History GERD, GI Bleed 2013; Alcohol Abuse daily Drinker Clinical Indicators: VSS 05/16 89/58 103 97.7 Rectal 18 100% ra Labs;05/16 Hgb 8.6; plt 506; Na 129; K 5.5; BUN 56 Cr 6.03; plasma lactic acid 8.1; FOB positive; CT Abd Pelvis 05/16 Reidentified large amount of free intraperitoneal air. Origin uncertain Treatment: 05/16 6L 0.9ns ivfl bolus; Sodium Bicarb 8.4% 5ml iv x1; Zosyn ivpb q 12 hrs; Norepinephrine IV; Definition of Present on Admission (POA): A diagnosis present at the time the order for admission to inpatient status was written. For each diagnosis, documentation must be clear to determine if the condition was present at the time of the patients inpatient admission or developed during the hospital stay. Please clarify if Sepis was POA: ____Y = Yes, the condition was present at the time of the order for inpatient admission. ____N = No, the condition was not present at the time of the order for inpatient admission. ____W = Clinically undetermined if the condition was present at the time of the order for inpatient admission. ____Sepsis Ruled Out (Last Revision: Jun 2018) W Clinically undetermined MTDD
[2019-05-24] MEDS: metroNIDAZOLE-NS PMX 500 MG in SALINE 1 100ML.BAG IVPB SCH ×2 (08:45→18:01)
[2019-05-24] MEDS: SODIUM CHLORIDE 0.9% 1,000 ML IV SCH (08:46)
[2019-05-24] MEDS: HEPARIN SODIUM,PORCINE 5,000 UNIT/ML 1 ML VIAL SQ SCH ×2 (08:46→18:02)
[2019-05-24] MEDS: CEFEPIME 2 GM in SODIUM CHLORIDE 0.9% 100 ML IVPB SCH ×2 (08:48→20:55)
[2019-05-24] MEDS: PANTOPRAZOLE 40 MG/10 ML VIAL IV SCH ×2 (08:48→20:56)
[2019-05-24] MEDS: FLUCONAZOLE IN NACL,ISO-OSM 200 MG in SALINE 1 100ML.BAG IVPB SCH (08:48)
[2019-05-24] MEDS: FUROSEMIDE 10 MG/ML 4 ML VIAL IV SCH (08:48)
--- NOTE | 2019-05-24 10:01 | P.PN ---
Subjective Progress Note Date: 05/24/19 Principal diagnosis: The patient is a 63-year-old male that was admitted for septic shock secondary to perforated duodenal ulcer with subsequent peritonitis in the settin g of acute kidney injury secondary to ATN prerenal secondary to septic shock after presenting with abdominal pain and hypotension. Initial CT showed large amount of intraperitoneal air with a large amount of ascites and scattered small bowel wall thickening secondary to cystitis and nonspecific enteritis. The patient was aggressively fluid resuscitated and received 2 units of packed RBCs secondary to being found anemic. The patient had Urgent expiratory laparotomy requiring antrectomy and Billroth II gastrojejunostomy. Despite aggressive fluid hydration the patient continued to be hypertensive and was started on pressors with levophed and was maintained on mechanical ventilator with prop ofol for sedation and pulmonary managing his vent settings. The patient was continued on empiric IV antibiotics with Zosyn and Diflucan as suggested by ID. There with treatment the patient's creatinine gradually trended down from 6 is continued on IV fluids. Patient extubated 05/20/19 and was transitioned to BiPAP now currently on high flow at 4 L, patient febrile with Tmax 100.8, continues to be tachycardic. Blood pressure controlled with Cleviprex currently weaning, patient reporting history of hypertension but was noncompliant with medical therapy. White count down to 16.8 , hemoglobin down to 9.1 , creatinine 2.05, serum potassium 4.2. Diuresing well with Lasix. Chest x-ray showing continued moderate bilateral pleural effusions with adjacent atelectasis . Echocardiogram results show preserved LVEF, without any significant valvular abnormalities. Patient continues on TPN, Patient denying any pain, patient reports that he's been passing gas but has not yet had a bowel movement. Continues on ice chips Patient continues to have significant output of his NG tube Objective - Vital Signs Vital signs: Vital Signs Temp 100.8 F H 05/24/19 08:00 Pulse 123 H 05/24/19 09:00 Resp 22 05/24/19 09:00 BP 130/75 05/24/19 09:00 Pulse Ox 93 L 05/24/19 09:00 Intake & Output 05/23/19 05/24/19 05/24/19 18:59 06:59 18:59 Intake Total 2442 2590.067 620 Output Total 4385 2730 815 Balance -1943 -139.933 -195 Weight 85.7 kg Intake: IV 1136 960 570 0.9 NACL 670 700 150 Cefepime 2 gm In Sodium 100 Chloride 0.9% 100 ml @ 200 mls/hr IVPB Q12HR [facility] Rx#:[id number] FLagyl 200 100 Fluconazole in NaCl,Iso- 100 100 Osm 200 mg In Saline 1 100ml.bag @ 100 mls/hr IVPB DAILY [facility] Rx#: [id number] Mvi, Adult No.4 with Vit 120 K 10 ml Trace (Conc-1Ml/ Dose) 1 ml Parenteral Electrolytes 20 ml Potassium Chloride 30 meq In Amino Acid 5%-D15w 1, 000 ml @ 60 mls/hr IV . [id number] [facility] Rx#:[id number] Pressure Bags 66 60 cefipime 100 100 metroNIDAZOLE-NS PMX 500 100 mg In Saline 1 100ml.bag @ 100 mls/hr IVPB Q8HR [facility] Rx#:[id number] Intake, IV Titration 1306 1150.067 50 Amount Clevidipine Butyrate 25 200 129.067 50 mg In Empty Bag 1 bag @ 4 MG/HR 8 mls/hr IV . Q6H15M [facility] Rx#:[id number] Mvi, Adult No.4 with Vit 1046 1021 K 10 ml Trace (Conc-1Ml/ Dose) 1 ml Parenteral Electrolytes 20 ml Potassium Chloride 30 meq In Amino Acid 5%-D15w 1, 000 ml @ 60 mls/hr IV . [id number] [facility] Rx#:[id number] Mvi, Adult No.4 with Vit 60 K 10 ml Trace (Conc-1Ml/ Dose) 1 ml Parenteral Electrolytes 20 ml Potassium Chloride 30 meq Magnesium Sulfate gm 1 gm In Amino Acid 5%-D15w 1,000 ml @ 60 mls/hr IV . [id number] [facility] Rx#:[id number] Oral 480 Output: Gastric Drainage 1300 1100 450 Drainage 610 80 30 Anterior Abdomen 610 80 30 Urine 2475 1550 335 Other: Voiding Method Indwelling Catheter Indwelling Catheter Indwelling Catheter ABP, PAP, CO, CI - Last Documented Arterial Blood Pressure 137/59 - Exam Constitutional: Awake alert Eyes: Anicteric sclerae, moist conjunctiva, no lid-lag, PERRLA ENMT: NC/AT,Oropharynx clear, no erythema, exudates Neck:Supple, FROM, no masses, or JVD, No carotid bruits; No thyromegaly Lungs: Diminished in the bases, appears unlabored currently on high flow at 4 L via nasal cannula Cardiovascular: Heart regular in rate and rhythm, No murmurs, gallops, or rubs Abdominal: Soft distended nontender, hypoactive bowel sounds Skin: Normal temperature, tone, texture, turgor, No induration No subcutaneous nodules, No rash, lesions, No ulcers Extremities:No digital cyanosis No clubbing, Pedal pulses intact and symmetrical Radial pulses intact and symmetrical Normal gait and station, No calf tenderness, +2 pitting edema, noted scrotal edema Psychiatric: Alert and oriented to person, place and time, Appropriate affect Intact judgement Neuro: Follow simple commands no gross focal deficits - Labs CBC & Chem 7: 05/25/19 10:50 05/25/19 04:35 Labs: Abnormal Lab Results - Last 24 Hours (Table) 05/23/19 05/23/19 05/23/19 Range/Units 11:27 18:22 23:59 WBC (3.8-10.6) k/uL RBC (4.30-5.90) m/uL Hgb (13.0-17.5) gm/dL Hct (39.0-53.0) % RDW (11.5-15.5) % Chloride (98-107) mmol/L BUN (9-20) mg/dL Creatinine (0.66-1.25) mg/dL Glucose (74-99) mg/dL POC Glucose (mg/dL) 113 H 125 H 122 H (75-99) mg/dL Calcium (8.4-10.2) mg/dL Phosphorus (2.5-4.5) mg/dL AST (17-59) U/L ALT (21-72) U/L Total Protein (6.3-8.2) g/dL Albumin (3.5-5.0) g/dL 05/24/19 05/24/19 05/24/19 Range/Units 04:11 04:11 05:55 WBC 16.8 H (3.8-10.6) k/uL RBC 3.24 L (4.30-5.90) m/uL Hgb 9.1 L (13.0-17.5) gm/dL Hct 28.6 L (39.0-53.0) % RDW 16.3 H (11.5-15.5) % Chloride 114 H (98-107) mmol/L BUN 49 H (9-20) mg/dL Creatinine 2.05 H (0.66-1.25) mg/dL Glucose 127 H (74-99) mg/dL POC Glucose (mg/dL) 127 H (75-99) mg/dL Calcium 8.1 L (8.4-10.2) mg/dL Phosphorus 4.7 H (2.5-4.5) mg/dL AST 66 H (17-59) U/L ALT 98 H (21-72) U/L Total Protein 4.9 L (6.3-8.2) g/dL Albumin 2.3 L (3.5-5.0) g/dL Assessment and Plan Assessment: Septic shock * Secondary to perforated viscus with subsequent peritonitis * Resolved patient no longer requiring pressors blood pressure is actually elevated today, has good urine output * Leukocytosis improved slightly today down to 16.8 but febrile today Tmax 100.8 * Peritoneal culture growing Klebsiella oxytoca and nonhemolytic strep * Currently on antibiotic regimen currently on cefepime and Flagyl and Diflucan Zosyn discontinued per ID Acute respiratory failure with hypoxia * Secondary to septic shock due to perforated discus with subsequent abdominal peritonitis * Extubated yesterday currently on high flow nasal cannula 4 L * Chest x-ray showing moderate bilateral pleural effusions * Continue with daily Lasix Perforated viscus * POD #8 status post exploratory laparoscopy antrectomy and Billroth II gastrojejunostomy * NPO on TPN at 60 cc/hr * continue w/ prokinetic Reglan Acute kidney injury secondary to ATN * ATN. Prerenal due to severe septic shock * Creatinine trending down nicely to 2 from 6 * Continue current IV fluids * Metabolic acidosis now resolved Hypertensive urgency * Resolved * Blood pressure controlled on Cleviprex * continue on IV metoprolol in hopes to wean Cleviprex Normocytic anemia * Secondary to upper GI bleed status post perforated duodenal ulcer * Status post 3 unit packed RBC transfusion hemoglobin stable at 9.1 g Hypomagnesemia * resolved * continue to monitor peripheral edema * Secondary to volume overload, echocardiogram showing normal preserved ejection fraction * Significant overall positive fluid balance negative over the last 2 days continue with diuresis Disposition * Patient still critical continue to monitor closely * Patient improving steadily
[2019-05-24 11:52] LABS: Glucose,Whole Blood 115 mg/dL (75-99)
[2019-05-24] MEDS: DAPTOmycin 500 MG in SODIUM CHLORIDE 0.9% 50 ML IVPB SCH (11:57)
[2019-05-24] MEDS ORDERED: LIDOCAINE 1% INJ 10MG/ML (20 ML MDV) SQ ONE (15:09)
--- NOTE | 2019-05-24 15:33 | XR ---
EXAMINATION TYPE: XR chest 1V portable DATE OF EXAM: 05/24/2019 Comparison: 05/24/2019, earlier today Clinical History: 63-year-old male PICC line insertion Findings: NG tube courses below the diaphragm. Right PICC tip in the lower right atrium. Left IJ CVC tip in the caval atrial junction region. Heart upper limits of normal in size. Diffuse interstitial and perihil ar densities and bibasilar opacities. Basilar densities show slight improvement. Impression: 1. Right PICC tip in the lower right atrium. 2. Perihilar and interstitial densities along with small effusions and adjacent atelectasis and/or co nsolidation. Effusions are slightly improved from prior. Correlate for possible CHF or bibasilar pneu monitis as the etiology.
--- NOTE | 2019-05-24 15:35 | IR ---
EXAMINATION TYPE: IR cvc insert >=5 years DATE OF EXAM: 05/24/2019 COMPARISON: NONE HISTORY: Needs long-term intravenous access for total parenteral reduction FINDINGS: Maximal barrier technique was utilized. The skin overlying the right basilic vein was loca lized with ultrasound and noted to be compressible and patent by ultrasound. An ultrasound image was obtained and submitted on patient's chart. Sterile technique utilized with the ultrasound machine. T he skin overlying was prepped and draped and Lidocaine used for local anesthesia. A skin irasema was ma de with a scalpel. Access was gained to the vein under direct ultrasound guidance with a 21-gauge ne edle and a 0.018 inch wire was advanced. Access site was dilated with a peel-away sheath and the cat heter tailored to length. Catheter advanced centrally and a post procedure chest x-ray verified plac ement with the tip in the right atrium, catheter withdrawn 1 to 2 cm. Catheter was fixed to the skin and a sterile dressing placed. Hemostasis achieved and the catheter was aspirated and flushed with sterile saline. The patient remained in stable condition. IMPRESSION: STATUS POST ULTRASOUND GUIDED PICC LINE PLACEMENT, READY FOR USE. THIS PROCEDURE WAS PER FORMED BY THE UNDERSIGNED.
--- NOTE | 2019-05-24 16:18 | P.PN ---
Subjective Progress Note Date: 05/24/19 Patient was up to bedside today. States he is feeling well with no complaints. Objective - Vital Signs Vital signs: Vital Signs Temp 99.8 F H 05/24/19 12:00 Pulse 117 H 05/24/19 15:00 Resp 23 05/24/19 15:00 BP 148/87 05/24/19 15:00 Pulse Ox 95 05/24/19 15:00 Intake & Output 05/23/19 05/24/19 05/24/19 18:59 06:59 18:59 Intake Total 2442 2590.067 1195.100 Output Total 4385 2730 3370 Balance -1943 -139.933 -2174.900 Weight 85.7 kg 85.7 kg Intake: IV 3771 581 9399 0.9 NACL 670 700 350 Cefepime 2 gm In Sodium 100 Chloride 0.9% 100 ml @ 200 mls/hr IVPB Q12HR [facility] Rx#:[id number] DAPTOmycin 500 mg In 50 Sodium Chloride 0.9% 50 ml @ 100 mls/hr IVPB Q24H [facility] Rx#:[id number] FLagyl 200 100 Fluconazole in NaCl,Iso- 100 100 Osm 200 mg In Saline 1 100ml.bag @ 100 mls/hr IVPB DAILY [facility] Rx#: [id number] Mvi, Adult No.4 with Vit 360 K 10 ml Trace (Conc-1Ml/ Dose) 1 ml Parenteral Electrolytes 20 ml Potassium Chloride 30 meq In Amino Acid 5%-D15w 1, 000 ml @ 60 mls/hr IV . [id number] [facility] Rx#:[id number] Pressure Bags 66 60 cefipime 100 100 metroNIDAZOLE-NS PMX 500 100 mg In Saline 1 100ml.bag @ 100 mls/hr IVPB Q8HR [facility] Rx#:[id number] Intake, IV Titration 1306 1150.067 135.100 Amount Clevidipine Butyrate 25 200 129.067 135.100 mg In Empty Bag 1 bag @ 4 MG/HR 8 mls/hr IV . Q6H15M [facility] Rx#:[id number] Mvi, Adult No.4 with Vit 1046 1021 K 10 ml Trace (Conc-1Ml/ Dose) 1 ml Parenteral Electrolytes 20 ml Potassium Chloride 30 meq In Amino Acid 5%-D15w 1, 000 ml @ 60 mls/hr IV . [id number] [facility] Rx#:[id number] Mvi, Adult No.4 with Vit 60 K 10 ml Trace (Conc-1Ml/ Dose) 1 ml Parenteral Electrolytes 20 ml Potassium Chloride 30 meq Magnesium Sulfate gm 1 gm In Amino Acid 5%-D15w 1,000 ml @ 60 mls/hr IV . [id number] [facility] Rx#:[id number] Oral 480 Output: Gastric Drainage 1300 1100 1550 Drainage 610 80 120 Anterior Abdomen 610 80 120 Urine 2475 1550 1700 Other: Voiding Method Indwelling Catheter Indwelling Catheter Indwelling Catheter ABP, PAP, CO, CI - Last Documented Arterial Blood Pressure 137/59 - Constitutional General appearance: Present: cooperative - Respiratory Details: nonlabored - Cardiovascular Rhythm: regular - Gastrointestinal Gastrointestinal Comment(s): S/NT/ND Incision CDI BOGDAN serous - Psychiatric Psychiatric: Present: A&O x's 3 - Labs CBC & Chem 7: 05/24/19 04:11 05/24/19 04:11 Labs: Abnormal Lab Results - Last 24 Hours (Table) 05/23/19 05/23/19 05/24/19 Range/Units 18:22 23:59 04:11 WBC (3.8-10.6) k/uL RBC (4.30-5.90) m/uL Hgb (13.0-17.5) gm/dL Hct (39.0-53.0) % RDW (11.5-15.5) % Chloride 114 H (98-107) mmol/L BUN 49 H (9-20) mg/dL Creatinine 2.05 H (0.66-1.25) mg/dL Glucose 127 H (74-99) mg/dL POC Glucose (mg/dL) 125 H 122 H (75-99) mg/dL Calcium 8.1 L (8.4-10.2) mg/dL Phosphorus 4.7 H (2.5-4.5) mg/dL AST 66 H (17-59) U/L ALT 98 H (21-72) U/L Total Protein 4.9 L (6.3-8.2) g/dL Albumin 2.3 L (3.5-5.0) g/dL 05/24/19 05/24/19 05/24/19 Range/Units 04:11 05:55 11:40 WBC 16.8 H (3.8-10.6) k/uL RBC 3.24 L (4.30-5.90) m/uL Hgb 9.1 L (13.0-17.5) gm/dL Hct 28.6 L (39.0-53.0) % RDW 16.3 H (11.5-15.5) % Chloride (98-107) mmol/L BUN (9-20) mg/dL Creatinine (0.66-1.25) mg/dL Glucose (74-99) mg/dL POC Glucose (mg/dL) 127 H 115 H (75-99) mg/dL Calcium (8.4-10.2) mg/dL Phosphorus (2.5-4.5) mg/dL AST (17-59) U/L ALT (21-72) U/L Total Protein (6.3-8.2) g/dL Albumin (3.5-5.0) g/dL Microbiology - Last 24 Hours (Table) 05/23/19 13:00 Blood Culture - Preliminary Blood No Growth after 24 hours Assessment and Plan Assessment: POD#5 ex lap antrectomy with billroth II gastrojejunostomy secondary to perforated duodenal ulcer Plan: Continue NPO, NGT. Continue with ICU care per critical care and medicine. IV ABX per ID. Cont. TPN. OOBTC, encouraged ambulation and IS.
[2019-05-24] MEDS: NOREPINEPHRINE 8 MG in SODIUM CHLORIDE 0.9% 250 ML IV SCH (17:25)
[2019-05-24 18:53] LABS: Glucose,Whole Blood 109 mg/dL (75-99)
[2019-05-24] MEDS: HYDROmorphone 1 MG/ML 1 ML SYRINGE IVP PRN (22:46)
--- NOTE | 2019-05-24 23:10 | PN ---
PROGRESS NOTE DATE OF SERVICE: 05/24/2019 REASON FOR FOLLOWUP: 1. Secondary peritonitis from perforated peptic ulcer. 2. Persistently elevated white count. INTERVAL HISTORY: The patient did have a new fever of 100.8 degrees Fahrenheit early this morning; afebrile subsequently. The patient has been breathing comfortably. Denies having any chest pain; just some occasional cough. No nausea. No vomiting. No abdominal pain. He has not had a bowel movement or passing gas. PHYSICAL EXAMINATION: Blood pressure 132/77 with a pulse of 108, temperature of 98. T-max is 100.8. He is 100% on room air. General description is a middle-aged male lying in bed in no distress. RESPIRATORY SYSTEM: Unlabored breathing with decreased breath sounds at the base. No wheeze. HEART: S1, S2. Regular rate and rhythm. ABDOMEN: Soft. Mildly distended. No guarding or rigidity. EXTREMITIES: No edema of the feet. LABS: Hemoglobin is 9.1, white count 16.8, BUN of 49, creatinine 2.05. DIAGNOSTIC IMPRESSION AND PLAN: Patient with secondary peritonitis from a perforated peptic ulcer disease, status post surgical repair of the same. The patient's abdominal culture with klebsiella, strep and anaerobic gram-positive cocci. The patient is currently on cefepime, Flagyl and Diflucan, now with a new fever, concern likely for possibly line-related. Recommend discontinuing his IJ, send the tip for culture and obtain a mid line. Daptomycin has been added to cover for the gram-positive and we will monitor his clinical course closely. He will be at high risk of nephrotoxicity with vancomycin. Family at the bedside. Their questions and concerns were answered. MMODL / IJN: [id number] /
[2019-05-25] MEDS: METOCLOPRAMIDE 5 MG/ML 2 ML VIAL IVP SCH ×5 (00:13→23:54)
[2019-05-25] MEDS: metroNIDAZOLE-NS PMX 500 MG in SALINE 1 100ML.BAG IVPB SCH ×4 (00:13→23:54)
[2019-05-25] MEDS: HEPARIN SODIUM,PORCINE 5,000 UNIT/ML 1 ML VIAL SQ SCH ×4 (00:13→23:54)
[2019-05-25 00:15] LABS: Glucose,Whole Blood 131 mg/dL (75-99)
[2019-05-25] MEDS: CLEVIDIPINE BUTYRATE 25 MG in EMPTY BAG 1 BAG IV SCH ×4 (03:07→23:00)
[2019-05-25] MEDS: METOPROLOL TARTRATE 5 MG/5 ML VIAL IVP PRN ×2 (03:07→10:25)
[2019-05-25 05:57] LABS: Albumin 2.3 g/dL (3.5-5.0); Calcium 8.2 mg/dL (8.4-10.2); Magnesium 2.1 mg/dL (1.6-2.3); Phosphorus 4.5 mg/dL (2.5-4.5); Total Protein 5.2 g/dL (6.3-8.2)
[2019-05-25 06:01] LABS: Glucose,Whole Blood 125 mg/dL (75-99)
[2019-05-25] MEDS: SODIUM CHLORIDE 0.9% 1,000 ML IV SCH (06:44)
[2019-05-25] MEDS: IPRATROPIUM-ALBUTEROL 3 ML NEB INHALATION SCH ×4 (07:43→18:50)
--- NOTE | 2019-05-25 08:27 | P.NPCON ---
History of Present Illness - Reason for Consult acute renal failure - History of Present Illness Reason for consultation: Acute kidney injury History of present illness: Patient is a 63-year-old male seen in consultation for acute kidney injury. Patient presented to the hospital on 05/15/2019 with tingling to his feet and fingers. He was also having abdominal pain. He was noted to have pneumoperitoneum and underwent exploratory laparotomy with antrectomy and Billroth II gastrojejunostomy due to perforated duodenal ulcer on 05/16/2019. Additionally patient also received IV contrast dye on May 16 for a chest CTA and abdomen and pelvis CT. He is currently sitting up in chair. He has been exudative. He is maintained on TPN running at 60 mL an hour normal saline at 50 mL an hour. Urine output has been over 100 mL an hour overnight. Denies any pain at this time. Patient states he did take nonsteroidals prior to admission but denies taking them on a regular basis. Patient's creatinine on admission was 6.03 and is stable at 2.05 today. Prior creatinine from June 2014 was 0.6. Denies family history of renal disease. NG tube is in place. Admits to dry mouth and he's been having quite a bit of ice chips. Vital signs are stable. General: The patient appeared well nourished and normally developed. HEENT: Head exam is unremarkable. Neck is without jugular venous distension. NG tube noted. LUNGS: Lungs are clear to auscultation and percussion. Breath sounds decreased. HEART: Rate and Rhythm are regular. First and second heart sounds normal. No murmurs, rubs or gallops. ABDOMEN: Decreased bowel sounds. EXTREMITITES: No clubbing, cyanosis, or edema. Past Medical History Past Medical History: GERD/Reflux, GI Bleed Additional Past Medical History / Comment(s): History of GI bleed back in 2013 and he was found to have polyps and hiatal hernia. History of Any Multi-Drug Resistant Organisms: None Reported Past Surgical History: No Surgical Hx Reported Past Anesthesia/Blood Transfusion Reactions: No Reported Reaction Past Psychological History: No Psychological Hx Reported Smoking Status: Former smoker Past Alcohol Use History: Daily Past Drug Use History: Marijuana - Past Family History Mother Family Medical History: Cancer Additional Family Medical History / Comment(s): lung cancer. Medications and Allergies Home Medications Medication Instructions Recorded Confirmed Type No Known Home Medications 05/16/19 05/16/19 History Allergies Allergy/AdvReac Type Severity Reaction Status Date / Time No Known Allergies Allergy Verified 05/16/19 11:05 Physical Exam Vitals: Vital Signs Temp Pulse Resp BP Pulse Ox 05/25/19 08:00 98.5 F 111 H 20 167/87 95 05/25/19 07:30 111 H 16 139/77 95 05/25/19 07:00 121 H 24 145/79 95 05/25/19 06:30 120 H 22 149/102 94 L 05/25/19 06:00 134 H 33 H 162/80 92 L 05/25/19 05:30 112 H 18 143/81 94 L 05/25/19 05:00 109 H 19 137/78 94 L 05/25/19 04:30 105 H 18 149/77 94 L 05/25/19 04:00 98.5 F 101 H 17 142/78 94 L 05/25/19 03:30 98 15 149/84 93 L 05/25/19 03:00 120 H 24 126/83 93 L 05/25/19 02:30 115 H 22 144/83 94 L 05/25/19 02:00 109 H 16 145/76 91 L 05/25/19 01:30 109 H 20 126/70 90 L 05/25/19 01:00 111 H 18 142/81 96 05/25/19 00:30 113 H 16 136/94 94 L 05/25/19 00:00 99.6 F 109 H 13 124/74 94 L 05/24/19 23:30 112 H 24 136/75 95 05/24/19 23:14 123 H 17 132/82 95 05/24/19 23:00 123 H 16 142/76 95 05/24/19 22:30 120 H 22 138/86 94 L 05/24/19 22:00 118 H 21 145/79 94 L 05/24/19 21:30 120 H 23 135/86 94 L 05/24/19 21:00 115 H 20 155/73 95 05/24/19 20:30 116 H 21 143/85 95 05/24/19 20:00 98.9 F 114 H 20 127/71 94 L 05/24/19 19:30 107 H 16 135/69 94 L 05/24/19 19:00 106 H 16 132/77 100 05/24/19 18:50 121 H 16 05/24/19 18:30 109 H 25 H 127/85 96 05/24/19 18:00 118 H 19 150/86 93 L 05/24/19 17:30 120 H 19 138/85 84 L 05/24/19 17:00 125 H 15 93 L 05/24/19 16:30 124 H 18 146/89 93 L 05/24/19 16:00 97.6 F 131 H 22 156/79 95 05/24/19 15:30 120 H 20 147/82 94 L 05/24/19 15:00 117 H 23 148/87 95 05/24/19 14:30 116 H 20 140/83 98 05/24/19 14:00 116 H 20 133/77 96 05/24/19 13:30 117 H 20 148/87 98 05/24/19 13:00 113 H 21 132/78 97 05/24/19 12:30 111 H 20 130/74 96 05/24/19 12:00 99.8 F H 112 H 22 140/79 93 L 05/24/19 11:30 137 H 21 127/81 95 05/24/19 11:18 123 H 05/24/19 11:00 124 H 17 134/80 94 L 05/24/19 10:30 122 H 21 132/79 90 L 05/24/19 10:00 123 H 22 138/72 92 L 05/24/19 09:30 120 H 21 135/74 93 L 05/24/19 09:00 123 H 22 130/75 93 L 05/24/19 08:30 121 H 22 139/81 93 L Intake and Output 05/24/19 05/25/19 05/25/19 22:59 06:59 14:59 Intake Total 1990.733 459.7 164 Output Total 1940 865 185 Balance 51.733 -405.3 -21 Intake: IV 500 400 160 0.9 NACL 250 400 100 Cefepime 2 gm In Sodium 100 Chloride 0.9% 100 ml @ 200 mls/hr IVPB Q12HR [facility] Rx#:[id number] Mvi, Adult No.4 with Vit 60 K 10 ml Trace (Conc-1Ml/ Dose) 1 ml Parenteral Electrolytes 20 ml Potassium Chloride 30 meq In Amino Acid 5%-D15w 1, 000 ml @ 60 mls/hr IV . [id number] [facility] Rx#:[id number] metroNIDAZOLE-NS PMX 500 150 mg In Saline 1 100ml.bag @ 100 mls/hr IVPB Q8HR [facility] Rx#:[id number] Intake, IV Titration 1091.733 59.7 4 Amount Clevidipine Butyrate 25 46.733 59.7 4 mg In Empty Bag 1 bag @ 4 MG/HR 8 mls/hr IV . Q6H15M [facility] Rx#:[id number] Mvi, Adult No.4 with Vit 1045 K 10 ml Trace (Conc-1Ml/ Dose) 1 ml Parenteral Electrolytes 20 ml Potassium Chloride 30 meq In Amino Acid 5%-D15w 1, 000 ml @ 60 mls/hr IV . [id number] [facility] Rx#:[id number] Oral 400 Output: Gastric Drainage 1000 Drainage 265 15 Anterior Abdomen 265 15 Urine 675 850 185 Other: Voiding Method Indwelling Catheter Indwelling Catheter Results - Lab Results Most recent lab results ABG pH 7.43 (7.35-7.45) 05/20/19 08:00 ABG pCO2 32 mmHg (35-45) L 05/20/19 08:00 ABG pO2 120 mmHg (83-108) H 05/20/19 08:00 ABG HCO3 21 mmol/L (21-25) 05/20/19 08:00 ABG O2 Saturation 99.6 % (94-97) H 05/20/19 08:00 Calcium 8.2 mg/dL (8.4-10.2) L 05/25/19 04:35 Phosphorus 4.5 mg/dL (2.5-4.5) 05/25/19 04:35 Magnesium 2.1 mg/dL (1.6-2.3) 05/25/19 04:35 05/24/19 04:11 05/25/19 04:35 Assessment and Plan Plan: Assessment: 1. Acute kidney injury secondary to ATN secondary to septic shock. Creatinine was 6 on admission and is 2.05 today. 2. Perforated duodenal ulcer status post laparotomy with antrectomy on 05/16/2019. Maintained on antibiotics. Infectious disease following. 3. Metabolic acidosis secondary to acute kidney injury and IV fluids. 4. Mild volume overload. Improved. 5. Hypocalcemia secondary to hypoalbuminemia. Corrected calcium in the normal range. Plan: Hold Lasix. Maintain TPN and IV fluids. Avoid nephrotoxins. Repeat electrolytes in the morning. Monitor bicarb. Check renal ultrasound. Thank you for the consultation. I'll continue to follow the patient during his hospital stay.
--- NOTE | 2019-05-25 08:58 | P.PN ---
Subjective Progress Note Date: 05/25/19 Principal diagnosis: Acute surgical abdomen secondary to duodenal ulcer perforation On 05/25/2019 patient seen in follow-up in the intensive care unit, this is postoperative day #9 status post exploratory laparotomy with Billroth II gastrojejunostomy. Patient is awake and alert, doing very well, she was successfully extubated on 05/20/2019, he is currently on room air, and his pulse ox is 95%, he denies any shortness of breath, denies any chest pain, no abdominal pain, he is starting to pass gas, his bowel sounds remain hypoactive, NG tube remains in place, and there has been now 400 mL of gastric output in the last 24 hours. No nausea, patient has not passed a bowel movement, but he is passing gas. He is achieving 1250 on incentive spirometry, lung sounds are clear, patient remains nothing by mouth except for ice chips and popsicles, he states he does not feel hungry but he is complaining of dry mouth. TPN is infusing at a rate of 60 ML per hour, maintenance IV fluids 0.9 normal seen at a rate of 50 ML per hour, and Cleviprex is at 2 mg per hour, systolic blood pressure is ranging from 130 to 160 mmHg, and diastolic in the 70s and 80s. Objective - Vital Signs Vital signs: Vital Signs Temp 98.5 F 05/25/19 08:00 Pulse 111 H 05/25/19 08:00 Resp 20 05/25/19 08:00 BP 167/87 05/25/19 08:00 Pulse Ox 95 05/25/19 08:00 Intake & Output 05/24/19 05/25/19 05/25/19 18:59 06:59 18:59 Intake Total 0364.179 5249.7 164 Output Total 3820 1655 185 Balance -2460.000 549.7 -21 Weight 85.7 kg Intake: IV 1210 700 160 0.9 NACL 400 550 100 Cefepime 2 gm In Sodium 100 100 Chloride 0.9% 100 ml @ 200 mls/hr IVPB Q12HR [facility] Rx#:[id number] DAPTOmycin 500 mg In 50 Sodium Chloride 0.9% 50 ml @ 100 mls/hr IVPB Q24H [facility] Rx#:[id number] Fluconazole in NaCl,Iso- 100 Osm 200 mg In Saline 1 100ml.bag @ 100 mls/hr IVPB DAILY [facility] Rx#: [id number] Mvi, Adult No.4 with Vit 360 60 K 10 ml Trace (Conc-1Ml/ Dose) 1 ml Parenteral Electrolytes 20 ml Potassium Chloride 30 meq In Amino Acid 5%-D15w 1, 000 ml @ 60 mls/hr IV . [id number] [facility] Rx#:[id number] metroNIDAZOLE-NS PMX 500 200 50 mg In Saline 1 100ml.bag @ 100 mls/hr IVPB Q8HR [facility] Rx#:[id number] Intake, IV Titration 828.492 6761.7 4 Amount Clevidipine Butyrate 25 150.000 59.7 4 mg In Empty Bag 1 bag @ 4 MG/HR 8 mls/hr IV . Q6H15M [facility] Rx#:[id number] Mvi, Adult No.4 with Vit 1045 K 10 ml Trace (Conc-1Ml/ Dose) 1 ml Parenteral Electrolytes 20 ml Potassium Chloride 30 meq In Amino Acid 5%-D15w 1, 000 ml @ 60 mls/hr IV . [id number] [facility] Rx#:[id number] Oral 400 Output: Gastric Drainage 1650 300 Drainage 370 30 Anterior Abdomen 370 30 Urine 1800 1325 185 Other: Voiding Method Indwelling Catheter Indwelling Catheter ABP, PAP, CO, CI - Last Documented Arterial Blood Pressure 137/59 - Exam GENERAL EXAM: Alert, very pleasant, 63-year-old white male, on room air with pulse ox of 95%, NG tube is in place to low intermittent suction with greenish gastric output, comfortable in no apparent distress. HEAD: Normocephalic/atraumatic. EYES: Normal reaction of pupils, equal size. Conjunctiva pink, sclera white. NOSE: Clear with pink turbinates. NG tube is present low intermittent suction THROAT: No erythema or exudates. NECK: No masses, no JVD, no thyroid enlargement, no adenopathy. CHEST: No chest wall deformity. Symmetrical expansion. LUNGS: Equal air entry with no crackles, wheeze, rhonchi or dullness. CVS: Regular rate and rhythm, normal S1 and S2, no gallops, no murmurs, no rubs ABDOMEN: Soft, nontender. No hepatosplenomegaly, normal bowel sounds, no guarding or rigidity. Mid abdominal incision is present dry and intact, covered with surgical dressing, right abdominal BOGDAN drain is present with us output EXTREMITIES: No clubbing, mild 1+ nonpitting edema, no cyanosis, 2+ pulses and upper and lower extremities. MUSCULOSKELETAL: Muscle strength and tone normal. SPINE: No scoliosis or deformity SKIN: No rashes CENTRAL NERVOUS SYSTEM: Alert and oriented -3. No focal deficits, tone is normal in all 4 extremities. PSYCHIATRIC: Alert and oriented -3. Appropriate affect. Intact judgment and insight. - Labs CBC & Chem 7: 05/24/19 04:11 05/25/19 04:35 Labs: Abnormal Lab Results - Last 24 Hours (Table) 05/24/19 05/24/19 05/25/19 Range/Units 11:40 18:42 00:03 Chloride (98-107) mmol/L Carbon Dioxide (22-30) mmol/L BUN (9-20) mg/dL Creatinine (0.66-1.25) mg/dL Glucose (74-99) mg/dL POC Glucose (mg/dL) 115 H 109 H 131 H (75-99) mg/dL Calcium (8.4-10.2) mg/dL ALT (21-72) U/L Total Protein (6.3-8.2) g/dL Albumin (3.5-5.0) g/dL 05/25/19 05/25/19 Range/Units 04:35 05:50 Chloride 113 H (98-107) mmol/L Carbon Dioxide 20 L (22-30) mmol/L BUN 53 H (9-20) mg/dL Creatinine 2.05 H (0.66-1.25) mg/dL Glucose 112 H (74-99) mg/dL POC Glucose (mg/dL) 125 H (75-99) mg/dL Calcium 8.2 L (8.4-10.2) mg/dL ALT 73 H (21-72) U/L Total Protein 5.2 L (6.3-8.2) g/dL Albumin 2.3 L (3.5-5.0) g/dL Microbiology - Last 24 Hours (Table) 05/23/19 13:30 Blood Culture - Preliminary Blood No Growth after 24 hours 05/23/19 13:00 Blood Culture - Preliminary Blood No Growth after 24 hours Assessment and Plan Plan: Assessment: 1 acute abdominal sepsis and septic shock secondary to duodenal ulcer perforation. Patient is status post expiratory laparotomy with Billroth II gastrojejunostomy postoperative day #9 2 acute lactic acidosis secondary to above, resolved 3 acute hypoxic respiratory failure secondary to septic shock and abdominal sepsis. Resolved 4 acute kidney injury secondary to acute tubular necrosis and hypotension steadily improving. But not resolved yet. 5 chronic alcoholism, remains on the alcohol withdrawal protocol. 6 history of GI bleeding 7 exophytic kidney lesion, needs to have workup on outpatient basis, this was i ncidentally seen on CT of the abdomen and pelvis, will eventually need outpatient follow-up with urology. 8 acute anemia secondary to blood loss, received a total of 3 units of packed RBCs since admission. Hemoglobin today 9.4 9 status post successful extubation on 05/20/2019. Plan: Continue current medical treatment, continue Cleviprex for blood pressure control, will transition to oral antihypertensives when the patient is allowed to take medications by mouth, patient is starting to pass gas, but bowel sounds remain hypoactive, and he has not had a bowel movement yet, he remains on TPN. No nausea no vomiting, renal status is stable. Patient is on room air, denies any difficulty breathing. Will remain in the ICU, increase activity, ambulation around the room. Antibiotics per ID service recommendation I performed a history & physical examination of the patient and discussed their management with my nurse practitioner, Marii Leiva. I reviewed the nurse practitioner's note and agree with the documented findings and plan of care. Lung sounds are positive for clear breath sounds. The findings and the impression was discussed with the patient. I attest to the documentation by the nurse practitioner. Time with Patient: Less than 30
[2019-05-25] MEDS: PANTOPRAZOLE 40 MG/10 ML VIAL IV SCH ×2 (09:13→20:20)
[2019-05-25] MEDS: CEFEPIME 2 GM in SODIUM CHLORIDE 0.9% 100 ML IVPB SCH ×2 (10:22→20:19)
--- NOTE | 2019-05-25 10:24 | US ---
EXAMINATION TYPE: US kidneys/renal and bladder DATE OF EXAM: 05/25/2019 COMPARISON: CT 05/16/2019 CLINICAL HISTORY: cierra. EXAM MEASUREMENTS: Right Kidney: 8.4 x 4.4 x 4.0 cm Left Kidney: 12.5 x 7.6 x 7.2 cm Post Void Residual Volume: Not calculated mL Right Kidney: Atrophy, upper pole cyst =1.0 x 0.9 x 0.8 cm, Upper/mid pole solid area = 1.7 x 1.5 x 1 .4 cm Left Kidney: No hydronephrosis or masses seen, Suboptimal visualization of upper pole. Bladder: empty with lea catheter seen. Bilateral Jets seen: No Normal Post Void Residual: Not calculated. There is no evidence for hydronephrosis at this point in time. No nephrolithiasis is seen. No polo s are identified. The urinary bladder is nondistended with Lea catheter placement and not evaluate d. Sub optimal exam due to patient sitting in chair with limited ability to make positional changes. IMPRESSION: 1. Right renal atrophy and solid appearing 1.7 cm upper pole lesion. This was highly suspicious on th e CT dated 05/16/2019 and urologic consult with consideration for biopsy is recommended. 2. No hydronephrosis of either kidney.
[2019-05-25] MEDS ORDERED: METOPROLOL TARTRATE 5 MG/5 ML VIAL IVP SCH (10:45)
--- NOTE | 2019-05-25 10:49 | P.PN ---
Subjective Progress Note Date: 05/25/19 Principal diagnosis: The patient is a 63-year-old male that was admitted for septic shock secondary to perforated duodenal ulcer with subsequent peritonitis in the settin g of acute kidney injury secondary to ATN prerenal secondary to septic shock after presenting with abdominal pain and hypotension. Initial CT showed large amount of intraperitoneal air with a large amount of ascites and scattered small bowel wall thickening secondary to cystitis and nonspecific enteritis. The patient was aggressively fluid resuscitated and received 2 units of packed RBCs secondary to being found anemic. The patient had Urgent expiratory laparotomy requiring antrectomy and Billroth II gastrojejunostomy. Despite aggressive fluid hydration the patient continued to be hypertensive and was started on pressors with levophed and was maintained on mechanical ventilator with prop ofol for sedation and pulmonary managing his vent settings. The patient was continued on empiric IV antibiotics with Zosyn and Diflucan as suggested by ID. There with treatment the patient's creatinine gradually trended down from 6 is continued on IV fluids. Patient extubated 05/20/19 and was transitioned to BiPAP now currently on RA, patient afebrile with continues to be tachycardic. Blood pressure controlled with Cleviprex currently at 2mg/hr, patient reporting history of hypertension but was noncompliant with medical therapy. White count down to 16.8 , hemoglobin down to 9.1 , creatinine 2.05, serum potassium 4.0. Chest x-ray showing continued moderate bilateral pleural effusions with adjacent atelectasis . Echocardiogram results show preserved LVEF, without any significant valvular abnormalities. Patient continues on TPN, Patient denying any pain, patient reports that he's been passing gas but has not yet had a bowel movement. Continues on ice chips Patient continues to have significant output of his NG tube to LTIS, using IS and pulling approx 1250 ml Objective - Vital Signs Vital signs: Vital Signs Temp 98.5 F 05/25/19 08:00 Pulse 122 H 05/25/19 10:00 Resp 18 05/25/19 10:00 BP 125/78 05/25/19 10:00 Pulse Ox 93 L 05/25/19 10:00 Intake & Output 05/24/19 05/25/19 05/25/19 18:59 06:59 18:59 Intake Total 0310.264 3685.7 527.933 Output Total 3820 1655 435 Balance -2460.000 549.7 92.933 Weight 85.7 kg 82.1 kg Intake: IV 1210 700 520 0.9 NACL 400 550 200 Cefepime 2 gm In Sodium 100 100 100 Chloride 0.9% 100 ml @ 200 mls/hr IVPB Q12HR [facility] Rx#:[id number] DAPTOmycin 500 mg In 50 Sodium Chloride 0.9% 50 ml @ 100 mls/hr IVPB Q24H [facility] Rx#:[id number] Fluconazole in NaCl,Iso- 100 Osm 200 mg In Saline 1 100ml.bag @ 100 mls/hr IVPB DAILY [facility] Rx#: [id number] Mvi, Adult No.4 with Vit 360 120 K 10 ml Trace (Conc-1Ml/ Dose) 1 ml Parenteral Electrolytes 20 ml Potassium Chloride 30 meq In Amino Acid 5%-D15w 1, 000 ml @ 60 mls/hr IV . [id number] [facility] Rx#:[id number] metroNIDAZOLE-NS PMX 500 200 50 100 mg In Saline 1 100ml.bag @ 100 mls/hr IVPB Q8HR [facility] Rx#:[id number] Intake, IV Titration 626.793 0504.7 7.933 Amount Clevidipine Butyrate 25 150.000 59.7 7.933 mg In Empty Bag 1 bag @ 4 MG/HR 8 mls/hr IV . Q6H15M [facility] Rx#:[id number] Mvi, Adult No.4 with Vit 1045 K 10 ml Trace (Conc-1Ml/ Dose) 1 ml Parenteral Electrolytes 20 ml Potassium Chloride 30 meq In Amino Acid 5%-D15w 1, 000 ml @ 60 mls/hr IV . [id number] [facility] Rx#:[id number] Oral 400 Output: Gastric Drainage 1650 300 Drainage 370 30 Anterior Abdomen 370 30 Urine 1800 1325 435 Other: Voiding Method Indwelling Catheter Indwelling Catheter ABP, PAP, CO, CI - Last Documented Arterial Blood Pressure 137/59 - Exam Constitutional: Awake alert Eyes: Anicteric sclerae, moist conjunctiva, no lid-lag, PERRLA ENMT: NC/AT,Oropharynx clear, no erythema, exudates Neck:Supple, FROM, no masses, or JVD, No carotid bruits; No thyromegaly Lungs: Diminished in the bases, appears unlabored currently on high flow at 4 L via nasal cannula Cardiovascular: Heart regular in rate and rhythm, No murmurs, gallops, or rubs Abdominal: Soft distended nontender, hypoactive bowel sounds Skin: Normal temperature, tone, texture, turgor, No induration No subcutaneous nodules, No rash, lesions, No ulcers Extremities:No digital cyanosis No clubbing, Pedal pulses intact and symmetrical Radial pulses intact and symmetrical Normal gait and station, No calf tenderness, +2 pitting edema, noted scrotal edema Psychiatric: Alert and oriented to person, place and time, Appropriate affect Intact judgement Neuro: Follow simple commands no gross focal deficits - Labs CBC & Chem 7: 05/25/19 10:50 05/25/19 04:35 Labs: Abnormal Lab Results - Last 24 Hours (Table) 05/24/19 05/24/19 05/25/19 Range/Units 11:40 18:42 00:03 Chloride (98-107) mmol/L Carbon Dioxide (22-30) mmol/L BUN (9-20) mg/dL Creatinine (0.66-1.25) mg/dL Glucose (74-99) mg/dL POC Glucose (mg/dL) 115 H 109 H 131 H (75-99) mg/dL Calcium (8.4-10.2) mg/dL ALT (21-72) U/L Total Protein (6.3-8.2) g/dL Albumin (3.5-5.0) g/dL 05/25/19 05/25/19 Range/Units 04:35 05:50 Chloride 113 H (98-107) mmol/L Carbon Dioxide 20 L (22-30) mmol/L BUN 53 H (9-20) mg/dL Creatinine 2.05 H (0.66-1.25) mg/dL Glucose 112 H (74-99) mg/dL POC Glucose (mg/dL) 125 H (75-99) mg/dL Calcium 8.2 L (8.4-10.2) mg/dL ALT 73 H (21-72) U/L Total Protein 5.2 L (6.3-8.2) g/dL Albumin 2.3 L (3.5-5.0) g/dL Microbiology - Last 24 Hours (Table) 05/23/19 13:30 Blood Culture - Preliminary Blood No Growth after 24 hours 05/23/19 13:00 Blood Culture - Preliminary Blood No Growth after 24 hours Assessment and Plan Assessment: Septic shock * Secondary to perforated viscus with subsequent peritonitis * Resolved patient no longer requiring pressors blood pressure is actually elevated today, has good urine output * afebrile overnight, L IJ discontinued due to suspected infection (Cx pending) PICC placed 05/24 * Peritoneal culture growing Klebsiella oxytoca and nonhemolytic strep * Currently on antibiotic regimen currently on cefepime and Flagyl, daptomyicn added yesterday favored over Vancomycin due to increased risk of nephrotoxicity Acute respiratory failure with hypoxia * Secondary to septic shock due to perforated discus with subsequent abdominal peritonitis * Extubated yesterday currently on RA * Chest x-ray showing moderate bilateral pleural effusions Perforated viscus * POD #8 status post exploratory laparoscopy antrectomy and Billroth II gastrojejunostomy * NPO on TPN at 60 cc/hr * continue w/ prokinetic Reglan Acute kidney injury secondary to ATN * ATN. Prerenal due to severe septic shock * Creatinine trending down nicely to 2 from 6 * Continue current IV fluids * Metabolic acidosis now resolved * renal following, US indicating right renal atrophy and a solid-appearing 1.7 cm upper pole lesion urology consult placed Hypertensive urgency * Resolved * Blood pressure controlled on Cleviprex * continue on IV metoprolol in hopes to wean Cleviprex Normocytic anemia * Secondary to upper GI bleed status post perforated duodenal ulcer * Status post 3 unit packed RBC transfusion hemoglobin stable at 9.1 g Hypomagnesemia * resolved * continue to monitor peripheral edema * Secondary to volume overload, echocardiogram showing normal preserved ejection fraction * Significant overall positive fluid balance negative over the last several days Disposition * Patient still critical continue to monitor closely * Patient improving steadily
[2019-05-25] MEDS: FLUCONAZOLE IN NACL,ISO-OSM 200 MG in SALINE 1 100ML.BAG IVPB SCH (11:06)
[2019-05-25 11:08] LABS: Anisocytosis Slight; Basophils # (A) 0.2 k/uL (0-0.2); Basophils % (A) 1 %; Eosinophils # (A) 0.1 k/uL (0-0.7); Eosinophils % (A) 1 %; HCT 24.9 % (39.0-53.0); Hypochromasia Marked; Lymphocytes # (A) 0.6 k/uL (1.0-4.8); Lymphocytes % (A) 4 %; MCH 27.2 pg (25.0-35.0); MCHC 30.8 g/dL (31.0-37.0); MCV 88.5 fL (80.0-100.0); Mean Platelet Volume 8.2; Monocytes # (A) 0.8 k/uL (0-1.0); Monocytes % (A) 6 %; Neutrophils # (A) 11.8 k/uL (1.3-7.7); Neutrophils % (A) 85 %; Platelet Count 489 k/uL (150-450); Poikilocytosis Slight; RBC 2.82 m/uL (4.30-5.90); RDW 17.5 % (11.5-15.5); WBC 13.8 k/uL (3.8-10.6)
[2019-05-25 11:11] LABS: HGB 7.7 gm/dL (13.0-17.5)
[2019-05-25 12:15] LABS: Glucose,Whole Blood 78 mg/dL (75-99)
[2019-05-25] MEDS: DAPTOmycin 500 MG in SODIUM CHLORIDE 0.9% 50 ML IVPB SCH (12:46)
[2019-05-25] MEDS ORDERED: BISACODYL 10 MG SUPP RECTAL STA (14:03)
--- NOTE | 2019-05-25 14:48 | PN ---
PROGRESS NOTE DATE OF SERVICE: 05/25/2019 REASON FOR FOLLOWUP: 1. Secondary peritonitis from perforated peptic ulcer disease. 2. Persistently elevated white count. INTERVAL HISTORY: The patient is currently afebrile. The patient is breathing comfortably. The patient denies having any chest pain. Occasional cough. No nausea. No vomiting. Denies any abdominal pain. Did not have any bowel movement. PHYSICAL EXAMINATION: Blood pressure 147/91 with a pulse of 100, temperature 98, he is 95% on room air. General description is a middle-aged male lying in bed in no distress. RESPIRATORY SYSTEM: Unlabored breathing with decreased breath sounds at the base. No wheeze. HEART: S1, S2. Regular rate and rhythm. ABDOMEN: Soft. Mildly distended. No guarding or rigidity. LABS: Hemoglobin is 7.7, white count 13.8. Blood culture has been negative so far. DIAGNOSTIC IMPRESSION AND PLAN: Patient with secondary peritonitis from perforated peptic ulcer disease, status post operative repair of the same with persistently elevated white count, which could have been related to the central line which has been discontinued. Patient at this time to continue with cefepime, Flagyl, and daptomycin as white count has improved. We will wait for the culture to finalize. at the bedside, questions answered. MMODL / IJN: [id number] /
--- NOTE | 2019-05-25 15:11 | P.GSCN ---
History of Present Illness Consult date: 05/25/19 Reason for Consult: left renal mass History of present illness: The patient is a 63-year-old gentleman who several days ago presented to the [facility] with an acute perforated duodenal ulcer intra-abdominal sepsis hypotension. He underwent emergent operation repair. He has a slow recuperation due to the hypovolemic and septic shock. He had a CAT scan of the abdomen on initial evaluation where the radiologist suspected a 1.3 cm left upper pole lesion worrisome for a malignancy. He had an ultrasound yesterday that had suboptimal visualization of the left upper pole. We were asked to see the patient because of the possible abnormality of the left kidney. The patient is interviewed at the bedside. The history is taken from the patient and his . There is no urologic history whatsoever. There is no history of urine infection kidney injury kidney failure hematuria previous urologic surgery. The right kidney is somewhat atrophic. There is there appears to be some scarring of the left kidney. I had an opportunity to review the computed tomography scan with the patient and with radiology. His last creatinine was 2. His creatinine on admission was 6. He did have rheumatic fever as a child. There is no other urologic history. Review of Systems All systems: negative - Constitutional Denies fever, Denies weight loss - EENT Eyes: denies blurred vision Ears, nose, mouth and throat: Denies dysphagia - Cardiovascular Denies chest pain, Denies shortness of breath - Respiratory Denies cough, Denies 7 - Gastrointestinal Reports as per HPI - Genitourinary Denies dysuria, Denies hematuria - Integumentary Denies rash, Denies unusual bruising - Neurological Denies headaches, Denies syncope - Hematologic/Lymphatic Denies easy bleeding, Denies easy bruising Past Medical History Past Medical History: GERD/Reflux, GI Bleed Additional Past Medical History / Comment(s): History of GI bleed back in 2013 and he was found to have polyps and hiatal hernia. History of Any Multi-Drug Resistant Organisms: None Reported Past Surgical History: No Surgical Hx Reported Past Anesthesia/Blood Transfusion Reactions: No Reported Reaction Past Psychological History: No Psychological Hx Reported Smoking Status: Former smoker Past Alcohol Use History: Daily Past Drug Use History: Marijuana - Past Family History Mother Family Medical History: Cancer Additional Family Medical History / Comment(s): lung cancer. Medications and Allergies Home Medications Medication Instructions Recorded Confirmed Type No Known Home Medications 05/16/19 05/16/19 History Allergies Allergy/AdvReac Type Severity Reaction Status Date / Time No Known Allergies Allergy Verified 05/16/19 11:05 Surgical - Exam Vital Signs Pulse Resp BP Pulse Ox 105 H 16 99/58 99 05/15/19 23:15 05/15/19 23:15 05/15/19 23:15 05/15/19 23:15 - General well developed, well nourished, no distress - Eyes PERRL - ENT no hearing loss - Neck no masses, trachea midline - Respiratory normal expansion, normal respiratory effort - Cardiovascular Rhythm: regular - Abdomen The patient has a nasogastric tube. Abdomen: soft, distended - Genitourinary Indwelling catheter normal penis with no external lesions, testicles present - Integumentary no growths - Neurologic normal coordination, normal sensation - Musculoskeletal normal posture - Psychiatric oriented to time, oriented to person, oriented to place, speech is normal, memory intact Results - Labs 05/25/19 10:50 05/25/19 04:35 Abnormal Lab Results - Last 24 Hours (Table) 05/24/19 05/25/19 05/25/19 Range/Units 18:42 00:03 04:35 WBC (3.8-10.6) k/uL RBC (4.30-5.90) m/uL Hgb (13.0-17.5) gm/dL Hct (39.0-53.0) % MCHC (31.0-37.0) g/dL RDW (11.5-15.5) % Plt Count (150-450) k/uL Neutrophils # (1.3-7.7) k/uL Lymphocytes # (1.0-4.8) k/uL Chloride 113 H (98-107) mmol/L Carbon Dioxide 20 L (22-30) mmol/L BUN 53 H (9-20) mg/dL Creatinine 2.05 H (0.66-1.25) mg/dL Glucose 112 H (74-99) mg/dL POC Glucose (mg/dL) 109 H 131 H (75-99) mg/dL Calcium 8.2 L (8.4-10.2) mg/dL ALT 73 H (21-72) U/L Total Protein 5.2 L (6.3-8.2) g/dL Albumin 2.3 L (3.5-5.0) g/dL 05/25/19 05/25/19 Range/Units 05:50 10:50 WBC 13.8 H (3.8-10.6) k/uL RBC 2.82 L (4.30-5.90) m/uL Hgb 7.7 L (13.0-17.5) gm/dL Hct 24.9 L (39.0-53.0) % MCHC 30.8 L (31.0-37.0) g/dL RDW 17.5 H (11.5-15.5) % Plt Count 489 H (150-450) k/uL Neutrophils # 11.8 H (1.3-7.7) k/uL Lymphocytes # 0.6 L (1.0-4.8) k/uL Chloride (98-107) mmol/L Carbon Dioxide (22-30) mmol/L BUN (9-20) mg/dL Creatinine (0.66-1.25) mg/dL Glucose (74-99) mg/dL POC Glucose (mg/dL) 125 H (75-99) mg/dL Calcium (8.4-10.2) mg/dL ALT (21-72) U/L Total Protein (6.3-8.2) g/dL Albumin (3.5-5.0) g/dL Microbiology - Last 24 Hours (Table) 05/24/19 10:45 Blood Culture - Preliminary Blood No Growth after 24 hours 05/23/19 13:30 Blood Culture - Preliminary Blood No Growth after 24 hours 05/23/19 13:00 Blood Culture - Preliminary Blood No Growth after 24 hours Diabetes panel 05/25/19 Range/Units 04:35 Sodium 142 (137-145) mmol/L Potassium 4.0 (3.5-5.1) mmol/L Chloride 113 H (98-107) mmol/L Carbon Dioxide 20 L (22-30) mmol/L BUN 53 H (9-20) mg/dL Creatinine 2.05 H (0.66-1.25) mg/dL Glucose 112 H (74-99) mg/dL Calcium 8.2 L (8.4-10.2) mg/dL AST 47 (17-59) U/L ALT 73 H (21-72) U/L Alkaline Phosphatase 109 (38-126) U/L Total Protein 5.2 L (6.3-8.2) g/dL Albumin 2.3 L (3.5-5.0) g/dL Calcium panel 05/25/19 Range/Units 04:35 Calcium 8.2 L (8.4-10.2) mg/dL Phosphorus 4.5 (2.5-4.5) mg/dL Albumin 2.3 L (3.5-5.0) g/dL Pituitary panel 05/25/19 Range/Units 04:35 Sodium 142 (137-145) mmol/L Potassium 4.0 (3.5-5.1) mmol/L Chloride 113 H (98-107) mmol/L Carbon Dioxide 20 L (22-30) mmol/L BUN 53 H (9-20) mg/dL Creatinine 2.05 H (0.66-1.25) mg/dL Glucose 112 H (74-99) mg/dL Calcium 8.2 L (8.4-10.2) mg/dL Adrenal panel 05/25/19 Range/Units 04:35 Sodium 142 (137-145) mmol/L Potassium 4.0 (3.5-5.1) mmol/L Chloride 113 H (98-107) mmol/L Carbon Dioxide 20 L (22-30) mmol/L BUN 53 H (9-20) mg/dL Creatinine 2.05 H (0.66-1.25) mg/dL Glucose 112 H (74-99) mg/dL Calcium 8.2 L (8.4-10.2) mg/dL Total Bilirubin 1.0 (0.2-1.3) mg/dL AST 47 (17-59) U/L ALT 73 H (21-72) U/L Alkaline Phosphatase 109 (38-126) U/L Total Protein 5.2 L (6.3-8.2) g/dL Albumin 2.3 L (3.5-5.0) g/dL - Imaging CT scan - abdomen: report reviewed, image reviewed CT scan - pelvis: report reviewed, image reviewed US - abdomen: report reviewed, image reviewed Assessment and Plan Assessment: Impression: Perforated duodenal ulcer status post surgical repair. Questionable left renal abnormality. Apparent atrophic right kidney. Right renal cyst. Recommendations: Not convinced this is a true mass of the kidney. To me it looks like focal pyelonephritis. There is some scarring of the left upper pole which would make the focal inflammation look even worse. I did review this with radiology and they concur. Given his overall condition and the question of the severity of this lesion I recommend nothing to be done at this point in time. I should see him in the office several weeks after discharge or repeat evaluation should be done. The patient and his understand and concur. Thank you for allowing me to participate in this patients care. Time with Patient: Greater than 30
[2019-05-25] MEDS: METOPROLOL TARTRATE 5 MG/5 ML VIAL IVP SCH ×2 (16:24→23:53)
--- NOTE | 2019-05-25 16:38 | P.PN ---
Subjective Progress Note Date: 05/25/19 Patient was up to chair today. No complaints. BOGDAN serosang. Passing flatus no significant BM Objective - Vital Signs Vital signs: Vital Signs Temp 98.2 F 05/25/19 12:00 Pulse 121 H 05/25/19 15:38 Resp 18 05/25/19 15:38 BP 146/77 05/25/19 15:00 Pulse Ox 93 L 05/25/19 15:00 Intake & Output 05/24/19 05/25/19 05/25/19 18:59 06:59 18:59 Intake Total 8677.229 2351.7 965.499 Output Total 3820 1655 925 Balance -2460.000 549.7 40.499 Weight 85.7 kg 82.1 kg Intake: IV 1210 700 940 0.9 NACL 400 550 350 Cefepime 2 gm In Sodium 100 100 100 Chloride 0.9% 100 ml @ 200 mls/hr IVPB Q12HR [facility] Rx#:[id number] DAPTOmycin 500 mg In 50 50 Sodium Chloride 0.9% 50 ml @ 100 mls/hr IVPB Q24H [facility] Rx#:[id number] Fluconazole in NaCl,Iso- 100 100 Osm 200 mg In Saline 1 100ml.bag @ 100 mls/hr IVPB DAILY [facility] Rx#: [id number] Mvi, Adult No.4 with Vit 360 240 K 10 ml Trace (Conc-1Ml/ Dose) 1 ml Parenteral Electrolytes 20 ml Potassium Chloride 30 meq In Amino Acid 5%-D15w 1, 000 ml @ 60 mls/hr IV . [id number] [facility] Rx#:[id number] metroNIDAZOLE-NS PMX 500 200 50 100 mg In Saline 1 100ml.bag @ 100 mls/hr IVPB Q8HR [facility] Rx#:[id number] Intake, IV Titration 281.999 0167.7 25.499 Amount Clevidipine Butyrate 25 150.000 59.7 25.499 mg In Empty Bag 1 bag @ 4 MG/HR 8 mls/hr IV . Q6H15M [facility] Rx#:[id number] Mvi, Adult No.4 with Vit 1045 K 10 ml Trace (Conc-1Ml/ Dose) 1 ml Parenteral Electrolytes 20 ml Potassium Chloride 30 meq In Amino Acid 5%-D15w 1, 000 ml @ 60 mls/hr IV . [id number] [facility] Rx#:[id number] Oral 400 Output: Gastric Drainage 1650 300 Drainage 370 30 15 Anterior Abdomen 370 30 15 Urine 1800 1325 910 Other: Voiding Method Indwelling Catheter Indwelling Catheter Indwelling Catheter ABP, PAP, CO, CI - Last Documented Arterial Blood Pressure 137/59 - Constitutional General appearance: Present: cooperative - Respiratory Details: nonlabored - Cardiovascular Heart rate: 115 Rhythm: regular - Gastrointestinal Gastrointestinal Comment(s): S/ND/NT BOGDAN serous NGT bilious Incision CDI - Psychiatric Psychiatric: Present: A&O x's 3 - Labs CBC & Chem 7: 05/25/19 10:50 05/25/19 04:35 Labs: Abnormal Lab Results - Last 24 Hours (Table) 05/24/19 05/25/19 05/25/19 Range/Units 18:42 00:03 04:35 WBC (3.8-10.6) k/uL RBC (4.30-5.90) m/uL Hgb (13.0-17.5) gm/dL Hct (39.0-53.0) % MCHC (31.0-37.0) g/dL RDW (11.5-15.5) % Plt Count (150-450) k/uL Neutrophils # (1.3-7.7) k/uL Lymphocytes # (1.0-4.8) k/uL Chloride 113 H (98-107) mmol/L Carbon Dioxide 20 L (22-30) mmol/L BUN 53 H (9-20) mg/dL Creatinine 2.05 H (0.66-1.25) mg/dL Glucose 112 H (74-99) mg/dL POC Glucose (mg/dL) 109 H 131 H (75-99) mg/dL Calcium 8.2 L (8.4-10.2) mg/dL ALT 73 H (21-72) U/L Total Protein 5.2 L (6.3-8.2) g/dL Albumin 2.3 L (3.5-5.0) g/dL 05/25/19 05/25/19 Range/Units 05:50 10:50 WBC 13.8 H (3.8-10.6) k/uL RBC 2.82 L (4.30-5.90) m/uL Hgb 7.7 L (13.0-17.5) gm/dL Hct 24.9 L (39.0-53.0) % MCHC 30.8 L (31.0-37.0) g/dL RDW 17.5 H (11.5-15.5) % Plt Count 489 H (150-450) k/uL Neutrophils # 11.8 H (1.3-7.7) k/uL Lymphocytes # 0.6 L (1.0-4.8) k/uL Chloride (98-107) mmol/L Carbon Dioxide (22-30) mmol/L BUN (9-20) mg/dL Creatinine (0.66-1.25) mg/dL Glucose (74-99) mg/dL POC Glucose (mg/dL) 125 H (75-99) mg/dL Calcium (8.4-10.2) mg/dL ALT (21-72) U/L Total Protein (6.3-8.2) g/dL Albumin (3.5-5.0) g/dL Microbiology - Last 24 Hours (Table) 11 13:30 Blood Culture - Preliminary Blood No Growth after 48 hours 05/23/19 13:00 Blood Culture - Preliminary Blood No Growth after 48 hours 05/24/19 10:45 Blood Culture - Preliminary Blood No Growth after 24 hours Assessment and Plan Assessment: POD#9 ex lap antrectomy with billroth II gastrojejunostomy secondary to perforated duodenal ulcer Plan: Continue NPO, NGT to be clamped today, patient is having significant bilious output which is partially to be expected secondary to the nature of the billroth II gastrojejunostomy, if patient tolerates having NGT clamped overnight and continues to have bowel function NGT will be pulled. Continue with ICU care per critical care and medicine. IV ABX per ID. Cont. TPN. OOBTC, encouraged ambulation and IS.
[2019-05-25 18:11] LABS: Glucose,Whole Blood 92 mg/dL (75-99)
[2019-05-25] MEDS: NOREPINEPHRINE 8 MG in SODIUM CHLORIDE 0.9% 250 ML IV SCH (19:09)
[2019-05-25] MEDS: MVI, ADULT NO.4 WITH VIT K 10 ML, TRACE (CONC-1ML/DOSE) 1 ML, PARENTERAL ELECTROLYTES 2... IV SCH ×5 (23:53)
[2019-05-26] MEDS: SODIUM CHLORIDE 0.9% 1,000 ML IV SCH ×2 (00:17→21:23)
[2019-05-26 00:26] LABS: Glucose,Whole Blood 133 mg/dL (75-99)
[2019-05-26] MEDS: HYDROmorphone 1 MG/ML 1 ML SYRINGE IVP PRN (00:26)
[2019-05-26] MEDS: CLEVIDIPINE BUTYRATE 25 MG in EMPTY BAG 1 BAG IV SCH ×9 (00:29→23:00)
[2019-05-26 04:52] LABS: Anisocytosis Slight; HCT 27.7 % (39.0-53.0); HGB 8.5 gm/dL (13.0-17.5); Hypochromasia Marked; MCH 27.5 pg (25.0-35.0); MCHC 30.8 g/dL (31.0-37.0); MCV 89.2 fL (80.0-100.0); Mean Platelet Volume 7.7; Platelet Count 499 k/uL (150-450); Poikilocytosis Slight; RBC 3.11 m/uL (4.30-5.90); WBC 19.8 k/uL (3.8-10.6)
[2019-05-26 05:06] LABS: Calcium 8.3 mg/dL (8.4-10.2); Potassium 3.9 mmol/L (3.5-5.1)
[2019-05-26] MEDS: METOPROLOL TARTRATE 5 MG/5 ML VIAL IVP SCH ×3 (06:25→17:41)
[2019-05-26] MEDS: METOCLOPRAMIDE 5 MG/ML 2 ML VIAL IVP SCH ×3 (06:26→18:06)
--- NOTE | 2019-05-26 07:40 | P.CRDCN ---
History of Present Illness Consult date: 05/26/19 History of present illness: This is a 63-year-old gentleman with past medical history significant for hypertension who we requested to see for consult earlier today for further evaluation of sinus tachycardia. The patient currently is in the intensive care unit. The history started on May 162018 when he presented with abdominal discomfort and it was noted the work up that the patient does have pneumoperitoneum. Subsequently the patient underwent an exploratory laparotomy he was found to have perforated duodenal ulcer. At that point the patient independent antrectomy and gastrojejunostomy. We requested to see the patient today for sinus tachycardia. wo days after the procedure, on May 18, the patient was extubated.The patient currently is extubated and he is hemodynamically stable. He is not on any vasopressors. His hemoglobin is dropping to 7.1 this morning. It's slightly improved compared to yesterday. Beside that there is a possible component of sepsis related to perforated ulcer. The patient stated that he does have history of hypertension and he received metoprolol in the past. Currently he denies any symptoms of chest pain or chest discomfort, shortness of breath, or feeling of heart racing and fluttering. He is in sinus rhythm with a resting heart rate around 100 bpm and sometimes goes 110 beats per minutes. The patient denies any history of coronary artery disease or congestive heart failure or any cardiac arrhythmia and he stated that he never seen a digital computer operator in the past. During this admission an echocard iogram was performed and revealed normal LV function with mild MR and mild TR. Currently the patient is on metoprolol IV. He still nothing by mouth possibly only for today and possibly he was nothing by mouth after today. Past Medical History Past Medical History: GERD/Reflux, GI Bleed Additional Past Medical History / Comment(s): History of GI bleed back in 2013 and he was found to have polyps and hiatal hernia. History of Any Multi-Drug Resistant Organisms: None Reported Past Surgical History: No Surgical Hx Reported Past Anesthesia/Blood Transfusion Reactions: No Reported Reaction Past Psychological History: No Psychological Hx Reported Smoking Status: Former smoker Past Alcohol Use History: Daily Past Drug Use History: Marijuana - Past Family History Mother Family Medical History: Cancer Additional Family Medical History / Comment(s): lung cancer. Medications and Allergies Home Medications Medication Instructions Recorded Confirmed Type No Known Home Medications 05/16/19 05/16/19 History Allergies Allergy/AdvReac Type Severity Reaction Status Date / Time No Known Allergies Allergy Verified 05/16/19 11:05 Physical Exam Vitals: Vital Signs Temp Pulse Resp BP Pulse Ox 05/26/19 06:00 112 H 162/73 95 05/26/19 05:30 111 H 15 157/77 94 L 05/26/19 05:00 115 H 36 H 165/77 94 L 05/26/19 04:30 111 H 17 160/72 93 L 05/26/19 04:00 99.3 F 30 H 161/88 93 L 05/26/19 03:30 114 H 22 148/70 90 L 05/26/19 03:00 110 H 18 153/73 93 L 05/26/19 02:30 107 H 15 162/92 94 L 05/26/19 02:00 101 H 14 158/73 93 L 05/26/19 01:30 97 12 144/72 94 L 05/26/19 01:00 99 137/66 90 L 05/26/19 00:30 98.6 F 96 22 125/64 91 L 05/26/19 00:00 195/77 05/25/19 23:30 117 H 152/109 93 L 05/25/19 23:00 178/84 94 L 05/25/19 22:30 121 H 178/78 92 L 05/25/19 22:12 122 H 143/83 91 L 05/25/19 22:00 118 H 165/76 92 L 05/25/19 21:30 122 H 167/69 90 L 05/25/19 21:00 120 H 17 173/74 92 L 05/25/19 20:30 123 H 26 H 154/77 92 L 05/25/19 20:00 99.3 F 115 H 21 173/77 93 L 05/25/19 19:30 120 H 21 153/79 94 L 05/25/19 19:00 113 H 17 150/92 99 05/25/19 18:50 112 H 21 05/25/19 18:30 112 H 22 160/90 93 L 05/25/19 18:00 109 H 16 143/73 95 05/25/19 17:30 105 H 17 152/73 94 L 05/25/19 17:00 99 14 145/77 94 L 05/25/19 16:30 98 18 100/80 96 05/25/19 16:00 134 H 20 134/73 92 L 05/25/19 15:38 121 H 18 05/25/19 15:30 129 H 20 135/84 05/25/19 15:28 129 H 18 05/25/19 15:00 130 H 24 146/77 93 L 05/25/19 14:30 118 H 20 143/72 95 05/25/19 14:00 121 H 21 174/83 90 L 05/25/19 13:30 117 H 24 132/73 92 L 05/25/19 13:00 121 H 23 132/73 93 L 05/25/19 12:30 115 H 17 146/80 92 L 05/25/19 12:00 98.2 F 111 H 16 159/77 94 L 05/25/19 11:57 108 H 05/25/19 11:42 100 05/25/19 11:30 100 18 152/88 95 05/25/19 11:00 101 H 25 H 147/91 95 05/25/19 10:30 112 H 17 143/77 94 L 05/25/19 10:00 122 H 18 125/78 93 L 05/25/19 09:30 116 H 13 149/96 95 05/25/19 09:00 113 H 20 127/90 95 05/25/19 08:30 115 H 22 149/88 96 05/25/19 08:00 98.5 F 111 H 20 167/87 95 Intake and Output 05/25/19 05/26/19 05/26/19 22:59 06:59 14:59 Intake Total 5351.748 3510.467 Output Total 950 1500 Balance 840.533 -372.533 Intake: IV 700 500 0.9 NACL 350 400 DAPTOmycin 500 mg In 50 Sodium Chloride 0.9% 50 ml @ 100 mls/hr IVPB Q24H [facility] Rx#:[id number] Mvi, Adult No.4 with Vit 300 K 10 ml Trace (Conc-1Ml/ Dose) 1 ml Parenteral Electrolytes 20 ml Potassium Chloride 30 meq In Amino Acid 5%-D15w 1, 000 ml @ 60 mls/hr IV . [id number] [facility] Rx#:[id number] metroNIDAZOLE-NS PMX 500 100 mg In Saline 1 100ml.bag @ 100 mls/hr IVPB Q8HR [facility] Rx#:[id number] Intake, IV Titration 90.533 127.467 Amount Clevidipine Butyrate 25 90.533 127.467 mg In Empty Bag 1 bag @ 4 MG/HR 8 mls/hr IV . Q6H15M [facility] Rx#:[id number] Oral 1000 500 Output: Gastric Drainage 400 100 Urine 550 1400 Other: Voiding Method Urinal Urinal # Voids 0 0 # Bowel Movements 1 1 - Constitutional General appearance: no acute distress - Respiratory Respiratory: bilateral: diminished - Cardiovascular Rhythm: regular Heart sounds: normal: S1, S2 Results 05/26/19 04:25 05/26/19 04:29 CBC 05/25/19 05/26/19 Range/Units 10:50 04:25 WBC 13.8 H 19.8 H (3.8-10.6) k/uL RBC 2.82 L 3.11 L (4.30-5.90) m/uL Hgb 7.7 L 8.5 L (13.0-17.5) gm/dL Hct 24.9 L 27.7 L (39.0-53.0) % Plt Count 489 H 499 H (150-450) k/uL Comprehensive Metabolic Panel 05/26/19 Range/Units 04:29 Sodium 141 (137-145) mmol/L Potassium 3.9 (3.5-5.1) mmol/L Chloride 114 H (98-107) mmol/L Carbon Dioxide 19 L (22-30) mmol/L BUN 53 H (9-20) mg/dL Creatinine 1.94 H (0.66-1.25) mg/dL Glucose 136 H (74-99) mg/dL Calcium 8.3 L (8.4-10.2) mg/dL Current Medications Generic Name Dose Route Start Last Admin Trade Name Freq PRN Reason Stop Dose Admin Albuterol/Ipratropium 3 ml 05/16/19 07:41 Duoneb 0.5 Mg-3 Mg/3 Ml Soln INHALATION RT-Q2H PRN Shortness Of Breath Or Wheezing Albuterol/Ipratropium 3 ml 05/24/19 08:00 05/25/19 18:50 Duoneb 0.5 Mg-3 Mg/3 Ml Soln INHALATION 3 ml RT-QID [facility] Administration Heparin Sodium (Porcine) 5,000 unit 05/16/19 08:00 05/25/19 23:54 Heparin SQ 5,000 unit Q8HR [facility] Administration Hydromorphone HCl 1 mg 05/16/19 14:02 05/26/19 00:26 Dilaudid IVP 1 mg Q2HR PRN Administration Severe Pain Fluconazole/Sodium Chloride 100 mls @ 100 mls/hr 05/17/19 09:00 05/25/19 11:06 200 mg/ IV Solution IVPB 100 mls/hr DAILY [facility] Administration Norepinephrine Bitartrate 8 mg 258 mls @ 6.802 mls/hr 05/16/19 16:15 05/25/19 19:09 / Sodium Chloride IV Not Given .Q24H [facility] Protocol 0.05 MCG/KG/MIN Sodium Chloride 1,000 mls @ 50 mls/hr 05/18/19 11:02 05/26/19 00:17 Saline 0.9% IV 50 mls/hr .Q20H [facility] Administration Clevidipine 25 mg/ IV Solution 50 mls @ 8 mls/hr 05/20/19 09:30 05/26/19 06:26 IV 10 mg/hr .Q6H15M [facility] 20 mls/hr Administration Protocol 4 MG/HR Parenteral Vitamin Supplement 1,046 mls @ 60 mls/hr 05/22/19 17:30 05/25/19 23:53 10 ml/ Chromium/Copper/ IV 60 mls/hr Manganese/Seleni/Zn 1 ml/ .[id number] [facility] Administration Parenteral Electrolytes 20 ml/ Potassium Chloride 30 meq/ Amino Acids/Dextrose Cefepime HCl 2 gm/ Sodium 100 mls @ 200 mls/hr 05/22/19 21:00 05/25/19 20:19 Chloride IVPB 200 mls/hr Q12HR [facility] Administration Metronidazole 500 mg/ IV 100 mls @ 100 mls/hr 05/22/19 16:00 05/25/19 23:54 Solution IVPB 100 mls/hr Q8HR [facility] Administration Daptomycin 500 mg/ Sodium 50 mls @ 100 mls/hr 05/24/19 11:00 05/25/19 12:46 Chloride IVPB 100 mls/hr Q24H [facility] Administration Protocol Metoclopramide HCl 10 mg 05/16/19 07:00 05/26/19 06:26 Reglan IVP 10 mg Q6H [facility] Administration Metoprolol Tartrate 5 mg 05/25/19 16:30 05/26/19 06:25 Lopressor IVP 5 mg Q6HR [facility] Administration Miscellaneous Information 1 each 05/20/19 07:35 Potassium Per Protocol MISCELLANE DAILY PRN Per Protocol Protocol Morphine Sulfate 2 mg 05/16/19 01:06 05/21/19 21:19 Morphine Sulfate (Inj) IV 2 mg Q2HR PRN Administration Pain Scale 4 to 5 Naloxone HCl 0.2 mg 05/16/19 06:17 Narcan IV Q2M PRN Opioid Reversal Pantoprazole Sodium 40 mg 05/16/19 09:00 05/25/19 20:20 Protonix IV 40 mg BID [facility] Administration Sodium Chloride 10 ml 05/24/19 15:34 Saline Flush IV Q4HR PRN PICC Line Sodium Chloride 10 ml 05/31/19 09:00 Saline Flush IV WEEKLY [facility] Sodium Chloride 20 ml 05/24/19 15:34 Saline Flush IV Q4HR PRN PICC Line Intake and Output 05/25/19 05/26/19 05/26/19 22:59 06:59 14:59 Intake Total 4206.922 8519.467 Output Total 950 1500 Balance 840.533 -372.533 Intake: IV 700 500 0.9 NACL 350 400 DAPTOmycin 500 mg In 50 Sodium Chloride 0.9% 50 ml @ 100 mls/hr IVPB Q24H [facility] Rx#:[id number] Mvi, Adult No.4 with Vit 300 K 10 ml Trace (Conc-1Ml/ Dose) 1 ml Parenteral Electrolytes 20 ml Potassium Chloride 30 meq In Amino Acid 5%-D15w 1, 000 ml @ 60 mls/hr IV . [id number] [facility] Rx#:[id number] metroNIDAZOLE-NS PMX 500 100 mg In Saline 1 100ml.bag @ 100 mls/hr IVPB Q8HR [facility] Rx#:[id number] Intake, IV Titration 90.533 127.467 Amount Clevidipine Butyrate 25 90.533 127.467 mg In Empty Bag 1 bag @ 4 MG/HR 8 mls/hr IV . Q6H15M [facility] Rx#:[id number] Oral 1000 500 Output: Gastric Drainage 400 100 Urine 550 1400 Other: Voiding Method Urinal Urinal # Voids 0 0 # Bowel Movements 1 1 05/26/19 04:25 05/26/19 04:29 Assessment and Plan Assessment: Assessment #1 status post exploratory laparotomy for perforated peptic ulcer #2 possible sepsis #3 sinus tachycardia Plan #1 the sinus tachycardia is likely related to the anemia #2 agree to keep the patient on the current dose of metoprolol IV #3 I would switch to metoprolol by mouth once is not nothing by mouth any more #4 the echo was reviewed and showed normal LV function was mild MR and mild TR #5 obtain a TSH to rule out thyroid disorder #6 follow up with the patient
[2019-05-26] MEDS: PANTOPRAZOLE 40 MG/10 ML VIAL IV SCH ×2 (08:40→21:23)
[2019-05-26] MEDS: HEPARIN SODIUM,PORCINE 5,000 UNIT/ML 1 ML VIAL SQ SCH ×2 (08:40→17:41)
[2019-05-26] MEDS: IPRATROPIUM-ALBUTEROL 3 ML NEB INHALATION SCH ×4 (08:41→19:50)
[2019-05-26] MEDS: metroNIDAZOLE-NS PMX 500 MG in SALINE 1 100ML.BAG IVPB SCH ×2 (08:41→17:37)
--- NOTE | 2019-05-26 08:47 | P.PN ---
Subjective Patient is seen in follow-up for acute kidney injury. Renal function continues to improve. Creatinine 1.94 today. Patient had a large bowel movement last night. Denies chest pain or shortness of breath. Vital signs are stable. General: The patient appeared well nourished and normally developed. HEENT: Head exam is unremarkable. Neck is without jugular venous distension. NG tube noted. LUNGS: Lungs are clear to auscultation and percussion. Breath sounds decreased. HEART: Rate and Rhythm are regular. First and second heart sounds normal. No murmurs, rubs or gallops. ABDOMEN: Bowel sounds decreased. EXTREMITITES: No clubbing, cyanosis, or edema. Objective - Vital Signs Vital signs: Vital Signs Temp 99.3 F 05/26/19 04:00 Pulse 112 H 05/26/19 06:00 Resp 15 05/26/19 05:30 BP 162/73 05/26/19 06:00 Pulse Ox 95 05/26/19 06:00 Intake & Output 05/25/19 05/26/19 05/26/19 18:59 06:59 18:59 Intake Total 2395.365 2424.134 Output Total 1325 1900 Balance 1070.365 524.134 Weight 82.1 kg Intake: IV 1270 760 0.9 NACL 450 600 Cefepime 2 gm In Sodium 100 Chloride 0.9% 100 ml @ 200 mls/hr IVPB Q12HR [facility] Rx#:[id number] DAPTOmycin 500 mg In 100 Sodium Chloride 0.9% 50 ml @ 100 mls/hr IVPB Q24H [facility] Rx#:[id number] Fluconazole in NaCl,Iso- 100 Osm 200 mg In Saline 1 100ml.bag @ 100 mls/hr IVPB DAILY [facility] Rx#: [id number] Mvi, Adult No.4 with Vit 420 60 K 10 ml Trace (Conc-1Ml/ Dose) 1 ml Parenteral Electrolytes 20 ml Potassium Chloride 30 meq In Amino Acid 5%-D15w 1, 000 ml @ 60 mls/hr IV . [id number] [facility] Rx#:[id number] metroNIDAZOLE-NS PMX 500 100 100 mg In Saline 1 100ml.bag @ 100 mls/hr IVPB Q8HR [facility] Rx#:[id number] Intake, IV Titration 1125.365 164.134 Amount Clevidipine Butyrate 25 79.365 164.134 mg In Empty Bag 1 bag @ 4 MG/HR 8 mls/hr IV . Q6H15M [facility] Rx#:[id number] Mvi, Adult No.4 with Vit 1046 K 10 ml Trace (Conc-1Ml/ Dose) 1 ml Parenteral Electrolytes 20 ml Potassium Chloride 30 meq In Amino Acid 5%-D15w 1, 000 ml @ 60 mls/hr IV . [id number] [facility] Rx#:[id number] Oral 1500 Output: Gastric Drainage 400 100 Drainage 15 Anterior Abdomen 15 Urine 910 1800 Other: Voiding Method Indwelling Catheter Urinal # Voids 0 0 # Bowel Movements 1 1 ABP, PAP, CO, CI - Last Documented Arterial Blood Pressure 137/59 - Labs CBC & Chem 7: 05/26/19 04:25 05/26/19 04:29 Labs: Abnormal Lab Results - Last 24 Hours (Table) 05/25/19 05/26/19 05/26/19 Range/Units 10:50 00:15 04:25 WBC 13.8 H 19.8 H (3.8-10.6) k/uL RBC 2.82 L 3.11 L (4.30-5.90) m/uL Hgb 7.7 L 8.5 L (13.0-17.5) gm/dL Hct 24.9 L 27.7 L (39.0-53.0) % MCHC 30.8 L 30.8 L (31.0-37.0) g/dL RDW 17.5 H 17.0 H (11.5-15.5) % Plt Count 489 H 499 H (150-450) k/uL Neutrophils # 11.8 H (1.3-7.7) k/uL Lymphocytes # 0.6 L (1.0-4.8) k/uL Chloride (98-107) mmol/L Carbon Dioxide (22-30) mmol/L BUN (9-20) mg/dL Creatinine (0.66-1.25) mg/dL Glucose (74-99) mg/dL POC Glucose (mg/dL) 133 H (75-99) mg/dL Calcium (8.4-10.2) mg/dL TSH (0.465-4.680) mIU/L 05/26/19 05/26/19 Range/Units 04:29 04:29 WBC (3.8-10.6) k/uL RBC (4.30-5.90) m/uL Hgb (13.0-17.5) gm/dL Hct (39.0-53.0) % MCHC (31.0-37.0) g/dL RDW (11.5-15.5) % Plt Count (150-450) k/uL Neutrophils # (1.3-7.7) k/uL Lymphocytes # (1.0-4.8) k/uL Chloride 114 H (98-107) mmol/L Carbon Dioxide 19 L (22-30) mmol/L BUN 53 H (9-20) mg/dL Creatinine 1.94 H (0.66-1.25) mg/dL Glucose 136 H (74-99) mg/dL POC Glucose (mg/dL) (75-99) mg/dL Calcium 8.3 L (8.4-10.2) mg/dL TSH 13.200 H (0.465-4.680) mIU/L Microbiology - Last 24 Hours (Table) 05/23/19 13:30 Blood Culture - Preliminary Blood No Growth after 48 hours 05/23/19 13:00 Blood Culture - Preliminary Blood No Growth after 48 hours 05/24/19 10:45 Blood Culture - Preliminary Blood No Growth after 24 hours Assessment and Plan Plan: Assessment: 1. Acute kidney injury secondary to ATN secondary to septic shock. Creatinine was 6 on admission and is 1.94 today. 2. Perforated duodenal ulcer status post laparotomy with antrectomy on 05/16/2019. Maintained on antibiotics. Infectious disease following. 3. Metabolic acidosis secondary to acute kidney injury and IV fluids. Stable. 4. Mild volume overload. Improved. 5. Hypocalcemia secondary to hypoalbuminemia. Corrected calcium in the normal range. 6. Right renal atrophy. 7. Right kidney lesion. Urology following. Plan: Continue to hold Lasix. Maintain TPN and IV fluids - potential removal of NG tube today and diet can be advanced. Avoid nephrotoxins. Repeat electrolytes in the morning. Monitor bicarb.
--- NOTE | 2019-05-26 09:00 | P.PN ---
Subjective Progress Note Date: 05/26/19 Principal diagnosis: Acute surgical abdomen secondary to duodenal ulcer perforation On 05/25/2019 patient seen in follow-up in the intensive care unit, this is postoperative day #9 status post exploratory laparotomy with Billroth II gastrojejunostomy. Patient is awake and alert, doing very well, she was successfully extubated on 05/20/2019, he is currently on room air, and his pulse ox is 95%, he denies any shortness of breath, denies any chest pain, no abdominal pain, he is starting to pass gas, his bowel sounds remain hypoactive, NG tube remains in place, and there has been now 400 mL of gastric output in the last 24 hours. No nausea, patient has not passed a bowel movement, but he is passing gas. He is achieving 1250 on incentive spirometry, lung sounds are clear, patient remains nothing by mouth except for ice chips and popsicles, he states he does not feel hungry but he is complaining of dry mouth. TPN is infusing at a rate of 60 ML per hour, maintenance IV fluids 0.9 normal seen at a rate of 50 ML per hour, and Cleviprex is at 2 mg per hour, systolic blood pressure is ranging from 130 to 160 mmHg, and diastolic in the 70s and 80s. On 05/26/2019 patient seen in follow-up in the intensive care unit, he is awake and alert, oriented 3, sitting up in the recliner, in no acute distress, she is on 2 L of oxygen, no complex of shortness of breath, lung sounds are clear, IV fluids include 0.9 normal saline at a rate of 50, TPN is at 60 ML per hour, and Cleviprex is at 10 mg per hour. he remains nothing by mouth with the exception of ice chips, however she did pass 2 large bowel movements yesterday, and we anticipate possible removal of NG tube today and possible initiation of oral feedings. No fever or chills, but today's lab work showed increase in the white count to 19.8, from 13.8 on yesterday's labs, hemoglobin is 8.5, sodium is 141, potassium is 3.9, chloride is 114, CO2 is 19, profile is improving, B1 is 53 and creatinine is 1.94. Lopez catheter has been discontinued, no nausea, vomiting or diarrhea, patient is nonoliguric. he is working on it since parameter, she is achieving 1250 on the today. Objective - Vital Signs Vital signs: Vital Signs Temp 97.6 F 05/26/19 08:00 Pulse 110 H 05/26/19 08:41 Resp 24 05/26/19 08:30 BP 156/72 05/26/19 08:30 Pulse Ox 93 L 05/26/19 08:30 Intake & Output 05/25/19 05/26/19 05/26/19 18:59 06:59 18:59 Intake Total 2395.365 2424.134 320 Output Total 1325 1900 390 Balance 1070.365 524.134 -70 Weight 82.1 kg Intake: IV 1270 760 320 0.9 NACL 450 600 100 Cefepime 2 gm In Sodium 100 Chloride 0.9% 100 ml @ 200 mls/hr IVPB Q12HR [facility] Rx#:[id number] DAPTOmycin 500 mg In 100 Sodium Chloride 0.9% 50 ml @ 100 mls/hr IVPB Q24H [facility] Rx#:[id number] Fluconazole in NaCl,Iso- 100 Osm 200 mg In Saline 1 100ml.bag @ 100 mls/hr IVPB DAILY [facility] Rx#: [id number] Mvi, Adult No.4 with Vit 420 60 120 K 10 ml Trace (Conc-1Ml/ Dose) 1 ml Parenteral Electrolytes 20 ml Potassium Chloride 30 meq In Amino Acid 5%-D15w 1, 000 ml @ 60 mls/hr IV . [id number] [facility] Rx#:[id number] metroNIDAZOLE-NS PMX 500 100 100 100 mg In Saline 1 100ml.bag @ 100 mls/hr IVPB Q8HR [facility] Rx#:[id number] Intake, IV Titration 1125.365 164.134 Amount Clevidipine Butyrate 25 79.365 164.134 mg In Empty Bag 1 bag @ 4 MG/HR 8 mls/hr IV . Q6H15M [facility] Rx#:[id number] Mvi, Adult No.4 with Vit 1046 K 10 ml Trace (Conc-1Ml/ Dose) 1 ml Parenteral Electrolytes 20 ml Potassium Chloride 30 meq In Amino Acid 5%-D15w 1, 000 ml @ 60 mls/hr IV . [id number] [facility] Rx#:[id number] Oral 1500 Output: Gastric Drainage 400 100 Drainage 15 40 Anterior Abdomen 15 40 Urine 910 1800 350 Other: Voiding Method Indwelling Catheter Urinal # Voids 0 0 # Bowel Movements 1 1 ABP, PAP, CO, CI - Last Documented Arterial Blood Pressure 137/59 - Exam GENERAL EXAM: Alert, very pleasant, 63-year-old white male, on room air with pulse ox of 95%, NG tube is in place to low intermittent suction with greenish gastric output, comfortable in no apparent distress. HEAD: Normocephalic/atraumatic. EYES: Normal reaction of pupils, equal size. Conjunctiva pink, sclera white. NOSE: Clear with pink turbinates. NG tube is present low intermittent suction THROAT: No erythema or exudates. NECK: No masses, no JVD, no thyroid enlargement, no adenopathy. CHEST: No chest wall deformity. Symmetrical expansion. LUNGS: Equal air entry with no crackles, wheeze, rhonchi or dullness. CVS: Regular rate and rhythm, normal S1 and S2, no gallops, no murmurs, no rubs ABDOMEN: Soft, nontender. No hepatosplenomegaly, normal bowel sounds, no guarding or rigidity. Mid abdominal incision is present dry and intact, covered with surgical dressing, right abdominal BOGDAN drain is present with us output EXTREMITIES: No clubbing, mild 1+ nonpitting edema, no cyanosis, 2+ pulses and upper and lower extremities. MUSCULOSKELETAL: Muscle strength and tone normal. SPINE: No scoliosis or deformity SKIN: No rashes CENTRAL NERVOUS SYSTEM: Alert and oriented -3. No focal deficits, tone is normal in all 4 extremities. PSYCHIATRIC: Alert and oriented -3. Appropriate affect. Intact judgment and insight. - Labs CBC & Chem 7: 05/26/19 04:25 05/26/19 04:29 Labs: Abnormal Lab Results - Last 24 Hours (Table) 05/25/19 05/26/19 05/26/19 Range/Units 10:50 00:15 04:25 WBC 13.8 H 19.8 H (3.8-10.6) k/uL RBC 2.82 L 3.11 L (4.30-5.90) m/uL Hgb 7.7 L 8.5 L (13.0-17.5) gm/dL Hct 24.9 L 27.7 L (39.0-53.0) % MCHC 30.8 L 30.8 L (31.0-37.0) g/dL RDW 17.5 H 17.0 H (11.5-15.5) % Plt Count 489 H 499 H (150-450) k/uL Neutrophils # 11.8 H (1.3-7.7) k/uL Lymphocytes # 0.6 L (1.0-4.8) k/uL Chloride (98-107) mmol/L Carbon Dioxide (22-30) mmol/L BUN (9-20) mg/dL Creatinine (0.66-1.25) mg/dL Glucose (74-99) mg/dL POC Glucose (mg/dL) 133 H (75-99) mg/dL Calcium (8.4-10.2) mg/dL TSH (0.465-4.680) mIU/L 05/26/19 05/26/19 Range/Units 04:29 04:29 WBC (3.8-10.6) k/uL RBC (4.30-5.90) m/uL Hgb (13.0-17.5) gm/dL Hct (39.0-53.0) % MCHC (31.0-37.0) g/dL RDW (11.5-15.5) % Plt Count (150-450) k/uL Neutrophils # (1.3-7.7) k/uL Lymphocytes # (1.0-4.8) k/uL Chloride 114 H (98-107) mmol/L Carbon Dioxide 19 L (22-30) mmol/L BUN 53 H (9-20) mg/dL Creatinine 1.94 H (0.66-1.25) mg/dL Glucose 136 H (74-99) mg/dL POC Glucose (mg/dL) (75-99) mg/dL Calcium 8.3 L (8.4-10.2) mg/dL TSH 13.200 H (0.465-4.680) mIU/L Microbiology - Last 24 Hours (Table) 05/23/19 13:30 Blood Culture - Preliminary Blood No Growth after 48 hours 05/23/19 13:00 Blood Culture - Preliminary Blood No Growth after 48 hours 05/24/19 10:45 Blood Culture - Preliminary Blood No Growth after 24 hours Assessment and Plan Plan: Assessment: 1 acute abdominal sepsis and septic shock secondary to duodenal ulcer perforation. Patient is status post expiratory laparotomy with Billroth II gastrojejunostomy postoperative day #10 2 acute lactic acidosis secondary to above, resolved 3 acute hypoxic respiratory failure secondary to septic shock and abdominal sepsis. Resolved 4 acute kidney injury secondary to acute tubular necrosis and hypotension steadily improving. But not resolved yet. 5 chronic alcoholism, remains on the alcohol withdrawal protocol. 6 history of GI bleeding 7 exophytic kidney lesion, needs to have workup on outpatient basis, this was incidentally seen on CT of the abdomen and pelvis, will eventually need outpatient follow-up with urology. 8 acute anemia secondary to blood loss, received a total of 3 units of packed RBCs since admission. Hemoglobin today 9.4 9 status post successful extubation on 05/20/2019. Plan: Will check with surgery whether patient can start oral diet take oral medications and we may transition to Cleviprex to oral antihypertensives, otherwise patient is hemodynamically stable, breathing stable, no acute issues overnight, there has been an increase in his white blood cell count, but patient has had no fever or chills, no abdominal pain. Continue encouraging deep breathing and coughing, encourage ambulation. I performed a history & physical examination of the patient and discussed their management with my nurse practitioner, Marii Leiva. I reviewed the nurse practitioner's note and agree with the documented findings and plan of care. Lung sounds are positive for clear breath sounds. The findings and the impression was discussed with the patient. I attest to the documentation by the nurse practitioner. Time with Patient: Less than 30
[2019-05-26 09:56] LABS: T4, Free (Free Thyroxine) 0.56 ng/dL (0.78-2.19)
[2019-05-26] MEDS: CEFEPIME 2 GM in SODIUM CHLORIDE 0.9% 100 ML IVPB SCH ×2 (10:13→21:23)
[2019-05-26] MEDS: FLUCONAZOLE IN NACL,ISO-OSM 200 MG in SALINE 1 100ML.BAG IVPB SCH (10:57)
[2019-05-26 12:08] LABS: Glucose,Whole Blood 158 mg/dL (75-99)
--- NOTE | 2019-05-26 12:30 | PN ---
PROGRESS NOTE DATE OF SERVICE: 05/26/2019 REASON FOR FOLLOWUP: Secondary peritonitis from perforated peptic ulcer disease and persistent elevated white count. INTERVAL HISTORY: The patient is currently afebrile. Patient is breathing comfortably the patient denies having any chest pain no cough no worsening abdominal pain. He did have a bowel movement. PHYSICAL EXAMINATION: Blood pressure 157/73 with a pulse of 103, temperature 98, he is 92% on room air. General description is a middle-aged male, lying in bed in no distress. RESPIRATORY SYSTEM: Unlabored breathing clear to auscultation anteriorly. HEART: S1, S2. Regular rate and rhythm. ABDOMEN: Soft, nondistended. No guarding or rigidity. LABS: Hemoglobin 8.5, white count 19.8. BUN 53, creatinine is 0.94. DIAGNOSTIC IMPRESSION AND PLAN: Patient with secondary peritonitis from perforated peptic ulcer disease, post repair of the same now. Patient did have persistently elevated white count which did show some improvement yesterday after adjustment of his antibiotic. However in view of his elevated white count, patient would benefit from a CT abdomen and pelvis to make sure no evidence of any abscess that may need to be drained. Continue with antibiotic form of cefepime, Flagyl and daptomycin while waiting for the culture to finalize and continue with supportive care. MMODL / IJN: [id number] / MTDXiomara
[2019-05-26] MEDS: DAPTOmycin 500 MG in SODIUM CHLORIDE 0.9% 50 ML IVPB SCH (12:39)
[2019-05-26] MEDS: MVI, ADULT NO.4 WITH VIT K 10 ML, TRACE (CONC-1ML/DOSE) 1 ML, PARENTERAL ELECTROLYTES 2... IV SCH ×10 (12:42→17:33)
--- NOTE | 2019-05-26 15:37 | P.PN ---
Subjective Progress Note Date: 05/26/19 Principal diagnosis: Duodenal perforation Patient was seen and examined. No acute events overnight. Patient reports a few bowel movements large and small since yesterday. Tolerating ice chips well. Denies any abdominal pain. No nausea vomiting. No fever or chills. Urinating freely. Plans to switch to clear liquid diet today. Objective - Vital Signs Vital signs: Vital Signs Temp 99.1 F 05/26/19 12:00 Pulse 110 H 05/26/19 14:55 Resp 22 05/26/19 14:55 BP 153/72 05/26/19 13:30 Pulse Ox 90 L 05/26/19 13:30 Intake & Output 05/25/19 05/26/19 05/26/19 18:59 06:59 18:59 Intake Total 2395.365 2424.134 1100 Output Total 1325 1900 590 Balance 1070.365 524.134 510 Weight 82.1 kg 80.4 kg Intake: IV 1436 273 0196 0.9 NACL 450 600 350 Cefepime 2 gm In Sodium 100 100 Chloride 0.9% 100 ml @ 200 mls/hr IVPB Q12HR [facility] Rx#:[id number] DAPTOmycin 500 mg In 100 50 Sodium Chloride 0.9% 50 ml @ 100 mls/hr IVPB Q24H [facility] Rx#:[id number] Fluconazole in NaCl,Iso- 100 100 Osm 200 mg In Saline 1 100ml.bag @ 100 mls/hr IVPB DAILY [facility] Rx#: [id number] Mvi, Adult No.4 with Vit 420 60 300 K 10 ml Trace (Conc-1Ml/ Dose) 1 ml Parenteral Electrolytes 20 ml Potassium Chloride 30 meq In Amino Acid 5%-D15w 1, 000 ml @ 60 mls/hr IV . [id number] [facility] Rx#:[id number] metroNIDAZOLE-NS PMX 500 100 100 100 mg In Saline 1 100ml.bag @ 100 mls/hr IVPB Q8HR [facility] Rx#:[id number] Intake, IV Titration 1125.365 164.134 100 Amount Clevidipine Butyrate 25 79.365 164.134 100 mg In Empty Bag 1 bag @ 4 MG/HR 8 mls/hr IV . Q6H15M [facility] Rx#:[id number] Mvi, Adult No.4 with Vit 1046 K 10 ml Trace (Conc-1Ml/ Dose) 1 ml Parenteral Electrolytes 20 ml Potassium Chloride 30 meq In Amino Acid 5%-D15w 1, 000 ml @ 60 mls/hr IV . [id number] [facility] Rx#:[id number] Oral 1500 Output: Gastric Drainage 400 100 Drainage 15 40 Anterior Abdomen 15 40 Urine 910 1800 550 Other: Voiding Method Indwelling Catheter Urinal Urinal # Voids 0 0 0 # Bowel Movements 1 1 ABP, PAP, CO, CI - Last Documented Arterial Blood Pressure 137/59 - Exam General: [non toxic], [appears at stated age] Derm: [warm], [dry] Head: [atraumatic], [normocephalic], [symmetric] Eyes: [no lid lag], [anicteric sclera] Mouth: [no lip lesion], [oropharynx within normal limits] Cardiovascular: [S1S2 reg], [no murmur], [positive DP pulse bilateral], Lungs: [Clear to auscultation bilaterally], [no rhonchi, no rales] , [no accessory muscle use] Abdominal: [soft], [midline abdominal surgical scar keren intact with no erythema or discharge], [no guarding], [no appreciable organomegaly], [no bowel sounds] Ext: [no gross muscle atrophy], [no edema], [no contractures] Neuro: [No focal neurologic deficits] Psych: [Unable to determine] - Labs CBC & Chem 7: 05/26/19 04:25 05/26/19 04:29 Labs: Abnormal Lab Results - Last 24 Hours (Table) 05/26/19 05/26/19 05/26/19 Range/Units 00:15 04:25 04:29 WBC 19.8 H (3.8-10.6) k/uL RBC 3.11 L (4.30-5.90) m/uL Hgb 8.5 L (13.0-17.5) gm/dL Hct 27.7 L (39.0-53.0) % MCHC 30.8 L (31.0-37.0) g/dL RDW 17.0 H (11.5-15.5) % Plt Count 499 H (150-450) k/uL Chloride 114 H (98-107) mmol/L Carbon Dioxide 19 L (22-30) mmol/L BUN 53 H (9-20) mg/dL Creatinine 1.94 H (0.66-1.25) mg/dL Glucose 136 H (74-99) mg/dL POC Glucose (mg/dL) 133 H (75-99) mg/dL Calcium 8.3 L (8.4-10.2) mg/dL TSH (0.465-4.680) mIU/L Free T4 (0.78-2.19) ng/dL 05/26/19 05/26/19 Range/Units 04:29 11:56 WBC (3.8-10.6) k/uL RBC (4.30-5.90) m/uL Hgb (13.0-17.5) gm/dL Hct (39.0-53.0) % MCHC (31.0-37.0) g/dL RDW (11.5-15.5) % Plt Count (150-450) k/uL Chloride (98-107) mmol/L Carbon Dioxide (22-30) mmol/L BUN (9-20) mg/dL Creatinine (0.66-1.25) mg/dL Glucose (74-99) mg/dL POC Glucose (mg/dL) 158 H (75-99) mg/dL Calcium (8.4-10.2) mg/dL TSH 13.200 H (0.465-4.680) mIU/L Free T4 0.56 L (0.78-2.19) ng/dL Microbiology - Last 24 Hours (Table) 05/24/19 10:45 Blood Culture - Preliminary Blood No Growth after 48 hours 05/23/19 13:30 Blood Culture - Preliminary Blood No Growth after 48 hours 05/23/19 13:00 Blood Culture - Preliminary Blood No Growth after 48 hours Assessment and Plan Assessment: Assessment and plan Septic shock due to perforated duodenal ulcer status post exploratory laparotomy POD 10 Perforated duodenal ulcer Acute kidney injury secondary to ATN from hypovolemic and septic shock Acute blood loss anemia secondary to GI bleed from perforated duodenal ulcer Hypocalcemia Alcohol abuse Kidney lesion Resolved: Lactic acidosis, hyperkalemia Patient continues to have worsening leukocytosis of 19.8. POD 10 exploratory laparotomy with antrectomy and gastrojejunostomy. KUB and CT abdomen and pelvis confirmed perforation. Wound cultures show Klebsiella oxytocin and non- hemolytic strep. Blood cultures negative at 144 and 48 hours. Urine culture negative. Plans: Patient is currently on fluconazole, cefepime, daptomycin and fluconazole for antibiotic coverage as per ID recommendation. Continue Protonix 40 mg IV twice a day and Reglan 10 mg IV every 6 hours. Continue normal saline at 50 mL per hour. Telemetry monitoring. Follow wound cultures. Repeat CT abdomen pelvis to rule out abscess. Follow ID recommendations. Plans: Management as above. Plans for clear liquid diet today and advance as tolerated. Creatinine improving from 6.03-1.94. Likely due to hypovolemic and septic shock. Plans: Continue IVF as above. Avoid nephrotoxins. Repeat BMP in the morning. Hemoglobin 8.5. Given 2 units PRBC during surgery, one PRBC post surgery. Likely acute blood loss from duodenal ulcer perforation, minimally from surgery and dilution. Plans: Repeat CBC tomorrow morning. Transfuse if hemoglobin less than 7. Calcium 6.2-8.3. Possibly from blood transfusion. Plans: Repeat CMP in the morning. Family states drinks 4 beers daily. Plans: We will continue to monitor. Patient with exophytic kidney lesion, needs workup in the outpatient setting, incidental finding on CT. [Patient improving but worsening leukocytosis. CT abdomen and pelvis ordered. Continue broad-spectrum IV antibiotics pending cultures. Patient is pending clinical improvement. Likely DC in 3-5 days.]
[2019-05-26] MEDS: IOPAMIDOL CONTRAST (ORAL USE) VIAL PO PRN ×2 (15:58→17:09)
--- NOTE | 2019-05-26 16:30 | P.PN ---
Subjective Progress Note Date: 05/26/19 Patient was up to chair today. No complaints. BOGDAN serosang. Passing flatus BM x 2 Objective - Vital Signs Vital signs: Vital Signs Temp 99.1 F 05/26/19 12:00 Pulse 128 H 05/26/19 15:30 Resp 23 05/26/19 15:30 BP 160/68 05/26/19 15:30 Pulse Ox 32 L 05/26/19 15:30 Intake & Output 05/25/19 05/26/19 05/26/19 18:59 06:59 18:59 Intake Total 2395.365 2424.134 1310 Output Total 1325 1900 590 Balance 1070.365 524.134 720 Weight 82.1 kg 80.4 kg Intake: IV 2555 276 2160 0.9 NACL 450 600 510 Cefepime 2 gm In Sodium 100 100 Chloride 0.9% 100 ml @ 200 mls/hr IVPB Q12HR [facility] Rx#:[id number] DAPTOmycin 500 mg In 100 50 Sodium Chloride 0.9% 50 ml @ 100 mls/hr IVPB Q24H [facility] Rx#:[id number] Fluconazole in NaCl,Iso- 100 100 Osm 200 mg In Saline 1 100ml.bag @ 100 mls/hr IVPB DAILY [facility] Rx#: [id number] Mvi, Adult No.4 with Vit 420 60 300 K 10 ml Trace (Conc-1Ml/ Dose) 1 ml Parenteral Electrolytes 20 ml Potassium Chloride 30 meq In Amino Acid 5%-D15w 1, 000 ml @ 60 mls/hr IV . [id number] [facility] Rx#:[id number] metroNIDAZOLE-NS PMX 500 100 100 100 mg In Saline 1 100ml.bag @ 100 mls/hr IVPB Q8HR [facility] Rx#:[id number] Intake, IV Titration 1125.365 164.134 150 Amount Clevidipine Butyrate 25 79.365 164.134 150 mg In Empty Bag 1 bag @ 4 MG/HR 8 mls/hr IV . Q6H15M [facility] Rx#:[id number] Mvi, Adult No.4 with Vit 1046 K 10 ml Trace (Conc-1Ml/ Dose) 1 ml Parenteral Electrolytes 20 ml Potassium Chloride 30 meq In Amino Acid 5%-D15w 1, 000 ml @ 60 mls/hr IV . [id number] [facility] Rx#:[id number] Oral 1500 Output: Gastric Drainage 400 100 Drainage 15 40 Anterior Abdomen 15 40 Urine 910 1800 550 Other: Voiding Method Indwelling Catheter Urinal Urinal # Voids 0 0 0 # Bowel Movements 1 1 ABP, PAP, CO, CI - Last Documented Arterial Blood Pressure 137/59 - Constitutional General appearance: Present: cooperative - Respiratory Details: nonlabored - Cardiovascular Heart rate: 115 Rhythm: regular - Gastrointestinal Gastrointestinal Comment(s): S/ND expected TTP Incision CDI BOGDAN serous - Psychiatric Psychiatric: Present: A&O x's 3 - Labs CBC & Chem 7: 05/26/19 04:25 05/26/19 04:29 Labs: Abnormal Lab Results - Last 24 Hours (Table) 05/26/19 05/26/19 05/26/19 Range/Units 00:15 04:25 04:29 WBC 19.8 H (3.8-10.6) k/uL RBC 3.11 L (4.30-5.90) m/uL Hgb 8.5 L (13.0-17.5) gm/dL Hct 27.7 L (39.0-53.0) % MCHC 30.8 L (31.0-37.0) g/dL RDW 17.0 H (11.5-15.5) % Plt Count 499 H (150-450) k/uL Chloride 114 H (98-107) mmol/L Carbon Dioxide 19 L (22-30) mmol/L BUN 53 H (9-20) mg/dL Creatinine 1.94 H (0.66-1.25) mg/dL Glucose 136 H (74-99) mg/dL POC Glucose (mg/dL) 133 H (75-99) mg/dL Calcium 8.3 L (8.4-10.2) mg/dL TSH (0.465-4.680) mIU/L Free T4 (0.78-2.19) ng/dL 05/26/19 05/26/19 Range/Units 04:29 11:56 WBC (3.8-10.6) k/uL RBC (4.30-5.90) m/uL Hgb (13.0-17.5) gm/dL Hct (39.0-53.0) % MCHC (31.0-37.0) g/dL RDW (11.5-15.5) % Plt Count (150-450) k/uL Chloride (98-107) mmol/L Carbon Dioxide (22-30) mmol/L BUN (9-20) mg/dL Creatinine (0.66-1.25) mg/dL Glucose (74-99) mg/dL POC Glucose (mg/dL) 158 H (75-99) mg/dL Calcium (8.4-10.2) mg/dL TSH 13.200 H (0.465-4.680) mIU/L Free T4 0.56 L (0.78-2.19) ng/dL Microbiology - Last 24 Hours (Table) 05/23/19 13:00 Blood Culture - Preliminary Blood No Growth after 72 hours 05/24/19 10:45 Blood Culture - Preliminary Blood No Growth after 48 hours 05/23/19 13:30 Blood Culture - Preliminary Blood No Growth after 48 hours Assessment and Plan Assessment: POD#10 ex lap antrectomy with billroth II gastrojejunostomy secondary to perforated duodenal ulcer Plan: DC NGT, start clear liquid diet. Continue with ICU care per critical care and medicine. IV ABX per ID. Cont. TPN until tolerating clears. Consider CT ABD/Pe lvis today secondary to leukocytosis to rule out abscess. OOBTC, encouraged ambulation and IS.
--- NOTE | 2019-05-26 18:32 | CT ---
EXAMINATION TYPE: CT abdomen pelvis wo con DATE OF EXAM: 05/26/2019 COMPARISON: 05/16/2019 HISTORY: 63-year-old male increased white blood cell count CT DLP: 763 mGycm. Automated exposure control for dose reduction was used. TECHNIQUE: Contiguous axial scanning of the abdomen and pelvis without IV contrast. Coronal and sagit volodymyr reconstructions performed. FINDINGS: Lack of IV contrast limits assessment of the solid abdominal viscera, lymph nodes, vascular structure s. Heart normal size. Ectatic ascending aorta at 3.7 cm. Small pericardial effusion measuring 1.1 cm is new. Uzaar-gr-gmgbuoys bilateral pleural effusions have increased. Prominent volume loss and consolid ation in the basilar lower lobes just adjacent. There appears to be an antecolic Sherita-en-Y gastric bypass. Small amount of opacification is noted wit hin the residual second as well as the third and fourth portions of the duodenum suspected to be from retrograde flow. Marked generalized anasarca change is increased. There is persistent abdominal ascites, now more mild to moderate, decrease in the interval. An intraluminal collection left mid abdomen measures 5.5 cm v ersus 8.1 cm, previously. Some possible 2.0 cm wall thickening and hypodensity along the posterior wall just distal to the anupama rojejunostomy, refer to axial image 52 and sagittal image 67. Trace free air remains, refer to axial image 64. Generalized dilated small bowel loops measuring up to 4.2 cm. No transition point is clearly identifi ed though distal ileal loops do appear relatively collapsed. Scattered colonic air is present. Sludge in the gallbladder. Noncontrast appearance of the liver, spleen, and pancreas show no gross ab normal body. Nodular renal contour further described in detail on contrast-enhanced CT of 05/16/2019. Appropriate follow-up is recommended. A surgical drain is in place, tip in the right upper quadrant. Anterior midline skin keren. Circumferential bladder wall thickening. Nondependent intraluminal bladder air. Prostate gland measur es 5.6 cm wide. Left-sided pelvic platelets. Ascites fluid extends into the pelvis. Bones: Degenerative changes of the right SI joint and mild at both hips. Degenerative disc disease L4 -L5. [facility] within the lower thoracic spine. IMPRESSION: 1. Worsening generalized anasarca change now with znjbq-od-poxssnou bilateral pleural effusions. Sma ll pericardial effusion. 2. Prominent consolidation and volume loss within the basilar lower lobes. Infectious or aspiration pneumonitis should be excluded. 3. Mild to moderate abdominopelvic ascites, slightly decreased from 05/16/2019. Trace free air remai ns with only a couple foci now seen. Surgical drain in place. 4. Interval resection with Sherita-en-Y gastric bypass. There is a 2.0 cm area of hypodensity along the posterior wall of the small bowel just distal to the gastrojejunostomy (sagittal image 67 and axial image 52) that could represent bowel wall redundancy. Consider follow-up if there is no improvement t o exclude early abscess formation here. 5. Dilated small bowel loops measuring up to 4.2 cm, favor generalized ileus rather than small bowel obstruction. Again, follow-up can be considered to ensure appropriate passage of oral contrast into the colon. 6. Appropriate follow-up recommended when patient's condition allows for further assessment of the r enal abnormalities described on contrast-enhanced CT of 05/16/2019. 7. Circumferential bladder wall thickening could reflect chronic bladder wall hypertrophy or cystiti s. Intraluminal bladder air probably from instrumentation. Clinically correlate.
[2019-05-26 19:18] LABS: Glucose,Whole Blood 136 mg/dL (75-99)
[2019-05-27] MEDS: METOPROLOL TARTRATE 5 MG/5 ML VIAL IVP SCH ×2 (00:12→06:12)
[2019-05-27] MEDS: metroNIDAZOLE-NS PMX 500 MG in SALINE 1 100ML.BAG IVPB SCH ×4 (00:12→23:34)
[2019-05-27] MEDS: METOCLOPRAMIDE 5 MG/ML 2 ML VIAL IVP SCH ×5 (00:13→23:37)
[2019-05-27] MEDS: HEPARIN SODIUM,PORCINE 5,000 UNIT/ML 1 ML VIAL SQ SCH ×4 (00:13→23:34)
[2019-05-27] MEDS: CLEVIDIPINE BUTYRATE 25 MG in EMPTY BAG 1 BAG IV SCH ×8 (00:17→23:33)
[2019-05-27 00:29] LABS: Glucose,Whole Blood 131 mg/dL (75-99)
[2019-05-27 05:10] LABS: Anisocytosis Slight; HCT 26.7 % (39.0-53.0); HGB 8.4 gm/dL (13.0-17.5); Hypochromasia Marked; MCH 27.9 pg (25.0-35.0); MCHC 31.4 g/dL (31.0-37.0); MCV 88.9 fL (80.0-100.0); Mean Platelet Volume 7.4; Platelet Count 720 k/uL (150-450); Poikilocytosis Slight; RBC 3.01 m/uL (4.30-5.90); RDW 17.4 % (11.5-15.5); WBC 20.2 k/uL (3.8-10.6)
[2019-05-27 05:20] LABS: Calcium 8.3 mg/dL (8.4-10.2); Magnesium 2.1 mg/dL (1.6-2.3)
[2019-05-27 05:56] LABS: Glucose,Whole Blood 137 mg/dL (75-99)
--- NOTE | 2019-05-27 07:15 | XR ---
EXAMINATION TYPE: XR chest 1V DATE OF EXAM: 05/27/2019 COMPARISON: 05/24/2019 HISTORY: SOB, Follow Up FINDINGS: Indwelling tubes and catheters are unchanged. No change in bibasilar opacities. Stable appearance of the cardio-mediastinal structures at this time. Pleural effusion unchanged. IMPRESSION: 1. Stable portable chest. Clinical correlation and follow up until resolution is recommended.
[2019-05-27] MEDS: PANTOPRAZOLE 40 MG/10 ML VIAL IV SCH ×2 (07:54→20:46)
[2019-05-27] MEDS: IPRATROPIUM-ALBUTEROL 3 ML NEB INHALATION SCH ×4 (08:12→20:20)
--- NOTE | 2019-05-27 08:58 | P.PN ---
Subjective Progress Note Date: 05/27/19 Principal diagnosis: Sinus tachycardia This is a 63-year-old gentleman with past medical history significant for hypertension who we requested to see for consult earlier today for further evaluation of sinus tachycardia. The patient currently is in the intensive care unit. The history started on May 162018 when he presented with abdominal discomfort and it was noted the work up that the patient does have pneumoperitoneum. Subsequently the patient underwent an exploratory laparotomy he was found to have perforated duodenal ulcer. At that point the patient indep endent antrectomy and gastrojejunostomy. We requested to see the patient today for sinus tachycardia. wo days after the procedure, on May 18, the patient was extubated.The patient currently is extubated and he is hemodynamically stable. He is not on any vasopressors. His hemoglobin is dropping to 7.1 this morning. It's slightly improved compared to yesterday. Beside that there is a possible component of sepsis related to perforated ulcer. The patient stated that he does have history of hypertension and he received metoprolol in the past. Currently he denies any symptoms of chest pain or chest discomfort, shortness of breath, or feeling of heart racing and fluttering. He is in sinus rhythm with a resting heart rate around 100 bpm and sometimes goes 110 beats per minutes. The patient denies any history of coronary artery disease or congestive heart failure or any cardiac arrhythmia and he stated that he never seen a prisoner classification interviewer in the past. During this admission an echocardiogram was performed and revealed normal LV function with mild MR and mild TR. Currently the patient is on metoprolol IV. He still nothing by mouth possibly only for today and possibly he was nothing by mouth after today. The patient was seen this morning, May 272018. Overall he is feeling better. He denies any chest pain or chest discomfort or shortness of breath. He is on clear liquids at this point and having stated that I am going to DC the Lopressor IV and start the patient on Lopressor by mouth. The creatinine is slightly worse today. I would advise holding the Lopressor for any systolic blood pressure below 100 mmHg. Objective - Vital Signs Vital signs: Vital Signs Temp 98.7 F 05/27/19 08:00 Pulse 110 H 05/27/19 08:23 Resp 24 05/27/19 08:00 BP 134/75 05/27/19 08:00 Pulse Ox 91 L 05/27/19 08:00 Intake & Output 05/26/19 05/27/19 05/27/19 18:59 06:59 18:59 Intake Total 1525.9 3532.0 310 Output Total 890 650 Balance 635.9 2882.0 310 Weight 80.4 kg Intake: IV 1360 1510 310 0.9 NACL 610 650 50 Cefepime 2 gm In Sodium 100 100 Chloride 0.9% 100 ml @ 200 mls/hr IVPB Q12HR [facility] Rx#:[id number] DAPTOmycin 500 mg In 50 Sodium Chloride 0.9% 50 ml @ 100 mls/hr IVPB Q24H [facility] Rx#:[id number] Fluconazole in NaCl,Iso- 100 100 Osm 200 mg In Saline 1 100ml.bag @ 100 mls/hr IVPB DAILY [facility] Rx#: [id number] Mvi, Adult No.4 with Vit 300 K 10 ml Trace (Conc-1Ml/ Dose) 1 ml Parenteral Electrolytes 20 ml Potassium Chloride 30 meq In Amino Acid 5%-D15w 1, 000 ml @ 60 mls/hr IV . [id number] [facility] Rx#:[id number] Mvi, Adult No.4 with Vit 660 60 K 10 ml Trace (Conc-1Ml/ Dose) 1 ml Parenteral Electrolytes 20 ml Potassium Chloride 30 meq In Amino Acid 5%-D15w 1, 000 ml @ 60 mls/hr IV . [id number] [facility] Rx#:[id number] metroNIDAZOLE-NS PMX 500 200 100 100 mg In Saline 1 100ml.bag @ 100 mls/hr IVPB Q8HR [facility] Rx#:[id number] Intake, IV Titration 165.9 222.0 Amount Clevidipine Butyrate 25 165.9 222.0 mg In Empty Bag 1 bag @ 4 MG/HR 8 mls/hr IV . Q6H15M [facility] Rx#:[id number] Oral 1800 Output: Drainage 40 Anterior Abdomen 40 Urine 850 650 Other: Voiding Method Urinal Urinal # Voids 0 1 # Bowel Movements 1 ABP, PAP, CO, CI - Last Documented Arterial Blood Pressure 137/59 - Constitutional General appearance: Present: no acute distress - Respiratory Respiratory: bilateral: CTA - Cardiovascular Rhythm: regular Heart sounds: normal: S1, S2 - Labs CBC & Chem 7: 05/27/19 04:35 05/27/19 04:35 Labs: Abnormal Lab Results - Last 24 Hours (Table) 05/26/19 05/26/19 05/26/19 Range/Units 04:29 11:56 19:06 WBC (3.8-10.6) k/uL RBC (4.30-5.90) m/uL Hgb (13.0-17.5) gm/dL Hct (39.0-53.0) % RDW (11.5-15.5) % Plt Count (150-450) k/uL Chloride (98-107) mmol/L Carbon Dioxide (22-30) mmol/L BUN (9-20) mg/dL Creatinine (0.66-1.25) mg/dL Glucose (74-99) mg/dL POC Glucose (mg/dL) 158 H 136 H (75-99) mg/dL Calcium (8.4-10.2) mg/dL Free T4 0.56 L (0.78-2.19) ng/dL 05/27/19 05/27/19 05/27/19 Range/Units 00:16 04:35 04:35 WBC 20.2 H (3.8-10.6) k/uL RBC 3.01 L (4.30-5.90) m/uL Hgb 8.4 L (13.0-17.5) gm/dL Hct 26.7 L (39.0-53.0) % RDW 17.4 H (11.5-15.5) % Plt Count 720 H (150-450) k/uL Chloride 114 H (98-107) mmol/L Carbon Dioxide 19 L (22-30) mmol/L BUN 49 H (9-20) mg/dL Creatinine 2.07 H (0.66-1.25) mg/dL Glucose 131 H (74-99) mg/dL POC Glucose (mg/dL) 131 H (75-99) mg/dL Calcium 8.3 L (8.4-10.2) mg/dL Free T4 (0.78-2.19) ng/dL 05/27/19 Range/Units 05:44 WBC (3.8-10.6) k/uL RBC (4.30-5.90) m/uL Hgb (13.0-17.5) gm/dL Hct (39.0-53.0) % RDW (11.5-15.5) % Plt Count (150-450) k/uL Chloride (98-107) mmol/L Carbon Dioxide (22-30) mmol/L BUN (9-20) mg/dL Creatinine (0.66-1.25) mg/dL Glucose (74-99) mg/dL POC Glucose (mg/dL) 137 H (75-99) mg/dL Calcium (8.4-10.2) mg/dL Free T4 (0.78-2.19) ng/dL Microbiology - Last 24 Hours (Table) 05/23/19 13:30 Blood Culture - Preliminary Blood No Growth after 72 hours 05/23/19 13:00 Blood Culture - Preliminary Blood No Growth after 72 hours 05/24/19 10:45 Blood Culture - Preliminary Blood No Growth after 48 hours Assessment and Plan Assessment: Assessment #1 status post exploratory laparotomy for perforated peptic ulcer #2 possible sepsis #3 sinus tachycardia Plan #1 DC Lopressor IV and start the patient on Lopressor by mouth #2 hold the Lopressor for any systolic pressure below 100 mmHg #3 follow-up with the patient
[2019-05-27] MEDS: METOPROLOL TARTRATE 25 MG TAB PO SCH ×2 (09:00→20:45)
[2019-05-27] MEDS: CEFEPIME 2 GM in SODIUM CHLORIDE 0.9% 100 ML IVPB SCH ×2 (09:06→20:45)
[2019-05-27] MEDS: FLUCONAZOLE IN NACL,ISO-OSM 200 MG in SALINE 1 100ML.BAG IVPB SCH (09:06)
--- NOTE | 2019-05-27 09:32 | P.PN ---
Subjective Progress Note Date: 05/27/19 Principal diagnosis: Acute surgical abdomen secondary to duodenal ulcer perforation On 05/25/2019 patient seen in follow-up in the intensive care unit, this is postoperative day #9 status post exploratory laparotomy with Billroth II gastrojejunostomy. Patient is awake and alert, doing very well, she was successfully extubated on 05/20/2019, he is currently on room air, and his pulse ox is 95%, he denies any shortness of breath, denies any chest pain, no abdominal pain, he is starting to pass gas, his bowel sounds remain hypoactive, NG tube remains in place, and there has been now 400 mL of gastric output in the last 24 hours. No nausea, patient has not passed a bowel movement, but he is passing gas. He is achieving 1250 on incentive spirometry, lung sounds are clear, patient remains nothing by mouth except for ice chips and popsicles, he states he does not feel hungry but he is complaining of dry mouth. TPN is infusing at a rate of 60 ML per hour, maintenance IV fluids 0.9 normal seen at a rate of 50 ML per hour, and Cleviprex is at 2 mg per hour, systolic blood pressure is ranging from 130 to 160 mmHg, and diastolic in the 70s and 80s. On 05/26/2019 patient seen in follow-up in the intensive care unit, he is awake and alert, oriented 3, sitting up in the recliner, in no acute distress, she is on 2 L of oxygen, no complex of shortness of breath, lung sounds are clear, IV fluids include 0.9 normal saline at a rate of 50, TPN is at 60 ML per hour, and Cleviprex is at 10 mg per hour. he remains nothing by mouth with the exception of ice chips, however she did pass 2 large bowel movements yesterday, and we anticipate possible removal of NG tube today and possible initiation of oral feedings. No fever or chills, but today's lab work showed increase in the white count to 19.8, from 13.8 on yesterday's labs, hemoglobin is 8.5, sodium is 141, potassium is 3.9, chloride is 114, CO2 is 19, profile is improving, B1 is 53 and creatinine is 1.94. Lopez catheter has been discontinued, no nausea, vomiting or diarrhea, patient is nonoliguric. he is working on it since parameter, she is achieving 1250 on the today. On 05/27/2019 patient seen in follow-up in the intensive care unit, history his NG tube was discontinued, no nausea, no vomiting, patient is passing bowel movements and gas, he is tolerating clear liquid diet this morning, no abdominal pain, but noticing infusing at 50, TPN is at 60, and Cleviprex is at midline milligram per hour, he will be transitioned to oral antihypertensives, and cardiology has ordered metoprolol 25 mg twice daily, patient is slightly tachycardic, with a rate of 110 BPM. No difficulty breathing, lung sounds are clear, patient is working on incentive spirometer, chewing 1500 on it today. Indwelling catheter is out, patient is voiding, today's labs have been reviewed, with a total cholesterol 20.2, hemoglobin is 8.4, sodium is 140, potassium is 4.0, chloride is 114, CO2 is 19, clinically patient remains stable, no complaints of pain, cough or congestion. Objective - Vital Signs Vital signs: Vital Signs Temp 98.7 F 05/27/19 08:00 Pulse 110 H 05/27/19 08:23 Resp 24 05/27/19 08:00 BP 134/75 05/27/19 08:00 Pulse Ox 91 L 05/27/19 08:00 Intake & Output 05/26/19 05/27/19 05/27/19 18:59 06:59 18:59 Intake Total 1525.9 3532.0 474.8 Output Total 890 650 Balance 635.9 2882.0 474.8 Weight 80.4 kg Intake: IV 1360 1510 420 0.9 NACL 610 650 100 Cefepime 2 gm In Sodium 100 100 Chloride 0.9% 100 ml @ 200 mls/hr IVPB Q12HR [facility] Rx#:[id number] DAPTOmycin 500 mg In 50 Sodium Chloride 0.9% 50 ml @ 100 mls/hr IVPB Q24H [facility] Rx#:[id number] Fluconazole in NaCl,Iso- 100 100 Osm 200 mg In Saline 1 100ml.bag @ 100 mls/hr IVPB DAILY [facility] Rx#: [id number] Mvi, Adult No.4 with Vit 300 K 10 ml Trace (Conc-1Ml/ Dose) 1 ml Parenteral Electrolytes 20 ml Potassium Chloride 30 meq In Amino Acid 5%-D15w 1, 000 ml @ 60 mls/hr IV . [id number] [facility] Rx#:[id number] Mvi, Adult No.4 with Vit 660 120 K 10 ml Trace (Conc-1Ml/ Dose) 1 ml Parenteral Electrolytes 20 ml Potassium Chloride 30 meq In Amino Acid 5%-D15w 1, 000 ml @ 60 mls/hr IV . [id number] [facility] Rx#:[id number] metroNIDAZOLE-NS PMX 500 200 100 100 mg In Saline 1 100ml.bag @ 100 mls/hr IVPB Q8HR [facility] Rx#:[id number] Intake, IV Titration 165.9 222.0 54.8 Amount Clevidipine Butyrate 25 165.9 222.0 54.8 mg In Empty Bag 1 bag @ 4 MG/HR 8 mls/hr IV . Q6H15M [facility] Rx#:[id number] Oral 1800 Output: Drainage 40 Anterior Abdomen 40 Urine 850 650 Other: Voiding Method Urinal Urinal # Voids 0 1 # Bowel Movements 1 ABP, PAP, CO, CI - Last Documented Arterial Blood Pressure 137/59 - Exam GENERAL EXAM: Alert, very pleasant, 63-year-old white male, on room air with pulse ox of 95%, comfortable in no apparent distress. HEAD: Normocephalic/atraumatic. EYES: Normal reaction of pupils, equal size. Conjunctiva pink, sclera white. NOSE: Clear with pink turbinates. NG tube is present low intermittent suction THROAT: No erythema or exudates. NECK: No masses, no JVD, no thyroid enlargement, no adenopathy. CHEST: No chest wall deformity. Symmetrical expansion. LUNGS: Equal air entry with no crackles, wheeze, rhonchi or dullness. CVS: Regular rate and rhythm, normal S1 and S2, no gallops, no murmurs, no rubs ABDOMEN: Soft, nontender. No hepatosplenomegaly, normal bowel sounds, no guarding or rigidity. Mid abdominal incision is present dry and intact, covered with surgical dressing, right abdominal BOGDAN drain is present with us output EXTREMITIES: No clubbing, mild 1+ nonpitting edema, no cyanosis, 2+ pulses and upper and lower extremities. MUSCULOSKELETAL: Muscle strength and tone normal. SPINE: No scoliosis or deformity SKIN: No rashes CENTRAL NERVOUS SYSTEM: Alert and oriented -3. No focal deficits, tone is normal in all 4 extremities. PSYCHIATRIC: Alert and oriented -3. Appropriate affect. Intact judgment and insight. - Labs CBC & Chem 7: 05/27/19 04:35 05/27/19 04:35 Labs: Abnormal Lab Results - Last 24 Hours (Table) 05/26/19 05/26/19 05/26/19 Range/Units 04:29 11:56 19:06 WBC (3.8-10.6) k/uL RBC (4.30-5.90) m/uL Hgb (13.0-17.5) gm/dL Hct (39.0-53.0) % RDW (11.5-15.5) % Plt Count (150-450) k/uL Chloride (98-107) mmol/L Carbon Dioxide (22-30) mmol/L BUN (9-20) mg/dL Creatinine (0.66-1.25) mg/dL Glucose (74-99) mg/dL POC Glucose (mg/dL) 158 H 136 H (75-99) mg/dL Calcium (8.4-10.2) mg/dL Free T4 0.56 L (0.78-2.19) ng/dL 05/27/19 05/27/19 05/27/19 Range/Units 00:16 04:35 04:35 WBC 20.2 H (3.8-10.6) k/uL RBC 3.01 L (4.30-5.90) m/uL Hgb 8.4 L (13.0-17.5) gm/dL Hct 26.7 L (39.0-53.0) % RDW 17.4 H (11.5-15.5) % Plt Count 720 H (150-450) k/uL Chloride 114 H (98-107) mmol/L Carbon Dioxide 19 L (22-30) mmol/L BUN 49 H (9-20) mg/dL Creatinine 2.07 H (0.66-1.25) mg/dL Glucose 131 H (74-99) mg/dL POC Glucose (mg/dL) 131 H (75-99) mg/dL Calcium 8.3 L (8.4-10.2) mg/dL Free T4 (0.78-2.19) ng/dL 05/27/19 Range/Units 05:44 WBC (3.8-10.6) k/uL RBC (4.30-5.90) m/uL Hgb (13.0-17.5) gm/dL Hct (39.0-53.0) % RDW (11.5-15.5) % Plt Count (150-450) k/uL Chloride (98-107) mmol/L Carbon Dioxide (22-30) mmol/L BUN (9-20) mg/dL Creatinine (0.66-1.25) mg/dL Glucose (74-99) mg/dL POC Glucose (mg/dL) 137 H (75-99) mg/dL Calcium (8.4-10.2) mg/dL Free T4 (0.78-2.19) ng/dL Microbiology - Last 24 Hours (Table) 05/23/19 13:30 Blood Culture - Preliminary Blood No Growth after 72 hours 05/23/19 13:00 Blood Culture - Preliminary Blood No Growth after 72 hours 05/24/19 10:45 Blood Culture - Preliminary Blood No Growth after 48 hours Assessment and Plan Plan: Assessment: 1 acute abdominal sepsis and septic shock secondary to duodenal ulcer perforation. Patient is status post expiratory laparotomy with Billroth II g astrojejunostomy postoperative day #11 2 acute lactic acidosis secondary to above, resolved 3 acute hypoxic respiratory failure secondary to septic shock and abdominal sepsis. Resolved 4 acute kidney injury secondary to acute tubular necrosis and hypotension steadily improving. But not resolved yet. 5 chronic alcoholism, remains on the alcohol withdrawal protocol. 6 history of GI bleeding 7 exophytic kidney lesion, needs to have workup on outpatient basis, this was incidentally seen on CT of the abdomen and pelvis, will eventually need outpatient follow-up with urology. 8 acute anemia secondary to blood loss, received a total of 3 units of packed RBCs since admission. Hemoglobin today 9.4 9 status post successful extubation on 05/20/2019. Plan: Continue encouraging deep breathing and coughing, wean cleviprex, metoprolol has been started. Patient is tolerating clear liquid diet, remains on TPN till his oral intake improves, no complaints of abdominal pain, no fever or chills, despite the increase of blood blood cell count on his labs. Hemodynamically stable, we'll continue to monitor, once the patient is off the Cleviprex we may transfer him to general medical floor I performed a history & physical examination of the patient and discussed their management with my nurse practitioner, Marii Leiva. I reviewed the nurse practitioner's note and agree with the documented findings and plan of care. Lung sounds are positive for clear breath sounds. The findings and the impression was discussed with the patient. I attest to the documentation by the nurse practitioner. Time with Patient: Less than 30
--- NOTE | 2019-05-27 09:48 | P.PN ---
Subjective Patient is seen in follow-up for acute kidney injury. Renal function mildly worse today. Creatinine 2.07 today. Patient had 2 bowel movements last night. NG tube has been discontinued. He is tolerating clear liquid diet. Denies chest pain or shortness of breath. Vital signs are stable. General: The patient appeared well nourished and normally developed. HEENT: Head exam is unremarkable. Neck is without jugular venous distension. LUNGS: Lungs are clear to auscultation and percussion. Breath sounds decreased. HEART: Rate and Rhythm are regular. First and second heart sounds normal. No murmurs, rubs or gallops. ABDOMEN: Bowel sounds decreased. EXTREMITITES: No clubbing, cyanosis, or edema. Objective - Vital Signs Vital signs: Vital Signs Temp 98.7 F 05/27/19 08:00 Pulse 110 H 05/27/19 08:23 Resp 24 05/27/19 08:00 BP 134/75 05/27/19 08:00 Pulse Ox 91 L 05/27/19 08:00 Intake & Output 05/26/19 05/27/19 05/27/19 18:59 06:59 18:59 Intake Total 1525.9 3532.0 474.8 Output Total 890 650 Balance 635.9 2882.0 474.8 Weight 80.4 kg Intake: IV 1360 1510 420 0.9 NACL 610 650 100 Cefepime 2 gm In Sodium 100 100 Chloride 0.9% 100 ml @ 200 mls/hr IVPB Q12HR [facility] Rx#:[id number] DAPTOmycin 500 mg In 50 Sodium Chloride 0.9% 50 ml @ 100 mls/hr IVPB Q24H [facility] Rx#:[id number] Fluconazole in NaCl,Iso- 100 100 Osm 200 mg In Saline 1 100ml.bag @ 100 mls/hr IVPB DAILY [facility] Rx#: [id number] Mvi, Adult No.4 with Vit 300 K 10 ml Trace (Conc-1Ml/ Dose) 1 ml Parenteral Electrolytes 20 ml Potassium Chloride 30 meq In Amino Acid 5%-D15w 1, 000 ml @ 60 mls/hr IV . [id number] [facility] Rx#:[id number] Mvi, Adult No.4 with Vit 660 120 K 10 ml Trace (Conc-1Ml/ Dose) 1 ml Parenteral Electrolytes 20 ml Potassium Chloride 30 meq In Amino Acid 5%-D15w 1, 000 ml @ 60 mls/hr IV . [id number] [facility] Rx#:[id number] metroNIDAZOLE-NS PMX 500 200 100 100 mg In Saline 1 100ml.bag @ 100 mls/hr IVPB Q8HR [facility] Rx#:[id number] Intake, IV Titration 165.9 222.0 54.8 Amount Clevidipine Butyrate 25 165.9 222.0 54.8 mg In Empty Bag 1 bag @ 4 MG/HR 8 mls/hr IV . Q6H15M [facility] Rx#:[id number] Oral 1800 Output: Drainage 40 Anterior Abdomen 40 Urine 850 650 Other: Voiding Method Urinal Urinal # Voids 0 1 # Bowel Movements 1 ABP, PAP, CO, CI - Last Documented Arterial Blood Pressure 137/59 - Labs CBC & Chem 7: 05/27/19 04:35 05/27/19 04:35 Labs: Abnormal Lab Results - Last 24 Hours (Table) 05/26/19 05/26/19 05/26/19 Range/Units 04:29 11:56 19:06 WBC (3.8-10.6) k/uL RBC (4.30-5.90) m/uL Hgb (13.0-17.5) gm/dL Hct (39.0-53.0) % RDW (11.5-15.5) % Plt Count (150-450) k/uL Chloride (98-107) mmol/L Carbon Dioxide (22-30) mmol/L BUN (9-20) mg/dL Creatinine (0.66-1.25) mg/dL Glucose (74-99) mg/dL POC Glucose (mg/dL) 158 H 136 H (75-99) mg/dL Calcium (8.4-10.2) mg/dL Free T4 0.56 L (0.78-2.19) ng/dL 05/27/19 05/27/19 05/27/19 Range/Units 00:16 04:35 04:35 WBC 20.2 H (3.8-10.6) k/uL RBC 3.01 L (4.30-5.90) m/uL Hgb 8.4 L (13.0-17.5) gm/dL Hct 26.7 L (39.0-53.0) % RDW 17.4 H (11.5-15.5) % Plt Count 720 H (150-450) k/uL Chloride 114 H (98-107) mmol/L Carbon Dioxide 19 L (22-30) mmol/L BUN 49 H (9-20) mg/dL Creatinine 2.07 H (0.66-1.25) mg/dL Glucose 131 H (74-99) mg/dL POC Glucose (mg/dL) 131 H (75-99) mg/dL Calcium 8.3 L (8.4-10.2) mg/dL Free T4 (0.78-2.19) ng/dL 05/27/19 Range/Units 05:44 WBC (3.8-10.6) k/uL RBC (4.30-5.90) m/uL Hgb (13.0-17.5) gm/dL Hct (39.0-53.0) % RDW (11.5-15.5) % Plt Count (150-450) k/uL Chloride (98-107) mmol/L Carbon Dioxide (22-30) mmol/L BUN (9-20) mg/dL Creatinine (0.66-1.25) mg/dL Glucose (74-99) mg/dL POC Glucose (mg/dL) 137 H (75-99) mg/dL Calcium (8.4-10.2) mg/dL Free T4 (0.78-2.19) ng/dL Microbiology - Last 24 Hours (Table) 05/23/19 13:30 Blood Culture - Preliminary Blood No Growth after 72 hours 05/23/19 13:00 Blood Culture - Preliminary Blood No Growth after 72 hours 05/24/19 10:45 Blood Culture - Preliminary Blood No Growth after 48 hours Assessment and Plan Plan: Assessment: 1. Acute kidney injury secondary to ATN secondary to septic shock. Creatinine was 6 on admission. Mildly worse compared to yesterday. Creatinine 2.07 today. Creatinine was 0.68 in June 2014. No other records available. 2. Perforated duodenal ulcer status post laparotomy with antrectomy on 05/16/2019. Maintained on antibiotics. Infectious disease following. 3. Metabolic acidosis secondary to acute kidney injury and IV fluids. Stable. 4. Mild volume overload. Improved. 5. Hypocalcemia secondary to hypoalbuminemia. Corrected calcium in the normal range. 6. Right renal atrophy. 7. Right kidney lesion. Urology following. Plan: Continue to hold Lasix. Maintain normal saline at 50 mL an hour. Avoid nephrotoxins. Repeat electrolytes in the morning. Monitor bicarb.
[2019-05-27] MEDS: MVI, ADULT NO.4 WITH VIT K 10 ML, TRACE (CONC-1ML/DOSE) 1 ML, PARENTERAL ELECTROLYTES 2... IV SCH ×5 (10:42)
[2019-05-27] MEDS: DAPTOmycin 500 MG in SODIUM CHLORIDE 0.9% 50 ML IVPB SCH (10:44)
[2019-05-27] MEDS ORDERED: ANIDULAFUNGIN 200 MG in SODIUM CHLORIDE 0.9% 200 ML IVPB ONE (12:00)
--- NOTE | 2019-05-27 12:03 | PN ---
PROGRESS NOTE DATE OF SERVICE: 05/27/2019 REASON FOR FOLLOWUP: 1. Secondary peritonitis from perforated peptic ulcer disease. 2. Persistent elevated white count. INTERVAL HISTORY: The patient is currently afebrile. Patient has been breathing comfortably. He has been started on a clear liquid per Surgery which the patient has been tolerating. Denies having any chest pain or shortness of breath. Minimal cough not bringing up any sputum. Currently on room air. No worsening abdominal pain. He did have multiple bowel movements. PHYSICAL EXAMINATION: Blood pressure 148/74 with a pulse of 99, temperature 98. He is 95% on room air. General description is a middle-aged male lying in bed in no distress. RESPIRATORY SYSTEM: Unlabored breathing, with decreased breath sounds in the bases, no wheeze. HEART: S1, S2. Regular rate and rhythm. ABDOMEN: Soft. . No guarding or rigidity. EXTREMITIES: No edema of the feet. LABS: Hemoglobin 8.4, white count 20,000, BUN of 49, creatinine 2.07. Blood culture has been negative so far. CT was reviewed with radiologist with a question of minimal inflammatory changes at the anastomosis site, but no leakage of the contrast with evidence of right lower lobe pneumonia. DIAGNOSTIC IMPRESSION AND PLAN: Patient with secondary peritonitis from perforated peptic ulcer disease, status post operative repair, now with persistent elevated white count initially concern for central line which has been discontinued and the culture has been negative so far. CT did not show any flavia perforation, did show evidence of right lower lobe pneumonia. We will try to obtain a sputum. .Repeat a CBC tomorrow. If the white count remains to be elevated, will need further adjustment of antibiotic. Will monitor patient closely. at the bedside. Questions were answered. MMODL / IJN: [id number] / [facility]ALTHXiom[facility]
[2019-05-27 12:06] LABS: Glucose,Whole Blood 117 mg/dL (75-99)
--- NOTE | 2019-05-27 12:12 | P.PN ---
Subjective Progress Note Date: 05/27/19 Principal diagnosis: Duodenal perforation Patient was seen and examined. No acute events overnight. Patient reports 2 bowel movements overnight. Tolerating clear liquid diet well. Denies any abdominal pain but does complain of some swelling and bloating. No nausea vomiting. No fever or chills. Urinating freely. Objective - Vital Signs Vital signs: Vital Signs Temp 98.7 F 05/27/19 08:00 Pulse 110 H 05/27/19 11:57 Resp 19 05/27/19 11:00 BP 148/74 05/27/19 11:00 Pulse Ox 95 05/27/19 11:00 Intake & Output 05/26/19 05/27/19 05/27/19 18:59 06:59 18:59 Intake Total 1525.9 3532.0 936.933 Output Total 890 650 60 Balance 635.9 2882.0 876.933 Weight 80.4 kg Intake: IV 1360 1510 860 0.9 NACL 610 650 200 Cefepime 2 gm In Sodium 100 100 100 Chloride 0.9% 100 ml @ 200 mls/hr IVPB Q12HR [facility] Rx#:[id number] DAPTOmycin 500 mg In 50 50 Sodium Chloride 0.9% 50 ml @ 100 mls/hr IVPB Q24H [facility] Rx#:[id number] Fluconazole in NaCl,Iso- 100 200 Osm 200 mg In Saline 1 100ml.bag @ 100 mls/hr IVPB DAILY [facility] Rx#: [id number] Mvi, Adult No.4 with Vit 300 K 10 ml Trace (Conc-1Ml/ Dose) 1 ml Parenteral Electrolytes 20 ml Potassium Chloride 30 meq In Amino Acid 5%-D15w 1, 000 ml @ 60 mls/hr IV . [id number] [facility] Rx#:[id number] Mvi, Adult No.4 with Vit 660 210 K 10 ml Trace (Conc-1Ml/ Dose) 1 ml Parenteral Electrolytes 20 ml Potassium Chloride 30 meq In Amino Acid 5%-D15w 1, 000 ml @ 60 mls/hr IV . [id number] [facility] Rx#:[id number] metroNIDAZOLE-NS PMX 500 200 100 100 mg In Saline 1 100ml.bag @ 100 mls/hr IVPB Q8HR [facility] Rx#:[id number] Intake, IV Titration 165.9 222.0 76.933 Amount Clevidipine Butyrate 25 165.9 222.0 76.933 mg In Empty Bag 1 bag @ 4 MG/HR 8 mls/hr IV . Q6H15M [facility] Rx#:[id number] Oral 1800 Output: Drainage 40 40 Anterior Abdomen 40 40 Urine 850 650 20 Other: Voiding Method Urinal Urinal Urinal # Voids 0 1 # Bowel Movements 1 ABP, PAP, CO, CI - Last Documented Arterial Blood Pressure 137/59 - Exam General: [non toxic], [appears at stated age] Derm: [warm], [dry] Head: [atraumatic], [normocephalic], [symmetric] Eyes: [no lid lag], [anicteric sclera] Mouth: [no lip lesion], [oropharynx within normal limits] Cardiovascular: [S1S2 reg], [no murmur], [positive DP pulse bilateral], Lungs: [Clear to auscultation bilaterally], [no rhonchi, no rales] , [no accessory muscle use] Abdominal: [soft], [midline abdominal surgical scar keren intact with no erythema or discharge], [no guarding], [no appreciable organomegaly], [no bowel sounds] Ext: [no gross muscle atrophy], [no edema], [no contractures] Neuro: [No focal neurologic deficits] Psych: [Unable to determine] - Labs CBC & Chem 7: 05/27/19 04:35 05/27/19 04:35 Labs: Abnormal Lab Results - Last 24 Hours (Table) 05/26/19 05/26/19 05/27/19 Range/Units 11:56 19:06 00:16 WBC (3.8-10.6) k/uL RBC (4.30-5.90) m/uL Hgb (13.0-17.5) gm/dL Hct (39.0-53.0) % RDW (11.5-15.5) % Plt Count (150-450) k/uL Chloride (98-107) mmol/L Carbon Dioxide (22-30) mmol/L BUN (9-20) mg/dL Creatinine (0.66-1.25) mg/dL Glucose (74-99) mg/dL POC Glucose (mg/dL) 158 H 136 H 131 H (75-99) mg/dL Calcium (8.4-10.2) mg/dL 05/27/19 05/27/19 05/27/19 Range/Units 04:35 04:35 05:44 WBC 20.2 H (3.8-10.6) k/uL RBC 3.01 L (4.30-5.90) m/uL Hgb 8.4 L (13.0-17.5) gm/dL Hct 26.7 L (39.0-53.0) % RDW 17.4 H (11.5-15.5) % Plt Count 720 H (150-450) k/uL Chloride 114 H (98-107) mmol/L Carbon Dioxide 19 L (22-30) mmol/L BUN 49 H (9-20) mg/dL Creatinine 2.07 H (0.66-1.25) mg/dL Glucose 131 H (74-99) mg/dL POC Glucose (mg/dL) 137 H (75-99) mg/dL Calcium 8.3 L (8.4-10.2) mg/dL Microbiology - Last 24 Hours (Table) 05/23/19 13:30 Blood Culture - Preliminary Blood No Growth after 72 hours 05/23/19 13:00 Blood Culture - Preliminary Blood No Growth after 72 hours 05/24/19 10:45 Blood Culture - Preliminary Blood No Growth after 48 hours Assessment and Plan Assessment: Assessment and plan Septic shock due to perforated duodenal ulcer status post exploratory laparotomy POD 11 Perforated duodenal ulcer Acute kidney injury secondary to ATN from hypovolemic and septic shock Acute blood loss anemia secondary to GI bleed from perforated duodenal ulcer Hypocalcemia Alcohol abuse Kidney lesion Resolved: Lactic acidosis, hyperkalemia Patient continues to have worsening leukocytosis of 20.2. POD 11 exploratory laparotomy with antrectomy and gastrojejunostomy. KUB and CT abdomen and pelvis confirmed perforation. Wound cultures show Klebsiella oxytocin and non-hemolytic strep. Blood cultures negative at 144 and 72 and hours. Urine culture negative. Computed tomography scan shows worsening anasarca, consolidation basilar lobes, hypodensity along posterior wall of small bowel, probable ileus, bladder wall thickening. Plans: Patient is currently on anidulafungin, cefepime, daptomycin and fluconazole for antibiotic coverage as per ID recommendation. Continue Protonix 40 mg IV twice a day and Reglan 10 mg IV every 6 hours. Continue normal saline at 50 mL per hour. Telemetry monitoring. Follow wound and blood cultures. Follow sputum culture. Follow urinalysis with reflex to culture. Follow ID recommendations. Plans: Management as above. Plans for clear liquid diet today and advance as tolerated. Creatinine stable at 2.07. Likely due to hypovolemic and septic shock. Plans: Continue IVF as above. Avoid nephrotoxins. Repeat BMP in the morning. Hemoglobin 8.4. Given 2 units PRBC during surgery, one PRBC post surgery. Likely acute blood loss from duodenal ulcer perforation, minimally from surgery and dilution. Plans: Repeat CBC tomorrow morning. Transfuse if hemoglobin less than 7. Calcium 8.3. Possibly from blood transfusion. Plans: Repeat CMP in the morning. Family states drinks 4 beers daily. Plans: We will continue to monitor. Patient with exophytic kidney lesion, needs workup in the outpatient setting, incidental finding on CT. [Patient improving but worsening leukocytosis. Continue broad-spectrum IV antibiotics pending cultures. UA and sputum cultures ordered. Patient is pending clinical improvement. Likely DC in 3-5 days.]
[2019-05-27 13:47] LABS: Amorphous Sediment,Urine Rare /hpf; Appearance,Urine Clear (Clear); Bilirubin,Urine Negative (Negative); Blood,Urine Small (Negative); Color,Urine Yellow; Glucose,Urine (UA) Negative (Negative); Ketones,Urine Negative (Negative); Leukocyte Esterase,Urine Trace (Negative); Mucus,Urine Rare /hpf; Nitrite,Urine Negative (Negative); Protein,Urine 1+ (Negative); RBC,Urine <1 /hpf (0-5); Specific Gravity,Urine 1.015 (1.001-1.035); Urobilinogen,Urine <2.0 mg/dL (<2.0); WBC,Urine 3 /hpf (0-5)
--- NOTE | 2019-05-27 13:51 | P.PN ---
Subjective Progress Note Date: 05/27/19 Patient was up to chair today. No complaints. BOGDAN serosang. Passing flatus and had another BM. Tolerating clears Objective - Vital Signs Vital signs: Vital Signs Temp 99.1 F 05/27/19 12:00 Pulse 101 H 05/27/19 12:00 Resp 20 05/27/19 12:30 BP 151/83 05/27/19 12:30 Pulse Ox 94 L 05/27/19 12:30 Intake & Output 05/26/19 05/27/19 05/27/19 18:59 06:59 18:59 Intake Total 1525.9 3532.0 1149.200 Output Total 890 650 60 Balance 635.9 2882.0 1089.200 Weight 80.4 kg Intake: IV 1360 1510 940 0.9 NACL 610 650 250 Cefepime 2 gm In Sodium 100 100 100 Chloride 0.9% 100 ml @ 200 mls/hr IVPB Q12HR [facility] Rx#:[id number] DAPTOmycin 500 mg In 50 50 Sodium Chloride 0.9% 50 ml @ 100 mls/hr IVPB Q24H [facility] Rx#:[id number] Fluconazole in NaCl,Iso- 100 200 Osm 200 mg In Saline 1 100ml.bag @ 100 mls/hr IVPB DAILY [facility] Rx#: [id number] [facility], Adult No.4 with Vit 300 K 10 ml Trace (Conc-1Ml/ Dose) 1 ml Parenteral Electrolytes 20 ml Potassium Chloride 30 meq In Amino Acid 5%-D15w 1, 000 ml @ 60 mls/hr IV . [id number] [facility] Rx#:[id number] Mvi, Adult No.4 with Vit 660 240 K 10 ml Trace (Conc-1Ml/ Dose) 1 ml Parenteral Electrolytes 20 ml Potassium Chloride 30 meq In Amino Acid 5%-D15w 1, 000 ml @ 60 mls/hr IV . [id number] [facility] Rx#:[id number] metroNIDAZOLE-NS PMX 500 200 100 100 mg In Saline 1 100ml.bag @ 100 mls/hr IVPB Q8HR [facility] Rx#:[id number] Intake, IV Titration 165.9 222.0 209.200 Amount Anidulafungin 100 mg In 100 Sodium Chloride 0.9% 100 ml @ 84 mls/hr IVPB DAILY [facility] Rx#:[id number] Clevidipine Butyrate 25 165.9 222.0 109.200 mg In Empty Bag 1 bag @ 4 MG/HR 8 mls/hr IV . Q6H15M [facility] Rx#:[id number] Oral 1800 Output: Drainage 40 40 Anterior Abdomen 40 40 Urine 850 650 20 Other: Voiding Method Urinal Urinal Urinal # Voids 0 1 # Bowel Movements 1 ABP, PAP, CO, CI - Last Documented Arterial Blood Pressure 137/59 - Constitutional General appearance: Present: cooperative - Respiratory Details: nonlabored - Cardiovascular Rhythm: regular - Gastrointestinal Gastrointestinal Comment(s): S/NT/ND BOGDAN serous incision CDI - Psychiatric Psychiatric: Present: A&O x's 3 - Labs CBC & Chem 7: 05/27/19 04:35 05/27/19 04:35 Labs: Abnormal Lab Results - Last 24 Hours (Table) 05/26/19 05/27/19 05/27/19 Range/Units 19:06 00:16 04:35 WBC (3.8-10.6) k/uL RBC (4.30-5.90) m/uL Hgb (13.0-17.5) gm/dL Hct (39.0-53.0) % RDW (11.5-15.5) % Plt Count (150-450) k/uL Chloride 114 H (98-107) mmol/L Carbon Dioxide 19 L (22-30) mmol/L BUN 49 H (9-20) mg/dL Creatinine 2.07 H (0.66-1.25) mg/dL Glucose 131 H (74-99) mg/dL POC Glucose (mg/dL) 136 H 131 H (75-99) mg/dL Calcium 8.3 L (8.4-10.2) mg/dL Urine Protein (Negative) Urine Blood (Negative) Ur Leukocyte Esterase (Negative) Amorphous Sediment (None) /hpf Urine Mucus (None) /hpf 05/27/19 05/27/19 05/27/19 Range/Units 04:35 05:44 11:54 WBC 20.2 H (3.8-10.6) k/uL RBC 3.01 L (4.30-5.90) m/uL Hgb 8.4 L (13.0-17.5) gm/dL Hct 26.7 L (39.0-53.0) % RDW 17.4 H (11.5-15.5) % Plt Count 720 H (150-450) k/uL Chloride (98-107) mmol/L Carbon Dioxide (22-30) mmol/L BUN (9-20) mg/dL Creatinine (0.66-1.25) mg/dL Glucose (74-99) mg/dL POC Glucose (mg/dL) 137 H 117 H (75-99) mg/dL Calcium (8.4-10.2) mg/dL Urine Protein (Negative) Urine Blood (Negative) Ur Leukocyte Esterase (Negative) Amorphous Sediment (None) /hpf Urine Mucus (None) /hpf 05/27/19 Range/Units 12:56 WBC (3.8-10.6) k/uL RBC (4.30-5.90) m/uL Hgb (13.0-17.5) gm/dL Hct (39.0-53.0) % RDW (11.5-15.5) % Plt Count (150-450) k/uL Chloride (98-107) mmol/L Carbon Dioxide (22-30) mmol/L BUN (9-20) mg/dL Creatinine (0.66-1.25) mg/dL Glucose (74-99) mg/dL POC Glucose (mg/dL) (75-99) mg/dL Calcium (8.4-10.2) mg/dL Urine Protein 1+ H (Negative) Urine Blood Small H (Negative) Ur Leukocyte Esterase Trace H (Negative) Amorphous Sediment Rare H (None) /hpf Urine Mucus Rare H (None) /hpf Microbiology - Last 24 Hours (Table) 05/24/19 10:45 Blood Culture - Preliminary Blood No Growth after 72 hours 05/23/19 13:30 Blood Culture - Preliminary Blood No Growth after 72 hours 05/23/19 13:00 Blood Culture - Preliminary Blood No Growth after 72 hours Assessment and Plan Assessment: POD#11 ex lap antrectomy with billroth II gastrojejunostomy secondary to perforated duodenal ulcer Plan: Advance diet to full liquid as tolerated. Continue with ICU care per critical care and medicine. IV ABX per ID. DC TPN. OOBTC, encouraged ambulation and IS. CT yesterday showed possible pneumonia, less likely intrabdominal abscess however it is difficult to assess without IV contrast. No perforation or leak seen on CT.
[2019-05-27] MEDS: SODIUM CHLORIDE 0.9% 1,000 ML IV SCH (16:42)
[2019-05-27 17:09] LABS: Glucose,Whole Blood 128 mg/dL (75-99)
[2019-05-27 20:37] LABS: Glucose,Whole Blood 158 mg/dL (75-99)
[2019-05-27] MEDS: INSULIN ASPART (NovoLOG) 100 UNIT/ML VIAL SQ SCH (21:03)
[2019-05-28] MEDS: CLEVIDIPINE BUTYRATE 25 MG in EMPTY BAG 1 BAG IV SCH ×3 (03:09→08:15)
[2019-05-28 05:17] LABS: Anisocytosis Slight; HGB 7.9 gm/dL (13.0-17.5); Hypochromasia Marked; MCH 26.8 pg (25.0-35.0); MCHC 30.3 g/dL (31.0-37.0); MCV 88.5 fL (80.0-100.0); Platelet Count 768 k/uL (150-450); Poikilocytosis Slight; RBC 2.94 m/uL (4.30-5.90); RDW 18.3 % (11.5-15.5); WBC 17.9 k/uL (3.8-10.6)
[2019-05-28 05:27] LABS: Calcium 8.3 mg/dL (8.4-10.2); Potassium 3.9 mmol/L (3.5-5.1)
[2019-05-28] MEDS: METOCLOPRAMIDE 5 MG/ML 2 ML VIAL IVP SCH ×4 (06:25→23:38)
[2019-05-28] MEDS: INSULIN ASPART (NovoLOG) 100 UNIT/ML VIAL SQ SCH ×4 (06:46→20:35)
[2019-05-28 06:51] LABS: Glucose,Whole Blood 92 mg/dL (75-99)
--- NOTE | 2019-05-28 07:23 | XR ---
EXAMINATION TYPE: XR chest 1V DATE OF EXAM: 05/28/2019 HISTORY: Shortness of breath. COMPARISON: 05/27/2019 TECHNIQUE: Single view of the chest is submitted. FINDINGS: Demonstrated are scattered senescent parenchymal change. Bilateral pleural effusions persist. Perihilar and basilar infiltrates and/or atelectasis are unchang ed. Right-sided PICC line is in place. The heart is stable. Hilar and mediastinal structures are within normal limits. Degenerative changes are seen of the dorsal spine. IMPRESSION: 1. Bilateral pleural effusions persist. Perihilar and basilar infiltrates and/or atelectasis are unc hanged.
[2019-05-28] MEDS: metroNIDAZOLE-NS PMX 500 MG in SALINE 1 100ML.BAG IVPB SCH ×3 (07:32→23:42)
[2019-05-28] MEDS: HEPARIN SODIUM,PORCINE 5,000 UNIT/ML 1 ML VIAL SQ SCH ×3 (07:33→23:42)
[2019-05-28] MEDS: PANTOPRAZOLE 40 MG/10 ML VIAL IV SCH ×2 (07:33→20:41)
[2019-05-28] MEDS: IPRATROPIUM-ALBUTEROL 3 ML NEB INHALATION SCH ×4 (07:57→19:49)
[2019-05-28] MEDS: METOPROLOL TARTRATE 50 MG TAB PO SCH ×2 (08:08→20:41)
[2019-05-28] MEDS: CEFEPIME 2 GM in SODIUM CHLORIDE 0.9% 100 ML IVPB SCH ×2 (08:32→20:43)
--- NOTE | 2019-05-28 08:56 | PN ---
PROGRESS NOTE PULMONARY/CRITICAL CARE PROGRESS NOTE: DATE OF SERVICE: 05/28/2019 This is a 63-year-old male, status post abdominal sepsis and septic shock secondary to duodenal ulcer perforation. The patient underwent an exploratory laparotomy with overall 2 gastrojejunostomy. He is postop day #12. He is doing much better. NG tube was removed yesterday. He is not on any supplemental oxygen. He remains on Cleviprex for control of his blood pressure at 3 mg an hour. His IV is saline at 50. TPN has been turned off. In addition to the above, he has a history of acute lactic acidosis, hypoxemic respiratory failure, acute kidney injury secondary to ATN, chronic alcohol abuse, GI bleed, exophytic kidney lesion, acute anemia, and successful extubation on May 20. All in all, the patient has made tremendous progress. He is resting comfortably. He has no particular complaints. He is not having any respiratory issues such as shortness of breath, cough, wheezing, or phlegm production. Denies any significant pain. He is doing well on his incentive spirometer. Current vital signs include a temperature of 98.4, heart rate 100, respiratory rate 20, blood pressure 145/77 mean 99, room air saturation between 92%-95%. Appears in no acute distress. HEENT: Examination grossly unremarkable. Mucous membranes are moist. No oral lesions. NECK: Supple. Full range of motion. No adenopathy or thyromegaly. Neck veins are flat. CARDIOVASCULAR: Examination reveals regular rhythm and rate. S1, S2 normal. No S3, S4, or murmur. LUNGS: Reveal mostly clear breath sounds. A few scattered mild rhonchi. No wheezes. ABDOMEN: Soft. Bowel sounds are not noted. EXTREMITIES: Intact. No cyanosis, clubbing, or edema. SKIN: Without rash. NEUROLOGIC: Examination is brief but nonfocal. Microbiologic studies show Klebsiella oxytoca and non hemolytic strep in the peritoneal fluid from May 16 and some gram-positive cocci in the anaerobic sampling from the peritoneal fluid on May 16. The rest of the culture data subsequent to that is all normal. Lab is reviewed. White count 17.9, hemoglobin 7.9, hematocrit 26.0, platelet count 768,000. Sodium 137, potassium 3.9, chloride is 112, CO2 is 16, anion gap is 9, BUN and creatinine were 53 and 2.55. The rest of the labs look okay. Chest x-ray shows some bibasilar atelectasis and small effusions. Oxygenation is excellent. MEDICATIONS: Reviewed. In terms of antibiotics, he is on Eraxis, and daptomycin. He is being seen by Infectious Diseases. ASSESSMENT: 1. Status post acute duodenal ulcer perforation, with abdominal sepsis and septic shock, status post Billroth II gastrojejunostomy, postoperative day #12. 2. Acute lactic acidosis secondary to sepsis, resolved. 3. Hypoxemic respiratory failure, requiring intubation and mechanical ventilation secondary to sepsis and septic shock, with successful extubation on May 20. 4. Acute kidney injury secondary to ATN, improved. 5. History of chronic alcohol abuse with alcohol withdrawal syndrome. 6. History of gastrointestinal bleed. 7. Exophytic kidney lesion, requiring outpatient evaluation. 8. Acute anemia secondary to blood loss, status post 3 units of PRBCs. PLAN: The patient is doing well. NG tube was removed. He is not on any supplemental oxygen. He remains on a small dose of Cleviprex at 3 mg an hour. TPN has been discontinued. Will continue to follow. He remains on daptomycin and Eraxis for his antibiotic and antifungals coverage. Will continue to follow. Prognosis is guarded. MMODL / IJN: [id number] /
[2019-05-28] MEDS: SODIUM CHLORIDE 0.9% 1,000 ML IV SCH (09:57)
[2019-05-28] MEDS: ANIDULAFUNGIN 100 MG in SODIUM CHLORIDE 0.9% 100 ML IVPB SCH (09:57)
[2019-05-28] MEDS ORDERED: FUROSEMIDE 10 MG/ML 4 ML VIAL IV STA (10:00)
--- NOTE | 2019-05-28 10:01 | P.PN ---
Subjective Patient is seen in follow-up for acute kidney injury. Renal function is worse today. Creatinine 2.55 today. Blood pressure has not been low. He has been voiding. He is tolerating oral intake. Does admit to generalized swelling. Denies chest pain or shortness of breath. Vital signs are stable. General: The patient appeared well nourished and normally developed. HEENT: Head exam is unremarkable. Neck is without jugular venous distension. LUNGS: Lungs are clear to auscultation and percussion. Breath sounds decreased. HEART: Rate and Rhythm are regular. First and second heart sounds normal. No murmurs, rubs or gallops. ABDOMEN: Bowel sounds decreased. EXTREMITITES: No clubbing, cyanosis, or edema. Objective - Vital Signs Vital signs: Vital Signs Temp 98.7 F 05/28/19 08:00 Pulse 98 05/28/19 09:45 Resp 27 H 05/28/19 09:45 BP 155/92 05/28/19 09:45 Pulse Ox 95 05/28/19 09:45 Intake & Output 05/27/19 05/28/19 05/28/19 18:59 06:59 18:59 Intake Total 1596.933 823.2 167.1 Output Total 210 665 5 Balance 1386.933 158.2 162.1 Weight 81.4 kg 82 kg Intake: IV 1370 650 150 0.9 NACL 550 650 50 Cefepime 2 gm In Sodium 100 Chloride 0.9% 100 ml @ 200 mls/hr IVPB Q12HR [facility] Rx#:[id number] DAPTOmycin 500 mg In 50 Sodium Chloride 0.9% 50 ml @ 100 mls/hr IVPB Q24H [facility] Rx#:[id number] Fluconazole in NaCl,Iso- 200 Osm 200 mg In Saline 1 100ml.bag @ 100 mls/hr IVPB DAILY [facility] Rx#: [id number] Mvi, Adult No.4 with Vit 270 K 10 ml Trace (Conc-1Ml/ Dose) 1 ml Parenteral Electrolytes 20 ml Potassium Chloride 30 meq In Amino Acid 5%-D15w 1, 000 ml @ 60 mls/hr IV . [id number] [facility] Rx#:[id number] metroNIDAZOLE-NS PMX 500 200 100 mg In Saline 1 100ml.bag @ 100 mls/hr IVPB Q8HR [facility] Rx#:[id number] Intake, IV Titration 226.933 173.2 17.1 Amount Anidulafungin 100 mg In 100 Sodium Chloride 0.9% 100 ml @ 84 mls/hr IVPB DAILY [facility] Rx#:[id number] Clevidipine Butyrate 25 126.933 173.2 17.1 mg In Empty Bag 1 bag @ 4 MG/HR 8 mls/hr IV . Q6H15M [facility] Rx#:[id number] Output: Drainage 40 5 Anterior Abdomen 40 5 Urine 170 665 0 Other: Voiding Method Urinal Urinal Urinal # Voids 1 # Bowel Movements 1 ABP, PAP, CO, CI - Last Documented Arterial Blood Pressure 137/59 - Labs CBC & Chem 7: 05/28/19 04:47 05/28/19 04:47 Labs: Abnormal Lab Results - Last 24 Hours (Table) 05/27/19 05/27/19 05/27/19 Range/Units 11:54 12:56 16:57 WBC (3.8-10.6) k/uL RBC (4.30-5.90) m/uL Hgb (13.0-17.5) gm/dL Hct (39.0-53.0) % MCHC (31.0-37.0) g/dL RDW (11.5-15.5) % Plt Count (150-450) k/uL Chloride (98-107) mmol/L Carbon Dioxide (22-30) mmol/L BUN (9-20) mg/dL Creatinine (0.66-1.25) mg/dL Glucose (74-99) mg/dL POC Glucose (mg/dL) 117 H 128 H (75-99) mg/dL Calcium (8.4-10.2) mg/dL Urine Protein 1+ H (Negative) Urine Blood Small H (Negative) Ur Leukocyte Esterase Trace H (Negative) Amorphous Sediment Rare H (None) /hpf Urine Mucus Rare H (None) /hpf 05/27/19 05/28/19 05/28/19 Range/Units 20:26 04:47 04:47 WBC 17.9 H (3.8-10.6) k/uL RBC 2.94 L (4.30-5.90) m/uL Hgb 7.9 L (13.0-17.5) gm/dL Hct 26.0 L (39.0-53.0) % MCHC 30.3 L (31.0-37.0) g/dL RDW 18.3 H (11.5-15.5) % Plt Count 768 H (150-450) k/uL Chloride 112 H (98-107) mmol/L Carbon Dioxide 16 L (22-30) mmol/L BUN 53 H (9-20) mg/dL Creatinine 2.55 H (0.66-1.25) mg/dL Glucose 100 H (74-99) mg/dL POC Glucose (mg/dL) 158 H (75-99) mg/dL Calcium 8.3 L (8.4-10.2) mg/dL Urine Protein (Negative) Urine Blood (Negative) Ur Leukocyte Esterase (Negative) Amorphous Sediment (None) /hpf Urine Mucus (None) /hpf Microbiology - Last 24 Hours (Table) 05/27/19 12:32 Gram Stain - Preliminary Sputum Sputum Culture - Preliminary 05/23/19 13:30 Blood Culture - Preliminary Blood No Growth after 96 hours 05/23/19 13:00 Blood Culture - Preliminary Blood No Growth after 96 hours 05/24/19 10:45 Blood Culture - Preliminary Blood No Growth after 72 hours Assessment and Plan Plan: Assessment: 1. Acute kidney injury secondary to ATN secondary to septic shock. Creatinine was 6 on admission. Renal function worse compared to yesterday. Creatinine 2.55 today. Creatinine was 0.68 in June 2014. No other records available. No hydronephrosis noted on imaging. 1+ proteinuria on UA. Rule out ALLERGIC interstitial nephritis due to antibiotics. 2. Perforated duodenal ulcer status post laparotomy with antrectomy on 05/16/2019. Maintained on antibiotics. Infectious disease following. 3. Metabolic acidosis secondary to acute kidney injury and IV fluids. 4. Volume overload. Effusions noted on chest x-ray. 5. Hypocalcemia secondary to hypoalbuminemia. Corrected calcium in the normal range. 6. Right renal atrophy. 7. Right kidney lesion. Urology following. Plan: Lasix 40 mg IV once today. Add oral sodium bicarbonate. Avoid nephrotoxins. Repeat electrolytes in the morning. Check urine eosinophils. Quantify proteinuria.
[2019-05-28 10:31] VITALS: BMI 26.6
[2019-05-28] MEDS: SODIUM BICARBONATE TAB 650 MG TAB PO SCH ×2 (10:34→20:42)
[2019-05-28 11:41] LABS: Glucose,Whole Blood 157 mg/dL (75-99)
[2019-05-28] MEDS: DAPTOmycin 500 MG in SODIUM CHLORIDE 0.9% 50 ML IVPB SCH (11:50)
--- NOTE | 2019-05-28 12:32 | PN ---
PROGRESS NOTE DATE OF SERVICE: 05/28/2019 REASON FOR FOLLOWUP: 1. Secondary peritonitis from perforated peptic ulcer disease. 2. Persistent elevated white count. INTERVAL HISTORY: The patient is currently afebrile. The patient is breathing comfortably. The patient did have some occasional cough with sputum no hemoptysis. No chest pain. No nausea, no vomiting. Did have bowel movements. Abdominal pain has improved compared to yesterday and activity has increased as well. PHYSICAL EXAMINATION: Blood pressure is 157/101 with a pulse of 86, temperature 98. He is 96% on room air. General description is a middle-aged male up in the chair in no distress. RESPIRATORY SYSTEM: Unlabored breathing with decreased breath sounds in the bases, no wheeze. HEART: S1, S2. Regular rate and rhythm. ABDOMEN: Soft, mildly distended. No guarding or rigidity. LABS: Hemoglobin 7.9, white count 17.9 compared to 20,000 yesterday with a BUN of 53, creatinine is 2.55. DIAGNOSTIC IMPRESSION AND PLAN: Patient with secondary peritonitis from a perforated peptic ulcer disease, status post operative repair. The patient's abdominal culture positive for klebsiella and strep with anaerobics. The patient was covered pretty well with cefepime and Flagyl and now with worsening white count, his lines have been discontinued. Culture has been negative. We will go ahead and discontinue daptomycin. White count seems to respond to change of his antifungal yesterday to Eraxis, which is to be continue and monitor his CBC closely. Family at the bedside. Their questions were answered. MMODL / IJN: [id number] / MTDD
--- NOTE | 2019-05-28 14:15 | P.PN ---
Subjective Progress Note Date: 05/28/19 Principal diagnosis: Sinus tachycardia This is a 63-year-old gentleman with past medical history significant for hypertension who we requested to see for consult earlier today for further evaluation of sinus tachycardia. The patient currently is in the intensive care unit. The history started on May 162018 when he presented with abdominal discomfort and it was noted the work up that the patient does have pneumoperitoneum. Subsequently the patient underwent an exploratory laparotomy he was found to have perforated duodenal ulcer. At that point the patient indep endent antrectomy and gastrojejunostomy. We requested to see the patient today for sinus tachycardia. The echo showed normal LV function. The patient was seen this morning. He is asymptomatic from a cardiovascular standpoint overview. He is currently on metoprolol 25 mg by mouth twice a day but he continues to be tachycardic was resting heart rate above 100 bpm. The pressure is elevated. I'm going to increase the dose of metoprolol to 50 mg by mouth twice a day. Objective - Vital Signs Vital signs: Vital Signs Temp 98.6 F 05/28/19 12:00 Pulse 91 05/28/19 13:30 Resp 25 H 05/28/19 13:30 BP 169/94 05/28/19 13:30 Pulse Ox 93 L 05/28/19 13:00 Intake & Output 05/27/19 05/28/19 05/28/19 18:59 06:59 18:59 Intake Total 1596.933 823.2 667.1 Output Total 210 665 255 Balance 1386.933 158.2 412.1 Weight 81.4 kg 82 kg 82 kg Intake: IV 1370 650 550 0.9 NACL 550 650 300 Cefepime 2 gm In Sodium 100 100 Chloride 0.9% 100 ml @ 200 mls/hr IVPB Q12HR [facility] Rx#:[id number] DAPTOmycin 500 mg In 50 50 Sodium Chloride 0.9% 50 ml @ 100 mls/hr IVPB Q24H [facility] Rx#:[id number] Fluconazole in NaCl,Iso- 200 Osm 200 mg In Saline 1 100ml.bag @ 100 mls/hr IVPB DAILY [facility] Rx#: [id number] Mvi, Adult No.4 with Vit 270 K 10 ml Trace (Conc-1Ml/ Dose) 1 ml Parenteral Electrolytes 20 ml Potassium Chloride 30 meq In Amino Acid 5%-D15w 1, 000 ml @ 60 mls/hr IV . [id number] [facility] Rx#:[id number] metroNIDAZOLE-NS PMX 500 200 100 mg In Saline 1 100ml.bag @ 100 mls/hr IVPB Q8HR [facility] Rx#:[id number] Intake, IV Titration 226.933 173.2 117.1 Amount Anidulafungin 100 mg In 100 100 Sodium Chloride 0.9% 100 ml @ 84 mls/hr IVPB DAILY [facility] Rx#:[id number] Clevidipine Butyrate 25 126.933 173.2 17.1 mg In Empty Bag 1 bag @ 4 MG/HR 8 mls/hr IV . Q6H15M [facility] Rx#:[id number] Output: Drainage 40 5 Anterior Abdomen 40 5 Urine 170 665 250 Other: Voiding Method Urinal Urinal Urinal # Voids 1 1 # Bowel Movements 1 1 ABP, PAP, CO, CI - Last Documented Arterial Blood Pressure 137/59 - Constitutional General appearance: Present: no acute distress - Respiratory Respiratory: bilateral: CTA - Cardiovascular Rhythm: regular Heart sounds: normal: S1, S2 - Labs CBC & Chem 7: 05/28/19 04:47 05/28/19 04:47 Labs: Abnormal Lab Results - Last 24 Hours (Table) 05/27/19 05/27/19 05/28/19 Range/Units 16:57 20:26 04:47 WBC 17.9 H (3.8-10.6) k/uL RBC 2.94 L (4.30-5.90) m/uL Hgb 7.9 L (13.0-17.5) gm/dL Hct 26.0 L (39.0-53.0) % MCHC 30.3 L (31.0-37.0) g/dL RDW 18.3 H (11.5-15.5) % Plt Count 768 H (150-450) k/uL Chloride (98-107) mmol/L Carbon Dioxide (22-30) mmol/L BUN (9-20) mg/dL Creatinine (0.66-1.25) mg/dL Glucose (74-99) mg/dL POC Glucose (mg/dL) 128 H 158 H (75-99) mg/dL Calcium (8.4-10.2) mg/dL U Random Total Protein (<12) mg/dL 05/28/19 05/28/19 05/28/19 Range/Units 04:47 11:29 12:18 WBC (3.8-10.6) k/uL RBC (4.30-5.90) m/uL Hgb (13.0-17.5) gm/dL Hct (39.0-53.0) % MCHC (31.0-37.0) g/dL RDW (11.5-15.5) % Plt Count (150-450) k/uL Chloride 112 H (98-107) mmol/L Carbon Dioxide 16 L (22-30) mmol/L BUN 53 H (9-20) mg/dL Creatinine 2.55 H (0.66-1.25) mg/dL Glucose 100 H (74-99) mg/dL POC Glucose (mg/dL) 157 H (75-99) mg/dL Calcium 8.3 L (8.4-10.2) mg/dL U Random Total Protein 45 H (<12) mg/dL Microbiology - Last 24 Hours (Table) 05/24/19 10:45 Blood Culture - Preliminary Blood No Growth after 96 hours 05/27/19 12:32 Gram Stain - Preliminary Sputum Sputum Culture - Preliminary 05/23/19 13:30 Blood Culture - Preliminary Blood No Growth after 96 hours 05/23/19 13:00 Blood Culture - Preliminary Blood No Growth after 96 hours Assessment and Plan Assessment: Assessment #1 status post exploratory laparotomy for perforated peptic ulcer #2 possible sepsis #3 sinus tachycardia Plan #1 increase the dose of metoprolol for better heart rate and blood pressure control #2 follow-up with the patient
--- NOTE | 2019-05-28 14:15 | P.PN ---
Subjective Progress Note Date: 05/28/19 Principal diagnosis: Duodenal perforation Patient was seen and examined. No acute events overnight. Patient reports no bowel movements today but passing plenty of gas. Tolerating full liquid diet well. Denies any abdominal pain but does complain of some swelling and bloating . No nausea vomiting. No fever or chills. Urinating freely but decreased urine output as per RN. Objective - Vital Signs Vital signs: Vital Signs Temp 98.6 F 05/28/19 12:00 Pulse 91 05/28/19 13:30 Resp 25 H 05/28/19 13:30 BP 169/94 05/28/19 13:30 Pulse Ox 93 L 05/28/19 13:00 Intake & Output 05/27/19 05/28/19 05/28/19 18:59 06:59 18:59 Intake Total 1596.933 823.2 667.1 Output Total 210 665 255 Balance 1386.933 158.2 412.1 Weight 81.4 kg 82 kg 82 kg Intake: IV 1370 650 550 0.9 NACL 550 650 300 Cefepime 2 gm In Sodium 100 100 Chloride 0.9% 100 ml @ 200 mls/hr IVPB Q12HR [facility] Rx#:[id number] DAPTOmycin 500 mg In 50 50 Sodium Chloride 0.9% 50 ml @ 100 mls/hr IVPB Q24H [facility] Rx#:[id number] Fluconazole in NaCl,Iso- 200 Osm 200 mg In Saline 1 100ml.bag @ 100 mls/hr IVPB DAILY [facility] Rx#: [id number] Mvi, Adult No.4 with Vit 270 K 10 ml Trace (Conc-1Ml/ Dose) 1 ml Parenteral Electrolytes 20 ml Potassium Chloride 30 meq In Amino Acid 5%-D15w 1, 000 ml @ 60 mls/hr IV . [id number] [facility] Rx#:[id number] metroNIDAZOLE-NS PMX 500 200 100 mg In Saline 1 100ml.bag @ 100 mls/hr IVPB Q8HR [facility] Rx#:[id number] Intake, IV Titration 226.933 173.2 117.1 Amount Anidulafungin 100 mg In 100 100 Sodium Chloride 0.9% 100 ml @ 84 mls/hr IVPB DAILY [facility] Rx#:[id number] Clevidipine Butyrate 25 126.933 173.2 17.1 mg In Empty Bag 1 bag @ 4 MG/HR 8 mls/hr IV . Q6H15M [facility] Rx#:[id number] Output: Drainage 40 5 Anterior Abdomen 40 5 Urine 170 665 250 Other: Voiding Method Urinal Urinal Urinal # Voids 1 1 # Bowel Movements 1 1 ABP, PAP, CO, CI - Last Documented Arterial Blood Pressure 137/59 - Exam General: [non toxic], [appears at stated age] Derm: [warm], [dry] Head: [atraumatic], [normocephalic], [symmetric] Eyes: [no lid lag], [anicteric sclera] Mouth: [no lip lesion], [oropharynx within normal limits] Cardiovascular: [S1S2 reg], [no murmur], [positive DP pulse bilateral], Lungs: [Clear to auscultation bilaterally], [no rhonchi, no rales] , [no accessory muscle use] Abdominal: [soft], [midline abdominal surgical scar keren intact with no erythema or discharge], [no guarding], [no appreciable organomegaly], [no bowel sounds] Ext: [no gross muscle atrophy], [no edema], [no contractures] Neuro: [No focal neurologic deficits] Psych: [Unable to determine] - Labs CBC & Chem 7: 05/28/19 04:47 05/28/19 04:47 Labs: Abnormal Lab Results - Last 24 Hours (Table) 05/27/19 05/27/19 05/28/19 Range/Units 16:57 20:26 04:47 WBC 17.9 H (3.8-10.6) k/uL RBC 2.94 L (4.30-5.90) m/uL Hgb 7.9 L (13.0-17.5) gm/dL Hct 26.0 L (39.0-53.0) % MCHC 30.3 L (31.0-37.0) g/dL RDW 18.3 H (11.5-15.5) % Plt Count 768 H (150-450) k/uL Chloride (98-107) mmol/L Carbon Dioxide (22-30) mmol/L BUN (9-20) mg/dL Creatinine (0.66-1.25) mg/dL Glucose (74-99) mg/dL POC Glucose (mg/dL) 128 H 158 H (75-99) mg/dL Calcium (8.4-10.2) mg/dL U Random Total Protein (<12) mg/dL 05/28/19 05/28/19 05/28/19 Range/Units 04:47 11:29 12:18 WBC (3.8-10.6) k/uL RBC (4.30-5.90) m/uL Hgb (13.0-17.5) gm/dL Hct (39.0-53.0) % MCHC (31.0-37.0) g/dL RDW (11.5-15.5) % Plt Count (150-450) k/uL Chloride 112 H (98-107) mmol/L Carbon Dioxide 16 L (22-30) mmol/L BUN 53 H (9-20) mg/dL Creatinine 2.55 H (0.66-1.25) mg/dL Glucose 100 H (74-99) mg/dL POC Glucose (mg/dL) 157 H (75-99) mg/dL Calcium 8.3 L (8.4-10.2) mg/dL U Random Total Protein 45 H (<12) mg/dL Microbiology - Last 24 Hours (Table) 05/24/19 10:45 Blood Culture - Preliminary Blood No Growth after 96 hours 05/27/19 12:32 Gram Stain - Preliminary Sputum Sputum Culture - Preliminary 05/23/19 13:30 Blood Culture - Preliminary Blood No Growth after 96 hours 05/23/19 13:00 Blood Culture - Preliminary Blood No Growth after 96 hours Assessment and Plan Assessment: Assessment and plan Septic shock due to perforated duodenal ulcer status post exploratory laparotomy POD 12 Perforated duodenal ulcer Acute kidney injury secondary to ATN from hypovolemic and septic shock Acute blood loss anemia secondary to GI bleed from perforated duodenal ulcer Hypocalcemia Alcohol abuse Kidney lesion Resolved: Lactic acidosis, hyperkalemia Patient continues leukocytosis but improved from 20.2-17.9. POD 12 exploratory laparotomy with antrectomy and gastrojejunostomy. KUB and CT abdomen and pelvis confirmed perforation. Wound cultures show Klebsiella oxytocin and non- hemolytic strep. Blood cultures negative at 144, 96 hours. Urine culture negative. Computed tomography scan shows worsening anasarca, consolidation basilar lobes, hypodensity along posterior wall of small bowel, probable ileus, bladder wall thickening. Plans: Patient is currently on anidulafungin, cefepime and fluconazole for antibiotic coverage as per ID recommendation. Daptomycin discontinued by ID. Continue Protonix 40 mg IV twice a day and Reglan 10 mg IV every 6 hours. Continue normal saline at 50 mL per hour. Telemetry monitoring. Follow wound and blood cultures. Follow sputum culture. Follow ID recommendations. Plans: Management as above. Plans for clear liquid diet today and advance as tolerated. Creatinine stable at 2.55. Likely due to hypovolemic and septic shock. Plans: Continue IVF as above. Sodium bicarbonate added by nephrology for metabolic acidosis. Urine for eosinophils. Avoid nephrotoxins. Repeat BMP in the morning . Hemoglobin 7.9. Given 2 units PRBC during surgery, one PRBC post surgery. Likely acute blood loss from duodenal ulcer perforation, minimally from surgery and dilution. Plans: Repeat CBC tomorrow morning. Transfuse if hemoglobin less than 7. Calcium 8.3. Possibly from blood transfusion. Plans: Repeat CMP in the morning. Family states drinks 4 beers daily. Plans: We will continue to monitor. Patient with exophytic kidney lesion, needs workup in the outpatient setting, incidental finding on CT. [Patient improving, tolerating diet. Leukocytosis improving. Continue broad- spectrum IV antibiotics pending cultures. Full liquid diet management. Likely DC in 3-5 days.]
[2019-05-28] MEDS: amLODIPine 10 MG TAB PO SCH (14:34)
--- NOTE | 2019-05-28 16:02 | P.PN ---
Subjective Progress Note Date: 05/28/19 Patient was up walking in halls today. No complaints. BOGDAN serosang. Passing flatus and had another BM. Tolerating fulls Objective - Vital Signs Vital signs: Vital Signs Temp 99.1 F 05/28/19 15:30 Pulse 92 05/28/19 15:40 Resp 19 05/28/19 15:30 BP 164/80 05/28/19 15:30 Pulse Ox 99 05/28/19 15:30 Intake & Output 05/27/19 05/28/19 05/28/19 18:59 06:59 18:59 Intake Total 1596.933 823.2 917.1 Output Total 210 665 260 Balance 1386.933 158.2 657.1 Weight 81.4 kg 82 kg 82 kg Intake: IV 1370 650 800 0.9 NACL 550 650 450 Cefepime 2 gm In Sodium 100 100 Chloride 0.9% 100 ml @ 200 mls/hr IVPB Q12HR [facility] Rx#:[id number] DAPTOmycin 500 mg In 50 50 Sodium Chloride 0.9% 50 ml @ 100 mls/hr IVPB Q24H [facility] Rx#:[id number] Fluconazole in NaCl,Iso- 200 Osm 200 mg In Saline 1 100ml.bag @ 100 mls/hr IVPB DAILY [facility] Rx#: [id number] Mvi, Adult No.4 with Vit 270 K 10 ml Trace (Conc-1Ml/ Dose) 1 ml Parenteral Electrolytes 20 ml Potassium Chloride 30 meq In Amino Acid 5%-D15w 1, 000 ml @ 60 mls/hr IV . [id number] [facility] Rx#:[id number] metroNIDAZOLE-NS PMX 500 200 200 mg In Saline 1 100ml.bag @ 100 mls/hr IVPB Q8HR [facility] Rx#:[id number] Intake, IV Titration 226.933 173.2 117.1 Amount Anidulafungin 100 mg In 100 100 Sodium Chloride 0.9% 100 ml @ 84 mls/hr IVPB DAILY [facility] Rx#:[id number] Clevidipine Butyrate 25 126.933 173.2 17.1 mg In Empty Bag 1 bag @ 4 MG/HR 8 mls/hr IV . Q6H15M [facility] Rx#:[id number] Output: Drainage 40 10 Anterior Abdomen 40 10 Urine 170 665 250 Other: Voiding Method Urinal Urinal Urinal # Voids 1 1 # Bowel Movements 1 1 ABP, PAP, CO, CI - Last Documented Arterial Blood Pressure 137/59 - Constitutional General appearance: Present: cooperative - Respiratory Details: nonlabored - Cardiovascular Rhythm: regular - Gastrointestinal Gastrointestinal Comment(s): S/NT/ND BOGDAN serous incision CDI - Labs CBC & Chem 7: 05/28/19 04:47 05/28/19 04:47 Labs: Abnormal Lab Results - Last 24 Hours (Table) 05/27/19 05/27/19 05/28/19 Range/Units 16:57 20:26 04:47 WBC 17.9 H (3.8-10.6) k/uL RBC 2.94 L (4.30-5.90) m/uL Hgb 7.9 L (13.0-17.5) gm/dL Hct 26.0 L (39.0-53.0) % MCHC 30.3 L (31.0-37.0) g/dL RDW 18.3 H (11.5-15.5) % Plt Count 768 H (150-450) k/uL Chloride (98-107) mmol/L Carbon Dioxide (22-30) mmol/L BUN (9-20) mg/dL Creatinine (0.66-1.25) mg/dL Glucose (74-99) mg/dL POC Glucose (mg/dL) 128 H 158 H (75-99) mg/dL Calcium (8.4-10.2) mg/dL U Random Total Protein (<12) mg/dL 05/28/19 05/28/19 05/28/19 Range/Units 04:47 11:29 12:18 WBC (3.8-10.6) k/uL RBC (4.30-5.90) m/uL Hgb (13.0-17.5) gm/dL Hct (39.0-53.0) % MCHC (31.0-37.0) g/dL RDW (11.5-15.5) % Plt Count (150-450) k/uL Chloride 112 H (98-107) mmol/L Carbon Dioxide 16 L (22-30) mmol/L BUN 53 H (9-20) mg/dL Creatinine 2.55 H (0.66-1.25) mg/dL Glucose 100 H (74-99) mg/dL POC Glucose (mg/dL) 157 H (75-99) mg/dL Calcium 8.3 L (8.4-10.2) mg/dL U Random Total Protein 45 H (<12) mg/dL Microbiology - Last 24 Hours (Table) 05/23/19 13:00 Blood Culture - Preliminary Blood No Growth after 120 hours 05/24/19 10:45 Blood Culture - Preliminary Blood No Growth after 96 hours 05/27/19 12:32 Gram Stain - Preliminary Sputum Sputum Culture - Preliminary 05/23/19 13:30 Blood Culture - Preliminary Blood No Growth after 96 hours Assessment and Plan Assessment: POD#12 ex lap antrectomy with billroth II gastrojejunostomy secondary to perforated duodenal ulcer Plan: Advance diet to soft as tolerated. Continue with ICU care per critical care and medicine. IV ABX per ID. OOBTC, encouraged ambulation and IS.
[2019-05-28 16:56] LABS: Glucose,Whole Blood 86 mg/dL (75-99)
[2019-05-28] MEDS: HYDROmorphone 1 MG/ML 1 ML SYRINGE IVP PRN (20:42)
[2019-05-28 20:44] LABS: Glucose,Whole Blood 110 mg/dL (75-99)
[2019-05-29] MEDS: HYDROmorphone 1 MG/ML 1 ML SYRINGE IVP PRN ×2 (02:22→15:33)
[2019-05-29 04:49] LABS: Anisocytosis Slight; Basophils # (A) 0.1 k/uL (0-0.2); Basophils % (A) 0 %; Eosinophils # (A) 0.3 k/uL (0-0.7); Eosinophils % (A) 2 %; HCT 25.4 % (39.0-53.0); HGB 7.6 gm/dL (13.0-17.5); Hypochromasia Marked; Lymphocytes # (A) 1.1 k/uL (1.0-4.8); Lymphocytes % (A) 6 %; MCH 26.5 pg (25.0-35.0); MCHC 29.8 g/dL (31.0-37.0); MCV 88.8 fL (80.0-100.0); Mean Platelet Volume 7.1; Monocytes # (A) 0.8 k/uL (0-1.0); Monocytes % (A) 5 %; Neutrophils % (A) 85 %; Platelet Count 812 k/uL (150-450); Poikilocytosis Slight; RBC 2.85 m/uL (4.30-5.90); RDW 17.7 % (11.5-15.5); WBC 16.5 k/uL (3.8-10.6)
[2019-05-29 04:53] LABS: Calcium 8.1 mg/dL (8.4-10.2); Potassium 3.9 mmol/L (3.5-5.1)
[2019-05-29] MEDS: METOCLOPRAMIDE 5 MG/ML 2 ML VIAL IVP SCH ×3 (06:06→20:39)
[2019-05-29] MEDS: INSULIN ASPART (NovoLOG) 100 UNIT/ML VIAL SQ SCH ×4 (06:38→20:38)
[2019-05-29 06:48] LABS: Glucose,Whole Blood 82 mg/dL (75-99)
[2019-05-29] MEDS: IPRATROPIUM-ALBUTEROL 3 ML NEB INHALATION SCH ×4 (07:24→19:10)
[2019-05-29] MEDS: PANTOPRAZOLE 40 MG/10 ML VIAL IV SCH ×2 (08:07→20:39)
[2019-05-29] MEDS: amLODIPine 10 MG TAB PO SCH (08:07)
[2019-05-29] MEDS: METOPROLOL TARTRATE 50 MG TAB PO SCH ×2 (08:07→20:39)
[2019-05-29] MEDS: SODIUM BICARBONATE TAB 650 MG TAB PO SCH ×2 (08:07→20:39)
[2019-05-29] MEDS: HEPARIN SODIUM,PORCINE 5,000 UNIT/ML 1 ML VIAL SQ SCH ×2 (08:07→15:32)
[2019-05-29] MEDS: SODIUM CHLORIDE 0.9% 1,000 ML IV SCH ×4 (08:08→15:22)
[2019-05-29] MEDS: metroNIDAZOLE-NS PMX 500 MG in SALINE 1 100ML.BAG IVPB SCH ×2 (08:11→15:33)
[2019-05-29] MEDS: CEFEPIME 2 GM in SODIUM CHLORIDE 0.9% 100 ML IVPB SCH (08:14)
--- NOTE | 2019-05-29 08:30 | P.PN ---
Subjective Progress Note Date: 05/29/19 Patient seen and examined at bedside. States he is feeling much better today. Denies nausea or vomiting. Tolerating diet and having bowel movements. Objective - Vital Signs Vital signs: Vital Signs Temp 98.4 F 05/29/19 08:03 Pulse 105 H 05/29/19 08:03 Resp 16 05/29/19 08:03 BP 172/80 05/29/19 08:03 Pulse Ox 97 05/29/19 08:03 Intake & Output 05/28/19 05/29/19 05/29/19 18:59 06:59 18:59 Intake Total 1117.1 Output Total 660 585 Balance 457.1 -585 Weight 82 kg Intake: IV 1000 0.9 NACL 650 Cefepime 2 gm In Sodium 100 Chloride 0.9% 100 ml @ 200 mls/hr IVPB Q12HR [facility] Rx#:[id number] DAPTOmycin 500 mg In 50 Sodium Chloride 0.9% 50 ml @ 100 mls/hr IVPB Q24H [facility] Rx#:[id number] metroNIDAZOLE-NS PMX 500 200 mg In Saline 1 100ml.bag @ 100 mls/hr IVPB Q8HR [facility] Rx#:[id number] Intake, IV Titration 117.1 Amount Anidulafungin 100 mg In 100 Sodium Chloride 0.9% 100 ml @ 84 mls/hr IVPB DAILY [facility] Rx#:[id number] Clevidipine Butyrate 25 17.1 mg In Empty Bag 1 bag @ 4 MG/HR 8 mls/hr IV . Q6H15M [facility] Rx#:[id number] Output: Drainage 10 10 Anterior Abdomen 10 10 Urine 650 575 Other: Voiding Method Urinal Urinal # Voids 1 # Bowel Movements 1 ABP, PAP, CO, CI - Last Documented Arterial Blood Pressure 137/59 - Constitutional General appearance: Present: cooperative, no acute distress - Respiratory Details: No difficulty with respiration - Gastrointestinal Gastrointestinal Comment(s): Soft, appropriate tenderness, nondistended, no rebound, no guarding, BOGDAN drain in place with 10 mL of serous drainage overnight. - Psychiatric Psychiatric: Present: A&O x's 3 - Labs CBC & Chem 7: 05/29/19 04:25 05/29/19 04:25 Labs: Abnormal Lab Results - Last 24 Hours (Table) 05/28/19 05/28/1905/28/19 Range/Units 11:29 12:18 20:32 WBC (3.8-10.6) k/uL RBC (4.30-5.90) m/uL Hgb (13.0-17.5) gm/dL Hct (39.0-53.0) % MCHC (31.0-37.0) g/dL RDW (11.5-15.5) % Plt Count (150-450) k/uL Neutrophils # (1.3-7.7) k/uL Sodium (137-145) mmol/L Chloride (98-107) mmol/L Carbon Dioxide (22-30) mmol/L BUN (9-20) mg/dL Creatinine (0.66-1.25) mg/dL POC Glucose (mg/dL) 157 H 110 H (75-99) mg/dL Calcium (8.4-10.2) mg/dL U Random Total Protein 45 H (<12) mg/dL 05/29/19 05/29/19 Range/Units 04:25 04:25 WBC 16.5 H (3.8-10.6) k/uL RBC 2.85 L (4.30-5.90) m/uL Hgb 7.6 L (13.0-17.5) gm/dL Hct 25.4 L (39.0-53.0) % MCHC 29.8 L (31.0-37.0) g/dL RDW 17.7 H (11.5-15.5) % Plt Count 812 H (150-450) k/uL Neutrophils # 14.0 H (1.3-7.7) k/uL Sodium 136 L (137-145) mmol/L Chloride 113 H (98-107) mmol/L Carbon Dioxide 15 L (22-30) mmol/L BUN 53 H (9-20) mg/dL Creatinine 2.97 H (0.66-1.25) mg/dL POC Glucose (mg/dL) (75-99) mg/dL Calcium 8.1 L (8.4-10.2) mg/dL U Random Total Protein (<12) mg/dL Microbiology - Last 24 Hours (Table) 05/23/19 13:30 Blood Culture - Preliminary Blood No Growth after 120 hours 05/23/19 13:00 Blood Culture - Preliminary Blood No Growth after 120 hours 05/24/19 10:45 Blood Culture - Preliminary Blood No Growth after 96 hours Assessment and Plan Plan: POD#13 ex lap antrectomy with billroth II gastrojejunostomy secondary to perforated duodenal ulcer - Continue with soft diet. Continue to increase activity, this was discussed with the patient. The patient did inquire about staple removal and this will be done either prior to discharge or in follow-up in the clinic. Continue ICU recommendations and infectious disease recommendations. Progressing slowly.
--- NOTE | 2019-05-29 08:43 | XR ---
EXAMINATION TYPE: XR chest 1V DATE OF EXAM: 05/29/2019 COMPARISON: Chest x-ray 05/27/2019 HISTORY: Shortness of breath TECHNIQUE: Single frontal view of the chest is obtained. FINDINGS: Stable enlargement of the cardiac silhouette. Pulmonary vascularity is increased, mild. [place] zy bibasilar opacities are grossly unchanged, likely combination of pleural effusion and atelectasis, small to moderate in size. No pneumothorax. Stable position of right upper extremity PICC projecting over the right atrium. IMPRESSION: Stable exam including bibasilar airspace opacities, likely pleural effusions with atelec tasis however underlying airspace disease is not excluded.
[2019-05-29] MEDS ORDERED: hydrALAZINE HCL 25 MG TAB PO SCH (09:00)
--- NOTE | 2019-05-29 09:10 | P.PN ---
Subjective Patient is seen in follow-up for acute kidney injury. Renal function continues to worsen. Creatinine 2.97 today. Blood pressure has not been low. He has been voiding. He is tolerating oral intake. Denies chest pain or shortness of breath. Vital signs are stable. General: The patient appeared well nourished and normally developed. HEENT: Head exam is unremarkable. Neck is without jugular venous distension. LUNGS: Lungs are clear to auscultation and percussion. Breath sounds decreased. HEART: Rate and Rhythm are regular. First and second heart sounds normal. No murmurs, rubs or gallops. ABDOMEN: Bowel sounds decreased. EXTREMITITES: No clubbing, cyanosis, or edema. Objective - Vital Signs Vital signs: Vital Signs Temp 98.4 F 05/29/19 08:03 Pulse 105 H 05/29/19 08:03 Resp 16 05/29/19 08:03 BP 172/80 05/29/19 08:03 Pulse Ox 97 05/29/19 08:03 Intake & Output 05/28/19 05/29/19 05/29/19 18:59 06:59 18:59 Intake Total 1117.1 Output Total 660 585 Balance 457.1 -585 Weight 82 kg Intake: IV 1000 0.9 NACL 650 Cefepime 2 gm In Sodium 100 Chloride 0.9% 100 ml @ 200 mls/hr IVPB Q12HR [facility] Rx#:[id number] DAPTOmycin 500 mg In 50 Sodium Chloride 0.9% 50 ml @ 100 mls/hr IVPB Q24H [facility] Rx#:[id number] metroNIDAZOLE-NS PMX 500 200 mg In Saline 1 100ml.bag @ 100 mls/hr IVPB Q8HR [facility] Rx#:[id number] Intake, IV Titration 117.1 Amount Anidulafungin 100 mg In 100 Sodium Chloride 0.9% 100 ml @ 84 mls/hr IVPB DAILY [facility] Rx#:[id number] Clevidipine Butyrate 25 17.1 mg In Empty Bag 1 bag @ 4 MG/HR 8 mls/hr IV . Q6H15M [facility] Rx#:[id number] Output: Drainage 10 10 Anterior Abdomen 10 10 Urine 650 575 Other: Voiding Method Urinal Urinal # Voids 1 # Bowel Movements 1 ABP, PAP, CO, CI - Last Documented Arterial Blood Pressure 137/59 - Labs CBC & Chem 7: 05/29/19 04:25 05/29/19 04:25 Labs: Abnormal Lab Results - Last 24 Hours (Table) 05/28/19 05/28/19 05/28/19 Range/Units 11:29 12:18 20:32 WBC (3.8-10.6) k/uL RBC (4.30-5.90) m/uL Hgb (13.0-17.5) gm/dL Hct (39.0-53.0) % MCHC (31.0-37.0) g/dL RDW (11.5-15.5) % Plt Count (150-450) k/uL Neutrophils # (1.3-7.7) k/uL Sodium (137-145) mmol/L Chloride (98-107) mmol/L Carbon Dioxide (22-30) mmol/L BUN (9-20) mg/dL Creatinine (0.66-1.25) mg/dL POC Glucose (mg/dL) 157 H 110 H (75-99) mg/dL Calcium (8.4-10.2) mg/dL U Random Total Protein 45 H (<12) mg/dL 05/29/19 05/29/19 Range/Units 04:25 04:25 WBC 16.5 H (3.8-10.6) k/uL RBC 2.85 L (4.30-5.90) m/uL Hgb 7.6 L (13.0-17.5) gm/dL Hct 25.4 L (39.0-53.0) % MCHC 29.8 L (31.0-37.0) g/dL RDW 17.7 H (11.5-15.5) % Plt Count 812 H (150-450) k/uL Neutrophils # 14.0 H (1.3-7.7) k/uL Sodium 136 L (137-145) mmol/L Chloride 113 H (98-107) mmol/L Carbon Dioxide 15 L (22-30) mmol/L BUN 53 H (9-20) mg/dL Creatinine 2.97 H (0.66-1.25) mg/dL POC Glucose (mg/dL) (75-99) mg/dL Calcium 8.1 L (8.4-10.2) mg/dL U Random Total Protein (<12) mg/dL Microbiology - Last 24 Hours (Table) 05/23/19 13:30 Blood Culture - Preliminary Blood No Growth after 120 hours 05/23/19 13:00 Blood Culture - Preliminary Blood No Growth after 120 hours 05/24/19 10:45 Blood Culture - Preliminary Blood No Growth after 96 hours Assessment and Plan Plan: Assessment: 1. Acute kidney injury secondary to ATN secondary to septic shock. Creatinine was 6 on admission and did improve. However the last few days it is worsening again. Creatinine 2.97 today. Creatinine was 0.68 in June 2014. No other records available. No hydronephrosis noted on imaging. 1+ proteinuria on UA. Rule out ALLERGIC interstitial nephritis due to antibiotics. UPC 1.6 g. 2. Perforated duodenal ulcer status post laparotomy with antrectomy on 05/16/2019. Maintained on antibiotics. Infectious disease following. 3. Metabolic acidosis secondary to acute kidney injury and IV fluids. 4. Volume overload. Status post IV Lasix yesterday. 5. Hypocalcemia secondary to hypoalbuminemia. Corrected calcium in the normal range. 6. Right renal atrophy. 7. Right kidney lesion. Urology following. Plan: Hold diuretics today. Maintain gentle IV hydration. Increase dose of oral sodium bicarbonate. Avoid nephrotoxins. Repeat electrolytes in the morning. Check urine eosinophils. Check serologies.
[2019-05-29] MEDS: ANIDULAFUNGIN 100 MG in SODIUM CHLORIDE 0.9% 100 ML IVPB SCH (10:33)
--- NOTE | 2019-05-29 10:50 | PN ---
PROGRESS NOTE Mr. Flores is a 63-year-old male who presented with abdominal pain and underwent exploratory laparotomy for perforated peptic ulcer. He is doing well today. He had evidence of sinus tachycardia. He is hemodynamically stable. He is tolerating p.o. intake, denying any chest pain. He denies any dizziness. He denies any palpitation. Hemodynamically stable. He had an echocardiogram that revealed a preserved left ventricular size and systolic function. He is at this point on amlodipine 10 mg daily, metoprolol tartrate 50 mg twice a day. PHYSICAL EXAMINATION: Blood pressure running in the 150s to 160s with a heart rate in the 70s. LUNGS: No wheezes. HEART: Regular rate and rhythm, S1, S2. No S3. No rub appreciated. ABDOMEN: Soft, positive bowel sounds. No organomegaly. EXTREMITIES: No edema. LAB DATA: Revealed BUN and creatinine of 53 and 2.97, potassium 3.9, hemoglobin of 7.6, white blood cell of 16.5. IMPRESSION: 1. Status post perforated viscus, status post surgery. 2. Hypertension. 3. Sinus tachycardia. 4. Renal failure. RECOMMENDATION: From the cardiac standpoint, we will continue on the beta gabbi as present as well as his amlodipine. I will add hydralazine to optimize his blood pressure control. Continue rest of his medical regimen. Increase his activity gradually and depending on his blood pressure trend, further recommendation will be made. His renal function has been followed by Dr. Best. MMODL / SAMARIAN: [id number] /
[2019-05-29 12:47] LABS: Glucose,Whole Blood 149 mg/dL (75-99)
--- NOTE | 2019-05-29 13:05 | P.PN ---
Subjective Progress Note Date: 05/29/19 Principal diagnosis: Duodenal perforation Patient was seen and examined. No acute events overnight. Tolerating a low fiber diet well. Denies any abdominal pain. No nausea vomiting. No fever or chills. Urinating freely, 470 cc output as of today per RN. Passing gas. Objective - Vital Signs Vital signs: Vital Signs Temp 98.4 F 05/29/19 08:03 Pulse 72 05/29/19 11:24 Resp 16 05/29/19 08:03 BP 152/79 05/29/19 10:55 Pulse Ox 97 05/29/19 08:03 Intake & Output 05/28/19 05/29/19 05/29/19 18:59 06:59 18:59 Intake Total 1117.1 Output Total 660 585 Balance 457.1 -585 Weight 82 kg Intake: IV 1000 0.9 NACL 650 Cefepime 2 gm In Sodium 100 Chloride 0.9% 100 ml @ 200 mls/hr IVPB Q12HR [facility] Rx#:[id number] DAPTOmycin 500 mg In 50 Sodium Chloride 0.9% 50 ml @ 100 mls/hr IVPB Q24H [facility] Rx#:[id number] metroNIDAZOLE-NS PMX 500 200 mg In Saline 1 100ml.bag @ 100 mls/hr IVPB Q8HR [facility] Rx#:[id number] Intake, IV Titration 117.1 Amount Anidulafungin 100 mg In 100 Sodium Chloride 0.9% 100 ml @ 84 mls/hr IVPB DAILY [facility] Rx#:[id number] Clevidipine Butyrate 25 17.1 mg In Empty Bag 1 bag @ 4 MG/HR 8 mls/hr IV . Q6H15M [facility] Rx#:[id number] Output: Drainage 10 10 Anterior Abdomen 10 10 Urine 650 575 Other: Voiding Method Urinal Urinal Urinal # Voids 1 # Bowel Movements 1 ABP, PAP, CO, CI - Last Documented Arterial Blood Pressure 137/59 - Exam General: [non toxic], [appears at stated age] Derm: [warm], [dry] Head: [atraumatic], [normocephalic], [symmetric] Eyes: [no lid lag], [anicteric sclera] Mouth: [no lip lesion], [oropharynx within normal limits] Cardiovascular: [S1S2 reg], [no murmur], [positive DP pulse bilateral], Lungs: [Clear to auscultation bilaterally], [no rhonchi, no rales] , [no accesso ry muscle use] Abdominal: [soft], [midline abdominal surgical scar keren intact with no erythema or discharge], [no guarding], [no appreciable organomegaly], [no bowel sounds] Ext: [no gross muscle atrophy], [no edema], [no contractures] Neuro: [No focal neurologic deficits] Psych: [Alert and oriented] - Labs CBC & Chem 7: 05/29/19 04:25 05/29/19 04:25 Labs: Abnormal Lab Results - Last 24 Hours (Table) 05/28/19 05/29/19 05/29/19 Range/Units 20:32 04:25 04:25 WBC 16.5 H (3.8-10.6) k/uL RBC 2.85 L (4.30-5.90) m/uL Hgb 7.6 L (13.0-17.5) gm/dL Hct 25.4 L (39.0-53.0) % MCHC 29.8 L (31.0-37.0) g/dL RDW 17.7 H (11.5-15.5) % Plt Count 812 H (150-450) k/uL Neutrophils # 14.0 H (1.3-7.7) k/uL Sodium 136 L (137-145) mmol/L Chloride 113 H (98-107) mmol/L Carbon Dioxide 15 L (22-30) mmol/L BUN 53 H (9-20) mg/dL Creatinine 2.97 H (0.66-1.25) mg/dL POC Glucose (mg/dL) 110 H (75-99) mg/dL Calcium 8.1 L (8.4-10.2) mg/dL 05/29/19 Range/Units 12:35 WBC (3.8-10.6) k/uL RBC (4.30-5.90) m/uL Hgb (13.0-17.5) gm/dL Hct (39.0-53.0) % MCHC (31.0-37.0) g/dL RDW (11.5-15.5) % Plt Count (150-450) k/uL Neutrophils # (1.3-7.7) k/uL Sodium (137-145) mmol/L Chloride (98-107) mmol/L Carbon Dioxide (22-30) mmol/L BUN (9-20) mg/dL Creatinine (0.66-1.25) mg/dL POC Glucose (mg/dL) 149 H (75-99) mg/dL Calcium (8.4-10.2) mg/dL Microbiology - Last 24 Hours (Table) 05/27/19 12:32 Gram Stain - Final Sputum Sputum Culture - Final 05/23/19 13:30 Blood Culture - Preliminary Blood No Growth after 120 hours 05/23/19 13:00 Blood Culture - Preliminary Blood No Growth after 120 hours 05/24/19 10:45 Blood Culture - Preliminary Blood No Growth after 96 hours Assessment and Plan Assessment: Assessment and plan Acute kidney injury secondary to ATN from hypovolemic and septic shock Septic shock due to perforated duodenal ulcer status post exploratory laparotomy POD 13 Perforated duodenal ulcer Acute blood loss anemia secondary to GI bleed from perforated duodenal ulcer Hypocalcemia Alcohol abuse Kidney lesion Resolved: Lactic acidosis, hyperkalemia Creatinine continues to worsen, today 2.97. Likely due to hypovolemic and septi c shock. Plans: Continue IVF as above. Sodium bicarbonate added by nephrology for metabolic acidosis. Urine for eosinophils to rule out ALLERGIC interstitial nephritis. Follow MUSA, [id number] DNA, ANCA, complement, hepatitis panel, immunofixation and protein electrophoresis. Avoid nephrotoxins. Repeat BMP in the morning. Patient continues leukocytosis but improved from 20.2-16.5. POD 13 exploratory laparotomy with antrectomy and gastrojejunostomy. KUB and CT abdomen and pelvis confirmed perforation. Wound cultures show Klebsiella oxytocin and non- hemolytic strep. Blood cultures negative at 144, 120 hours. Urine culture negative. Computed tomography scan shows worsening anasarca, consolidation basilar lobes, hypodensity along posterior wall of small bowel, probable ileus, bladder wall thickening. Plans: Patient is currently on anidulafungin, cefepime and fluconazole for antibiotic coverage as per ID recommendation. Daptomycin discontinued by ID. Continue Protonix 40 mg IV twice a day and Reglan 10 mg IV every 6 hours. Continue normal saline at 50 mL per hour. Telemetry monitoring. Follow wound and blood cultures. Follow sputum culture. Follow ID recommendations. Plans: Management as above. Plans for low fiber diet today and advance as tolerated. Hemoglobin 7.6. Given 2 units PRBC during surgery, one PRBC post surgery. Likely acute blood loss from duodenal ulcer perforation, minimally from surgery and dilution. Plans: Repeat CBC tomorrow morning. Transfuse if hemoglobin less than 7. Calcium 8.1. Possibly from blood transfusion. Plans: Repeat CMP in the morning. Family states drinks 4 beers daily. Plans: We will continue to monitor. Patient with exophytic kidney lesion, needs workup in the outpatient setting, incidental finding on CT. [Patient improving, tolerating diet. Leukocytosis improving. Continue broad- spectrum IV antibiotics pending cultures. Low fiber diet management. Renal function is worsening, additional lab ordered by nephrology. Likely DC in 2-3 days.]
[2019-05-29 16:50] LABS: Glucose,Whole Blood 169 mg/dL (75-99)
[2019-05-29] MEDS: hydrALAZINE HCL 50 MG TAB PO SCH ×2 (16:57→20:39)
[2019-05-29 17:05] LABS: Hepatitis A Antibody IgM Non-Reactive (Non-Reactive); Hepatitis B Core IgM Non-Reactive (Non-Reactive); Hepatitis B Surface Antigen Non-Reactive (Non-Reactive); Hepatitis C IgG Antibody Non-Reactive (Non-Reactive)
[2019-05-29 17:14] LABS: Protein, Total 4.7 g/dL (6.2-8.2)
--- NOTE | 2019-05-29 20:29 | PN ---
PROGRESS NOTE DATE OF SERVICE: 05/29/2019. REASON FOR FOLLOWUP: Perforated peptic ulcer disease and elevated white count. INTERVAL HISTORY: The patient is currently afebrile. Patient is breathing comfortably. Denies having any chest pain. Very minimal cough. No nausea, no vomiting. Denies any worsening abdominal pain. He did have a bowel movement. PHYSICAL EXAMINATION: Blood pressure 152/79 with a pulse of 78, temperature 98.4. He is 97% on room air. General description is a middle-aged male lying in bed in no distress. Respiratory system: Unlabored breathing. Decreased breath sounds at the bases. No wheeze. Heart S1, S2. Regular rate and rhythm. ABDOMEN: Soft, no tenderness. LABS: Hemoglobin 7.3, white count 15.5, BUN of 53, creatinine is 2.97. DIAGNOSTIC IMPRESSION AND PLAN: Patient with secondary peritonitis from perforated peptic ulcer disease status postoperative repair, abdomen culture possible Klebsiella, strep, anaerobic gram- positive cocci for which the patient is currently covered with cefepime, Flagyl and to continue, white count showing a downward trend. We will monitor closely. Continue supportive care. MMODL / IJN: [id number] / MAYRA
[2019-05-29 20:45] LABS: Glucose,Whole Blood 130 mg/dL (75-99)
[2019-05-30] MEDS: HEPARIN SODIUM,PORCINE 5,000 UNIT/ML 1 ML VIAL SQ SCH ×4 (00:03→23:45)
[2019-05-30] MEDS: HYDROcodone/APAP 7.5-325MG 1 EACH TAB PO PRN ×2 (00:04→21:02)
[2019-05-30] MEDS: METOCLOPRAMIDE 5 MG/ML 2 ML VIAL IVP SCH ×5 (02:32→23:46)
[2019-05-30 05:05] LABS: Anisocytosis Slight; Basophils # (A) 0.1 k/uL (0-0.2); Basophils % (A) 1 %; Eosinophils # (A) 0.3 k/uL (0-0.7); Eosinophils % (A) 2 %; HCT 23.2 % (39.0-53.0); Hypochromasia Marked; Lymphocytes # (A) 0.9 k/uL (1.0-4.8); Lymphocytes % (A) 6 %; MCH 26.5 pg (25.0-35.0); MCV 88.2 fL (80.0-100.0); Mean Platelet Volume 6.7; Monocytes # (A) 0.8 k/uL (0-1.0); Monocytes % (A) 5 %; Neutrophils # (A) 14.3 k/uL (1.3-7.7); Neutrophils % (A) 86 %; Platelet Count 895 k/uL (150-450); Poikilocytosis Slight; RBC 2.63 m/uL (4.30-5.90); RDW 18.2 % (11.5-15.5); WBC 16.7 k/uL (3.8-10.6)
[2019-05-30 05:34] LABS: Calcium 7.4 mg/dL (8.4-10.2); Potassium 3.3 mmol/L (3.5-5.1)
[2019-05-30 06:50] LABS: Glucose,Whole Blood 87 mg/dL (75-99)
[2019-05-30] MEDS: INSULIN ASPART (NovoLOG) 100 UNIT/ML VIAL SQ SCH ×4 (07:02→20:55)
[2019-05-30] MEDS: SODIUM CHLORIDE 0.9% 1,000 ML IV SCH ×4 (07:05→09:37)
[2019-05-30] MEDS: POTASSIUM CHLORIDE ER 20 MEQ TAB.ER PO SCH ×2 (07:05→08:14)
--- NOTE | 2019-05-30 07:46 | XR ---
EXAMINATION TYPE: XR chest 1V DATE OF EXAM: 05/30/2019 COMPARISON: 05/29/2019 HISTORY: 63-year-old male routine follow-up, shortness of breath TECHNIQUE: Single frontal view of the chest is obtained. FINDINGS: Leftward patient rotation is a normal cardiomediastinal contours. Right PICC tip in the upper right a trium. Heart remains mildly enlarged. Perihilar and bibasilar opacities, left greater than right pers ist, possibly slightly increased in the left perihilar region. IMPRESSION: 1. Correlate for CHF with pulmonary vascular congestion, stable to minimally increased. 2. Continued small to moderate pleural effusions with prominent bibasilar atelectasis and/or consolid ation, left greater than right.
[2019-05-30] MEDS: METOPROLOL TARTRATE 50 MG TAB PO SCH ×3 (08:15→20:59)
[2019-05-30] MEDS: amLODIPine 10 MG TAB PO SCH (08:15)
[2019-05-30] MEDS: hydrALAZINE HCL 50 MG TAB PO SCH (08:15)
[2019-05-30] MEDS: SODIUM BICARBONATE TAB 650 MG TAB PO SCH ×2 (08:15→20:56)
[2019-05-30] MEDS: PANTOPRAZOLE 40 MG/10 ML VIAL IV SCH ×2 (08:16→20:55)
[2019-05-30] MEDS: metroNIDAZOLE-NS PMX 500 MG in SALINE 1 100ML.BAG IVPB SCH ×3 (08:16→23:46)
[2019-05-30] MEDS: IPRATROPIUM-ALBUTEROL 3 ML NEB INHALATION SCH ×4 (08:27→20:30)
--- NOTE | 2019-05-30 09:01 | PN ---
PROGRESS NOTE Mr. Flores is a 63-year-old male who presented with viscus perforation requiring surgical intervention. He is feeling better today. He is ambulating. His breathing is better. He denies any chest pain. He denies any dizziness. He is tolerating p.o. intake without difficulty. He denies any nausea. He was hypertensive yesterday and his medical regimen was adjusted. He continues to be at this time on amlodipine 10 mg daily, hydralazine 50 mg 3 times a day, metoprolol tartrate 50 mg twice a day. PHYSICAL EXAMINATION: Blood pressure remains elevated in the range of 160/70 with a heart rate in the 80s and 90s. LUNGS: Clear with mild decreased breath sounds at the bases. HEART: Regular rhythm S1, S2. No S3. No rub appreciated. ABDOMEN: Soft with no significant tenderness. Positive bowel sounds. EXTREMITIES: No edema. LAB DATA: Lab data revealed BUN and creatinine 46 and 2.75, potassium 3.3, hemoglobin of 7. IMPRESSION: 1. Status post ruptured viscus surgical repair. 2. Hypertension, remains elevated. 3. Chronic kidney disease. 4. Anemia. RECOMMENDATION: I will increase the dose of his beta gabbi. Continue to increase his level of activity. He should be able to be transferred out of the ICU and depending on his blood pressure response, further recommendations will be made. MMODL / IJN: [id number] /
[2019-05-30] MEDS: CEFEPIME 2 GM in SODIUM CHLORIDE 0.9% 100 ML IVPB SCH (09:47)
[2019-05-30] MEDS: ANIDULAFUNGIN 100 MG in SODIUM CHLORIDE 0.9% 100 ML IVPB SCH (10:25)
--- NOTE | 2019-05-30 10:38 | P.PN ---
Subjective Patient is seen in follow-up for acute kidney injury. Renal function a little better today. Creatinine 2.75 today. He has been voiding. He is tolerating oral intake. Denies chest pain or shortness of breath. He has been transferred out of the intensive care unit. Vital signs are stable. General: The patient appeared well nourished and normally developed. HEENT: Head exam is unremarkable. Neck is without jugular venous distension. LUNGS: Lungs are clear to auscultation and percussion. Breath sounds decreased. HEART: Rate and Rhythm are regular. First and second heart sounds normal. No murmurs, rubs or gallops. ABDOMEN: Bowel sounds decreased. EXTREMITITES: No clubbing, cyanosis, or edema. Objective - Vital Signs Vital signs: Vital Signs Temp 98.3 F 05/30/19 09:25 Pulse 91 05/30/19 09:25 Resp 16 05/30/19 09:25 BP 158/73 05/30/19 09:25 Pulse Ox 95 05/30/19 09:25 Intake & Output 05/29/19 05/30/19 05/30/19 18:59 06:59 18:59 Intake Total 730 1120 Output Total 785 500 Balance -55 620 Intake: IV 730 1120 0.9 NACL 430 1120 Anidulafungin 100 mg In 100 Sodium Chloride 0.9% 100 ml @ 84 mls/hr IVPB DAILY [facility] Rx#:[id number] Cefepime 2 gm In Sodium 100 Chloride 0.9% 100 ml @ 200 mls/hr IVPB Q12HR [facility] Rx#:[id number] metroNIDAZOLE-NS PMX 500 100 mg In Saline 1 100ml.bag @ 100 mls/hr IVPB Q8HR [facility] Rx#:[id number] Output: Urine 785 500 Other: Voiding Method Urinal Urinal Urinal ABP, PAP, CO, CI - Last Documented Arterial Blood Pressure 137/59 - Labs CBC & Chem 7: 05/30/19 05:00 05/30/19 05:00 Labs: Abnormal Lab Results - Last 24 Hours (Table) 05/29/19 05/29/19 05/29/19 Range/Units 10:03 12:35 16:39 WBC (3.8-10.6) k/uL RBC (4.30-5.90) m/uL Hgb (13.0-17.5) gm/dL Hct (39.0-53.0) % MCHC (31.0-37.0) g/dL RDW (11.5-15.5) % Plt Count (150-450) k/uL Neutrophils # (1.3-7.7) k/uL Lymphocytes # (1.0-4.8) k/uL Potassium (3.5-5.1) mmol/L Chloride (98-107) mmol/L Carbon Dioxide (22-30) mmol/L BUN (9-20) mg/dL Creatinine (0.66-1.25) mg/dL POC Glucose (mg/dL) 149 H 169 H (75-99) mg/dL Calcium (8.4-10.2) mg/dL Total Protein (PEP) 4.7 L (6.2-8.2) g/dL 05/29/19 05/30/19 05/30/19 Range/Units 20:34 05:00 05:00 WBC 16.7 H (3.8-10.6) k/uL RBC 2.63 L (4.30-5.90) m/uL Hgb 7.0 L (13.0-17.5) gm/dL Hct 23.2 L (39.0-53.0) % MCHC 30.0 L (31.0-37.0) g/dL RDW 18.2 H (11.5-15.5) % Plt Count 895 H (150-450) k/uL Neutrophils # 14.3 H (1.3-7.7) k/uL Lymphocytes # 0.9 L (1.0-4.8) k/uL Potassium 3.3 L (3.5-5.1) mmol/L Chloride 116 H (98-107) mmol/L Carbon Dioxide 13 L (22-30) mmol/L BUN 46 H (9-20) mg/dL Creatinine 2.75 H (0.66-1.25) mg/dL POC Glucose (mg/dL) 130 H (75-99) mg/dL Calcium 7.4 L (8.4-10.2) mg/dL Total Protein (PEP) (6.2-8.2) g/dL Microbiology - Last 24 Hours (Table) 05/23/19 13:30 Blood Culture - Final Blood No Growth after 144 hours 05/23/19 13:00 Blood Culture - Final Blood No Growth after 144 hours 05/24/19 10:45 Blood Culture - Preliminary Blood No Growth after 120 hours 05/27/19 12:32 Gram Stain - Final Sputum Sputum Culture - Final Assessment and Plan Plan: Assessment: 1. Acute kidney injury secondary to ATN secondary to septic shock. Creatinine was 6 on admission and did improve. Renal function a little better today. Creatinine 2.75. Creatinine was 0.68 in June 2014. No other records available. No hydronephrosis noted on imaging. 1+ proteinuria on UA. Rule out ALLERGIC interstitial nephritis due to antibiotics. UPC 1.6 g. 2. Perforated duodenal ulcer status post laparotomy with antrectomy on 05/16/2019. Maintained on antibiotics. Infectious disease following. 3. Metabolic acidosis secondary to acute kidney injury and IV fluids. 4. Hypokalemia, being replaced. Rule out magnesium deficiency. 5. Hypocalcemia secondary to hypoalbuminemia. Corrected calcium in the normal range. 6. Right renal atrophy. 7. Right kidney lesion. Urology following. 8. Benign hypertension. Plan: Continue to hold diuretics. I will change IV fluids to bicarb drip to be run at 50 mL an hour. Maintain oral sodium bicarbonate. Potassium being replaced. Follow-up serologies. Increase hydralazine to 75 mg 3 times a day. Repeat electrolytes in the morning.
[2019-05-30] MEDS: DEXTROSE 5% IN WATER 1,000 ML with SODIUM BICARB (1 MEQ/ML) 150 ML IV SCH (10:51)
[2019-05-30 11:37] LABS: Glucose,Whole Blood 157 mg/dL (75-99)
--- NOTE | 2019-05-30 11:47 | P.PN ---
Subjective Progress Note Date: 05/30/19 Patient seen and examined at bedside. He was transferred out of ICU. He did have a bowel movement. Denies nausea or vomiting. States that he is eating about half of his meals. He continues to increase activity. Objective - Vital Signs Vital signs: Vital Signs Temp 98.3 F 05/30/19 09:25 Pulse 91 05/30/19 09:25 Resp 16 05/30/19 09:25 BP 158/73 05/30/19 09:25 Pulse Ox 95 05/30/19 09:25 Intake & Output 05/29/19 05/30/19 05/30/19 18:59 06:59 18:59 Intake Total 730 1120 Output Total 785 500 Balance -55 620 Intake: IV 730 1120 0.9 NACL 430 1120 Anidulafungin 100 mg In 100 Sodium Chloride 0.9% 100 ml @ 84 mls/hr IVPB DAILY [facility] Rx#:[id number] Cefepime 2 gm In Sodium 100 Chloride 0.9% 100 ml @ 200 mls/hr IVPB Q12HR [facility] Rx#:[id number] metroNIDAZOLE-NS PMX 500 100 mg In Saline 1 100ml.bag @ 100 mls/hr IVPB Q8HR [facility] Rx#:[id number] Output: Urine 785 500 Other: Voiding Method Urinal Urinal Urinal ABP, PAP, CO, CI - Last Documented Arterial Blood Pressure 137/59 - Constitutional General appearance: Present: cooperative, no acute distress - Gastrointestinal Gastrointestinal Comment(s): Soft, nontender, nondistended, no rebound, no guarding, incision site clean, dry and intact with keren in place, BOGDAN drain in place with minimal serous output. - Musculoskeletal Musculoskeletal: Present: generalized weakness - Psychiatric Psychiatric: Present: A&O x's 3 - Labs CBC & Chem 7: 05/30/19 05:00 05/30/19 05:00 Labs: Abnormal Lab Results - Last 24 Hours (Table) 05/29/19 05/29/19 05/29/19 Range/Units 10:03 12:35 16:39 WBC (3.8-10.6) k/uL RBC (4.30-5.90) m/uL Hgb (13.0-17.5) gm/dL Hct (39.0-53.0) % MCHC (31.0-37.0) g/dL RDW (11.5-15.5) % Plt Count (150-450) k/uL Neutrophils # (1.3-7.7) k/uL Lymphocytes # (1.0-4.8) k/uL Potassium (3.5-5.1) mmol/L Chloride (98-107) mmol/L Carbon Dioxide (22-30) mmol/L BUN (9-20) mg/dL Creatinine (0.66-1.25) mg/dL POC Glucose (mg/dL) 149 H 169 H (75-99) mg/dL Calcium (8.4-10.2) mg/dL Total Protein (PEP) 4.7 L (6.2-8.2) g/dL 05/29/19 05/30/19 05/30/19 Range/Units 20:34 05:00 05:00 WBC 16.7 H (3.8-10.6) k/uL RBC 2.63 L (4.30-5.90) m/uL Hgb 7.0 L (13.0-17.5) gm/dL Hct 23.2 L (39.0-53.0) % MCHC 30.0 L (31.0-37.0) g/dL RDW 18.2 H (11.5-15.5) % Plt Count 895 H (150-450) k/uL Neutrophils # 14.3 H (1.3-7.7) k/uL Lymphocytes # 0.9 L (1.0-4.8) k/uL Potassium 3.3 L (3.5-5.1) mmol/L Chloride 116 H (98-107) mmol/L Carbon Dioxide 13 L (22-30) mmol/L BUN 46 H (9-20) mg/dL Creatinine 2.75 H (0.66-1.25) mg/dL POC Glucose (mg/dL) 130 H (75-99) mg/dL Calcium 7.4 L (8.4-10.2) mg/dL Total Protein (PEP) (6.2-8.2) g/dL 05/30/19 Range/Units 11:26 WBC (3.8-10.6) k/uL RBC (4.30-5.90) m/uL Hgb (13.0-17.5) gm/dL Hct (39.0-53.0) % MCHC (31.0-37.0) g/dL RDW (11.5-15.5) % Plt Count (150-450) k/uL Neutrophils # (1.3-7.7) k/uL Lymphocytes # (1.0-4.8) k/uL Potassium (3.5-5.1) mmol/L Chloride (98-107) mmol/L Carbon Dioxide (22-30) mmol/L BUN (9-20) mg/dL Creatinine (0.66-1.25) mg/dL POC Glucose (mg/dL) 157 H (75-99) mg/dL Calcium (8.4-10.2) mg/dL Total Protein (PEP) (6.2-8.2) g/dL Microbiology - Last 24 Hours (Table) 05/23/19 13:30 Blood Culture - Final Blood No Growth after 144 hours 05/23/19 13:00 Blood Culture - Final Blood No Growth after 144 hours 05/24/19 10:45 Blood Culture - Preliminary Blood No Growth after 120 hours 05/27/19 12:32 Gram Stain - Final Sputum Sputum Culture - Final Assessment and Plan Plan: POD#14 ex lap antrectomy with billroth II gastrojejunostomy secondary to perforated duodenal ulcer - Continue with soft diet. Continue to increase activity, this was discussed with the patient. Continue medicine recommendations and infectious disease recommendations. Progressing slowly. Plan to discontinue drain soon.
[2019-05-30] MEDS ORDERED: ACETAMINOPHEN TAB 325 MG TAB PO PRN (12:02)
--- NOTE | 2019-05-30 12:04 | P.PN ---
Subjective Progress Note Date: 05/30/19 Principal diagnosis: Duodenal perforation Patient was seen and examined. No acute events overnight. Tolerating a low fiber diet well. Denies any abdominal pain. No nausea vomiting. No fever or chills. Having bowel movements and passing gas. Objective - Vital Signs Vital signs: Vital Signs Temp 98.3 F 05/30/19 09:25 Pulse 91 05/30/19 09:25 Resp 16 05/30/19 09:25 BP 158/73 05/30/19 09:25 Pulse Ox 95 05/30/19 09:25 Intake & Output 05/29/19 05/30/19 05/30/19 18:59 06:59 18:59 Intake Total 730 1120 Output Total 785 500 Balance -55 620 Intake: IV 730 1120 0.9 NACL 430 1120 Anidulafungin 100 mg In 100 Sodium Chloride 0.9% 100 ml @ 84 mls/hr IVPB DAILY [facility] Rx#:[id number] Cefepime 2 gm In Sodium 100 Chloride 0.9% 100 ml @ 200 mls/hr IVPB Q12HR [facility] Rx#:[id number] metroNIDAZOLE-NS PMX 500 100 mg In Saline 1 100ml.bag @ 100 mls/hr IVPB Q8HR [facility] Rx#:[id number] Output: Urine 785 500 Other: Voiding Method Urinal Urinal Urinal ABP, PAP, CO, CI - Last Documented Arterial Blood Pressure 137/59 - Exam General: [non toxic], [appears at stated age] Derm: [warm], [dry] Head: [atraumatic], [normocephalic], [symmetric] Eyes: [no lid lag], [anicteric sclera] Mouth: [no lip lesion], [oropharynx within normal limits] Cardiovascular: [S1S2 reg], [no murmur], [positive DP pulse bilateral], Lungs: [Clear to auscultation bilaterally], [no rhonchi, no rales] , [no accessory muscle use] Abdominal: [soft], [midline abdominal surgical scar keren intact with no erythema or discharge], [no guarding], [no appreciable organomegaly], [no bowel sounds] Ext: [no gross muscle atrophy], [no edema], [no contractures] Neuro: [No focal neurologic deficits] Psych: [Alert and oriented] - Labs CBC & Chem 7: 05/30/19 05:00 05/30/19 05:00 Labs: Abnormal Lab Results - Last 24 Hours (Table) 05/29/19 05/29/19 05/29/19 Range/Units 10:03 12:35 16:39 WBC (3.8-10.6) k/uL RBC (4.30-5.90) m/uL Hgb (13.0-17.5) gm/dL Hct (39.0-53.0) % MCHC (31.0-37.0) g/dL RDW (11.5-15.5) % Plt Count (150-450) k/uL Neutrophils # (1.3-7.7) k/uL Lymphocytes # (1.0-4.8) k/uL Potassium (3.5-5.1) mmol/L Chloride (98-107) mmol/L Carbon Dioxide (22-30) mmol/L BUN (9-20) mg/dL Creatinine (0.66-1.25) mg/dL POC Glucose (mg/dL) 149 H 169 H (75-99) mg/dL Calcium (8.4-10.2) mg/dL Total Protein (PEP) 4.7 L (6.2-8.2) g/dL 05/29/19 05/30/19 05/30/19 Range/Units 20:34 05:00 05:00 WBC 16.7 H (3.8-10.6) k/uL RBC 2.63 L (4.30-5.90) m/uL Hgb 7.0 L (13.0-17.5) gm/dL Hct 23.2 L (39.0-53.0) % MCHC 30.0 L (31.0-37.0) g/dL RDW 18.2 H (11.5-15.5) % Plt Count 895 H (150-450) k/uL Neutrophils # 14.3 H (1.3-7.7) k/uL Lymphocytes # 0.9 L (1.0-4.8) k/uL Potassium 3.3 L (3.5-5.1) mmol/L Chloride 116 H (98-107) mmol/L Carbon Dioxide 13 L (22-30) mmol/L BUN 46 H (9-20) mg/dL Creatinine 2.75 H (0.66-1.25) mg/dL POC Glucose (mg/dL) 130 H (75-99) mg/dL Calcium 7.4 L (8.4-10.2) mg/dL Total Protein (PEP) (6.2-8.2) g/dL 05/30/19 Range/Units 11:26 WBC (3.8-10.6) k/uL RBC (4.30-5.90) m/uL Hgb (13.0-17.5) gm/dL Hct (39.0-53.0) % MCHC (31.0-37.0) g/dL RDW (11.5-15.5) % Plt Count (150-450) k/uL Neutrophils # (1.3-7.7) k/uL Lymphocytes # (1.0-4.8) k/uL Potassium (3.5-5.1) mmol/L Chloride (98-107) mmol/L Carbon Dioxide (22-30) mmol/L BUN (9-20) mg/dL Creatinine (0.66-1.25) mg/dL POC Glucose (mg/dL) 157 H (75-99) mg/dL Calcium (8.4-10.2) mg/dL Total Protein (PEP) (6.2-8.2) g/dL Microbiology - Last 24 Hours (Table) 05/23/19 13:30 Blood Culture - Final Blood No Growth after 144 hours 05/23/19 13:00 Blood Culture - Final Blood No Growth after 144 hours 05/24/19 10:45 Blood Culture - Preliminary Blood No Growth after 120 hours 05/27/19 12:32 Gram Stain - Final Sputum Sputum Culture - Final Assessment and Plan Assessment: Assessment and plan Acute kidney injury secondary to ATN from hypovolemic and septic shock Hypokalemia Hypertension Septic shock due to perforated duodenal ulcer status post exploratory laparotomy POD 14 Perforated duodenal ulcer Acute blood loss anemia secondary to GI bleed from perforated duodenal ulcer Hypocalcemia Alcohol abuse Kidney lesion Resolved: Lactic acidosis, hyperkalemia Creatinine slightly improved to 2.75 . Likely due to hypovolemic and septic shock. Urine for eosinophils negative. Acute hepatitis panel negative. Plans: Continue IVF as above. Sodium bicarbonate increased by nephrology for metabolic acidosis. Follow MUSA, [id number] DNA, ANCA, complement, hepatitis panel, immunofixation and protein electrophoresis. Avoid nephrotoxins. Repeat BMP in the morning. Potassium 3.3. Plans: Replace via protocol. BP 158/73. Plans: Continue amlodipine, hydralazine and metoprolol. Monitor vitals, adjust medications as necessary. Patient continues leukocytosis but improved from 20.2-16.5-16.7. POD 14 exploratory laparotomy with antrectomy and gastrojejunostomy. KUB and CT abdomen and pelvis confirmed perforation. Wound cultures show Klebsiella oxy tocin and non-hemolytic strep. Blood cultures negative at 144, 120 hours. Urine culture negative. Computed tomography scan shows worsening anasarca, consolidation basilar lobes, hypodensity along posterior wall of small bowel, probable ileus, bladder wall thickening. Plans: Patient is currently on anidulafungin, cefepime and Flagyl for antibiotic coverage as per ID recommendation. Daptomycin discontinued by ID. Continue Protonix 40 mg IV twice a day and Reglan 10 mg IV every 6 hours. Continue normal saline at 50 mL per hour. Telemetry monitoring. Follow wound and blood cultures. Follow sputum culture. Follow ID recommendations. Plans: Management as above. Plans for low fiber diet today and advance as tolerated. Plans for BOGDAN drain removal by surgery. Hemoglobin 7.0. Given 2 units PRBC during surgery, one PRBC post surgery. Likely acute blood loss from duodenal ulcer perforation, minimally from surgery and dilution. Plans: Repeat CBC tomorrow morning. Transfuse if hemoglobin less than 7. Calcium 7.4. Possibly from blood transfusion. Plans: Repeat CMP in the morning . Family states drinks 4 beers daily. Plans: We will continue to monitor. Patient with exophytic kidney lesion, needs workup in the outpatient setting, incidental finding on CT. [Patient improving, tolerating diet. Leukocytosis improving. Continue broad- spectrum IV antibiotics pending cultures. Low fiber diet management. Renal function is stable, additional lab ordered by nephrology. Surgery to possibly remove BOGDAN drain tomorrow. We'll discuss discharge planning. Anticipate DC in the next 1-2 days.]
[2019-05-30] MEDS: hydrALAZINE HCL 25 MG TAB PO SCH ×2 (15:30→20:57)
[2019-05-30 16:40] LABS: Glucose,Whole Blood 150 mg/dL (75-99)
[2019-05-30 17:40] LABS: Glucose,Whole Blood 141 mg/dL (75-99)
--- NOTE | 2019-05-30 18:49 | PN ---
PROGRESS NOTE DATE OF SERVICE: 05/30/2019. REASON FOR FOLLOWUP: 1. Secondary peritonitis from perforated peptic ulcer disease. 2. Leukocytosis. INTERVAL HISTORY: The patient is currently afebrile. Patient is breathing comfortably. The patient denies having any chest pain. Occasional cough. No nausea, vomiting, abdominal pain or diarrhea. PHYSICAL EXAMINATION: Blood pressure 158/73 with a pulse of 91, temperature 98.3. He is 95% on room air. General description is a middle-aged male lying in bed in no distress. Respiratory system: Unlabored breathing, decreased breath sounds in the bases. No wheeze. Heart S1, S2. Regular rate and rhythm. Abdomen soft, slight distended. No guarding or rigidity. LABS: Hemoglobin is 7, white count 16.7, BUN of 46, creatinine 2.75. Cultures have been negative so far. DIAGNOSTIC IMPRESSION AND PLAN: Patient with secondary peritonitis from perforated peptic ulcer disease, status post operative repair subsequently did have persistently elevated white count with no other clinical focus of infection. CT of the abdomen and pelvis did not show any evidence of any fluid or leakage. Currently covered with cefepime and Flagyl and this is to continue while monitoring his clinical course closely. Continue supportive care. MMODL / IJN: [id number] /
[2019-05-30 20:57] LABS: Glucose,Whole Blood 163 mg/dL (75-99)
[2019-05-30] MEDS: LORazepam 1 MG TAB PO PRN (23:46)
[2019-05-31] MEDS: SODIUM CHLORIDE 0.9% 1,000 ML IV SCH ×7 (00:01→06:49)
[2019-05-31] MEDS: METOCLOPRAMIDE 5 MG/ML 2 ML VIAL IVP SCH ×4 (05:51→17:23)
[2019-05-31 06:57] LABS: Glucose,Whole Blood 109 mg/dL (75-99)
[2019-05-31] MEDS: IPRATROPIUM-ALBUTEROL 3 ML NEB INHALATION SCH ×4 (07:18→20:15)
[2019-05-31 07:30] LABS: Calcium 8.2 mg/dL (8.4-10.2); Potassium 3.6 mmol/L (3.5-5.1)
[2019-05-31] MEDS: INSULIN ASPART (NovoLOG) 100 UNIT/ML VIAL SQ SCH ×4 (07:57→20:21)
[2019-05-31] MEDS: ANIDULAFUNGIN 100 MG in SODIUM CHLORIDE 0.9% 100 ML IVPB SCH (08:49)
[2019-05-31] MEDS: CEFEPIME 2 GM in SODIUM CHLORIDE 0.9% 100 ML IVPB SCH (08:52)
[2019-05-31] MEDS: PANTOPRAZOLE 40 MG/10 ML VIAL IV SCH (08:53)
[2019-05-31] MEDS: HEPARIN SODIUM,PORCINE 5,000 UNIT/ML 1 ML VIAL SQ SCH ×2 (08:54→16:08)
[2019-05-31] MEDS: SODIUM BICARBONATE TAB 650 MG TAB PO SCH ×2 (08:54→20:33)
[2019-05-31] MEDS: hydrALAZINE HCL 25 MG TAB PO SCH ×3 (08:54→20:22)
[2019-05-31] MEDS: METOPROLOL TARTRATE 50 MG TAB PO SCH ×3 (08:54→20:22)
[2019-05-31] MEDS: amLODIPine 10 MG TAB PO SCH (08:54)
[2019-05-31] MEDS: metroNIDAZOLE-NS PMX 500 MG in SALINE 1 100ML.BAG IVPB SCH (09:59)
[2019-05-31] MEDS: DEXTROSE 5% IN WATER 1,000 ML with SODIUM BICARB (1 MEQ/ML) 150 ML IV SCH (10:01)
[2019-05-31 11:04] LABS: DNA Double-Stranded NEGATIVE (NEGATIVE)
[2019-05-31 11:17] LABS: Glucose,Whole Blood 195 mg/dL (75-99)
--- NOTE | 2019-05-31 11:31 | P.PN ---
Subjective This is a pleasant 63-year-old male status post surgical repair of a perforated duodenal ulcer. Currently maintained on amlodipine 10 mg daily, hydralazine 75 mg 3 times a day, Lopressor 50 mg 3 times a day and sodium bicarb infusion. He is seen and examined sitting up in bed. He feels no symptoms of shortness of breath at rest however with mild activity he becomes quite dyspneic. He states yesterday during the daytime hours he took several walks in the halls and felt ok however last evening he had an episode of feeling quite short of breath while he was laying down flat in bed. Once he pulled himself up he felt better. Chest xray obtained yesterday revealed pulmonary vascular congestion, minimally increased from previous, small to moderate pleural effusions with prominent bibasilar atelectasis left greater than right. Blood pressure 150/77 heart rate 108 afebrile maintaining oxygen saturation on room air. Laboratory data reviewed, sodium 138, potassium 3.6, creatinine 3.2. GENERAL: Well-appearing, well-nourished and in no acute distress. NECK: Supple without JVD or thyromegaly. LUNGS: Bibasilar rales, no wheezes or rhonchi. Respiration equal and unlabored. No wheezes, rales or rhonchi. HEART: Regular rate and rhythm without murmurs, rubs or gallops. S1 and S2 heard. EXTREMITIES: Normal range of motion, trace bilateral lower extremity edema. No clubbing or cyanosis. Peripheral pulses intact. ASSESSMENT Perforated duodenal ulcer status post surgical repair Hypertension Sinus tachycardia Acute kidney injury History of GI bleed in the past Anemia Chronic nicotine dependence PLAN Would recommend IV lasix as he is appearing to be dyspneic and slightly fluid overloaded. Will defer to nephrology for dosing. Nurse Practitioner note has been reviewed, I agree with a documented findings and plan of care. Patient was seen and examined. Objective - Vital Signs Vital signs: Vital Signs Temp 98.4 F 05/31/19 08:32 Pulse 97 05/31/19 08:32 Resp 17 05/31/19 08:32 BP 150/77 05/31/19 08:32 Pulse Ox 97 05/31/19 08:32 Intake & Output 05/30/19 05/31/19 05/31/19 18:59 06:59 18:59 Intake Total 218 Output Total 335 900 Balance -117 -900 Intake: Oral 118 Lipid 100 metroNIDAZOLE-NS PMX 500 100 mg In Saline 1 100ml.bag @ 100 mls/hr IVPB Q8HR [facility] Rx#:[id number] Output: Drainage 35 Anterior Abdomen 35 Urine 300 900 Other: Voiding Method Urinal Urinal # Voids 1 ABP, PAP, CO, CI - Last Documented Arterial Blood Pressure 137/59 - Labs CBC & Chem 7: 05/30/19 05:00 05/31/19 06:37 Labs: Abnormal Lab Results - Last 24 Hours (Table) 05/29/19 05/30/19 05/30/19 Range/Units 10:03 11:26 16:29 Chloride (98-107) mmol/L Carbon Dioxide (22-30) mmol/L BUN (9-20) mg/dL Creatinine (0.66-1.25) mg/dL POC Glucose (mg/dL) 157 H 150 H (75-99) mg/dL Calcium (8.4-10.2) mg/dL Tot Complement (CH50) <14 L (42 - 95) U/mL 05/30/19 05/30/19 05/31/19 Range/Units 17:30 20:46 06:37 Chloride 113 H (98-107) mmol/L Carbon Dioxide 16 L (22-30) mmol/L BUN 46 H (9-20) mg/dL Creatinine 3.20 H (0.66-1.25) mg/dL POC Glucose (mg/dL) 141 H 163 H (75-99) mg/dL Calcium 8.2 L (8.4-10.2) mg/dL Tot Complement (CH50) (42 - 95) U/mL 05/31/19 Range/Units 06:55 Chloride (98-107) mmol/L Carbon Dioxide (22-30) mmol/L BUN (9-20) mg/dL Creatinine (0.66-1.25) mg/dL POC Glucose (mg/dL) 109 H (75-99) mg/dL Calcium (8.4-10.2) mg/dL Tot Complement (CH50) (42 - 95) U/mL Microbiology - Last 24 Hours (Table) 05/24/19 10:45 Blood Culture - Final Blood No Growth after 144 hours
[2019-05-31 11:38] LABS: Complement C3 66.8 mg/dL (80.0-207.0)
[2019-05-31] MEDS ORDERED: FUROSEMIDE 10 MG/ML 4 ML VIAL IV STA (11:46)
[2019-05-31] MEDS ORDERED: POTASSIUM CHLORIDE ER 20 MEQ TAB.ER PO STA (12:33)
--- NOTE | 2019-05-31 12:34 | P.PN ---
Subjective Patient is seen in follow-up for acute kidney injury. Renal function is worse. Creatinine 3.2 today. He has been voiding. He is tolerating oral intake. Denies chest pain or shortness of breath. Vital signs are stable. General: The patient appeared well nourished and normally developed. HEENT: Head exam is unremarkable. Neck is without jugular venous distension. LUNGS: Lungs are clear to auscultation and percussion. Breath sounds decreased. HEART: Rate and Rhythm are regular. First and second heart sounds normal. No murmurs, rubs or gallops. ABDOMEN: Bowel sounds decreased. EXTREMITITES: 1+ edema. Objective - Vital Signs Vital signs: Vital Signs Temp 98.4 F 05/31/19 08:32 Pulse 88 05/31/19 11:37 Resp 17 05/31/19 08:32 BP 150/77 05/31/19 08:32 Pulse Ox 97 05/31/19 08:32 Intake & Output 05/30/19 05/31/19 05/31/19 18:59 06:59 18:59 Intake Total 218 Output Total 335 900 Balance -117 -900 Intake: Oral 118 Lipid 100 metroNIDAZOLE-NS PMX 500 100 mg In Saline 1 100ml.bag @ 100 mls/hr IVPB Q8HR [facility] Rx#:[id number] Output: Drainage 35 Anterior Abdomen 35 Urine 300 900 Other: Voiding Method Urinal Urinal # Voids 1 ABP, PAP, CO, CI - Last Documented Arterial Blood Pressure 137/59 - Labs CBC & Chem 7: 05/30/19 05:00 05/31/19 06:37 Labs: Abnormal Lab Results - Last 24 Hours (Table) 05/29/19 05/29/19 05/30/19 Range/Units 10:03 10:03 16:29 Chloride (98-107) mmol/L Carbon Dioxide (22-30) mmol/L BUN (9-20) mg/dL Creatinine (0.66-1.25) mg/dL POC Glucose (mg/dL) 150 H (75-99) mg/dL Calcium (8.4-10.2) mg/dL Complement C3 66.8 L (80.0-207.0) mg/dL Complement C4 5.7 L (10.0-53.0) mg/dL Tot Complement (CH50) <14 L (42 - 95) U/mL 05/30/19 05/30/19 05/31/19 Range/Units 17:30 20:46 06:37 Chloride 113 H (98-107) mmol/L Carbon Dioxide 16 L (22-30) mmol/L BUN 46 H (9-20) mg/dL Creatinine 3.20 H (0.66-1.25) mg/dL POC Glucose (mg/dL) 141 H 163 H (75-99) mg/dL Calcium 8.2 L (8.4-10.2) mg/dL Complement C3 (80.0-207.0) mg/dL Complement C4 (10.0-53.0) mg/dL Tot Complement (CH50) (42 - 95) U/mL 05/31/19 05/31/19 Range/Units 06:55 11:15 Chloride (98-107) mmol/L Carbon Dioxide (22-30) mmol/L BUN (9-20) mg/dL Creatinine (0.66-1.25) mg/dL POC Glucose (mg/dL) 109 H 195 H (75-99) mg/dL Calcium (8.4-10.2) mg/dL Complement C3 (80.0-207.0) mg/dL Complement C4 (10.0-53.0) mg/dL Tot Complement (CH50) (42 - 95) U/mL Microbiology - Last 24 Hours (Table) 05/24/19 10:45 Blood Culture - Final Blood No Growth after 144 hours Assessment and Plan Plan: Assessment: 1. Acute kidney injury secondary to ATN secondary to septic shock. Creatinine was 6 on admission and did improve. Renal function worse compared to yesterday. Creatinine 3.2 today. Creatinine was 0.68 in June 2014. No other records available. No hydronephrosis noted on imaging. 1+ proteinuria on UA. Rule out ALLERGIC interstitial nephritis due to antibiotics - urine eosinophils negative. UPC 1.6 g. All complements noted to be low. MUSA, Hep panel negative. 2. Perforated duodenal ulcer status post laparotomy with antrectomy on 05/16/2019. Maintained on antibiotics. Infectious disease following. 3. Metabolic acidosis secondary to acute kidney injury and IV fluids. Currently on bicarb drip. Better. 4. Hypokalemia, being replaced. Rule out magnesium deficiency. 5. Hypocalcemia secondary to hypoalbuminemia. Corrected calcium in the normal range. 6. Right renal atrophy. 7. Right kidney lesion. Urology following. 8. Benign hypertension. 9. Lower extremity edema. Plan: Lasix 40 mg IV once today. Maintain bicarb drip at 50 mL an hour. Maintain oral sodium bicarbonate. Replace potassium. 40 mEq today. Follow-up serologies. Repeat electrolytes in the morning. Discussed with the patient and family present at bedside the need for kidney biopsy for definitive diagnosis if kidney function continues to worsen.
--- NOTE | 2019-05-31 13:04 | P.PN ---
Subjective Progress Note Date: 05/31/19 Principal diagnosis: Duodenal perforation Patient was seen and examined. No acute events overnight. Tolerating a low fiber diet well. Denies any abdominal pain. No nausea vomiting. No fever or chills. Having bowel movements and passing gas. Objective - Vital Signs Vital signs: Vital Signs Temp 98.4 F 05/31/19 08:32 Pulse 88 05/31/19 11:37 Resp 17 05/31/19 08:32 BP 150/77 05/31/19 08:32 Pulse Ox 97 05/31/19 08:32 Intake & Output 05/30/19 05/31/19 05/31/19 18:59 06:59 18:59 Intake Total 218 Output Total 335 900 Balance -117 -900 Intake: Oral 118 Lipid 100 metroNIDAZOLE-NS PMX 500 100 mg In Saline 1 100ml.bag @ 100 mls/hr IVPB Q8HR [facility] Rx#:[id number] Output: Drainage 35 Anterior Abdomen 35 Urine 300 900 Other: Voiding Method Urinal Urinal # Voids 1 ABP, PAP, CO, CI - Last Documented Arterial Blood Pressure 137/59 - Exam General: [non toxic], [appears at stated age] Derm: [warm], [dry] Head: [atraumatic], [normocephalic], [symmetric] Eyes: [no lid lag], [anicteric sclera] Mouth: [no lip lesion], [oropharynx within normal limits] Cardiovascular: [S1S2 reg], [no murmur], [positive DP pulse bilateral], Lungs: [Clear to auscultation bilaterally], [no rhonchi, no rales] , [no accessory muscle use] Abdominal: [soft], [midline abdominal surgical scar keren intact with no erythema or discharge], [no guarding], [no appreciable organomegaly], [no bowel sounds] Ext: [no gross muscle atrophy], [no edema], [no contractures] Neuro: [No focal neurologic deficits] Psych: [Alert and oriented] - Labs CBC & Chem 7: 05/30/19 05:00 05/31/19 06:37 Labs: Abnormal Lab Results - Last 24 Hours (Table) 05/29/19 05/29/19 05/30/19 Range/Units 10:03 10:03 16:29 Chloride (98-107) mmol/L Carbon Dioxide (22-30) mmol/L BUN (9-20) mg/dL Creatinine (0.66-1.25) mg/dL POC Glucose (mg/dL) 150 H (75-99) mg/dL Calcium (8.4-10.2) mg/dL Complement C3 66.8 L (80.0-207.0) mg/dL Complement C4 5.7 L (10.0-53.0) mg/dL Tot Complement (CH50) <14 L (42 - 95) U/mL 05/30/19 05/30/19 05/31/19 Range/Units 17:30 20:46 06:37 Chloride 113 H (98-107) mmol/L Carbon Dioxide 16 L (22-30) mmol/L BUN 46 H (9-20) mg/dL Creatinine 3.20 H (0.66-1.25) mg/dL POC Glucose (mg/dL) 141 H 163 H (75-99) mg/dL Calcium 8.2 L (8.4-10.2) mg/dL Complement C3 (80.0-207.0) mg/dL Complement C4 (10.0-53.0) mg/dL Tot Complement (CH50) (42 - 95) U/mL 05/31/19 05/31/19 Range/Units 06:55 11:15 Chloride (98-107) mmol/L Carbon Dioxide (22-30) mmol/L BUN (9-20) mg/dL Creatinine (0.66-1.25) mg/dL POC Glucose (mg/dL) 109 H 195 H (75-99) mg/dL Calcium (8.4-10.2) mg/dL Complement C3 (80.0-207.0) mg/dL Complement C4 (10.0-53.0) mg/dL Tot Complement (CH50) (42 - 95) U/mL Microbiology - Last 24 Hours (Table) 05/24/19 10:45 Blood Culture - Final Blood No Growth after 144 hours Assessment and Plan Assessment: Assessment and plan Pulmonary venous congestion and pleural effusion Acute kidney injury secondary to ATN from hypovolemic and septic shock Hyperchloremic metabolic acidosis Hypertension Septic shock due to perforated duodenal ulcer status post exploratory laparotomy POD 15 Perforated duodenal ulcer Acute blood loss anemia secondary to GI bleed from perforated duodenal ulcer Hypocalcemia Alcohol abuse Kidney lesion Resolved: Lactic acidosis, hyperkalemia As seen on chest x-ray. Likely due to infused IVF. Saturating high 90s on room air. Complains of some difficulty breathing. Has some lower extremity edema. Plans: Lasix 40 mg IV times one time dose. Creatinine worsening to 3.2. Likely due to hypovolemic and septic shock. Urine for eosinophils negative. Acute hepatitis panel negative. MUSA negative. Double-stranded DNA negative. Complement C3-C4 low. Plans: Continue IVF as ab ove. Avoid nephrotoxins. Repeat BMP in the morning. Follow nephrology recommendations. Chloride 113, bicarbonate 16. Plans: Patient currently on sodium bicarbonate drip. Continue sodium bicarbonate by mouth. Nephrology following. Repeat BMP tomorrow morning. BP 150/77. Plans: Continue amlodipine, hydralazine and metoprolol. Monitor vitals, adjust medications as necessary. Patient continues leukocytosis but improved from 20.2-16.5-16.7. POD 15 exploratory laparotomy with antrectomy and gastrojejunostomy. KUB and CT abdomen and pelvis confirmed perforation. Wound cultures show Klebsiella oxytocin and non-hemolytic strep. Blood cultures negative at 144, 144 hours. Urine culture negative. Computed tomography scan shows worsening anasarca, consolidation basilar lobes, hypodensity along posterior wall of small bowel, probable ileus, bladder wall thickening. Plans: Patient is currently on anidulafungin, cefepime and Flagyl for antibiotic coverage as per ID recommendation. Daptomycin discontinued by ID. Continue Protonix 40 mg IV twice a day and Reglan 10 mg IV every 6 hours. Telemetry monitoring. Follow wound and blood cultures. Follow sputum culture. Follow ID recommendations. Plans: Management as above. Plans for low fiber diet today and advance as tolerated. Plans for BOGDAN drain removal by surgery. Hemoglobin 7.0. Given 2 units PRBC during surgery, one PRBC post surgery. Likely acute blood loss from duodenal ulcer perforation, minimally from surgery and dilution. Plans: Repeat CBC tomorrow morning. Transfuse if hemoglobin less than 7. Calcium 8.2. Possibly from blood transfusion. Plans: Repeat CMP in the morning. Family states drinks 4 beers daily. Plans: We will continue to monitor. Patient with exophytic kidney lesion, needs workup in the outpatient setting, incidental finding on CT. [Patient improving, tolerating diet. Leukocytosis improving. Continue broad- spectrum IV antibiotics pending cultures. Low fiber diet. Renal function is slightly worsening, nephrology on board. Surgery to possibly remove BOGDAN drain. Given 1 dose of Lasix for pleural effusion. We'll discuss discharge planning. Anticipate DC in the next 1-2 days.]
[2019-05-31 14:34] LABS: C-ANCA <1:20 Titer (<1:20)
[2019-05-31] MEDS: metroNIDAZOLE 500 MG TAB PO SCH (16:08)
[2019-05-31 16:34] LABS: Glucose,Whole Blood 208 mg/dL (75-99)
--- NOTE | 2019-05-31 17:13 | P.PN ---
Subjective Progress Note Date: 05/31/19 Patient was up walking in halls today. No complaints. BOGDAN serosang. Passing flatus and had another BM. Tolerating soft diet Objective - Vital Signs Vital signs: Vital Signs Temp 98.0 F 05/31/19 15:27 Pulse 96 05/31/19 15:27 Resp 15 05/31/19 15:27 BP 120/74 05/31/19 15:27 Pulse Ox 94 L 05/31/19 15:27 Intake & Output 05/30/19 05/31/19 05/31/19 18:59 06:59 18:59 Intake Total 218 Output Total 335 900 25 Balance -117 -900 -25 Weight 82 kg Intake: Oral 118 Lipid 100 metroNIDAZOLE-NS PMX 500 100 mg In Saline 1 100ml.bag @ 100 mls/hr IVPB Q8HR [facility] Rx#:[id number] Output: Drainage 35 25 Anterior Abdomen 35 25 Urine 300 900 Other: Voiding Method Urinal Urinal # Voids 1 ABP, PAP, CO, CI - Last Documented Arterial Blood Pressure 137/59 - Constitutional General appearance: Present: cooperative - Respiratory Details: nonlabored - Cardiovascular Rhythm: regular - Gastrointestinal Gastrointestinal Comment(s): S/NT/ND incisions CDI BOGDAN serous - Labs CBC & Chem 7: 05/30/19 05:00 05/31/19 06:37 Labs: Abnormal Lab Results - Last 24 Hours (Table) 05/29/19 05/29/19 05/30/19 Range/Units 10:03 10:03 17:30 Chloride (98-107) mmol/L Carbon Dioxide (22-30) mmol/L BUN (9-20) mg/dL Creatinine (0.66-1.25) mg/dL POC Glucose (mg/dL) 141 H (75-99) mg/dL Calcium (8.4-10.2) mg/dL Complement C3 66.8 L (80.0-207.0) mg/dL Complement C4 5.7 L (10.0-53.0) mg/dL Tot Complement (CH50) <14 L (42 - 95) U/mL 05/30/19 05/31/19 05/31/19 Range/Units 20:46 06:37 06:55 Chloride 113 H (98-107) mmol/L Carbon Dioxide 16 L (22-30) mmol/L BUN 46 H (9-20) mg/dL Creatinine 3.20 H (0.66-1.25) mg/dL POC Glucose (mg/dL) 163 H 109 H (75-99) mg/dL Calcium 8.2 L (8.4-10.2) mg/dL Complement C3 (80.0-207.0) mg/dL Complement C4 (10.0-53.0) mg/dL Tot Complement (CH50) (42 - 95) U/mL 05/31/19 05/31/19 Range/Units 11: 16:33 Chloride (98-107) mmol/L Carbon Dioxide (22-30) mmol/L BUN (9-20) mg/dL Creatinine (0.66-1.25) mg/dL POC Glucose (mg/dL) 195 H 208 H (75-99) mg/dL Calcium (8.4-10.2) mg/dL Complement C3 (80.0-207.0) mg/dL Complement C4 (10.0-53.0) mg/dL Tot Complement (CH50) (42 - 95) U/mL Microbiology - Last 24 Hours (Table) 05/24/19 10:45 Blood Culture - Final Blood No Growth after 144 hours Assessment and Plan Assessment: POD#15 ex lap antrectomy with billroth II gastrojejunostomy secondary to perforated duodenal ulcer Plan: Diet tolerated. Continue with medical care per primary service. IV ABX per ID. OOBTC, encouraged ambulation and IS.
--- NOTE | 2019-05-31 18:02 | PN ---
PROGRESS NOTE DATE OF SERVICE: 05/31/2019. REASON FOR FOLLOWUP: Secondary peritonitis and perforated peptic ulcer disease and leukocytosis. INTERVAL HISTORY: The patient is currently afebrile. The patient has been breathing comfortably. The patient denies having any chest pain. No cough. No nausea, no vomiting. Denies having any abdominal pain. No diarrhea. PHYSICAL EXAMINATION: His blood pressure is 120/74 with a pulse of 93, temperature 98. He is 94% on room air. General description is a middle-aged male up in the bed in no distress. Respiratory system: Unlabored breathing. Decreased breath sounds at bases. No wheeze. Heart S1, S2. Regular rate and rhythm. Abdomen soft. No tenderness. LABS: His creatinine is up to 3. No CBC was done today. DIAGNOSTIC IMPRESSION AND PLAN: Patient with secondary peritonitis from perforated peptic ulcer status post operative repair, now with persistent elevated white count with no clear focus. Currently covered with cefepime, Flagyl , Will repeat his CBC, CRP and procalcitonin tomorrow. Hopefully finish therapy with oral antibiotics. Awaiting for the kidney function to improve. Continue supportive care. MMODL / IJN: [id number] / [email or web address]
[2019-05-31 20:13] LABS: Glucose,Whole Blood 200 mg/dL (75-99)
[2019-05-31] MEDS: PANTOPRAZOLE 40 MG TABLET PO SCH (20:22)
[2019-05-31] MEDS: LORazepam 1 MG TAB PO PRN (20:33)
[2019-06-01] MEDS ORDERED: HYDROcodone/APAP 7.5-325MG 1 EACH TAB ONE (00:22)
[2019-06-01] MEDS ORDERED: HEPARIN SODIUM,PORCINE 5,000 UNIT/ML 1 ML VIAL ONE (00:22)
[2019-06-01] MEDS ORDERED: metroNIDAZOLE 500 MG TAB ONE (00:22)
[2019-06-01] MEDS ORDERED: METOCLOPRAMIDE 5 MG/ML 2 ML VIAL ONE ×2 (00:22)
[2019-06-01] MEDS: HEPARIN SODIUM,PORCINE 5,000 UNIT/ML 1 ML VIAL SQ SCH ×4 (05:41→23:55)
[2019-06-01] MEDS: metroNIDAZOLE 500 MG TAB PO SCH ×4 (05:41→23:55)
[2019-06-01] MEDS: METOCLOPRAMIDE 5 MG/ML 2 ML VIAL IVP SCH ×4 (05:41→23:55)
[2019-06-01 06:45] LABS: Glucose,Whole Blood 117 mg/dL (75-99)
[2019-06-01] MEDS: IPRATROPIUM-ALBUTEROL 3 ML NEB INHALATION SCH ×4 (07:07→20:18)
[2019-06-01] MEDS: INSULIN ASPART (NovoLOG) 100 UNIT/ML VIAL SQ SCH ×4 (07:46→20:37)
[2019-06-01] MEDS: METOPROLOL TARTRATE 50 MG TAB PO SCH ×3 (08:47→23:55)
[2019-06-01] MEDS: hydrALAZINE HCL 25 MG TAB PO SCH ×3 (08:47→20:37)
[2019-06-01] MEDS: SODIUM BICARBONATE TAB 650 MG TAB PO SCH ×3 (08:47→23:55)
[2019-06-01] MEDS: PANTOPRAZOLE 40 MG TABLET PO SCH ×2 (08:48→20:37)
[2019-06-01] MEDS: amLODIPine 10 MG TAB PO SCH (08:48)
[2019-06-01] MEDS: ANIDULAFUNGIN 100 MG in SODIUM CHLORIDE 0.9% 100 ML IVPB SCH (08:48)
[2019-06-01] MEDS: CEFEPIME 2 GM in SODIUM CHLORIDE 0.9% 100 ML IVPB SCH (08:48)
[2019-06-01 09:35] LABS: Anisocytosis Slight; Basophils # (A) 0.2 k/uL (0-0.2); Basophils % (A) 1 %; Eosinophils # (A) 0.3 k/uL (0-0.7); Eosinophils % (A) 2 %; HCT 26.9 % (39.0-53.0); Hypochromasia Marked; Lymphocytes % (A) 6 %; MCH 26.5 pg (25.0-35.0); MCHC 29.7 g/dL (31.0-37.0); MCV 89.2 fL (80.0-100.0); Mean Platelet Volume 6.5; Monocytes # (A) 0.9 k/uL (0-1.0); Monocytes % (A) 5 %; Neutrophils # (A) 13.6 k/uL (1.3-7.7); Neutrophils % (A) 85 %; Poikilocytosis Slight; RBC 3.01 m/uL (4.30-5.90); RDW 19.4 % (11.5-15.5); WBC 16.1 k/uL (3.8-10.6)
[2019-06-01 09:41] LABS: Platelet Count 1173 k/uL (150-450)
--- NOTE | 2019-06-01 10:49 | P.PN ---
Subjective Patient is seen in follow-up for acute kidney injury. Renal function had worsened yesterday. Creatinine was up to 3.2. Labs from today are pending. He has been voiding. He is tolerating oral intake. Denies chest pain or shortness of breath. Having daily bowel movements. Vital signs are stable. General: The patient appeared well nourished and normally developed. HEENT: Head exam is unremarkable. Neck is without jugular venous distension. LUNGS: Lungs are clear to auscultation and percussion. Breath sounds decreased. HEART: Rate and Rhythm are regular. First and second heart sounds normal. No murmurs, rubs or gallops. ABDOMEN: Bowel sounds decreased. EXTREMITITES: 1+ edema. Objective - Vital Signs Vital signs: Vital Signs Temp 98.1 F 06/01/19 07:00 Pulse 104 H 06/01/19 07:18 Resp 18 06/01/19 07:00 BP 143/75 06/01/19 07:00 Pulse Ox 94 L 06/01/19 07:00 Intake & Output 05/31/19 06/01/19 06/01/19 18:59 06:59 18:59 Intake Total 350 Output Total 25 300 350 Balance -25 -300 0 Weight 82 kg Intake: Oral 350 Output: Drainage 25 Anterior Abdomen 25 Urine 300 350 Other: Voiding Method Urinal # Voids 1 ABP, PAP, CO, CI - Last Documented Arterial Blood Pressure 137/59 - Labs CBC & Chem 7: 06/01/19 08:04 05/31/19 06:37 Labs: Abnormal Lab Results - Last 24 Hours (Table) 05/29/19 05/31/19 05/31/19 Range/Units 10:03 11:15 16:33 WBC (3.8-10.6) k/uL RBC (4.30-5.90) m/uL Hgb (13.0-17.5) gm/dL Hct (39.0-53.0) % MCHC (31.0-37.0) g/dL RDW (11.5-15.5) % Plt Count (150-450) k/uL Neutrophils # (1.3-7.7) k/uL POC Glucose (mg/dL) 195 H 208 H (75-99) mg/dL Complement C3 66.8 L (80.0-207.0) mg/dL Complement C4 5.7 L (10.0-53.0) mg/dL 05/31/19 06/01/19 06/01/19 Range/Units 20:10 06:44 08:04 WBC 16.1 H (3.8-10.6) k/uL RBC 3.01 L (4.30-5.90) m/uL Hgb 8.0 L (13.0-17.5) gm/dL Hct 26.9 L (39.0-53.0) % MCHC 29.7 L (31.0-37.0) g/dL RDW 19.4 H (11.5-15.5) % Plt Count 1173 H* (150-450) k/uL Neutrophils # 13.6 H (1.3-7.7) k/uL POC Glucose (mg/dL) 200 H 117 H (75-99) mg/dL Complement C3 (80.0-207.0) mg/dL Complement C4 (10.0-53.0) mg/dL Assessment and Plan Plan: Assessment: 1. Acute kidney injury secondary to ATN secondary to septic shock. Creatinine was 6 on admission and did improve. Renal function had worsened yesterday. Creatinine 3.2 as of yesterday. Creatinine was 0.68 in June 2014. No other records available. No hydronephrosis noted on imaging. 1+ proteinuria on UA. Rule out ALLERGIC interstitial nephritis due to antibiotics - urine eosinophils negative. UPC 1.6 g. All complements noted to be low. Rest of the serologies negative. 2. Perforated duodenal ulcer status post laparotomy with antrectomy on 05/16/2019. Maintained on antibiotics. Infectious disease following. 3. Metabolic acidosis secondary to acute kidney injury and IV fluids. Currently on bicarb drip. 4. Hypokalemia, being replaced. Rule out magnesium deficiency. 5. Hypocalcemia secondary to hypoalbuminemia. Corrected calcium in the normal range. 6. Right renal atrophy. 7. Right kidney lesion. Urology following. 8. Benign hypertension. 9. Lower extremity edema. Better. Status post IV Lasix yesterday. 10. Thrombocytosis. ? Reactive. Consider hematology eval. Plan: Hep-Lock IV fluids. Maintain oral sodium bicarbonate. Repeat electrolytes in the morning. Discussed with the patient and family present at bedside the need for kidney biopsy for definitive diagnosis if kidney function continues to worsen. If renal function is staying stable, this can be done outpatient. Follow-up morning labs.
[2019-06-01 11:03] LABS: Albumin 2.5 g/dL (3.5-5.0); C Reactive Protein 34.2 mg/L (<10.0); Calcium 8.5 mg/dL (8.4-10.2); Magnesium 1.7 mg/dL (1.6-2.3); Potassium 3.8 mmol/L (3.5-5.1); Total Bilirubin 0.4 mg/dL (0.2-1.3); Total Protein 5.8 g/dL (6.3-8.2)
--- NOTE | 2019-06-01 11:26 | P.PN ---
Subjective This is a pleasant 63-year-old male status post surgical repair of a perforated duodenal ulcer. Currently maintained on amlodipine 10 mg daily, hydralazine 75 mg 3 times a day, Lopressor 50 mg 3 times a day and sodium bicarb infusion. He is seen and examined sitting up in bed. He denies chest pain, shortness of breath, dizziness or palpitations. He has been up and walking with his and physical therapy. He continues to improve daily however does feel tired and short of breath by the time he is done walking. Blood pressure 143/73 heart rate 110 afebrile and maintaining oxygen saturation on room air. Laboratory data reviewed, WBC 16.1, hemoglobin 8, platelets 1173. BMP pending. GENERAL: Well-appearing, well-nourished and in no acute distress. NECK: Supple without JVD or thyromegaly. LUNGS: Clear to auscultation. No wheezes, rales or rhonchi. Respiration equal and unlabored. HEART: Irregular rate and rhythm without murmurs, rubs or gallops. S1 and S2 heard. Tachycardic. EXTREMITIES: Normal range of motion, trace bilateral lower extremity edema slightly improved from previous exam. No clubbing or cyanosis. Peripheral pulses intact. ASSESSMENT Perforated duodenal ulcer status post surgical repair Peritonitis Hypertension Sinus tachycardia, ongoing Leukocytosis Thrombocytosis Acute kidney injury History of GI bleed in the past Anemia Pulmonary hypertension, mild, RVSP 39 mmHg Chronic nicotine dependence PLAN Repeat EKG and apply threat monitoring analyst. Heart rate was irregular on auscultation. Continue current medical regimen. Diuretics per nephrology. Nurse Practitioner note has been reviewed, I agree with a documented findings and plan of care. Patient was seen and examined. Objective - Vital Signs Vital signs: Vital Signs Temp 98.1 F 06/01/19 07:00 Pulse 104 H 06/01/19 07:18 Resp 18 06/01/19 07:00 BP 143/75 06/01/19 07:00 Pulse Ox 94 L 06/01/19 07:00 Intake & Output 05/31/19 06/01/19 06/01/19 18:59 06:59 18:59 Intake Total 350 Output Total 25 300 350 Balance -25 -300 0 Weight 82 kg Intake: Oral 350 Output: Drainage 25 Anterior Abdomen 25 Urine 300 350 Other: Voiding Method Urinal # Voids 1 ABP, PAP, CO, CI - Last Documented Arterial Blood Pressure 137/59 - Labs CBC & Chem 7: 06/01/19 08:04 06/01/19 08:04 Labs: Abnormal Lab Results - Last 24 Hours (Table) 05/29/19 05/31/19 05/31/19 Range/Units 10:03 11:15 16:33 WBC (3.8-10.6) k/uL RBC (4.30-5.90) m/uL Hgb (13.0-17.5) gm/dL Hct (39.0-53.0) % MCHC (31.0-37.0) g/dL RDW (11.5-15.5) % Plt Count (150-450) k/uL Neutrophils # (1.3-7.7) k/uL POC Glucose (mg/dL) 195 H 208 H (75-99) mg/dL Complement C3 66.8 L (80.0-207.0) mg/dL Complement C4 5.7 L (10.0-53.0) mg/dL 05/31/19 06/01/19 06/01/19 Range/Units 20:10 06:44 08:04 WBC 16.1 H (3.8-10.6) k/uL RBC 3.01 L (4.30-5.90) m/uL Hgb 8.0 L (13.0-17.5) gm/dL Hct 26.9 L (39.0-53.0) % MCHC 29.7 L (31.0-37.0) g/dL RDW 19.4 H (11.5-15.5) % Plt Count 1173 H* (150-450) k/uL Neutrophils # 13.6 H (1.3-7.7) k/uL POC Glucose (mg/dL) 200 H 117 H (75-99) mg/dL Complement C3 (80.0-207.0) mg/dL Complement C4 (10.0-53.0) mg/dL
[2019-06-01 11:49] LABS: Glucose,Whole Blood 143 mg/dL (75-99)
[2019-06-01] MEDS: DEXTROSE 5% IN WATER 1,000 ML with SODIUM BICARB (1 MEQ/ML) 150 ML IV SCH (12:04)
--- NOTE | 2019-06-01 13:57 | PN ---
PROGRESS NOTE DATE OF SERVICE: 06/01/2019 REASON FOR FOLLOWUP: Secondary peritonitis from perforated peptic ulcer disease and question of pneumonia due to elevated white count. INTERVAL HISTORY: The patient is currently afebrile. Patient is breathing comfortably. Patient denies having any chest pain or shortness of breath. Cough, currently on room air. No nausea, vomiting, or abdominal pain. Has been tolerating diet. PHYSICAL EXAMINATION: Blood pressure 143/75 with a pulse of 92, temperature 98.1, he is 94% on room air. General description is a middle-aged male, up in the chair in no distress. RESPIRATORY SYSTEM: Unlabored breathing with decreased breath sounds in the bases, no wheeze. HEART: S1, S2. Regular rate and rhythm. ABDOMEN: Soft, no tenderness. BOGDAN drain with mostly serous fluid. EXTREMITIES: No edema of the feet. LABS: Hemoglobin is 8 with white count of 16.1. Platelet count is elevated at 311.73. Creatinine is 3.60, C-reactive protein of 34.2. DIAGNOSTIC IMPRESSION AND PLAN: Patient with secondary peritonitis from a perforated peptic ulcer disease, abdominal culture positive for Klebsiella oxytoca not hemolytic streb, anaerobic gram- negative for which the patient has had more than 2 weeks of antibiotic therapy. Now patient did have persistent elevated white count and worsening kidney function, possibly allergy . This has been discussed in detail with the nozzle and sleeve worker. We will cut down on the burden of drugs by eliminating cefepime . Continue oral Flagyl and short course of Cipro. Repeat a CBC and creatinine tomorrow. Plan of care was discussed in detail with the as well as the surgeon at the bedside. MMODL / IJN: [id number] / MAYRA
[2019-06-01] MEDS ORDERED: SODIUM BICARB 8.4% 50 ML SYR (1 MEQ/ML) IV STA (14:01)
--- NOTE | 2019-06-01 14:03 | P.PN ---
Subjective Progress Note Date: 06/01/19 Patient was up walking in halls today. No complaints. BOGDAN serosang. Passing flatus and had another BM. Tolerating soft diet Objective - Vital Signs Vital signs: Vital Signs Temp 98.1 F 06/01/19 07:00 Pulse 100 06/01/19 11:30 Resp 18 06/01/19 08:00 BP 143/75 06/01/19 07:00 Pulse Ox 94 L 06/01/19 07:00 Intake & Output 05/31/19 06/01/19 06/01/19 18:59 06:59 18:59 Intake Total 350 Output Total 25 300 353 Balance -25 -300 -3 Weight 82 kg Intake: Oral 350 Output: Drainage 25 3 Anterior Abdomen 25 3 Urine 300 350 Other: Voiding Method Urinal Urinal # Voids 1 ABP, PAP, CO, CI - Last Documented Arterial Blood Pressure 137/59 - Constitutional General appearance: Present: cooperative - Respiratory Details: nonlabored - Cardiovascular Rhythm: regular - Gastrointestinal Gastrointestinal Comment(s): S/NT/ND BOGDAN serous Incision CDI - Labs CBC & Chem 7: 06/01/19 08:04 06/01/19 08:04 Labs: Abnormal Lab Results - Last 24 Hours (Table) 05/31/19 05/31/19 06/01/19 Range/Units 16:33 20:10 06:44 WBC (3.8-10.6) k/uL RBC (4.30-5.90) m/uL Hgb (13.0-17.5) gm/dL Hct (39.0-53.0) % MCHC (31.0-37.0) g/dL RDW (11.5-15.5) % Plt Count (150-450) k/uL Neutrophils # (1.3-7.7) k/uL Sodium (137-145) mmol/L Chloride (98-107) mmol/L Carbon Dioxide (22-30) mmol/L BUN (9-20) mg/dL Creatinine (0.66-1.25) mg/dL Glucose (74-99) mg/dL POC Glucose (mg/dL) 208 H 200 H 117 H (75-99) mg/dL Alkaline Phosphatase (38-126) U/L C-Reactive Protein (<10.0) mg/L Total Protein (6.3-8.2) g/dL Albumin (3.5-5.0) g/dL 06/01/19 06/01/19 06/01/19 Range/Units 08:04 08:04 11:47 WBC 16.1 H (3.8-10.6) k/uL RBC 3.01 L (4.30-5.90) m/uL Hgb 8.0 L (13.0-17.5) gm/dL Hct 26.9 L (39.0-53.0) % MCHC 29.7 L (31.0-37.0) g/dL RDW 19.4 H (11.5-15.5) % Plt Count 1173 H* (150-450) k/uL Neutrophils # 13.6 H (1.3-7.7) k/uL Sodium 136 L (137-145) mmol/L Chloride 109 H (98-107) mmol/L Carbon Dioxide 14 L (22-30) mmol/L BUN 46 H (9-20) mg/dL Creatinine 3.60 H (0.66-1.25) mg/dL Glucose 137 H (74-99) mg/dL POC Glucose (mg/dL) 143 H (75-99) mg/dL Alkaline Phosphatase 153 H (38-126) U/L C-Reactive Protein 34.2 H (<10.0) mg/L Total Protein 5.8 L (6.3-8.2) g/dL Albumin 2.5 L (3.5-5.0) g/dL Assessment and Plan Assessment: POD#16 ex lap antrectomy with billroth II gastrojejunostomy secondary to perforated duodenal ulcer Plan: Tolerating diet. Continue with medical care per primary service and nephro recs. IV ABX per ID. OOBTC, encouraged ambulation and IS. BOGDAN removed today.
--- NOTE | 2019-06-01 16:30 | P.PN ---
Subjective Progress Note Date: 06/01/19 Principal diagnosis: Duodenal perforation Patient was seen and examined. No acute events overnight. Tolerating a low fiber diet well. Denies any abdominal pain. No nausea vomiting. No fever or chills. Having bowel movements and passing gas. Creatinine worsening this morning to 3.6. Objective - Vital Signs Vital signs: Vital Signs Temp 98.3 F 06/01/19 15:00 Pulse 101 H 06/01/19 16:10 Resp 17 06/01/19 16:10 BP 162/82 06/01/19 15:00 Pulse Ox 94 L 06/01/19 15:00 Intake & Output 05/31/19 06/01/19 06/01/19 18:59 06:59 18:59 Intake Total 900 Output Total 25 300 356 Balance -25 -300 544 Weight 82 kg Intake: Intake, IV Titration 200 Amount Anidulafungin 100 mg In 100 Sodium Chloride 0.9% 100 ml @ 84 mls/hr IVPB DAILY [facility] Rx#:[id number] Cefepime 2 gm In Sodium 100 Chloride 0.9% 100 ml @ 200 mls/hr IVPB Q24HR [facility] Rx#:[id number] Oral 700 Output: Drainage 25 6 Anterior Abdomen 25 6 Urine 300 350 Other: Voiding Method Urinal Urinal # Voids 1 ABP, PAP, CO, CI - Last Documented Arterial Blood Pressure 137/59 - Exam General: [non toxic], [appears at stated age] Derm: [warm], [dry] Head: [atraumatic], [normocephalic], [symmetric] Eyes: [no lid lag], [anicteric sclera] Mouth: [no lip lesion], [oropharynx within normal limits] Cardiovascular: [S1S2 reg], [no murmur], [positive DP pulse bilateral], Lungs: [Clear to auscultation bilaterally], [no rhonchi, no rales] , [no accessory muscle use] Abdominal: [soft], [midline abdominal surgical scar keren intact with no erythema or discharge], [no guarding], [no appreciable organomegaly], [no bowel sounds] Ext: [no gross muscle atrophy], [no edema], [no contractures] Neuro: [No focal neurologic deficits] Psych: [Alert and oriented] - Labs CBC & Chem 7: 06/01/19 08:04 06/01/19 08:04 Labs: Abnormal Lab Results - Last 24 Hours (Table) 05/31/19 05/31/19 06/01/19 Range/Units 16:33 20:10 06:44 WBC (3.8-10.6) k/uL RBC (4.30-5.90) m/uL Hgb (13.0-17.5) gm/dL Hct (39.0-53.0) % MCHC (31.0-37.0) g/dL RDW (11.5-15.5) % Plt Count (150-450) k/uL Neutrophils # (1.3-7.7) k/uL Sodium (137-145) mmol/L Chloride (98-107) mmol/L Carbon Dioxide (22-30) mmol/L BUN (9-20) mg/dL Creatinine (0.66-1.25) mg/dL Glucose (74-99) mg/dL POC Glucose (mg/dL) 208 H 200 H 117 H (75-99) mg/dL Alkaline Phosphatase (38-126) U/L C-Reactive Protein (<10.0) mg/L Total Protein (6.3-8.2) g/dL Albumin (3.5-5.0) g/dL 06/01/19 06/01/19 06/01/19 Range/Units 08:04 08:04 11:47 WBC 16.1 H (3.8-10.6) k/uL RBC 3.01 L (4.30-5.90) m/uL Hgb 8.0 L (13.0-17.5) gm/dL Hct 26.9 L (39.0-53.0) % MCHC 29.7 L (31.0-37.0) g/dL RDW 19.4 H (11.5-15.5) % Plt Count 1173 H* (150-450) k/uL Neutrophils # 13.6 H (1.3-7.7) k/uL Sodium 136 L (137-145) mmol/L Chloride 109 H (98-107) mmol/L Carbon Dioxide 14 L (22-30) mmol/L BUN 46 H (9-20) mg/dL Creatinine 3.60 H (0.66-1.25) mg/dL Glucose 137 H (74-99) mg/dL POC Glucose (mg/dL) 143 H (75-99) mg/dL Alkaline Phosphatase 153 H (38-126) U/L C-Reactive Protein 34.2 H (<10.0) mg/L Total Protein 5.8 L (6.3-8.2) g/dL Albumin 2.5 L (3.5-5.0) g/dL Assessment and Plan Assessment: Assessment and plan Acute kidney injury secondary to ATN from hypovolemic and septic shock Thrombocytosis Pulmonary venous congestion and pleural effusion Hyperchloremic metabolic acidosis Hypertension Septic shock due to perforated duodenal ulcer status post exploratory laparotomy POD 16 Perforated duodenal ulcer Acute blood loss anemia secondary to GI bleed from perforated duodenal ulcer Alcohol abuse Kidney lesion Creatinine worsening to 3.6. Likely due to hypovolemic and septic shock. Urine for eosinophils negative. Acute hepatitis panel negative. MUSA negative. Double-stranded DNA negative. Complement C3-C4 low. Plans: Continue IVF as above. Avoid nephrotoxins. Repeat BMP in the morning. Follow nephrology recommendations. Platelet count 1173. Likely reactive. Plans: Follow hematology recommendations. As seen on chest x-ray. Likely due to infused IVF. Saturating high 90s on room air. Complains of some difficulty breathing. Has some lower extremity edema. Plans: Lasix 40 mg IV times one time dose yesterday. Continue to monitor. Chloride 109, bicarbonate 14. Plans: Sodium bicarbonate infusion today. Continue sodium bicarbonate by mouth. Nephrology following. Repeat BMP tomorrow morning. BP 162/82. Plans: Continue amlodipine, hydralazine and metoprolol. Monitor vitals, adjust medications as necessary. Patient continues leukocytosis but improved from 20.2-16.5-16.7-16.1. POD 16 exploratory laparotomy with antrectomy and gastrojejunostomy. KUB and CT abdomen and pelvis confirmed perforation. Wound cultures show Klebsiella oxytocin and non-hemolytic strep. Blood cultures negative at 144, 144 hours. Urine culture negative. Computed tomography scan shows worsening anasarca, consolidation basilar lobes, hypodensity along posterior wall of small bowel, probable ileus, bladder wall thickening. Plans: Antibiotics switched to ciprofloxacin 250 mg by mouth twice a day, metronidazole 500 mg by mouth 3 times a day. Continue Protonix 40 mg IV twice a day and Reglan 10 mg IV every 6 hours. Telemetry monitoring. Follow wound and blood cultures. Follow sputum culture. Follow ID recommendations. Plans: Management as above. Plans for low fiber diet today and advance as tolerated. Hemoglobin 8.0. Given 2 units PRBC during surgery, one PRBC post surgery. Likely acute blood loss from duodenal ulcer perforation, minimally from surgery and dilution. Plans: Repeat CBC tomorrow morning. Transfuse if hemoglobin less than 7. Family states drinks 4 beers daily. Plans: We will continue to monitor. Patient with exophytic kidney lesion, needs workup in the outpatient setting, incidental finding on CT. [Patient improving, BOGDAN drain removed, tolerating diet. Leukocytosis improving, switched to oral antibiotics. Renal function is worsening, nephrology on board. Possible DC tomorrow if nephrology clears the patient for DC.]
[2019-06-01 16:50] LABS: Glucose,Whole Blood 164 mg/dL (75-99)
[2019-06-01] MEDS: HYDROcodone/APAP 7.5-325MG 1 EACH TAB PO PRN (19:47)
[2019-06-01 20:24] LABS: Glucose,Whole Blood 192 mg/dL (75-99)
[2019-06-01] MEDS: CIPROFLOXACIN HCL 250 MG TAB PO SCH (20:37)
[2019-06-01] MEDS: LORazepam 1 MG TAB PO PRN (20:43)
[2019-06-02] MEDS: METOCLOPRAMIDE 5 MG/ML 2 ML VIAL IVP SCH ×3 (05:13→17:31)
[2019-06-02 06:52] LABS: Glucose,Whole Blood 91 mg/dL (75-99)
[2019-06-02] MEDS: INSULIN ASPART (NovoLOG) 100 UNIT/ML VIAL SQ SCH ×4 (07:10→20:41)
[2019-06-02 07:30] LABS: Calcium 8.1 mg/dL (8.4-10.2); Magnesium 1.7 mg/dL (1.6-2.3); Potassium 3.8 mmol/L (3.5-5.1)
[2019-06-02] MEDS: IPRATROPIUM-ALBUTEROL 3 ML NEB INHALATION SCH ×4 (09:12→19:49)
[2019-06-02 09:41] LABS: Albumin 1.82 g/dL (3.80-4.90); Gamma Globulin 0.96 g/dL (0.70-1.50)
[2019-06-02] MEDS: HEPARIN SODIUM,PORCINE 5,000 UNIT/ML 1 ML VIAL SQ SCH ×2 (09:44→15:39)
[2019-06-02] MEDS: metroNIDAZOLE 500 MG TAB PO SCH ×2 (09:45→15:39)
[2019-06-02] MEDS: CIPROFLOXACIN HCL 250 MG TAB PO SCH ×2 (09:45→20:41)
[2019-06-02] MEDS: hydrALAZINE HCL 25 MG TAB PO SCH ×3 (09:45→21:52)
[2019-06-02] MEDS: SODIUM BICARBONATE TAB 650 MG TAB PO SCH ×3 (09:45→21:52)
[2019-06-02] MEDS: amLODIPine 10 MG TAB PO SCH (09:45)
[2019-06-02] MEDS: PANTOPRAZOLE 40 MG TABLET PO SCH ×2 (09:45→20:41)
[2019-06-02] MEDS: METOPROLOL TARTRATE 50 MG TAB PO SCH ×3 (09:45→21:52)
[2019-06-02 11:14] LABS: Glucose,Whole Blood 195 mg/dL (75-99)
--- NOTE | 2019-06-02 11:45 | P.PN ---
Subjective Patient is seen in follow-up for acute kidney injury. Renal function continues to worsen. No clear cause but there is concern for underlying GN versus septic ATN. He has been voiding. He is tolerating oral intake. Denies chest pain or shortness of breath. Having daily bowel movements. Creatinine 3.87 today. Cefepime and antifungal were discontinued yesterday. Vital signs are stable. General: The patient appeared well nourished and normally developed. HEENT: Head exam is unremarkable. Neck is without jugular venous distension. LUNGS: Lungs are clear to auscultation and percussion. Breath sounds decreased. HEART: Rate and Rhythm are regular. First and second heart sounds normal. No murmurs, rubs or gallops. ABDOMEN: Bowel sounds decreased. EXTREMITITES: 1+ edema. Objective - Vital Signs Vital signs: Vital Signs Temp 98.5 F 06/02/19 07:00 Pulse 92 06/02/19 09:22 Resp 17 06/02/19 07:00 BP 160/85 06/02/19 07:00 Pulse Ox 92 L 06/02/19 07:00 Intake & Output 06/01/19 06/02/19 06/02/19 18:59 06:59 18:59 Intake Total 900 500 360 Output Total 356 450 Balance 544 50 360 Intake: Intake, IV Titration 200 Amount Anidulafungin 100 mg In 100 Sodium Chloride 0.9% 100 ml @ 84 mls/hr IVPB DAILY [facility] Rx#:[id number] Cefepime 2 gm In Sodium 100 Chloride 0.9% 100 ml @ 200 mls/hr IVPB Q24HR [facility] Rx#:[id number] Oral 700 500 360 Output: Drainage 6 Anterior Abdomen 6 Urine 350 450 Other: Voiding Method Urinal Urinal # Voids 1 ABP, PAP, CO, CI - Last Documented Arterial Blood Pressure 137/59 - Labs CBC & Chem 7: 06/01/19 08:04 06/02/19 06:33 Labs: Abnormal Lab Results - Last 24 Hours (Table) 05/29/19 06/01/19 06/01/19 Range/Units 10:03 08:04 11:47 Sodium (137-145) mmol/L Chloride (98-107) mmol/L Carbon Dioxide (22-30) mmol/L BUN (9-20) mg/dL Creatinine (0.66-1.25) mg/dL POC Glucose (mg/dL) 143 H (75-99) mg/dL Calcium (8.4-10.2) mg/dL Albumin (PEP) 1.82 L (3.80-4.90) g/dL Ivybi-9-Kdenczfgb 0.55 H (0.10-0.40) g/dL Beta Globulins 0.55 L (0.60-1.30) g/dL Procalcitonin 2.18 H (0.02-0.09) ng/mL 06/01/19 06/01/19 06/02/19 Range/Units 16:48 20:13 06:33 Sodium 136 L (137-145) mmol/L Chloride 108 H (98-107) mmol/L Carbon Dioxide 18 L (22-30) mmol/L BUN 48 H (9-20) mg/dL Creatinine 3.87 H (0.66-1.25) mg/dL POC Glucose (mg/dL) 164 H 192 H (75-99) mg/dL Calcium 8.1 L (8.4-10.2) mg/dL Albumin (PEP) (3.80-4.90) g/dL Anmjy-2-Gtxiwbrvx (0.10-0.40) g/dL Beta Globulins (0.60-1.30) g/dL Procalcitonin (0.02-0.09) ng/mL 06/02/19 Range/Units 11:12 Sodium (137-145) mmol/L Chloride (98-107) mmol/L Carbon Dioxide (22-30) mmol/L BUN (9-20) mg/dL Creatinine (0.66-1.25) mg/dL POC Glucose (mg/dL) 195 H (75-99) mg/dL Calcium (8.4-10.2) mg/dL Albumin (PEP) (3.80-4.90) g/dL Shfcu-6-Dsbscsgtf (0.10-0.40) g/dL Beta Globulins (0.60-1.30) g/dL Procalcitonin (0.02-0.09) ng/mL Assessment and Plan Plan: Assessment: 1. Acute kidney injury secondary to ATN secondary to septic shock. Creatinine was 6 on admission and did improve. However the last few days his renal function has been worsening. Creatinine 3.87 today. Creatinine was 0.68 in June 2014. No other records available. No hydronephrosis noted on imaging. 1+ proteinuria on UA. Rule out ALLERGIC interstitial nephritis due to antibiotics - urine eosinophils negative. UPC 1.6 g. All complements noted to be low. Rest of the serologies negative. 2. Perforated duodenal ulcer status post laparotomy with antrectomy on 05/16/2019. Maintained on antibiotics. Infectious disease following. 3. Metabolic acidosis secondary to acute kidney injury and IV fluids. Maintained on oral sodium bicarbonate. Better. 4. Hypokalemia, being replaced. Rule out magnesium deficiency. 5. Hypocalcemia secondary to hypoalbuminemia. Corrected calcium in the normal range. 6. Right renal atrophy. 7. Right kidney lesion. Urology following. 8. Benign hypertension. Stable. 9. Lower extremity edema. Better. Status post IV Lasix May 31. 10. Thrombocytosis. ? Reactive. Plan: Remains off IV fluids. Oral intake is good. Maintain oral sodium bicarbonate. Due to worsening renal function without clear etiology, will schedule for kidney biopsy. I will give him a dose of IV DDAVP one hour prior to kidney biopsy.
--- NOTE | 2019-06-02 12:21 | P.PN ---
Subjective This is a pleasant 63-year-old male status post surgical repair of a perforated duodenal ulcer. Currently maintained on amlodipine 10 mg daily, hydralazine 75 mg 3 times a day, Lopressor 50 mg 3 times a day and sodium bicarb infusion. He is seen and examined laying flat in bed in no acute distress. He got up and walked a lot last evening with no shortness of breath or chest pain. Blood pressure 160/85 heart rate 92 afebrile and maintaining oxygen saturation on room air. Laboratory data reviewed, sodium 136, potassium 3.8, creatinine 3.87, magnesium 1.7. Nephrology is recommending kidney biopsy since his renal function continues to worsen with no offending agents on board. GENERAL: Well-appearing, well-nourished and in no acute distress. NECK: Supple without JVD or thyromegaly. LUNGS: Clear to auscultation. No wheezes, rales or rhonchi. Respiration equal and unlabored. HEART: Regular rate and rhythm without murmurs, rubs or gallops. S1 and S2 heard. Tachycardic. EXTREMITIES: Normal range of motion, trace bilateral lower extremity edema slightly improved from previous exam. No clubbing or cyanosis. Peripheral pulses intact. ASSESSMENT Perforated duodenal ulcer status post surgical repair Peritonitis Hypertension Sinus tachycardia, ongoing Leukocytosis Thrombocytosis Acute kidney injury History of GI bleed in the past Anemia Pulmonary hypertension, mild, RVSP 39 mmHg Chronic nicotine dependence PLAN Continue current medical regimen. We will follow as needed, please call with further questions or concerns. Follow up with Dr. Alfonso upon discharge. Nurse Practitioner note has been reviewed, I agree with a documented findings and plan of care. Patient was seen and examined. Objective - Vital Signs Vital signs: Vital Signs Temp 98.5 F 06/02/19 07:00 Pulse 92 06/02/19 09:22 Resp 17 06/02/19 08:00 BP 160/85 06/02/19 07:00 Pulse Ox 92 L 06/02/19 07:00 Intake & Output 06/01/19 06/02/19 06/02/19 18:59 06:59 18:59 Intake Total 900 500 360 Output Total 356 450 Balance 544 50 360 Intake: Intake, IV Titration 200 Amount Anidulafungin 100 mg In 100 Sodium Chloride 0.9% 100 ml @ 84 mls/hr IVPB DAILY [facility] Rx#:[id number] Cefepime 2 gm In Sodium 100 Chloride 0.9% 100 ml @ 200 mls/hr IVPB Q24HR [facility] Rx#:[id number] Oral 700 500 360 Output: Drainage 6 Anterior Abdomen 6 Urine 350 450 Other: Voiding Method Urinal Urinal Urinal # Voids 1 ABP, PAP, CO, CI - Last Documented Arterial Blood Pressure 137/59 - Labs CBC & Chem 7: 06/01/19 08:04 06/02/19 06:33 Labs: Abnormal Lab Results - Last 24 Hours (Table) 05/29/19 06/01/19 06/01/19 Range/Units 10:03 08:04 16:48 Sodium (137-145) mmol/L Chloride (98-107) mmol/L Carbon Dioxide (22-30) mmol/L BUN (9-20) mg/dL Creatinine (0.66-1.25) mg/dL POC Glucose (mg/dL) 164 H (75-99) mg/dL Calcium (8.4-10.2) mg/dL Albumin (PEP) 1.82 L (3.80-4.90) g/dL Jztcm-9-Gdxpqbvbp 0.55 H (0.10-0.40) g/dL Beta Globulins 0.55 L (0.60-1.30) g/dL Procalcitonin 2.18 H (0.02-0.09) ng/mL 06/01/19 06/02/19 06/02/19 Range/Units 20:13 06:33 11:12 Sodium 136 L (137-145) mmol/L Chloride 108 H (98-107) mmol/L Carbon Dioxide 18 L (22-30) mmol/L BUN 48 H (9-20) mg/dL Creatinine 3.87 H (0.66-1.25) mg/dL POC Glucose (mg/dL) 192 H 195 H (75-99) mg/dL Calcium 8.1 L (8.4-10.2) mg/dL Albumin (PEP) (3.80-4.90) g/dL Stggc-6-Elahklaqd (0.10-0.40) g/dL Beta Globulins (0.60-1.30) g/dL Procalcitonin (0.02-0.09) ng/mL
[2019-06-02 12:28] LABS: Anisocytosis Slight; HCT 24.5 % (39.0-53.0); HGB 7.2 gm/dL (13.0-17.5); Hypochromasia Marked; MCH 26.7 pg (25.0-35.0); MCHC 29.5 g/dL (31.0-37.0); MCV 90.5 fL (80.0-100.0); RBC 2.71 m/uL (4.30-5.90); RDW 19.4 % (11.5-15.5); WBC 14.3 k/uL (3.8-10.6)
[2019-06-02 12:36] LABS: Platelet Count 1027 k/uL (150-450)
--- NOTE | 2019-06-02 12:37 | P.PN ---
Subjective Progress Note Date: 06/02/19 Patient was up walking in halls today. No complaints. BOGDAN serosang. Passing flatus and had another BM. Tolerating soft diet Objective - Vital Signs Vital signs: Vital Signs Temp 98.5 F 06/02/19 07:00 Pulse 90 06/02/19 12:31 Resp 17 06/02/19 08:00 BP 160/85 06/02/19 07:00 Pulse Ox 92 L 06/02/19 07:00 Intake & Output 06/01/19 06/02/19 06/02/19 18:59 06:59 18:59 Intake Total 900 500 360 Output Total 356 450 Balance 544 50 360 Intake: Intake, IV Titration 200 Amount Anidulafungin 100 mg In 100 Sodium Chloride 0.9% 100 ml @ 84 mls/hr IVPB DAILY [facility] Rx#:[id number] Cefepime 2 gm In Sodium 100 Chloride 0.9% 100 ml @ 200 mls/hr IVPB Q24HR [facility] Rx#:[id number] Oral 700 500 360 Output: Drainage 6 Anterior Abdomen 6 Urine 350 450 Other: Voiding Method Urinal Urinal Urinal # Voids 1 ABP, PAP, CO, CI - Last Documented Arterial Blood Pressure 137/59 - Constitutional General appearance: Present: cooperative - Respiratory Details: nonlabored - Cardiovascular Rhythm: regular - Gastrointestinal Gastrointestinal Comment(s): S/NT/ND Incision CDI - Psychiatric Psychiatric: Present: A&O x's 3 - Labs CBC & Chem 7: 06/01/19 08:04 06/02/19 06:33 Labs: Abnormal Lab Results - Last 24 Hours (Table) 05/29/19 06/01/19 06/01/19 Range/Units 10:03 08:04 16:48 Sodium (137-145) mmol/L Chloride (98-107) mmol/L Carbon Dioxide (22-30) mmol/L BUN (9-20) mg/dL Creatinine (0.66-1.25) mg/dL POC Glucose (mg/dL) 164 H (75-99) mg/dL Calcium (8.4-10.2) mg/dL Albumin (PEP) 1.82 L (3.80-4.90) g/dL Qmxrz-3-Iwuknainq 0.55 H (0.10-0.40) g/dL Beta Globulins 0.55 L (0.60-1.30) g/dL Procalcitonin 2.18 H (0.02-0.09) ng/mL 06/01/19 06/02/19 06/02/19 Range/Units 20:13 06:33 11:12 Sodium 136 L (137-145) mmol/L Chloride 108 H (98-107) mmol/L Carbon Dioxide 18 L (22-30) mmol/L BUN 48 H (9-20) mg/dL Creatinine 3.87 H (0.66-1.25) mg/dL POC Glucose (mg/dL) 192 H 195 H (75-99) mg/dL Calcium 8.1 L (8.4-10.2) mg/dL Albumin (PEP) (3.80-4.90) g/dL Gzroz-9-Iajhvpayp (0.10-0.40) g/dL Beta Globulins (0.60-1.30) g/dL Procalcitonin (0.02-0.09) ng/mL Assessment and Plan Assessment: POD#17 ex lap antrectomy with billroth II gastrojejunostomy secondary to perforated duodenal ulcer Plan: Tolerating diet. Continue with medical care per primary service and nephro recs. IV ABX per ID. OOBTC, encouraged ambulation and IS. Surgically stable
[2019-06-02 13:06] LABS: C Reactive Protein 27.7 mg/L (<10.0)
--- NOTE | 2019-06-02 14:48 | P.PN ---
Subjective Progress Note Date: 06/02/19 Principal diagnosis: The patient is a 63-year-old male that was admitted for septic shock secondary to perforated duodenal ulcer with subsequent peritonitis in the settin g of acute kidney injury secondary to ATN prerenal secondary to septic shock after presenting with abdominal pain and hypotension. Initial CT showed large amount of intraperitoneal air with a large amount of ascites and scattered small bowel wall thickening secondary to cystitis and nonspecific enteritis. The patient was aggressively fluid resuscitated and received 2 units of packed RBCs secondary to being found anemic. The patient had Urgent expiratory laparotomy requiring antrectomy and Billroth II gastrojejunostomy. Despite aggressive fluid hydration the patient continued to be hypertensive and was started on pressors with levophed and was maintained on mechanical ventilator with prop ofol for sedation and pulmonary managing his vent settings. The patient was continued on empiric IV antibiotics with Zosyn and Diflucan as suggested by ID. There with treatment the patient's creatinine gradually trended down from 6 to around 2 and held stable and within the patient again went into acute kidney injury with his creatinine going up, his antibiotic regimen was adjusted, nephrology was again consulted patient's complement returned low, the plan was for the patient to have a biopsy while inpatient Patient seen and examined at bedside wanting to go home today, I discussed his creatinine was actually trending up that he would have to be cleared by nephrology which would be unlikely at this time, patient frustrated But I advised him to be patient. Creatinine 3.87 today Objective - Vital Signs Vital signs: Vital Signs Temp 98.5 F 06/02/19 07:00 Pulse 96 06/02/19 07:00 Resp 17 06/02/19 07:00 BP 160/85 06/02/19 07:00 Pulse Ox 92 L 06/02/19 07:00 Intake & Output 06/01/19 06/02/19 06/02/19 18:59 06:59 18:59 Intake Total 900 500 Output Total 356 450 Balance 544 50 Intake: Intake, IV Titration 200 Amount Anidulafungin 100 mg In 100 Sodium Chloride 0.9% 100 ml @ 84 mls/hr IVPB DAILY [facility] Rx#:[id number] Cefepime 2 gm In Sodium 100 Chloride 0.9% 100 ml @ 200 mls/hr IVPB Q24HR [facility] Rx#:[id number] Oral 700 500 Output: Drainage 6 Anterior Abdomen 6 Urine 350 450 Other: Voiding Method Urinal Urinal # Voids 1 ABP, PAP, CO, CI - Last Documented Arterial Blood Pressure 137/59 - Exam Constitutional: Awake alert Eyes: Anicteric sclerae, moist conjunctiva, no lid-lag, PERRLA ENMT: NC/AT,Oropharynx clear, no erythema, exudates Neck:Supple, FROM, no masses, or JVD, No carotid bruits; No thyromegaly Lungs: Clear to auscultation bilaterally no wheezing rhonchi Cardiovascular: Heart regular in rate and rhythm, No murmurs, gallops, or rubs Abdominal: Soft distended nontender, normoactive bowel sounds Skin: Normal temperature, tone, texture, turgor, No induration No subcutaneous nodules, No rash, lesions, No ulcers Extremities:No digital cyanosis No clubbing, Pedal pulses intact and symmetrical Radial pulses intact and symmetrical Normal gait and station, No calf tenderness Psychiatric: Alert and oriented to person, place and time, Appropriate affect Intact judgement Neuro: Cranial nerves II 12 grossly intact no focal deficits - Labs CBC & Chem 7: 06/02/19 06:33 06/02/19 06:33 Labs: Abnormal Lab Results - Last 24 Hours (Table) 06/01/19 06/01/19 06/01/19 Range/Units 08:04 08:04 08:04 WBC 16.1 H (3.8-10.6) k/uL RBC 3.01 L (4.30-5.90) m/uL Hgb 8.0 L (13.0-17.5) gm/dL Hct 26.9 L (39.0-53.0) % MCHC 29.7 L (31.0-37.0) g/dL RDW 19.4 H (11.5-15.5) % Plt Count 1173 H* (150-450) k/uL Neutrophils # 13.6 H (1.3-7.7) k/uL Sodium 136 L (137-145) mmol/L Chloride 109 H (98-107) mmol/L Carbon Dioxide 14 L (22-30) mmol/L BUN 46 H (9-20) mg/dL Creatinine 3.60 H (0.66-1.25) mg/dL Glucose 137 H (74-99) mg/dL POC Glucose (mg/dL) (75-99) mg/dL Calcium (8.4-10.2) mg/dL Alkaline Phosphatase 153 H (38-126) U/L C-Reactive Protein 34.2 H (<10.0) mg/L Total Protein 5.8 L (6.3-8.2) g/dL Albumin 2.5 L (3.5-5.0) g/dL Procalcitonin 2.18 H (0.02-0.09) ng/mL 06/01/19 06/01/19 06/01/19 Range/Units 11:47 16:48 20:13 WBC (3.8-10.6) k/uL RBC (4.30-5.90) m/uL Hgb (13.0-17.5) gm/dL Hct (39.0-53.0) % MCHC (31.0-37.0) g/dL RDW (11.5-15.5) % Plt Count (150-450) k/uL Neutrophils # (1.3-7.7) k/uL Sodium (137-145) mmol/L Chloride (98-107) mmol/L Carbon Dioxide (22-30) mmol/L BUN (9-20) mg/dL Creatinine (0.66-1.25) mg/dL Glucose (74-99) mg/dL POC Glucose (mg/dL) 143 H 164 H 192 H (75-99) mg/dL Calcium (8.4-10.2) mg/dL Alkaline Phosphatase (38-126) U/L C-Reactive Protein (<10.0) mg/L Total Protein (6.3-8.2) g/dL Albumin (3.5-5.0) g/dL Procalcitonin (0.02-0.09) ng/mL 06/02/19 Range/Units 06:33 WBC (3.8-10.6) k/uL RBC (4.30-5.90) m/uL Hgb (13.0-17.5) gm/dL Hct (39.0-53.0) % MCHC (31.0-37.0) g/dL RDW (11.5-15.5) % Plt Count (150-450) k/uL Neutrophils # (1.3-7.7) k/uL Sodium 136 L (137-145) mmol/L Chloride 108 H (98-107) mmol/L Carbon Dioxide 18 L (22-30) mmol/L BUN 48 H (9-20) mg/dL Creatinine 3.87 H (0.66-1.25) mg/dL Glucose (74-99) mg/dL POC Glucose (mg/dL) (75-99) mg/dL Calcium 8.1 L (8.4-10.2) mg/dL Alkaline Phosphatase (38-126) U/L C-Reactive Protein (<10.0) mg/L Total Protein (6.3-8.2) g/dL Albumin (3.5-5.0) g/dL Procalcitonin (0.02-0.09) ng/mL Assessment and Plan Assessment: Acute kidney injury secondary to ATN * ATN. Initially due Prerenal due to severe septic shock, now concern for glomerulonephritis * Creatinine continues to trend up to 3.87 from 3.6 * The workup including low complements UPC 1.6 g * Fluids have been held, nephrology considering biopsy * Metabolic acidosis now resolved maintained on oral bicarbonate * renal following, US indicating right renal atrophy and a solid-appearing 1.7 cm upper pole lesion urology following Septic shock * Resolved * Secondary to perforated viscus with subsequent peritonitis * Resolved patient no longer requiring pressors blood pressure is actually elevated today, has good urine output * afebrile overnight, white count at 14.3 L IJ discontinued due to suspected infection (Cx pending) PICC placed 11/18 * Peritoneal culture growing Klebsiella oxytoca and nonhemolytic strep * Currently on antibiotic regimen currently on oral Flagyl and ciprofloxacin, cefepime and and fungal discontinued yesterday Acute respiratory failure with hypoxia * Resolved * Secondary to septic shock due to perforated discus with subsequent abdominal peritonitis Perforated viscus * POD #17 status post exploratory laparoscopy antrectomy and Billroth II gastrojejunostomy * Continue low fiber diet Hypertensive urgency * Resolved * Blood pressure controlled on metoprolol and Norvasc Normocytic anemia * Secondary to upper GI bleed status post perforated duodenal ulcer * Status post 3 unit packed RBC transfusion hemoglobin stable at 7.4 g Hypomagnesemia * resolved * continue to monitor peripheral edema * Resolved * Secondary to volume overload, echocardiogram showing normal preserved ejection fraction Thrombocytosis * Pronounced likely reactive Disposition * Nephrology planning kidney biopsy * Patient approaching discharge when his creatinine starts leveling off
[2019-06-02 17:03] LABS: Glucose,Whole Blood 148 mg/dL (75-99)
[2019-06-02 19:02] LABS: Ferritin 146.4 ng/mL (22.0-322.0)
[2019-06-02 19:03] LABS: % Iron Saturation 8.3 (15.00-50.00)
--- NOTE | 2019-06-02 19:29 | PN ---
PROGRESS NOTE DATE OF SERVICE: 06/02/2019 REASON FOR FOLLOWUP: 1. Secondary peritonitis. 2. Elevated white count. INTERVAL HISTORY: The patient is currently afebrile. The patient has been breathing comfortably. Denies having any chest pain or cough. No abdominal pain. No nausea, vomiting or any diarrhea. PHYSICAL EXAMINATION: Blood pressure 132/72 with a pulse of 94, temperature 98.4. He is 93% on room air. General description is a middle-aged male lying in bed in no distress. RESPIRATORY SYSTEM: Unlabored breathing with decreased breath sounds at the base. No wheeze. HEART: S1, S2. Regular rate and rhythm. ABDOMEN: Soft. No tenderness. LABS: Hemoglobin is 7.2, white count 14.3. Creatinine is 3.87. DIAGNOSTIC IMPRESSION AND PLAN: Patient admitted to hospital with perforated peptic ulcer disease, status post operative repair. Abdominal culture with Klebsiella, non-hemolytic strep, and anaerobic gram-positive cocci. Patient's underlying infection currently adequately treated and he is on oral Cipro and Flagyl; however, the patient continues to have worsening of his kidney function, for which the patient has been managed by Nephrology. They are recommending a renal biopsy, possibly on Friday, if he continues to have worsening of his kidney function. MMODL / IJN: [id number] /
--- NOTE | 2019-06-02 19:42 | P.CONS ---
History of Present Illness - Reason for Consult Consult date: 06/02/19 thrombocytosis Requesting physician: Tanya Lockwood - Chief Complaint perforated bowel - History of Present Illness Mister Flores is a very pleasant 63-year-old male with a rather complicated admission. Patient was admitted 17 days ago for duodenal perforation, status post invasive procedure. We have been asked to see him for a trending thrombocythemia. Patient is also anemic (this is noted in the chart since 2013). Patient reports doing well when I see him, denies history of any blood problems, he states that his father had myelodysplastic syndrome in his 70s. Pt is eating, denies any bleeding, numbness or tingling, unusual pain or swelling. Review of Systems 14 point ROS is negative except as stated in HPI Past Medical History Past Medical History: GERD/Reflux, GI Bleed Additional Past Medical History / Comment(s): History of GI bleed back in 2013 and he was found to have polyps and hiatal hernia. History of Any Multi-Drug Resistant Organisms: None Reported Past Surgical History: No Surgical Hx Reported Past Anesthesia/Blood Transfusion Reactions: No Reported Reaction Past Psychological History: No Psychological Hx Reported Smoking Status: Former smoker Past Alcohol Use History: Daily Past Drug Use History: Marijuana - Past Family History Mother Family Medical History: Cancer Additional Family Medical History / Comment(s): lung cancer. Father Family Medical History: Blood Disorder (MDS) Medications and Allergies Home Medications Medication Instructions Recorded Confirmed Type No Known Home Medications 05/16/19 05/16/19 History Allergies Allergy/AdvReac Type Severity Reaction Status Date / Time No Known Allergies Allergy Verified 05/16/19 11:05 Physical Exam Vitals: Vital Signs Temp Pulse Pulse Pulse Resp BP Pulse Ox 06/02/19 16:00 96 17 06/02/19 13:38 98.4 F 94 17 132/72 93 L 06/02/19 12:31 90 06/02/19 12:22 96 06/02/19 09:22 92 06/02/19 09:12 92 06/02/19 08:00 96 17 06/02/19 07:00 98.5 F 96 17 160/85 92 L 06/02/19 00:52 98 F 84 16 133/70 96 06/01/19 20:31 96 06/01/19 20:20 93 L 06/01/19 20:18 92 06/01/19 19:34 98 F 90 16 144/73 94 L Intake and Output 06/02/19 06/02/19 06/02/19 06:59 14:59 22:59 Intake Total 710 Output Total 250 550 Balance -250 160 Intake: Oral 710 Output: Urine 250 550 Other: Voiding Method Urinal Urinal # Voids 1 3 - Constitutional General appearance: average body habitus, cooperative, no acute distress - EENT Eyes: anicteric sclerae, EOMI ENT: hearing grossly normal, normal oropharynx - Neck Neck: no lymphadenopathy - Respiratory Respiratory: bilateral: CTA - Cardiovascular Rhythm: regular Heart sounds: normal: S1, S2 Abnormal Heart Sounds: no systolic murmur, no diastolic murmur, no rub, no S3 Gallop, no S4 Gallop, no click, no other - Gastrointestinal distended, few bruises from hep injections, keren are intact, incision is well approximated, no drainage, S/S infection, BS + - Integumentary Integumentary: normal - Neurologic Neurologic: CNII-XII intact - Musculoskeletal Musculoskeletal: strength equal bilaterally - Psychiatric Psychiatric: A&O x's 3, appropriate affect, intact judgment & insight Results CBC & Chem 7: 06/02/19 06:33 06/02/19 06:33 Labs: Abnormal Lab Results - Last 24 Hours (Table) 05/29/19 06/01/19 06/02/19 Range/Units 10:03 20:13 06:33 WBC (3.8-10.6) k/uL RBC (4.30-5.90) m/uL Hgb (13.0-17.5) gm/dL Hct (39.0-53.0) % MCHC (31.0-37.0) g/dL RDW (11.5-15.5) % Plt Count (150-450) k/uL ESR (0-15) mm/hr Sodium 136 L (137-145) mmol/L Chloride 108 H (98-107) mmol/L Carbon Dioxide 18 L (22-30) mmol/L BUN 48 H (9-20) mg/dL Creatinine 3.87 H (0.66-1.25) mg/dL POC Glucose (mg/dL) 192 H (75-99) mg/dL Calcium 8.1 L (8.4-10.2) mg/dL Iron (65-175) ug/dL % Saturation (15.00-50.00) C-Reactive Protein (<10.0) mg/L Albumin (PEP) 1.82 L (3.80-4.90) g/dL Glrbh-6-Vltlvavwl 0.55 H (0.10-0.40) g/dL Beta Globulins 0.55 L (0.60-1.30) g/dL 06/02/19 06/02/19 06/02/19 Range/Units 06:33 11:12 12:34 WBC 14.3 H (3.8-10.6) k/uL RBC 2.71 L (4.30-5.90) m/uL Hgb 7.2 L (13.0-17.5) gm/dL Hct 24.5 L (39.0-53.0) % MCHC 29.5 L (31.0-37.0) g/dL RDW 19.4 H (11.5-15.5) % Plt Count 1027 H* (150-450) k/uL ESR 120 H (0-15) mm/hr Sodium (137-145) mmol/L Chloride (98-107) mmol/L Carbon Dioxide (22-30) mmol/L BUN (9-20) mg/dL Creatinine (0.66-1.25) mg/dL POC Glucose (mg/dL) 195 H (75-99) mg/dL Calcium (8.4-10.2) mg/dL Iron (65-175) ug/dL % Saturation (15.00-50.00) C-Reactive Protein (<10.0) mg/L Albumin (PEP) (3.80-4.90) g/dL Vwumq-2-Debsjwvfl (0.10-0.40) g/dL Beta Globulins (0.60-1.30) g/dL 06/02/19 06/02/19 Range/Units 12:34 17:01 WBC (3.8-10.6) k/uL RBC (4.30-5.90) m/uL Hgb (13.0-17.5) gm/dL Hct (39.0-53.0) % MCHC (31.0-37.0) g/dL RDW (11.5-15.5) % Plt Count (150-450) k/uL ESR (0-15) mm/hr Sodium (137-145) mmol/L Chloride (98-107) mmol/L Carbon Dioxide (22-30) mmol/L BUN (9-20) mg/dL Creatinine (0.66-1.25) mg/dL POC Glucose (mg/dL) 148 H (75-99) mg/dL Calcium (8.4-10.2) mg/dL Iron 19 L (65-175) ug/dL % Saturation 8.30 L (15.00-50.00) C-Reactive Protein 27.7 H (<10.0) mg/L Albumin (PEP) (3.80-4.90) g/dL Xzmgi-1-Zqawnctab (0.10-0.40) g/dL Beta Globulins (0.60-1.30) g/dL Assessment and Plan (1) Thrombocythemia Narrative/Plan: Thrombocythemia, with platelet counts of greater than 600,000, in the acute setting of surgery, possible infection, acute blood loss from procedures is most likely to be reactive. Labs have been ordered to evaluate for any underlying pathology. No acute intervention is needed. Continue monitoring platelet counts to see if they trend down as pt recovers. Current Visit: Yes Status: Acute Priority: High Code(s): D47.3 - ESSENTIAL (HEMORRHAGIC) THROMBOCYTHEMIA SNOMED Code(s): 2026862 (2) Anemia Narrative/Plan: Post procedure but, also noted has far back in the chart is 2013. Anemia workup also ordered. Current Visit: Yes Status: Chronic Priority: Medium Code(s): D64.9 - ANEMIA, UNSPECIFIED SNOMED Code(s): 663680472 Plan: Saw the SPEP and immunofixation results after seeing pt....will f/u with [facility] on this. Would not do anything acutely as pt is healing.
[2019-06-02 20:41] LABS: Glucose,Whole Blood 227 mg/dL (75-99)
[2019-06-02] MEDS: LORazepam 1 MG TAB PO PRN (21:55)
[2019-06-03] MEDS ORDERED: CIPROFLOXACIN HCL 250 MG TAB PO SCH
[2019-06-03] MEDS: metroNIDAZOLE 500 MG TAB PO SCH ×4 (00:29→23:39)
[2019-06-03] MEDS: HEPARIN SODIUM,PORCINE 5,000 UNIT/ML 1 ML VIAL SQ SCH ×4 (00:29→23:39)
[2019-06-03] MEDS: METOCLOPRAMIDE 5 MG/ML 2 ML VIAL IVP SCH ×5 (00:29→23:39)
[2019-06-03 07:17] LABS: Glucose,Whole Blood 102 mg/dL (75-99)
[2019-06-03] MEDS: INSULIN ASPART (NovoLOG) 100 UNIT/ML VIAL SQ SCH ×4 (07:30→20:21)
[2019-06-03] MEDS: IPRATROPIUM-ALBUTEROL 3 ML NEB INHALATION SCH ×4 (07:56→21:58)
[2019-06-03] MEDS: hydrALAZINE HCL 25 MG TAB PO SCH ×3 (09:22→21:49)
[2019-06-03] MEDS: PANTOPRAZOLE 40 MG TABLET PO SCH ×2 (09:22→20:21)
[2019-06-03] MEDS: amLODIPine 10 MG TAB PO SCH (09:22)
[2019-06-03] MEDS: SODIUM BICARBONATE TAB 650 MG TAB PO SCH ×3 (09:22→21:49)
[2019-06-03] MEDS: METOPROLOL TARTRATE 50 MG TAB PO SCH ×3 (09:22→21:49)
[2019-06-03] MEDS: CIPROFLOXACIN HCL 250 MG TAB PO SCH ×2 (09:22→23:39)
[2019-06-03 10:10] LABS: Anisocytosis Moderate; HCT 25.4 % (39.0-53.0); HGB 7.8 gm/dL (13.0-17.5); Hypochromasia Moderate; MCH 26.9 pg (25.0-35.0); MCHC 30.8 g/dL (31.0-37.0); MCV 87.1 fL (80.0-100.0); Mean Platelet Volume 6.9; Microcytosis Slight; RBC 2.92 m/uL (4.30-5.90); RDW 20.2 % (11.5-15.5); WBC 13.4 k/uL (3.8-10.6)
[2019-06-03 10:19] LABS: INR 1.1 (<1.2); Prothrombin Time 11.7 sec (9.0-12.0)
[2019-06-03 10:22] LABS: Platelet Count 1129 k/uL (150-450)
[2019-06-03 10:23] LABS: Calcium 8.3 mg/dL (8.4-10.2); Magnesium 1.8 mg/dL (1.6-2.3); Potassium 3.9 mmol/L (3.5-5.1)
--- NOTE | 2019-06-03 10:27 | P.PN ---
Subjective Progress Note Date: 06/03/19 Principal diagnosis: This is a 63-year-old male seen in consultation and follow-up for acute kidney injury. Suspicion of acute interstitial nephritis He was initially admitted with a perforated duodenal ulcer, underwent laparotomy antrectomy dated 05/16/2019. He had sepsis, with Klebsiella and gram-positive cocci growing in his peritoneal fluid. His creatinine was 0.6 previously 5 years ago on 07/05/2014 On admission his creatinine was 6 dated 05/16/2019, it improved to 1.8 on 05/20/2019, and then started to slowly go up and continues to go up. Yesterday's creatinine was 3.87 on 06/02/2019. He is vital signs are stable Subjectively he is feeling great able to walk without any support able to eat fairly well no nausea vomiting diarrhea no abdominal pain no fever chills no shortness of breath. No rash. No hematuria. Workup has included an ultrasound and computed tomography scan which showed right renal atrophy with the suspicious mass. No hydronephrosis. Left kidney is unremarkable. His complement levels are low but his MUSA, ANCA and hgnj-cmjqec-yavrakdd DNA were all negative Urine protein to creatinine ratio is less than 2 g. Urinalysis on 05/27/2019 showed 1+ proteinuria small blood less than 1 RBCs and 3 WBCs. Urine eosinophil 0. Urine protein random is 45 mg and creatinine is 27 Objective - Vital Signs Vital signs: Vital Signs Temp 98.4 F 06/03/19 02:03 Pulse 91 06/03/19 02:03 Resp 14 06/03/19 02:03 BP 132/73 06/03/19 02:03 Pulse Ox 90 L 06/03/19 02:03 Intake & Output 06/02/19 06/03/19 06/03/19 18:59 06:59 18:59 Intake Total 710 Output Total 550 450 Balance 160 -450 Intake: Oral 710 Output: Urine 550 450 Other: Voiding Method Urinal Urinal # Voids 3 1 ABP, PAP, CO, CI - Last Documented Arterial Blood Pressure 137/59 On examination is awake alert oriented comfortable HEENT exam no JVP neck is supple no facial asymmetry Lungs clear to auscultation good air entry bilaterally Heart sounds are unremarkable no murmur rub gallop Abdomen soft nontender the large scar of recent surgery with multiple keren Extreme exam was minimal edema Neurologically awake alert oriented. - Labs CBC & Chem 7: 06/02/19 06:33 06/02/19 06:33 Labs: Abnormal Lab Results - Last 24 Hours (Table) 06/02/19 06/02/19 06/02/19 Range/Units 06:33 11:12 12:34 WBC 14.3 H (3.8-10.6) k/uL RBC 2.71 L (4.30-5.90) m/uL Hgb 7.2 L (13.0-17.5) gm/dL Hct 24.5 L (39.0-53.0) % MCHC 29.5 L (31.0-37.0) g/dL RDW 19.4 H (11.5-15.5) % Plt Count 1027 H* (150-450) k/uL ESR 120 H (0-15) mm/hr POC Glucose (mg/dL) 195 H (75-99) mg/dL Iron (65-175) ug/dL % Saturation (15.00-50.00) C-Reactive Protein (<10.0) mg/L 06/02/19 06/02/19 06/02/19 Range/Units 12:34 17:01 20:28 WBC (3.8-10.6) k/uL RBC (4.30-5.90) m/uL Hgb (13.0-17.5) gm/dL Hct (39.0-53.0) % MCHC (31.0-37.0) g/dL RDW (11.5-15.5) % Plt Count (150-450) k/uL ESR (0-15) mm/hr POC Glucose (mg/dL) 148 H 227 H (75-99) mg/dL Iron 19 L (65-175) ug/dL % Saturation 8.30 L (15.00-50.00) C-Reactive Protein 27.7 H (<10.0) mg/L 06/03/19 Range/Units 06:59 WBC (3.8-10.6) k/uL RBC (4.30-5.90) m/uL Hgb (13.0-17.5) gm/dL Hct (39.0-53.0) % MCHC (31.0-37.0) g/dL RDW (11.5-15.5) % Plt Count (150-450) k/uL ESR (0-15) mm/hr POC Glucose (mg/dL) 102 H (75-99) mg/dL Iron (65-175) ug/dL % Saturation (15.00-50.00) C-Reactive Protein (<10.0) mg/L Assessment and Plan Assessment: Impression 1. Acute kidney injury initially from sepsis from perforated duodenal ulcer but subsequently improved and then started to worsen again as mentioned about. Possibility of acute interstitial nephritis is considered. Complement levels are low but MUSA, ANCA and double-stranded DNA all negative ultrasound does not show any hydronephrosis 2. Mild degree of non-gap acidosis from acute kidney injury. 3. No recent creatinines to know if he has an underlying chronic kidney disease. 3. Right renal atrophy cause not very clear. 4. Right renal mass suspicious for cancer 5. Status post duodenal ulcer perforation and repair dated 05/16/2019 stable. Recommendation 1. Start prednisone 20 mg twice a day. Patient was made aware that he will need a kidney biopsy and will proceed with it tomorrow. 2. Watch for side effects of prednisone 3.
[2019-06-03] MEDS: predniSONE 20 MG TAB PO SCH ×2 (11:31→20:21)
[2019-06-03 12:11] LABS: Glucose,Whole Blood 142 mg/dL (75-99)
--- NOTE | 2019-06-03 12:52 | P.PN ---
Progress Note - Text Progress Note Date: 06/03/19 Surgically the patient is progressing well. Tolerating a diet and having bowel movements. Being worked up for thrombocytosis and anemia. Surgically stable for discharge when he is medically stable.
--- NOTE | 2019-06-03 14:07 | P.PN ---
Subjective Progress Note Date: 06/03/19 Principal diagnosis: abdominal pain My first evaluation of the patient on Hospital day 18 Patient is a 63-year-old male with a past medical history of daily alcohol intake, colon polyps and bleeding duodenal ulcer in 2013 with no documented outpatient follow-up son who presented to the ER via EMS after he was found lying face down by his in complaining of tingling in his fingers. EMS found that he was hypoxic with O2 sats at 70% and his systolic blood pressur e in the low 90s. On arrival to the emergency department he was tachycardic and hypotensive he was given aggressive IV fluid resuscitation. X-ray showed free air under the diaphragm. CT of chest showed no evidence of pulmonary embolism, 1 cm right thyroid nodule, and bibasilar atelectasis versus pneumonia. CT abdomen and pelvis showed large amount of free intraperitoneal air, large amount of ascites, and possibility of a 13 mm mass lesion in the superior pole of the right kidney. CT of head and neck at that point in time showed no acute intracranial pathology but cervical degenerative disc disease. He also received 2 units of packed red blood cells repeat found anemic. He was rushed to the operating room where he underwent an exploratory laparotomy with antrectomy and BillRoth 2 gastrojejunostomy. He was admitted to the ICU. She was hypotensive despite IV fluid resuscitation and was started on vasopressors. He was also started on empiric antibiotics with Zosyn and Diflucan secondary to perforated viscus. He had acute renal failure initially which was thought to be secondary to ATN and septic shock which down trended. However during this hospital stay his renal function has again worsened. Currently awaiting renal biopsy and stabilization of creatinine. US bladder and kidneys demonstrated right renal atrophy and a solid appearing lesion 1.7 CM in the upper pole of the right kidney. He was seen by urology who felt that this appeared more as focal pyelonephritis and not a true mass of the kidney. He did recommend follow-up in the office for urology in several weeks. Patient seen and examined at bedside. He denies any chest pain, nausea, shortness of breath, vomiting, or abdominal pain. He is concerned about undergoing renal biopsy and what that will entail or show. Him and family present at bedside and explained why he is undergoing renal biopsy and at this point in time we're looking at renal architecture to assess for why his creatinine is worsening. Objective - Vital Signs Vital signs: Vital Signs Temp 98.4 F 06/03/19 02:03 Pulse 91 06/03/19 02:03 Resp 14 06/03/19 02:03 BP 132/73 06/03/19 02:03 Pulse Ox 90 L 06/03/19 02:03 Intake & Output 06/02/19 06/03/19 06/03/19 18:59 06:59 18:59 Intake Total 710 Output Total 550 450 Balance 160 -450 Intake: Oral 710 Output: Urine 550 450 Other: Voiding Method Urinal Urinal # Voids 3 1 ABP, PAP, CO, CI - Last Documented Arterial Blood Pressure 137/59 - Exam General: non toxic, no distress, appears at stated age Derm: warm, dry Head: atraumatic, normocephalic, symmetric Eyes: EOMI, no lid lag, anicteric sclera Mouth: no lip lesion, mucus membranes moist Cardiovascular: S1S2 reg, no murmur, positive posterior tibial pulse bilateral, Lungs: Decreased breath sounds bilateral, no rhonchi, no rales , no accessory muscle use Abdominal: soft, +tender to palpation diffusely, no guarding, no appreciable organomegaly Ext: no gross muscle atrophy, no edema, no contractures Neuro: CN II-XI grossly intact, no focal neuro deficits Psych: Alert, oriented, appropriate affect - Labs CBC & Chem 7: 06/03/19 09:45 06/03/19 09:45 Labs: Abnormal Lab Results - Last 24 Hours (Table) 06/02/19 06/02/19 06/02/19 Range/Units 12:34 12:34 17:01 WBC (3.8-10.6) k/uL RBC (4.30-5.90) m/uL Hgb (13.0-17.5) gm/dL Hct (39.0-53.0) % MCHC (31.0-37.0) g/dL RDW (11.5-15.5) % Plt Count (150-450) k/uL ESR 120 H (0-15) mm/hr Sodium (137-145) mmol/L Carbon Dioxide (22-30) mmol/L BUN (9-20) mg/dL Creatinine (0.66-1.25) mg/dL Glucose (74-99) mg/dL POC Glucose (mg/dL) 148 H (75-99) mg/dL Calcium (8.4-10.2) mg/dL Iron 19 L (65-175) ug/dL % Saturation 8.30 L (15.00-50.00) 06/02/19 06/03/19 06/03/19 Range/Units 20:28 06:59 09:45 WBC 13.4 H (3.8-10.6) k/uL RBC 2.92 L (4.30-5.90) m/uL Hgb 7.8 L (13.0-17.5) gm/dL Hct 25.4 L (39.0-53.0) % MCHC 30.8 L (31.0-37.0) g/dL RDW 20.2 H (11.5-15.5) % Plt Count 1129 H* (150-450) k/uL ESR (0-15) mm/hr Sodium (137-145) mmol/L Carbon Dioxide (22-30) mmol/L BUN (9-20) mg/dL Creatinine (0.66-1.25) mg/dL Glucose (74-99) mg/dL POC Glucose (mg/dL) 227 H 102 H (75-99) mg/dL Calcium (8.4-10.2) mg/dL Iron (65-175) ug/dL % Saturation (15.00-50.00) 06/03/19 06/03/19 Range/Units 09:45 11:28 WBC (3.8-10.6) k/uL RBC (4.30-5.90) m/uL Hgb (13.0-17.5) gm/dL Hct (39.0-53.0) % MCHC (31.0-37.0) g/dL RDW (11.5-15.5) % Plt Count (150-450) k/uL ESR (0-15) mm/hr Sodium 134 L (137-145) mmol/L Carbon Dioxide 17 L (22-30) mmol/L BUN 49 H (9-20) mg/dL Creatinine 4.19 H (0.66-1.25) mg/dL Glucose 131 H (74-99) mg/dL POC Glucose (mg/dL) 142 H (75-99) mg/dL Calcium 8.3 L (8.4-10.2) mg/dL Iron (65-175) ug/dL % Saturation (15.00-50.00) Assessment and Plan Assessment: Acute renal failure secondary to ATN -Initially prerenal and ATN secondary to septic shock, now with concerns for glomerular nephritis -Plan is for renal biopsy on 06/04 -Continue trending creatinine -Low complement, negative MUSA, negative c-ANCA, p-ANCA, double-stranded DNA, hepatitis A, hepatitis B, hepatitis C, urine eosinophils negative - Serum immunofixation demonstrated a lambda paraprotein, no Bence Sauceda protein on urine immunofixation -elevated ESR and CRP but this may be reflective of acute illness -Nephrology recommendations -Off IV fluids -Avoid additional nephrotoxic agents Metabolic acidosis, stable -Currently on oral sodium bicarb -Nephrology recommendations Renal lesion -Was seen by urology and feels this likely was a complex pyelonephritis and not a true renal mass. -Outpatient urology follow-up Perforated viscus -Postop day #18 status post exploratory laparotomy with antrectomy and Billroth II gastrojejunostomy -Management per surgical team -Pain control Peritonitis secondary to perforated viscus -Infectious disease recommendations appreciated. Continue with Cipro and Flagyl. Normocytic anemia -Likely secondary to upper GI bleed -Status post 3 units of packed red blood cells -Hemoglobin stable -Continue follow intermittent [employer] Thrombocytosis -Likely reactive -Oncology recommendations appreciated -Continue to trend - DDAVP prior renal biopsy Resolved: Septic shock Acute hypoxic respiratory failure Hypertensive urgency Peripheral edema DVT prophylaxis: Heparin Discussed with: Patient, nursing, family Anticipated discharge: 3-[address]: home A total of 35 minutes was spent on the care of this complex patient more than 50% of the time was spent in counseling and care coordination.
[2019-06-03 16:53] LABS: Glucose,Whole Blood 179 mg/dL (75-99)
[2019-06-03 20:23] LABS: Glucose,Whole Blood 246 mg/dL (75-99)
[2019-06-03] MEDS: LORazepam 1 MG TAB PO PRN (21:52)
[2019-06-04] MEDS: METOCLOPRAMIDE 5 MG/ML 2 ML VIAL IVP SCH ×3 (05:47→17:13)
[2019-06-04 07:10] LABS: Glucose,Whole Blood 125 mg/dL (75-99)
[2019-06-04] MEDS: HEPARIN SODIUM,PORCINE 5,000 UNIT/ML 1 ML VIAL SQ SCH ×3 (07:12→12:04)
--- NOTE | 2019-06-04 07:26 | P.PN ---
Subjective Progress Note Date: 06/04/19 Principal diagnosis: This is a 63-year-old male seen in consultation and follow-up for acute kidney injury. Suspicion of acute interstitial nephritis He was initially admitted with a perforated duodenal ulcer, underwent laparotomy antrectomy dated 05/16/2019. He had sepsis, with Klebsiella and gram-positive cocci growing in his peritoneal fluid. His creatinine was 0.6 previously 5 years ago on 07/05/2014 On admission his creatinine was 6 dated 05/16/2019, it improved to 1.8 on 05/20/2019, and then started to slowly go up and continues to go up. Subjectively he is feeling great. He is able to walk without any support able to eat fairly well no nausea vomiting diarrhea no abdominal pain no fever chills no shortness of breath. No rash. No hematuria. Workup has included an ultrasound and computed tomography scan which showed right renal atrophy with the suspicious mass. No hydronephrosis. Left kidney is unremarkable. His complement levels are low but his MUSA, ANCA and tkui-pioruc-jrqrfvqn DNA were all negative Urine protein to creatinine ratio is less than 2 g. Urinalysis on 05/27/2019 showed 1+ proteinuria small blood less than 1 RBCs and 3 WBCs. Urine eosinophil 0. Urine protein random is 45 mg and creatinine is 27 Objective - Vital Signs Vital signs: Vital Signs Temp 98.5 F 06/04/19 07:13 Pulse 93 06/04/19 07:13 Resp 16 06/04/19 07:13 BP 139/68 06/04/19 07:13 Pulse Ox 95 06/04/19 07:13 Intake & Output 06/03/19 06/04/19 06/04/19 18:59 06:59 18:59 Other: # Voids 3 1 ABP, PAP, CO, CI - Last Documented Arterial Blood Pressure 137/59 On examination is awake alert oriented comfortable HEENT exam no JVP neck supple no facial asymmetry Lungs clear to auscultation good air entry bilaterally Heart sounds are unremarkable for any murmur rub gallop Abdomen soft nontender scar of surgery clear with multiple clots Extremity exam was no edema Neurologically awake alert oriented - Labs CBC & Chem 7: 06/03/19 09:45 06/03/19 09:45 Labs: Abnormal Lab Results - Last 24 Hours (Table) 06/03/19 06/03/19 06/03/19 Range/Units 06:59 09:45 09:45 WBC 13.4 H (3.8-10.6) k/uL RBC 2.92 L (4.30-5.90) m/uL Hgb 7.8 L (13.0-17.5) gm/dL Hct 25.4 L (39.0-53.0) % MCHC 30.8 L (31.0-37.0) g/dL RDW 20.2 H (11.5-15.5) % Plt Count 1129 H* (150-450) k/uL Sodium 134 L (137-145) mmol/L Carbon Dioxide 17 L (22-30) mmol/L BUN 49 H (9-20) mg/dL Creatinine 4.19 H (0.66-1.25) mg/dL Glucose 131 H (74-99) mg/dL POC Glucose (mg/dL) 102 H (75-99) mg/dL Calcium 8.3 L (8.4-10.2) mg/dL 06/03/19 06/03/19 06/03/19 Range/Units 11:28 16:40 20:11 WBC (3.8-10.6) k/uL RBC (4.30-5.90) m/uL Hgb (13.0-17.5) gm/dL Hct (39.0-53.0) % MCHC (31.0-37.0) g/dL RDW (11.5-15.5) % Plt Count (150-450) k/uL Sodium (137-145) mmol/L Carbon Dioxide (22-30) mmol/L BUN (9-20) mg/dL Creatinine (0.66-1.25) mg/dL Glucose (74-99) mg/dL POC Glucose (mg/dL) 142 H 179 H 246 H (75-99) mg/dL Calcium (8.4-10.2) mg/dL 06/04/19 Range/Units 06:58 WBC (3.8-10.6) k/uL RBC (4.30-5.90) m/uL Hgb (13.0-17.5) gm/dL Hct (39.0-53.0) % MCHC (31.0-37.0) g/dL RDW (11.5-15.5) % Plt Count (150-450) k/uL Sodium (137-145) mmol/L Carbon Dioxide (22-30) mmol/L BUN (9-20) mg/dL Creatinine (0.66-1.25) mg/dL Glucose (74-99) mg/dL POC Glucose (mg/dL) 125 H (75-99) mg/dL Calcium (8.4-10.2) mg/dL Assessment and Plan Assessment: Impression 1. Acute kidney injury initially from sepsis from perforated duodenal ulcer but subsequently improved and then started to worsen again as mentioned above. Possibility of acute interstitial nephritis is considered. Complement levels are low but MUSA, ANCA and double-stranded DNA all negative ultrasound does not show any hydronephrosis 2. Mild degree of non-gap acidosis from acute kidney injury. Bicarb is 17 3. No recent creatinines preadmission to know if he has an underlying chronic kidney disease. 3. Right renal atrophy cause not very clear. 4. Right renal mass suspicious for cancer. 5. Status post duodenal ulcer perforation and repair dated 05/16/2019 stable. Recommendation 1. Continue prednisone 20 mg twice a day, started 06/03/2019. 2. Discuss details of kidney biopsy including the risks and the advantages and disadvantages of non-performing a kidney biopsy. Is aware of all the rest of the questions were answered 3. Watch for side effects of prednisone. 4. Watching labs which are pending 5. Patient was to be discharged. This will depend upon his labs, and if it is stable He will need to be seen in the office within 48 hours. 6. He was told to stay in bed for 8 hours after the biopsy and not to get out of bed for any reasons. 7. Vital signs to be monitored closely
[2019-06-04 08:18] LABS: Anisocytosis Slight; HCT 25.4 % (39.0-53.0); HGB 7.7 gm/dL (13.0-17.5); Hypochromasia Marked; MCH 26.3 pg (25.0-35.0); MCHC 30.3 g/dL (31.0-37.0); Mean Platelet Volume 6.5; RBC 2.92 m/uL (4.30-5.90); RDW 19.6 % (11.5-15.5); WBC 14.6 k/uL (3.8-10.6)
[2019-06-04 08:21] LABS: Platelet Count 1170 k/uL (150-450)
[2019-06-04] MEDS: INSULIN ASPART (NovoLOG) 100 UNIT/ML VIAL SQ SCH ×4 (08:23→21:20)
[2019-06-04 08:29] LABS: Calcium 8.3 mg/dL (8.4-10.2); Magnesium 1.8 mg/dL (1.6-2.3); Potassium 4.2 mmol/L (3.5-5.1)
[2019-06-04] MEDS: hydrALAZINE HCL 25 MG TAB PO SCH ×3 (08:31→21:20)
[2019-06-04] MEDS: SODIUM BICARBONATE TAB 650 MG TAB PO SCH ×3 (08:31→21:21)
[2019-06-04] MEDS: metroNIDAZOLE 500 MG TAB PO SCH ×2 (08:31→15:47)
[2019-06-04] MEDS: METOPROLOL TARTRATE 50 MG TAB PO SCH ×3 (08:31→21:21)
[2019-06-04] MEDS: PANTOPRAZOLE 40 MG TABLET PO SCH ×2 (08:33→21:20)
[2019-06-04] MEDS: amLODIPine 10 MG TAB PO SCH (08:33)
[2019-06-04] MEDS: predniSONE 20 MG TAB PO SCH ×2 (08:33→21:21)
[2019-06-04] MEDS: IPRATROPIUM-ALBUTEROL 3 ML NEB INHALATION SCH ×4 (08:43→23:17)
[2019-06-04] MEDS ORDERED: DESMOPRESSIN ACETATE 24 MCG in SODIUM CHLORIDE 0.9% 50 ML IVPB ONE (10:00)
[2019-06-04 12:15] LABS: Glucose,Whole Blood 137 mg/dL (75-99)
--- NOTE | 2019-06-04 13:35 | CT ---
DATE OF EXAM: 06/04/2019 COMPARISON: CT 05/26/2019 CT DLP: 1858 mGycm HISTORY: Renal failure PROCEDURE: Maximal barrier technique was utilized. After informed consent, the skin overlying a suit able path to the left kidney was localized using CT guidance, the skin was prepped and draped. Lidoc luciana was used for local anesthesia. A skin irasema made with a scalpel. Using CT guidance, a 17-gauge needle was advanced into in position at the lateral and inferior cortex of the left kidney where coax ial placement of an 18-gauge needle was used and core biopsy obtained. Three passes made in total. Hemostasis was achieved. There was no immediate complication and patient remained in stable conditio n. Specimen submitted to Pathology. IMPRESSION: Status post CT guided core biopsy of left renal cortex, pathology pending. This procedur e performed by the undersigned.
--- NOTE | 2019-06-04 14:11 | P.PN ---
Subjective Progress Note Date: 06/04/19 Principal diagnosis: abdominal pain Patient is a 63-year-old male with a past medical history of daily alcohol intake, colon polyps and bleeding duodenal ulcer in 2013 with no documented outpatient follow-up son who presented to the ER via EMS after he was found lying face down by his in complaining of tingling in his fingers. EMS found that he was hypoxic with O2 sats at 70% and his systolic blood pressure in the low 90s. On arrival to the emergency department he was tachycardic and hypotensive he was given aggressive IV fluid resuscitation. X- ray showed free air under the diaphragm. CT of chest showed no evidence of pulmonary embolism, 1 cm right thyroid nodule, and bibasilar atelectasis versus pneumonia. CT abdomen and pelvis showed large amount of free intraperitoneal air, large amount of ascites, and possibility of a 13 mm mass lesion in the superior pole of the right kidney. CT of head and neck at that point in time showed no acute intracranial pathology but cervical degenerative disc disease. He also received 2 units of packed red blood cells repeat found anemic. He was rushed to the operating room where he underwent an exploratory laparotomy with antrectomy and BillRoth 2 gastrojejunostomy. He was admitted to the ICU. She was hypotensive despite IV fluid resuscitation and was started on vasopressors. He was also started on empiric antibiotics with Zosyn and Diflucan secondary to perforated viscus. He had acute renal failure initially which was thought to be secondary to ATN and septic shock which down trended. However during this hospital stay his renal function has again worsened. Renal function worsened again on 06/04 and he underwent kidney biopsy. US bladder and kidneys demonstrated right renal atrophy and a solid appearing lesion 1.7 CM in the upper pole of the right kidney. He was seen by urology who felt that this appeared more as focal pyelonephritis and not a true mass of the kidney. He did recommend follow-up in the office for urology in several weeks. Patient seen and examined at bedside. Feeling very depressed about everything, wanting to go home, has been up and ambulating. No nausea, no vomiting, no diarrhea, no shortness of breath Objective - Vital Signs Vital signs: Vital Signs Temp 98.5 F 06/04/19 07:13 Pulse 89 06/04/19 13:14 Resp 16 06/04/19 11:45 BP 128/67 11/29/19 13:14 Pulse Ox 95 06/04/19 12:00 Intake & Output 06/03/19 06/04/19 06/04/19 18:59 06:59 18:59 Other: Voiding Method Urinal # Voids 3 1 1 ABP, PAP, CO, CI - Last Documented Arterial Blood Pressure 137/59 - Exam General: non toxic, no distress, appears at stated age Derm: warm, dry Head: atraumatic, normocephalic, symmetric Eyes: EOMI, no lid lag, anicteric sclera Mouth: no lip lesion, mucus membranes moist Cardiovascular: S1S2 reg, no murmur, positive posterior tibial pulse bilateral, Lungs: Decreased breath sounds bilateral, no rhonchi, no rales , no accessory muscle use Ext: no gross muscle atrophy, no edema, no contractures Neuro: CN II-XI grossly intact, no focal neuro deficits Psych: Alert, oriented, appropriate affect - Labs CBC & Chem 7: 06/04/19 06:57 06/04/19 06:57 Labs: Abnormal Lab Results - Last 24 Hours (Table) 06/03/19 06/03/19 06/04/19 Range/Units 16:40 20:11 06:57 WBC 14.6 H (3.8-10.6) k/uL RBC 2.92 L (4.30-5.90) m/uL Hgb 7.7 L (13.0-17.5) gm/dL Hct 25.4 L (39.0-53.0) % MCHC 30.3 L (31.0-37.0) g/dL RDW 19.6 H (11.5-15.5) % Plt Count 1170 H* (150-450) k/uL Sodium (137-145) mmol/L Carbon Dioxide (22-30) mmol/L BUN (9-20) mg/dL Creatinine (0.66-1.25) mg/dL Glucose (74-99) mg/dL POC Glucose (mg/dL) 179 H 246 H (75-99) mg/dL Calcium (8.4-10.2) mg/dL 06/04/19 06/04/19 06/04/19 Range/Units 06:57 06:58 12:04 WBC (3.8-10.6) k/uL RBC (4.30-5.90) m/uL Hgb (13.0-17.5) gm/dL Hct (39.0-53.0) % MCHC (31.0-37.0) g/dL RDW (11.5-15.5) % Plt Count (150-450) k/uL Sodium 135 L (137-145) mmol/L Carbon Dioxide 16 L (22-30) mmol/L BUN 51 H (9-20) mg/dL Creatinine 4.61 H (0.66-1.25) mg/dL Glucose 105 H (74-99) mg/dL POC Glucose (mg/dL) 125 H 137 H (75-99) mg/dL Calcium 8.3 L (8.4-10.2) mg/dL Assessment and Plan Assessment: Acute renal failure secondary to ATN -Initially prerenal and ATN secondary to septic shock, now with concerns for glomerular nephritis -Renal biopsy on 06/04 results pending -Continue trending creatinine -Low complement, negative MUSA, negative c-ANCA, p-ANCA, double-stranded DNA, hepatitis A, hepatitis B, hepatitis C, urine eosinophils negative - Serum immunofixation demonstrated a lambda paraprotein, no Bence Sauceda protein on urine immunofixation -elevated ESR and CRP but this may be reflective of acute illness -Nephrology recommendations -Off IV fluids -Avoid additional nephrotoxic agents Metabolic acidosis, stable -Currently on oral sodium bicarb -Nephrology recommendations Renal lesion -Was seen by urology and feels this likely was a complex pyelonephritis and not a true renal mass. -Outpatient urology follow-up Perforated viscus -Postop day #18 status post exploratory laparotomy with antrectomy and Billroth II gastrojejunostomy -Management per surgical team -Pain control Peritonitis secondary to perforated viscus -Infectious disease recommendations appreciated. Continue with Cipro and Flagyl. - ID recs Normocytic anemia -Likely secondary to upper GI bleed -Status post 3 units of packed red blood cells -Hemoglobin stable -Continue follow intermittent MALTSTER Thrombocytosis -Likely reactive -Oncology recommendations appreciated -Continue to trend - DDAVP prior renal biopsy Resolved: Septic shock Acute hypoxic respiratory failure Hypertensive urgency Peripheral edema DVT prophylaxis: Heparin Discussed with: Patient, nursing, family Anticipated discharge: 2-[address]: home A total of 35 minutes was spent on the care of this complex patient more than 50% of the time was spent in counseling and care coordination.
[2019-06-04] MEDS: CIPROFLOXACIN HCL 250 MG TAB PO SCH (17:13)
[2019-06-04 17:15] LABS: Glucose,Whole Blood 175 mg/dL (75-99)
[2019-06-04 17:59] LABS: Anisocytosis Slight; HCT 24.4 % (39.0-53.0); HGB 7.6 gm/dL (13.0-17.5); Hypochromasia Marked; MCH 26.8 pg (25.0-35.0); MCV 86.3 fL (80.0-100.0); Mean Platelet Volume 6.5; Microcytosis Slight; RBC 2.82 m/uL (4.30-5.90); RDW 19.7 % (11.5-15.5); WBC 12.6 k/uL (3.8-10.6)
[2019-06-04 18:01] LABS: Platelet Count 1060 k/uL (150-450)
[2019-06-04 21:14] LABS: Glucose,Whole Blood 186 mg/dL (75-99)
[2019-06-04] MEDS: LORazepam 1 MG TAB PO PRN (21:25)
[2019-06-05] MEDS: metroNIDAZOLE 500 MG TAB PO SCH ×4 (00:25→23:08)
[2019-06-05] MEDS: METOCLOPRAMIDE 5 MG/ML 2 ML VIAL IVP SCH ×5 (00:25→23:08)
[2019-06-05 06:29] LABS: Anisocytosis Moderate; Hypochromasia Marked; MCH 26.9 pg (25.0-35.0); MCHC 30.5 g/dL (31.0-37.0); MCV 88.2 fL (80.0-100.0); Mean Platelet Volume 6.7; Platelet Count 946 k/uL (150-450); RBC 2.49 m/uL (4.30-5.90); WBC 12.9 k/uL (3.8-10.6)
[2019-06-05 06:34] LABS: Calcium 8.2 mg/dL (8.4-10.2); HGB 6.7 gm/dL (13.0-17.5); Potassium 4.4 mmol/L (3.5-5.1)
[2019-06-05 06:48] LABS: Glucose,Whole Blood 122 mg/dL (75-99)
[2019-06-05] MEDS: IPRATROPIUM-ALBUTEROL 3 ML NEB INHALATION SCH ×4 (07:37→19:56)
[2019-06-05] MEDS: INSULIN ASPART (NovoLOG) 100 UNIT/ML VIAL SQ SCH ×4 (07:50→20:51)
[2019-06-05] MEDS: METOPROLOL TARTRATE 50 MG TAB PO SCH ×3 (07:55→20:40)
[2019-06-05] MEDS: amLODIPine 10 MG TAB PO SCH (07:56)
[2019-06-05] MEDS: SODIUM BICARBONATE TAB 650 MG TAB PO SCH ×3 (07:56→20:40)
[2019-06-05] MEDS: hydrALAZINE HCL 25 MG TAB PO SCH ×3 (07:56→20:39)
[2019-06-05] MEDS: PANTOPRAZOLE 40 MG TABLET PO SCH ×2 (07:56→20:41)
[2019-06-05] MEDS: predniSONE 20 MG TAB PO SCH ×2 (07:56→20:40)
--- NOTE | 2019-06-05 10:21 | P.PN ---
Subjective Patient is seen in follow-up for acute kidney injury. Renal function continues to worsen. No clear cause but there is concern for underlying GN versus septic ATN. He underwent kidney biopsy on June 04. He has been voiding. He is tolerating oral intake. Denies chest pain or shortness of breath. Having daily bowel movements. Creatinine 4.99 today. Vital signs are stable. General: The patient appeared well nourished and normally developed. HEENT: Head exam is unremarkable. Neck is without jugular venous distension. LUNGS: Lungs are clear to auscultation and percussion. Breath sounds decreased. HEART: Rate and Rhythm are regular. First and second heart sounds normal. No murmurs, rubs or gallops. ABDOMEN: Bowel sounds decreased. EXTREMITITES: Trace edema. Objective - Vital Signs Vital signs: Vital Signs Temp 98.2 F 06/05/19 10:09 Pulse 96 06/05/19 10:09 Resp 17 06/05/19 10:09 BP 137/66 06/05/19 10:09 Pulse Ox 94 L 06/05/19 09:59 Intake & Output 06/04/19 06/05/19 06/05/19 18:59 06:59 18:59 Intake Total 240 0 Output Total 200 525 Balance -200 -285 0 Weight 89.7 kg Intake: Oral 240 Blood Product 0 Rc As-1 Unit 0 [id number] Output: Urine 200 525 Other: Voiding Method Urinal Urinal # Voids 1 # Bowel Movements 2 ABP, PAP, CO, CI - Last Documented Arterial Blood Pressure 137/59 - Labs CBC & Chem 7: 06/05/19 06:18 06/05/19 06:18 Labs: Abnormal Lab Results - Last 24 Hours (Table) 06/03/19 06/04/19 06/04/19 Range/Units 11: 12:04 17:04 WBC (3.8-10.6) k/uL RBC (4.30-5.90) m/uL Hgb (13.0-17.5) gm/dL Hct (39.0-53.0) % MCHC (31.0-37.0) g/dL RDW (11.5-15.5) % Plt Count (150-450) k/uL Sodium (137-145) mmol/L Carbon Dioxide (22-30) mmol/L BUN (9-20) mg/dL Creatinine (0.66-1.25) mg/dL Glucose (74-99) mg/dL POC Glucose (mg/dL) 137 H 175 H (75-99) mg/dL Calcium (8.4-10.2) mg/dL Crossmatch See Detail 06/04/19 06/04/19 06/05/19 Range/Units 17:49 21:03 06:18 WBC 12.6 H 12.9 H (3.8-10.6) k/uL RBC 2.82 L 2.49 L (4.30-5.90) m/uL Hgb 7.6 L 6.7 L* (13.0-17.5) gm/dL Hct 24.4 L 22.0 L (39.0-53.0) % MCHC 30.5 L (31.0-37.0) g/dL RDW 19.7 H 20.0 H (11.5-15.5) % Plt Count 1060 H* 946 H (150-450) k/uL Sodium (137-145) mmol/L Carbon Dioxide (22-30) mmol/L BUN (9-20) mg/dL Creatinine (0.66-1.25) mg/dL Glucose (74-99) mg/dL POC Glucose (mg/dL) 186 H (75-99) mg/dL Calcium (8.4-10.2) mg/dL Crossmatch 06/05/19 06/05/19 Range/Units 06:18 06:44 WBC (3.8-10.6) k/uL RBC (4.30-5.90) m/uL Hgb (13.0-17.5) gm/dL Hct (39.0-53.0) % MCHC (31.0-37.0) g/dL RDW (11.5-15.5) % Plt Count (150-450) k/uL Sodium 135 L (137-145) mmol/L Carbon Dioxide 18 L (22-30) mmol/L BUN 59 H (9-20) mg/dL Creatinine 4.99 H (0.66-1.25) mg/dL Glucose 111 H (74-99) mg/dL POC Glucose (mg/dL) 122 H (75-99) mg/dL Calcium 8.2 L (8.4-10.2) mg/dL Crossmatch Assessment and Plan Plan: Assessment: 1. Acute kidney injury secondary to ATN secondary to septic shock. Creatinine was 6 on admission and did improve. However the last few days his renal func tion has been worsening. Creatinine 4.99 today. Creatinine was 0.68 in June 2014. No other records available. No hydronephrosis noted on imaging. 1+ proteinuria on UA. Rule out ALLERGIC interstitial nephritis due to antibiotics - urine eosinophils negative. UPC 1.6 g. All complements noted to be low. Rest of the serologies negative. 2. Perforated duodenal ulcer status post laparotomy with antrectomy on 05/16/2019. Maintained on antibiotics. Infectious disease following. 3. Metabolic acidosis secondary to acute kidney injury and IV fluids. Maintained on oral sodium bicarbonate. Stable. 4. Hypokalemia status post placement. Better. 5. Hypocalcemia secondary to hypoalbuminemia. Corrected calcium in the normal range. 6. Right renal atrophy. 7. Right kidney lesion. Urology following. 8. Benign hypertension. Stable. 9. Lower extremity edema. Better. Status post IV Lasix May 31. 10. Thrombocytosis. ? Reactive. Trending down. 11. Acute blood loss anemia scheduled for blood transfusion today. Plan: Remains off IV fluids. Oral intake is good. 1 unit of blood transfusion today. Await kidney biopsy results. Maintain prednisone for now. Started May 26. No urgent need for renal replacement therapy at this time.
[2019-06-05] MEDS: CIPROFLOXACIN HCL 250 MG TAB PO SCH (11:18)
--- NOTE | 2019-06-05 11:25 | P.PN ---
Subjective Progress Note Date: 06/05/19 Principal diagnosis: The patient is a 63-year-old male that was admitted for septic shock secondary to perforated duodenal ulcer with subsequent peritonitis in the settin g of acute kidney injury secondary to ATN prerenal secondary to septic shock after presenting with abdominal pain and hypotension. Initial CT showed large amount of intraperitoneal air with a large amount of ascites and scattered small bowel wall thickening secondary to cystitis and nonspecific enteritis. The patient was aggressively fluid resuscitated and received 2 units of packed RBCs secondary to being found anemic. The patient had Urgent expiratory laparotomy requiring antrectomy and Billroth II gastrojejunostomy. Despite aggressive fluid hydration the patient continued to be hypertensive and was started on pressors with levophed and was maintained on mechanical ventilator with prop ofol for sedation and pulmonary managing his vent settings. The patient was continued on empiric IV antibiotics with Zosyn and Diflucan as suggested by ID. There with treatment the patient's creatinine gradually trended down from 6 to around 2 and held stable and within the patient again went into acute kidney injury with his creatinine going up, his antibiotic regimen was adjusted, nephrology was again consulted patient's complement returned low, the plan was for the patient to have a biopsy while inpatient Patient seen and examined follow-up, patient still disappointed about not being able to go home. Creatinine up to 4.99 today. Objective - Vital Signs Vital signs: Vital Signs Temp 98.4 F 06/05/19 10:39 Pulse 95 06/05/19 10:39 Resp 17 06/05/19 10:39 BP 133/67 06/05/19 10:39 Pulse Ox 93 L 06/05/19 10:39 Intake & Output 06/04/19 06/05/19 06/05/19 18:59 06:59 18:59 Intake Total 240 0 Output Total 200 525 Balance -200 -285 0 Weight 89.7 kg Intake: Oral 240 Blood Product 0 Rc As-1 Unit 0 [id number] Output: Urine 200 525 Other: Voiding Method Urinal Urinal # Voids 1 # Bowel Movements 2 ABP, PAP, CO, CI - Last Documented Arterial Blood Pressure 137/59 - Exam Constitutional: Awake alert Eyes: Anicteric sclerae, moist conjunctiva, no lid-lag, PERRLA ENMT: NC/AT,Oropharynx clear, no erythema, exudates Neck:Supple, FROM, no masses, or JVD, No carotid bruits; No thyromegaly Lungs: Clear to auscultation bilaterally no wheezing rhonchi Cardiovascular: Heart regular in rate and rhythm, No murmurs, gallops, or rubs Abdominal: Soft distended nontender, normoactive bowel sounds Skin: Normal temperature, tone, texture, turgor, No induration No subcutaneous nodules, No rash, lesions, No ulcers Extremities:No digital cyanosis No clubbing, Pedal pulses intact and symmetrical Radial pulses intact and symmetrical Normal gait and station, No calf tenderness Psychiatric: Alert and oriented to person, place and time, Appropriate affect Intact judgement Neuro: Cranial nerves II 12 grossly intact no focal deficits - Labs CBC & Chem 7: 06/05/19 06:18 06/05/19 06:18 Labs: Abnormal Lab Results - Last 24 Hours (Table) 06/03/19 06/04/19 06/04/19 Range/Units 11: 12:04 17:04 WBC (3.8-10.6) k/uL RBC (4.30-5.90) m/uL Hgb (13.0-17.5) gm/dL Hct (39.0-53.0) % MCHC (31.0-37.0) g/dL RDW (11.5-15.5) % Plt Count (150-450) k/uL Sodium (137-145) mmol/L Carbon Dioxide (22-30) mmol/L BUN (9-20) mg/dL Creatinine (0.66-1.25) mg/dL Glucose (74-99) mg/dL POC Glucose (mg/dL) 137 H 175 H (75-99) mg/dL Calcium (8.4-10.2) mg/dL Crossmatch See Detail 06/04/19 06/04/19 06/05/19 Range/Units 17:49 21:03 06:18 WBC 12.6 H 12.9 H (3.8-10.6) k/uL RBC 2.82 L 2.49 L (4.30-5.90) m/uL Hgb 7.6 L 6.7 L* (13.0-17.5) gm/dL Hct 24.4 L 22.0 L (39.0-53.0) % MCHC 30.5 L (31.0-37.0) g/dL RDW 19.7 H 20.0 H (11.5-15.5) % Plt Count 1060 H* 946 H (150-450) k/uL Sodium (137-145) mmol/L Carbon Dioxide (22-30) mmol/L BUN (9-20) mg/dL Creatinine (0.66-1.25) mg/dL Glucose (74-99) mg/dL POC Glucose (mg/dL) 186 H (75-99) mg/dL Calcium (8.4-10.2) mg/dL Crossmatch 06/05/19 06/05/19 Range/Units 06:18 06:44 WBC (3.8-10.6) k/uL RBC (4.30-5.90) m/uL Hgb (13.0-17.5) gm/dL Hct (39.0-53.0) % MCHC (31.0-37.0) g/dL RDW (11.5-15.5) % Plt Count (150-450) k/uL Sodium 135 L (137-145) mmol/L Carbon Dioxide 18 L (22-30) mmol/L BUN 59 H (9-20) mg/dL Creatinine 4.99 H (0.66-1.25) mg/dL Glucose 111 H (74-99) mg/dL POC Glucose (mg/dL) 122 H (75-99) mg/dL Calcium 8.2 L (8.4-10.2) mg/dL Crossmatch Assessment and Plan Assessment: Acute renal failure secondary to ATN -Initially prerenal and ATN secondary to septic shock, now with concerns for glomerular nephritis -Renal biopsy on 06/04 results pending -Continue trending creatinine -Low complement, negative MUSA, negative c-ANCA, p-ANCA, double-stranded DNA, hepatitis A, hepatitis B, hepatitis C, urine eosinophils negative - Serum immunofixation demonstrated a lambda paraprotein, no Bence Sauceda protein on urine immunofixation -elevated ESR and CRP but this may be reflective of acute illness -Nephrology recommendations -Off IV fluids -Avoid additional nephrotoxic agents Metabolic acidosis, stable -Currently on oral sodium bicarb -Nephrology recommendations Renal lesion -Was seen by urology and feels this likely was a complex pyelonephritis and not a true renal mass. -Outpatient urology follow-up Perforated viscus -Postop day #18 status post exploratory laparotomy with antrectomy and Billroth II gastrojejunostomy -Management per surgical team -Pain control Peritonitis secondary to perforated viscus -Infectious disease recommendations appreciated. Continue with Cipro and Flagyl. - ID recs Normocytic anemia -Likely secondary to upper GI bleed -Status post 3 units of packed red blood cells -Hemoglobin stable -Continue follow intermittent MENT[employer] HE[employer] THERAPIST Thrombocytosis -Likely reactive -Oncology recommendations appreciated -Continue to trend - DDAVP prior renal biopsy Resolved: Septic shock Acute hypoxic respiratory failure Hypertensive urgency Peripheral edema DVT prophylaxis: Heparin Discussed with: Patient, nursing, family Anticipated discharge: 2-[address]: home A total of 35 minutes was spent on the care of this complex patient more than 50% of the time was spent in counseling and care coordination.
[2019-06-05 11:53] LABS: Glucose,Whole Blood 201 mg/dL (75-99)
[2019-06-05] MEDS: HEPARIN SODIUM,PORCINE 5,000 UNIT/ML 1 ML VIAL SQ SCH ×2 (15:33→23:09)
[2019-06-05 16:40] LABS: Glucose,Whole Blood 193 mg/dL (75-99)
[2019-06-05 20:37] LABS: Glucose,Whole Blood 146 mg/dL (75-99)
[2019-06-05] MEDS: LORazepam 1 MG TAB PO PRN (20:38)
[2019-06-06] MEDS: METOCLOPRAMIDE 5 MG/ML 2 ML VIAL IVP SCH ×3 (05:38→17:13)
[2019-06-06] MEDS: CIPROFLOXACIN HCL 250 MG TAB PO SCH (05:39)
[2019-06-06 06:52] LABS: Glucose,Whole Blood 118 mg/dL (75-99)
[2019-06-06 07:08] LABS: Calcium 8.4 mg/dL (8.4-10.2); Magnesium 1.8 mg/dL (1.6-2.3); Potassium 4.6 mmol/L (3.5-5.1)
[2019-06-06] MEDS: INSULIN ASPART (NovoLOG) 100 UNIT/ML VIAL SQ SCH ×4 (07:22→20:41)
[2019-06-06] MEDS: IPRATROPIUM-ALBUTEROL 3 ML NEB INHALATION SCH ×4 (08:22→20:36)
[2019-06-06] MEDS: SODIUM BICARBONATE TAB 650 MG TAB PO SCH ×3 (08:22→20:15)
[2019-06-06] MEDS: PANTOPRAZOLE 40 MG TABLET PO SCH ×2 (08:56→20:16)
[2019-06-06] MEDS: predniSONE 20 MG TAB PO SCH ×2 (08:56→20:16)
[2019-06-06] MEDS: METOPROLOL TARTRATE 50 MG TAB PO SCH ×3 (08:56→20:16)
[2019-06-06] MEDS: hydrALAZINE HCL 25 MG TAB PO SCH ×3 (08:56→20:15)
[2019-06-06] MEDS: metroNIDAZOLE 500 MG TAB PO SCH ×2 (08:56→15:28)
[2019-06-06] MEDS: HEPARIN SODIUM,PORCINE 5,000 UNIT/ML 1 ML VIAL SQ SCH ×2 (08:57→15:29)
[2019-06-06] MEDS: amLODIPine 10 MG TAB PO SCH (08:57)
[2019-06-06 09:25] LABS: Anisocytosis Slight; Basophils % (A) 0 %; Eosinophils % (A) 0 %; HCT 26.6 % (39.0-53.0); Hypochromasia Moderate; Lymphocytes # (A) 0.8 k/uL (1.0-4.8); Lymphocytes % (A) 7 %; MCH 26.7 pg (25.0-35.0); MCHC 30.2 g/dL (31.0-37.0); MCV 88.3 fL (80.0-100.0); Mean Platelet Volume 7.2; Monocytes # (A) 0.6 k/uL (0-1.0); Monocytes % (A) 5 %; Neutrophils # (A) 10.7 k/uL (1.3-7.7); Neutrophils % (A) 87 %; Platelet Count 954 k/uL (150-450); Poikilocytosis Slight; RBC 3.01 m/uL (4.30-5.90); RDW 19.5 % (11.5-15.5); WBC 12.3 k/uL (3.8-10.6)
--- NOTE | 2019-06-06 10:06 | P.PN ---
Subjective Progress Note Date: 06/06/19 Principal diagnosis: The patient is a 63-year-old male that was admitted for septic shock secondary to perforated duodenal ulcer with subsequent peritonitis in the settin g of acute kidney injury secondary to ATN prerenal secondary to septic shock after presenting with abdominal pain and hypotension. Initial CT showed large amount of intraperitoneal air with a large amount of ascites and scattered small bowel wall thickening secondary to cystitis and nonspecific enteritis. The patient was aggressively fluid resuscitated and received 2 units of packed RBCs secondary to being found anemic. The patient had Urgent expiratory laparotomy requiring antrectomy and Billroth II gastrojejunostomy. Despite aggressive fluid hydration the patient continued to be hypertensive and was started on pressors with levophed and was maintained on mechanical ventilator with prop ofol for sedation and pulmonary managing his vent settings. The patient was continued on empiric IV antibiotics with Zosyn and Diflucan as suggested by ID. There with treatment the patient's creatinine gradually trended down from 6 to around 2 and held stable and within the patient again went into acute kidney injury with his creatinine going up, his antibiotic regimen was adjusted, nephrology was again consulted patient's complement returned low, the plan was for the patient to have a biopsy while inpatient Patient seen and examined follow-up, patient still disappointed about not being able to go home. Creatinine up to 5.74 today. Discussed potential dialysis. Patient having some lower extremity swelling Objective - Vital Signs Vital signs: Vital Signs Temp 98.0 F 06/06/19 07:00 Pulse 87 06/06/19 07:00 Resp 16 06/06/19 07:00 BP 145/72 06/06/19 07:00 Pulse Ox 90 L 06/06/19 07:00 Intake & Output 06/05/19 06/06/19 06/06/19 18:59 06:59 18:59 Intake Total 310 480 554 Output Total 175 625 Balance 135 -145 554 Weight 91.5 kg Intake: Oral 480 554 Blood Product 310 Rc As-1 Unit 310 [id number] Output: Urine 175 625 Other: # Voids 1 1 ABP, PAP, CO, CI - Last Documented Arterial Blood Pressure 137/59 - Exam Constitutional: Awake alert Eyes: Anicteric sclerae, moist conjunctiva, no lid-lag, PERRLA ENMT: NC/AT,Oropharynx clear, no erythema, exudates Neck:Supple, FROM, no masses, or JVD, No carotid bruits; No thyromegaly Lungs: Clear to auscultation bilaterally no wheezing rhonchi Cardiovascular: Heart regular in rate and rhythm, No murmurs, gallops, or rubs Abdominal: Soft distended nontender, normoactive bowel sounds Skin: Normal temperature, tone, texture, turgor, No induration No subcutaneous nodules, No rash, lesions, No ulcers Extremities:No digital cyanosis No clubbing, Pedal pulses intact and symmetrical Radial pulses intact and symmetrical Normal gait and station, No conrad f tenderness, +2 peripheral pedal pitting edema Psychiatric: Alert and oriented to person, place and time, Appropriate affect Intact judgement Neuro: Cranial nerves II 12 grossly intact no focal deficits - Labs CBC & Chem 7: 06/06/19 06:33 06/06/19 06:33 Labs: Abnormal Lab Results - Last 24 Hours (Table) 06/03/19 06/05/19 06/05/19 Range/Units 11:28 11:51 16:39 WBC (3.8-10.6) k/uL RBC (4.30-5.90) m/uL Hgb (13.0-17.5) gm/dL Hct (39.0-53.0) % MCHC (31.0-37.0) g/dL RDW (11.5-15.5) % Plt Count (150-450) k/uL Neutrophils # (1.3-7.7) k/uL Lymphocytes # (1.0-4.8) k/uL Sodium (137-145) mmol/L Carbon Dioxide (22-30) mmol/L BUN (9-20) mg/dL Creatinine (0.66-1.25) mg/dL Glucose (74-99) mg/dL POC Glucose (mg/dL) 201 H 193 H (75-99) mg/dL Crossmatch See Detail 06/05/19 06/06/19 06/06/19 Range/Units 20:35 06:33 06:33 WBC 12.3 H (3.8-10.6) k/uL RBC 3.01 L (4.30-5.90) m/uL Hgb 8.0 L (13.0-17.5) gm/dL Hct 26.6 L (39.0-53.0) % MCHC 30.2 L (31.0-37.0) g/dL RDW 19.5 H (11.5-15.5) % Plt Count 954 H (150-450) k/uL Neutrophils # 10.7 H (1.3-7.7) k/uL Lymphocytes # 0.8 L (1.0-4.8) k/uL Sodium 133 L (137-145) mmol/L Carbon Dioxide 17 L (22-30) mmol/L BUN 64 H (9-20) mg/dL Creatinine 5.75 H (0.66-1.25) mg/dL Glucose 105 H (74-99) mg/dL POC Glucose (mg/dL) 146 H (75-99) mg/dL Crossmatch 06/06/19 Range/Units 06:49 WBC (3.8-10.6) k/uL RBC (4.30-5.90) m/uL Hgb (13.0-17.5) gm/dL Hct (39.0-53.0) % MCHC (31.0-37.0) g/dL RDW (11.5-15.5) % Plt Count (150-450) k/uL Neutrophils # (1.3-7.7) k/uL Lymphocytes # (1.0-4.8) k/uL Sodium (137-145) mmol/L Carbon Dioxide (22-30) mmol/L BUN (9-20) mg/dL Creatinine (0.66-1.25) mg/dL Glucose (74-99) mg/dL POC Glucose (mg/dL) 118 H (75-99) mg/dL Crossmatch Assessment and Plan Assessment: Acute renal failure secondary to ATN -Initially prerenal and ATN secondary to septic shock, now with concerns for glomerular nephritis -Renal biopsy on 06/04 results pending -Continue trending creatinine -Low complement, negative MUSA, negative c-ANCA, p-ANCA, double-stranded DNA, hepatitis A, hepatitis B, hepatitis C, urine eosinophils negative - Serum immunofixation demonstrated a lambda paraprotein, no Bence Sauceda protein on urine immunofixation -elevated ESR and CRP but this may be reflective of acute illness -Nephrology recommendations -Off IV fluids -Avoid additional nephrotoxic agents Metabolic acidosis, stable -Currently on oral sodium bicarb -Nephrology recommendations Renal lesion -Was seen by urology and feels this likely was a complex pyelonephritis and not a true renal mass. -Outpatient urology follow-up Perforated viscus -Postop day #20 status post exploratory laparotomy with antrectomy and Billroth II gastrojejunostomy -Management per surgical team -Pain control Peritonitis secondary to perforated viscus -Infectious disease recommendations appreciated. Continue with Cipro and Flagyl. - ID recs Normocytic anemia -Likely secondary to upper GI bleed repeat stool occult negative -Status post 3 units of pRBCs then 1 U pRBC 06/05 -Hemoglobin stable -Continue follow intermittent [employer] Thrombocytosis -Likely reactive -Oncology recommendations appreciated -Continue to trend - DDAVP prior renal biopsy Resolved: Septic shock Acute hypoxic respiratory failure Hypertensive urgency Peripheral edema DVT prophylaxis: Heparin Discussed with: Patient, nursing, family Anticipated discharge: 2-[address]: home A total of 35 minutes was spent on the care of this complex patient more than 50% of the time was spent in counseling and care coordination.
[2019-06-06 11:34] LABS: Glucose,Whole Blood 213 mg/dL (75-99)
[2019-06-06] MEDS ORDERED: FUROSEMIDE 10 MG/ML 4 ML VIAL IV STA (12:51)
--- NOTE | 2019-06-06 12:51 | P.PN ---
Subjective Patient is seen in follow-up for acute kidney injury. Renal function continues to worsen. No clear cause but there is concern for underlying GN versus septic ATN. He underwent kidney biopsy on June 04. He has been voiding. He is tolerating oral intake. He has been ambulating. Denies chest pain or shortness of breath. Having daily bowel movements. Creatinine 5.75 today. Complains of more swelling in his ankles today. Vital signs are stable. General: The patient appeared well nourished and normally developed. HEENT: Head exam is unremarkable. Neck is without jugular venous distension. LUNGS: Lungs are clear to auscultation and percussion. Breath sounds decreased. HEART: Rate and Rhythm are regular. First and second heart sounds normal. No murmurs, rubs or gallops. ABDOMEN: Bowel sounds decreased. EXTREMITITES: 1+ edema. Objective - Vital Signs Vital signs: Vital Signs Temp 98.0 F 06/06/19 07:00 Pulse 87 06/06/19 07:00 Resp 16 06/06/19 07:00 BP 145/72 06/06/19 07:00 Pulse Ox 90 L 06/06/19 07:00 Intake & Output 06/05/19 06/06/19 06/06/19 18:59 06:59 18:59 Intake Total 310 480 554 Output Total 175 625 Balance 135 -145 554 Weight 91.5 kg Intake: Oral 480 554 Blood Product 310 Rc As-1 Unit 310 [id number] Output: Urine 175 625 Other: # Voids 1 1 ABP, PAP, CO, CI - Last Documented Arterial Blood Pressure 137/59 - Labs CBC & Chem 7: 06/06/19 06:33 06/06/19 06:33 Labs: Abnormal Lab Results - Last 24 Hours (Table) 06/03/19 06/05/19 06/05/19 Range/Units 11:28 16:39 20:35 WBC (3.8-10.6) k/uL RBC (4.30-5.90) m/uL Hgb (13.0-17.5) gm/dL Hct (39.0-53.0) % MCHC (31.0-37.0) g/dL RDW (11.5-15.5) % Plt Count (150-450) k/uL Neutrophils # (1.3-7.7) k/uL Lymphocytes # (1.0-4.8) k/uL Sodium (137-145) mmol/L Carbon Dioxide (22-30) mmol/L BUN (9-20) mg/dL Creatinine (0.66-1.25) mg/dL Glucose (74-99) mg/dL POC Glucose (mg/dL) 193 H 146 H (75-99) mg/dL Crossmatch See Detail 06/06/19 06/06/19 06/06/19 Range/Units 06:33 06:33 06:49 WBC 12.3 H (3.8-10.6) k/uL RBC 3.01 L (4.30-5.90) m/uL Hgb 8.0 L (13.0-17.5) gm/dL Hct 26.6 L (39.0-53.0) % MCHC 30.2 L (31.0-37.0) g/dL RDW 19.5 H (11.5-15.5) % Plt Count 954 H (150-450) k/uL Neutrophils # 10.7 H (1.3-7.7) k/uL Lymphocytes # 0.8 L (1.0-4.8) k/uL Sodium 133 L (137-145) mmol/L Carbon Dioxide 17 L (22-30) mmol/L BUN 64 H (9-20) mg/dL Creatinine 5.75 H (0.66-1.25) mg/dL Glucose 105 H (74-99) mg/dL POC Glucose (mg/dL) 118 H (75-99) mg/dL Crossmatch 06/06/19 Range/Units 11:33 WBC (3.8-10.6) k/uL RBC (4.30-5.90) m/uL Hgb (13.0-17.5) gm/dL Hct (39.0-53.0) % MCHC (31.0-37.0) g/dL RDW (11.5-15.5) % Plt Count (150-450) k/uL Neutrophils # (1.3-7.7) k/uL Lymphocytes # (1.0-4.8) k/uL Sodium (137-145) mmol/L Carbon Dioxide (22-30) mmol/L BUN (9-20) mg/dL Creatinine (0.66-1.25) mg/dL Glucose (74-99) mg/dL POC Glucose (mg/dL) 213 H (75-99) mg/dL Crossmatch Assessment and Plan Plan: Assessment: 1. Acute kidney injury secondary to ATN secondary to septic shock. Creatinine was 6 on admission and did improve. However the last few days his renal function has been worsening. Creatinine 5.75 today. Creatinine was 0.68 in June 2014. No other records available. No hydronephrosis noted on imaging. 1+ proteinuria on UA. Rule out ALLERGIC interstitial nephritis due to antibiotics - urine eosinophils negative. UPC 1.6 g. All complements noted to be low. Rest of the serologies negative. 2. Perforated duodenal ulcer status post laparotomy with antrectomy on 019. Maintained on antibiotics. Infectious disease following. 3. Metabolic acidosis secondary to acute kidney injury and IV fluids. Maintained on oral sodium bicarbonate. Stable. 4. Hypokalemia status post placement. Better. 5. Hypocalcemia secondary to hypoalbuminemia. Improved. 6. Right renal atrophy. 7. Right kidney lesion. Urology following. 8. Benign hypertension. Stable. 9. Lower extremity edema. Better. Status post IV Lasix May 31. 10. Thrombocytosis. ? Reactive. Trending down. 11. Acute blood loss anemia status post blood transfusion June 05. Hemoglobin 8.0 today. Plan: Remains off IV fluids. Oral intake is good. Lasix 40 mg IV once today. Await kidney biopsy results. Maintain prednisone for now. Started May 26. No urgent need for renal replacement therapy at this time. Continue to assess on a daily basis.
[2019-06-06 17:06] LABS: Glucose,Whole Blood 146 mg/dL (75-99)
[2019-06-06] MEDS: LORazepam 1 MG TAB PO PRN (20:16)
[2019-06-06 20:26] LABS: Glucose,Whole Blood 149 mg/dL (75-99)
[2019-06-07] MEDS: metroNIDAZOLE 500 MG TAB PO SCH ×3 (00:38→15:37)
[2019-06-07] MEDS: CIPROFLOXACIN HCL 250 MG TAB PO SCH (00:39)
[2019-06-07] MEDS: METOCLOPRAMIDE 5 MG/ML 2 ML VIAL IVP SCH ×2 (00:39→05:46)
[2019-06-07] MEDS: HEPARIN SODIUM,PORCINE 5,000 UNIT/ML 1 ML VIAL SQ SCH ×3 (00:39→15:34)
[2019-06-07 02:10] VITALS: TEMP 98.2
--- NOTE | 2019-06-07 02:17 | PN ---
PROGRESS NOTE DATE OF SERVICE: 06/06/2019. REASON FOR FOLLOWUP: Secondary peritonitis from perforated peptic ulcer. INTERVAL HISTORY: The patient is currently afebrile. Patient has been breathing comfortably. The patient denies having any chest pain or cough. No nausea, vomiting. No abdominal pain. No diarrhea. PHYSICAL EXAMINATION: Blood pressure is 140/68 with a pulse of 85. Temperature 97.7. He is 92% on 2 L nasal cannula. General description is a middle-aged male lying in bed in no distress. Respiratory system: Unlabored breathing with decreased breath sounds in the bases. No wheeze. Heart S1, S2. Regular rate and rhythm. Abdomen soft. No tenderness. LABS: White count 12.3, creatinine is up to 5.75. DIAGNOSTIC IMPRESSION AND PLAN: Patient with secondary peritonitis from perforated peptic ulcer disease Positive abdominal culture, Klebsiella anaerobic gram-positive. Patient currently covered with Cipro and Flagyl to continue. Waiting for the improvement in the kidney function and continue supportive care. MMODL / IJN: [id number] / [facility]ITALXiomara
[2019-06-07 06:55] LABS: Glucose,Whole Blood 126 mg/dL (75-99)
[2019-06-07] MEDS: INSULIN ASPART (NovoLOG) 100 UNIT/ML VIAL SQ SCH ×2 (07:20→13:49)
[2019-06-07 07:24] LABS: Calcium 8.3 mg/dL (8.4-10.2); Magnesium 1.8 mg/dL (1.6-2.3)
[2019-06-07] MEDS: hydrALAZINE HCL 25 MG TAB PO SCH ×2 (08:23→15:37)
[2019-06-07] MEDS: predniSONE 20 MG TAB PO SCH (08:23)
[2019-06-07] MEDS: SODIUM BICARBONATE TAB 650 MG TAB PO SCH ×2 (08:23→15:37)
[2019-06-07] MEDS: amLODIPine 10 MG TAB PO SCH (08:23)
[2019-06-07] MEDS: PANTOPRAZOLE 40 MG TABLET PO SCH (08:23)
[2019-06-07] MEDS: METOPROLOL TARTRATE 50 MG TAB PO SCH ×2 (08:23→15:37)
[2019-06-07] MEDS: IPRATROPIUM-ALBUTEROL 3 ML NEB INHALATION SCH ×3 (08:53→15:58)
--- NOTE | 2019-06-07 10:00 | P.PN ---
Subjective Progress Note Date: 06/07/19 Principal diagnosis: abdominal pain Patient is a 63-year-old male with a past medical history of daily alcohol intake, colon polyps and bleeding duodenal ulcer in 2013 with no documented outpatient follow-up son who presented to the ER via EMS after he was found lying face down by his in complaining of tingling in his fingers. EMS found that he was hypoxic with O2 sats at 70% and his systolic blood pressure in the low 90s. On arrival to the emergency department he was tachycardic and hypotensive he was given aggressive IV fluid resuscitation. X- ray showed free air under the diaphragm. CT of chest showed no evidence of pulmonary embolism, 1 cm right thyroid nodule, and bibasilar atelectasis versus pneumonia. CT abdomen and pelvis showed large amount of free intraperitoneal air, large amount of ascites, and possibility of a 13 mm mass lesion in the s uperior pole of the right kidney. CT of head and neck at that point in time showed no acute intracranial pathology but cervical degenerative disc disease. He also received 2 units of packed red blood cells repeat found anemic. He was rushed to the operating room where he underwent an exploratory laparotomy with antrectomy and BillRoth 2 gastrojejunostomy. He was admitted to the ICU. He was hypotensive despite IV fluid resuscitation and was started on vasopressors. He was also started on empiric antibiotics with Zosyn and Diflucan secondary to perforated viscus. He had acute renal failure initially which was thought to be secondary to ATN and septic shock which down trended. He was seen by infectious disease and antibiotics were eventually deescalated to cipro and flagyl. He improved well during his hospital stay. US bladder and kidneys demonstrated right renal atrophy and a solid appearing lesion 1.7 CM in the upper pole of the right kidney. He was seen by urology who felt that this appeared more as focal pyelonephritis and not a true mass of the kidney. He did recommend follow-up in the office for urology in several weeks. As he was recovering his renal function again worsened. Renal function worsened again on 06/04 and he underwent kidney biopsy. This resulted in acute blood loss anemia and he received 1 additional unit of pRBC. He was stared on prednisone on 06/04 but his creatinine continued to increase. Patient seen and examined at bedside. No chest pain, shortness of breath, or back pain. Still having some lower extremity edema. No nausea or headaches. Reporting good urine output that is straw-colored. No difficulty with urination. Objective - Vital Signs Vital signs: Vital Signs Temp 98.2 F 06/07/19 07:00 Pulse 89 06/07/19 07:00 Resp 12 06/07/19 07:00 BP 165/77 06/07/19 07:00 Pulse Ox 93 L 06/07/19 08:54 Intake & Output 06/06/19 06/07/19 06/07/19 18:59 06:59 18:59 Intake Total 554 680 Output Total 300 775 Balance 254 -95 Intake: Oral 554 680 Output: Urine 300 775 Other: Voiding Method Urinal # Voids 1 ABP, PAP, CO, CI - Last Documented Arterial Blood Pressure 137/59 - Exam General: non toxic, no distress, appears at stated age Derm: warm, dry Head: atraumatic, normocephalic, symmetric Eyes: EOMI, no lid lag, anicteric sclera Mouth: no lip lesion, mucus membranes moist Cardiovascular: S1S2 reg, no murmur, positive posterior tibial pulse bilateral, Lungs: Decreased breath sounds bilateral, no rhonchi, no rales , no accessory muscle use Ext: no gross muscle atrophy, 2+ edema, no contractures Neuro: CN II-XI grossly intact, no focal neuro deficits Psych: Alert, oriented, appropriate affect - Labs CBC & Chem 7: 06/06/19 06:33 06/07/19 06:22 Labs: Abnormal Lab Results - Last 24 Hours (Table) 06/06/19 06/06/19 06/06/19 Range/Units 11:33 17:05 20:23 Sodium (137-145) mmol/L Carbon Dioxide (22-30) mmol/L BUN (9-20) mg/dL Creatinine (0.66-1.25) mg/dL Glucose (74-99) mg/dL POC Glucose (mg/dL) 213 H 146 H 149 H (75-99) mg/dL Calcium (8.4-10.2) mg/dL 06/07/19 06/07/19 Range/Units 06:22 06:53 Sodium 131 L (137-145) mmol/L Carbon Dioxide 18 L (22-30) mmol/L BUN 72 H (9-20) mg/dL Creatinine 5.89 H (0.66-1.25) mg/dL Glucose 115 H (74-99) mg/dL POC Glucose (mg/dL) 126 H (75-99) mg/dL Calcium 8.3 L (8.4-10.2) mg/dL Assessment and Plan Assessment: Acute renal failure secondary to ATN -Initially prerenal and ATN secondary to septic shock, now with concerns for glomerular nephritis -Renal biopsy on 06/04 results pending -Continue trending creatinine -Low complement, negative MUSA, negative c-ANCA, p-ANCA, double-stranded DNA, hepatitis A, hepatitis B, hepatitis C, urine eosinophils negative - Serum immunofixation demonstrated a lambda paraprotein, no Bence Sauceda protein on urine immunofixation -elevated ESR and CRP but this may be reflective of acute illness -Nephrology recommendations -Off IV fluids -Avoid additional nephrotoxic agents Acute blood loss anemia - needed 1 additional unti of pRBC on 06/05 -Status post 3 units of packed red blood cells - repeat CBC today Metabolic acidosis, worsening -Currently on oral sodium bicarb -Nephrology recommendations Thrombocytosis -Likely reactive -Oncology recommendations appreciated -Continue to trend Renal lesion -Was seen by urology and feels this likely was a complex pyelonephritis and not a true renal mass. -Outpatient urology follow-up Perforated viscus -status post exploratory laparotomy with antrectomy and Billroth II gastrojejunostomy -Management per surgical team -Pain control Peritonitis secondary to perforated viscus -Infectious disease recommendations appreciated. Continue with Cipro and Flagyl. - ID recs Resolved: Septic shock Acute hypoxic respiratory failure Hypertensive urgency Peripheral edema DVT prophylaxis: Heparin Discussed with: Patient, nursing, family Anticipated discharge: 2-[address]: home A total of 35 minutes was spent on the care of this complex patient more than 50% of the time was spent in counseling and care coordination.
[2019-06-07] MEDS ORDERED: ALPRAZolam 0.5 MG TAB PO PRN ×2 (10:03)
[2019-06-07 10:21] LABS: Anisocytosis Slight; HCT 26.8 % (39.0-53.0); HGB 8.3 gm/dL (13.0-17.5); Hypochromasia Marked; MCH 27.5 pg (25.0-35.0); MCV 88.6 fL (80.0-100.0); Mean Platelet Volume 6.8; Platelet Count 929 k/uL (150-450); RBC 3.03 m/uL (4.30-5.90); RDW 18.7 % (11.5-15.5); WBC 12.8 k/uL (3.8-10.6)
[2019-06-07 11:25] LABS: Glucose,Whole Blood 194 mg/dL (75-99)
--- NOTE | 2019-06-07 14:33 | P.DS ---
Providers Date of admission: 05/16/19 01:08 Expected date of discharge: 06/07/19 Attending physician: Pj Lund MD Consults: 05/16/19 01:06 Consult Physician Stat Consulting Provider: Boogie Martines Consult Reason/Comments: perforated hollow viscus Do you want consulting provider notified?: Already Contacted 05/16/19 06:24 Consult Physician Stat Consulting Provider: Eitan Roldan Consult Reason/Comments: ICU managemnt Do you want consulting provider notified?: Already Contacted 05/16/19 06:58 Consult Physician Routine Consulting Provider: Aubrie Foster Consult Reason/Comments: perf peptic ulcer with pus in the abd Do you want consulting provider notified?: Yes 05/24/19 13:14 Consult Physician Routine Consulting Provider: Ly Schaeffer Consult Reason/Comments: PICC insertion, GFR <45 Do you want consulting provider notified?: Yes 05/25/19 11:44 Consult Physician Routine Consulting Provider: Inder North Consult Reason/Comments: right renal lesion Do you want consulting provider notified?: Yes 05/25/19 16:06 Consult Physician Stat Consulting Provider: Kobi Alfonso Consult Reason/Comments: Persistent tachycardia Do you want consulting provider notified?: Yes 06/01/19 13:52 Consult Physician Stat Consulting Provider: Simon Child Consult Reason/Comments: Thrombocytosis Do you want consulting provider notified?: Yes Primary care physician: Paulina Malhotra Hospital Course: Discharge Diagnosis: Acute renal failure secondary to ATN Acute blood loss anemia Metabolic acidosis, related to MUSHTAQ Thrombocytosis Renal lesion Perforated viscus Peritonitis secondary to perforated viscus Septic shock Acute hypoxic respiratory failure Hypertensive urgency Peripheral edema Hospital Course: Patient is a 63-year-old male with a past medical history of daily alcohol intake, colon polyps and bleeding duodenal ulcer in 2013 with no documented outpatient follow-up son who presented to the ER via EMS after he was found lying face down by his in complaining of tingling in his fingers. EMS found that he was hypoxic with O2 sats at 70% and his systolic blood pressure in the low 90s. On arrival to the emergency department he was tachycardic and hypotensive he was given aggressive IV fluid resuscitation. X- ray showed free air under the diaphragm. CT of chest showed no evidence of pulmonary embolism, 1 cm right thyroid nodule, and bibasilar atelectasis versus pneumonia. CT abdomen and pelvis showed large amount of free intraperitoneal air, large amount of ascites, and possibility of a 13 mm mass lesion in the superior pole of the right kidney. CT of head and neck at that point in time showed no acute intracranial pathology but cervical degenerative disc disease. He also received 2 units of packed red blood cells repeat found anemic. He was rushed to the operating room where he underwent an exploratory laparotomy with antrectomy and BillRoth 2 gastrojejunostomy. He was admitted to the ICU. He was hypotensive despite IV fluid resuscitation and was started on vasopressors. He was also started on empiric antibiotics with Zosyn and Diflucan secondary to perforated viscus. He had acute renal failure initially which was thought to be secondary to ATN and septic shock which down trended. He was seen by infectious disease and antibiotics were eventually deescalated to cipro and flagyl. He improved well during his hospital stay. US bladder and kidneys demonstrated right renal atrophy and a solid appearing lesion 1.7 CM in the upper pole of the right kidney. He was seen by urology who felt that this appeared more as focal pyelonephritis and not a true mass of the kidney. He did recommend follow-up in the office for urology in several weeks. As he was recovering his renal function again worsened. Renal function worsened again on 06/04 and he underwent kidney biopsy. This resulted in acute blood loss anemia and he received 1 additional unit of pRBC. He was stared on prednisone on 06/04 but his creatinine continued to increase. On 06/07 his creatinine was stablaized. He will have close outpatient follow-up. He will have a BMP 06/09, 06/11, and 06/11. He will see Dr. Best next week for results of renal biopsy. He will see Dr. Martines in 1 week, Dr. Webster in 2 weeks, and establish with Dr. Malhotra. For physical exam 06/07 see progress note same date. A total of 45 minutes of time were spent preparing this complex discharge summary . Patient Condition at Discharge: Stable Plan - Discharge Summary Discharge Rx Participant: Yes New Discharge Prescriptions: New hydrALAZINE HCL [Apresoline] 50 mg PO TID #90 tab Ciprofloxacin HCl [Cipro] 250 mg PO DAILY #5 tab metroNIDAZOLE [Flagyl] 500 mg PO Q8HR #15 tab Furosemide [Lasix] 40 mg PO DAILY #30 tablet Metoprolol Tartrate [Lopressor] 50 mg PO TID #90 tab amLODIPine [Norvasc] 10 mg PO DAILY #30 tab predniSONE 20 mg PO BID #60 tab Pantoprazole [Protonix] 40 mg PO BID #60 tablet. Sodium Bicarbonate Tab 1,300 mg PO TID #180 tab Acetaminophen Tab [Tylenol] 650 mg PO Q4HR PRN tab PRN Reason: Fever and/ or Mild Pain Discharge Medication List Acetaminophen Tab [Tylenol] 650 mg PO Q4HR PRN tab 06/07/19 [Rx] Ciprofloxacin HCl [Cipro] 250 mg PO DAILY #5 tab 06/07/19 [Rx] Furosemide [Lasix] 40 mg PO DAILY #30 tablet 06/07/19 [Rx] Metoprolol Tartrate [Lopressor] 50 mg PO TID #90 tab 06/07/19 [Rx] Pantoprazole [Protonix] 40 mg PO BID #60 tablet. 06/07/19 [Rx] Sodium Bicarbonate Tab 1,300 mg PO TID #180 tab 06/07/19 [Rx] amLODIPine [Norvasc] 10 mg PO DAILY #30 tab 06/07/19 [Rx] hydrALAZINE HCL [Apresoline] 50 mg PO TID #90 tab 06/07/19 [Rx] metroNIDAZOLE [Flagyl] 500 mg PO Q8HR #15 tab 06/07/19 [Rx] predniSONE 20 mg PO BID #60 tab 06/07/19 [Rx] Follow up Appointment(s)/Referral(s): Kobi Alfonso MD [STAFF PHYSICIAN] - 2 Weeks Paulina Malhotra DO [Primary Care Provider] - 1-2 Days Feliciano Best DO [STAFF PHYSICIAN] - 1 Week Ambulatory/Diagnostic Orders: Basic Metabolic Panel [LAB.AMB] Time Frame: 06/09/19, Location: None Selected Basic Metabolic Panel [LAB.AMB] Time Frame: 06/11/19, Location: None Selected Basic Metabolic Panel [LAB.AMB] Time Frame: 06/14/19, Location: None Selected Activity/Diet/Wound Care/Special Instructions: Activity: as tolerated Diet: Low fiber diet, consistent Special Instructions: Have blood work done on 06/09, 06/11, and 06/14 Call if you gain more than 3 pounds in 1 day or more than 5 pounds in 3 days Call: -if start peeing less often, or smaller amounts. -increased confusion -sleeping more -urine become cloudy or dark
--- NOTE | 2019-06-07 14:34 | P.PN ---
Subjective Patient is seen in follow-up for acute kidney injury. Renal function continues to worsen but is fairly stable compared to yesterday. No clear cause but there is concern for underlying GN versus septic ATN. He underwent kidney biopsy on June 04. He has been voiding. He is tolerating oral intake. He has been ambulating. Denies chest pain or shortness of breath. Having daily bowel movements. Creatinine 5.89 today. Vital signs are stable. General: The patient appeared well nourished and normally developed. HEENT: Head exam is unremarkable. Neck is without jugular venous distension. LUNGS: Lungs are clear to auscultation and percussion. Breath sounds decreased. HEART: Rate and Rhythm are regular. First and second heart sounds normal. No murmurs, rubs or gallops. ABDOMEN: Bowel sounds decreased. EXTREMITITES: 1+ edema. Objective - Vital Signs Vital signs: Vital Signs Temp 98.2 F 06/07/19 07:00 Pulse 89 06/07/19 07:00 Resp 12 06/07/19 07:00 BP 165/77 06/07/19 07:00 Pulse Ox 93 L 06/07/19 08:54 Intake & Output 06/06/19 06/07/19 06/07/19 18:59 06:59 18:59 Intake Total 554 680 Output Total 300 775 Balance 254 -95 Intake: Oral 554 680 Output: Urine 300 775 Other: Voiding Method Urinal Toilet # Voids 1 2 ABP, PAP, CO, CI - Last Documented Arterial Blood Pressure 137/59 - Labs CBC & Chem 7: 06/07/19 06:22 06/07/19 06:22 Labs: Abnormal Lab Results - Last 24 Hours (Table) 06/06/19 06/06/19 06/07/19 Range/Units 17:05 20:23 06:22 WBC (3.8-10.6) k/uL RBC (4.30-5.90) m/uL Hgb (13.0-17.5) gm/dL Hct (39.0-53.0) % RDW (11.5-15.5) % Plt Count (150-450) k/uL Sodium 131 L (137-145) mmol/L Carbon Dioxide 18 L (22-30) mmol/L BUN 72 H (9-20) mg/dL Creatinine 5.89 H (0.66-1.25) mg/dL Glucose 115 H (74-99) mg/dL POC Glucose (mg/dL) 146 H 149 H (75-99) mg/dL Calcium 8.3 L (8.4-10.2) mg/dL 06/07/19 06/07/19 06/07/19 Range/Units 06:22 06:53 11:23 WBC 12.8 H (3.8-10.6) k/uL RBC 3.03 L (4.30-5.90) m/uL Hgb 8.3 L (13.0-17.5) gm/dL Hct 26.8 L (39.0-53.0) % RDW 18.7 H (11.5-15.5) % Plt Count 929 H (150-450) k/uL Sodium (137-145) mmol/L Carbon Dioxide (22-30) mmol/L BUN (9-20) mg/dL Creatinine (0.66-1.25) mg/dL Glucose (74-99) mg/dL POC Glucose (mg/dL) 126 H 194 H (75-99) mg/dL Calcium (8.4-10.2) mg/dL Assessment and Plan Plan: Assessment: 1. Acute kidney injury secondary to ATN secondary to septic shock. Creatinine was 6 on admission and did improve. However the last few days his renal function has been worsening. Creatinine 5.89 today. Creatinine was 0.68 in June 2014. No other records available. No hydronephrosis noted on imaging. 1+ proteinuria on UA. Rule out ALLERGIC interstitial nephritis due to antibiotics - urine eosinophils negative. UPC 1.6 g. All complements noted to be low. Rest of the serologies negative. 2. Perforated duodenal ulcer status post laparotomy with antrectomy on 05/16/2019. Maintained on antibiotics. Infectious disease following. 3. Metabolic acidosis secondary to acute kidney injury and IV fluids. Maintained on oral sodium bicarbonate. Stable. 4. Hypokalemia status post placement. Better. 5. Hypocalcemia secondary to hypoalbuminemia. Improved. 6. Right renal atrophy. 7. Right kidney lesion. Urology following. 8. Benign hypertension. Stable. 9. Lower extremity edema. Better. Status post IV Lasix yesterday. 10. Thrombocytosis. ? Reactive. Trending down. 11. Acute blood loss anemia status post blood transfusion June 05. Hemoglobin 8.3 today. Plan: Remains off IV fluids. Oral intake is good. Start oral Lasix 40 mg every other day. Await kidney biopsy results. Maintain prednisone for now. Started May 26. No urgent need for renal replacement therapy at this time. Potential discharge home today. Repeat BMP 2-3 days postdischarge. Follow up outpatient within the next 1 week.
[2019-06-07 14:54] VITALS: BP 143/85; PULSE 84; RESP 16
--- NOTE | 2019-06-07 16:05 | PN ---
PROGRESS NOTE DATE OF SERVICE: 06/07/2019 REASON FOR FOLLOWUP: Secondary peritonitis from perforated peptic ulcer disease. INTERVAL HISTORY: The patient is currently afebrile. The patient has been breathing comfortably. The patient denies having any chest pain or cough. No nausea or vomiting. No abdominal pain or any diarrhea. PHYSICAL EXAMINATION: Blood pressure is 165/77 with a pulse rate of 89, temperature 98.2. He is 93% on 2 L nasal cannula. General description is a middle-aged male up in the chair in no distress. RESPIRATORY SYSTEM: Unlabored breathing with decreased breath sounds at the base. No wheeze. HEART: S1, S2. Regular rate and rhythm. ABDOMEN: Soft. No tenderness. LABS: Hemoglobin 8.3, white count 12.8. BUN of 72, creatinine 5.89. DIAGNOSTIC IMPRESSION AND PLAN: Patient with secondary peritonitis from perforated peptic ulcer disease, status post repair. Underlying infection has been adequately treated. He also seemed to have a problem with renal failure, for which the patient is being monitored closely by Nephrology. Plan will be a short course of oral Cipro and Flagyl on discharge. Continue with supportive care. MMODL / IJN: [id number] /
== END 2019-06-07 16:32 | disposition home or self-care (01) | DRG 326 ==
LOC: EC 23:08 → 2SICU 05-16 01:08 → 4SSUR 05-30 09:00
PROVIDERS: ADMIT Internal Medicine; ATTEND Internal Medicine
PROC: 30233N1 Transfusion of Nonautologous Red Blood Cells into Peripheral Vein, Percutaneous Approach (ICD-10-PCS; 2019-05-16)
PROC: 02H633Z Insertion of Infusion Device into Right Atrium, Percutaneous Approach (ICD-10-PCS; 2019-05-16)
PROC: 0D160ZA Bypass Stomach to Jejunum, Open Approach (ICD-10-PCS; principal; 2019-05-16 02:30)
PROC: 0DB90ZZ Excision of Duodenum, Open Approach (ICD-10-PCS; principal; 2019-05-16 02:30)
PROC: 02HV33Z Insertion of Infusion Device into Superior Vena Cava, Percutaneous Approach (ICD-10-PCS; 2019-05-24)
DX: K26.6 Chronic or unspecified duodenal ulcer with both hemorrhage and perforation (principal); J96.01 Acute respiratory failure with hypoxia; N17.0 Acute kidney failure with tubular necrosis; R65.21 Severe sepsis with septic shock; R57.1 Hypovolemic shock; A41.9 Sepsis, unspecified organism; K65.9 Peritonitis, unspecified; D62 Acute posthemorrhagic anemia; E87.1 Hypo-osmolality and hyponatremia; E87.2 Acidosis; J90 Pleural effusion, not elsewhere classified; J98.11 Atelectasis; K56.7 Ileus, unspecified; N12 Tubulo-interstitial nephritis, not specified as acute or chronic; R18.8 Other ascites; D47.3 Essential (hemorrhagic) thrombocythemia; E04.1 Nontoxic single thyroid nodule; E83.42 Hypomagnesemia; E83.51 Hypocalcemia; E87.5 Hyperkalemia; E87.6 Hypokalemia; E87.70 Fluid overload, unspecified; E88.09 Other disorders of plasma-protein metabolism, not elsewhere classified; F10.20 Alcohol dependence, uncomplicated; F17.200 Nicotine dependence, unspecified, uncomplicated; G89.29 Other chronic pain; I16.0 Hypertensive urgency; I27.20 Pulmonary hypertension, unspecified; I45.10 Unspecified right bundle-branch block; K52.9 Noninfective gastroenteritis and colitis, unspecified; M50.30 Other cervical disc degeneration, unspecified cervical region; I12.9 Hypertensive chronic kidney disease with stage 1 through stage 4 chronic kidney disease, or unspecified chronic kidney disease; N18.9 Chronic kidney disease, unspecified; N28.1 Cyst of kidney, acquired; N28.89 Other specified disorders of kidney and ureter; Z79.899 Other long term (current) drug therapy; Z80.1 Family history of malignant neoplasm of trachea, bronchus and lung; Z86.19 Personal history of other infectious and parasitic diseases; Z87.19 Personal history of other diseases of the digestive system; Z91.19 Patient's noncompliance with other medical treatment and regimen; B96.1 Klebsiella pneumoniae [K. pneumoniae] as the cause of diseases classified elsewhere; R00.0 Tachycardia, unspecified
CPT/HCPCS: 36410; 36415; 36430; 36556; 36573; 70450; 71045; 71275; 72125; 74018; 74176; 74177; 76604; 76770; 76937; 77012; 80048; 80053; 80074; 80320; 81001; 81270; 82272; 82330; 82533; 82550; 82570; 82728; 82803; 82805; 83540; 83550; 83605; 83615; 83735; 84100; 84132; 84145; 84156; 84165; 84439; 84443; 84478; 84484; 85025; 85027; 85610; 85652; 85730; 86038; 86140; 86160; 86162; 86225; 86255; 86334; 86335; 86850; 86900; 86901; 86920; 87040; 87070; 87075; 87077; 87086; 87186; 87205; 88307; 88342; 93005; 93306; 94002; 94003; 94640; 94660; 94760; 96361; 96365; 96375; 99291; 99292